=== PATIENT | female | born 1935 | race Caucasian/White ===

== ENCOUNTER 2017-04-25 14:00 | Inpatient (IN) | payer OTHER ==
[~2017-04-25] VITALS: Ht 160 cm; Wt 68.6 kg
[~2017-04-25 14:00] MED LIST: ALBUTEROL SULF0.5 ML INH; ALDACTONE25 MG PO; AMOXIL 875 MG875 MG PO; CARLSON VITAM2000 IU PO; CITALOPRAM HBR20 MG PO; COZAAR 50MG TAB50 MG PO; IPRATROPIU0.2 MG/1 M INH/SOL; LASIX20 MG PO; LISINOPRIL10 MG PO; LOPRESSOR50 M1 PO; PREDNISONE 20MG20 MG PO; PRINIVIL20 M1 PO; PROAIR HFA8.5 GM INH; ZOCOR40 M1 PO
--- NOTE | 2017-04-25 14:06 | ED CRITICAL CARE ---
History of Present Illness General Chief Complaint: Dyspnea (COPD, CHF, Other) Stated Complaint: BIBA FOR RESPIRATORY DISTRESS Source: patient, EMS Exam Limitations: clinical condition Vital Signs & Intake/Output Vital Signs & Intake/Output Vital Signs Date Time Temp Pulse Resp B/P B/P Pulse O2 O2 Flow FiO2 Mean Ox Delivery Rate 04/25 2230 97.7 84 18 130/60 98 Nasal 6.0L Cannula 04/25 2034 Nasal 6.0L Cannula 04/25 2019 97.5 87 20 136/58 96 Nasal 8L Cannula 04/25 1955 98.2 88 26 172/86 97 Nasal 8L Cannula 04/25 1717 96 24 180/90 97 Nasal 8L Cannula 04/25 1630 89 100 04/25 1607 97.7 79 20 143/64 100 BIPAP 75% 04/25 1454 94 BIPAP 04/25 1453 84 26 104/57 94 BIPAP 04/25 1427 81 26 116/54 96 BIPAP 04/25 1425 87 95 04/25 1424 95 BIPAP 70% 04/25 1416 96.2 85 26 114/70 95 BIPAP 04/25 1400 88 26 134/78 82 CPAP Allergies Coded Allergies: Sulfa (Sulfonamide Antibiotics) (Intermediate, "ITCHY" - MED LIST FROM MD OFFICE SAYS POSION EDWIGE LIKE RASH 12/25/15) Reconcile Medications Albuterol Sulfate (Proair Hfa) 90 MCG HFA.AER.AD 2 PUF INH Q4-6 PRN PRN SHORTNESS OF BREATH (Reported) Albuterol Sulfate 2.5 MG/3 ML (0.083 %) VIAL.NEB 1 Vial INH/CARL TID BREATHING PROBLEMS (Reported) Citalopram Hydrobromide (Citalopram HBr) 20 MG TABLET 1 TAB PO DAILY MENTAL HEALTH (Reported) Furosemide 20 MG TABLET 1 TAB PO DAILY WATER RETENTION (Reported) Ipratropium [place] 0.2 MG/ML (0.02 %) SOLUTION 1 Vial INH/CARL BID BREATHING PROBLEMS (Reported) Lisinopril (Prinivil) 20 MG TABLET 1 TAB PO DAILY BP (Reported) Losartan Potassium (Cozaar) 50 MG TABLET 1 TAB PO DAILY HEART (Reported) Metoprolol Tartrate (Lopressor) 50 MG TABLET 1 TAB PO BID BP (Reported) Simvastatin (Zocor*) 40 MG TABLET 1 TAB PO DAILY CHOLESTEROL (Reported) Spironolactone (Aldactone) 25 MG TABLET 1 TAB PO DAILY HEART FAILURE ( Reported) Triage Nurses Notes Reviewed? yes Onset: Abrupt Duration: minute(s): (30) Timing: single episode today Injury Environment: community hospital Severity: severe Associated Symptoms: DIAPHORETIC, SHORT OF BREATH HPI: 81 year old female presents to the ER via EMS from [facility] for chief complaint of sudden onset shortness of breath after non contrast abd/pelvis CT. She was sitting in the waiting room when she suddenly became distressed. EMS reports she was pale, diaphoretic. SHe was given IV steroids and a duoneb en route and then started to tire out. They then started BIPAP. History of CHF and COPD. Past History Travel History Traveled to [facility] past 21 day No Medical History Any Pertinent Medical History? 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 MOTHER (heart failure). FATHER (Diabetes). Hx Contributory? No Review of Systems Review of Systems Constitutional: Denies: chills, fever. Eyes: Denies: blurred vision. Ears, Nose, Throat, Mouth: Reports: no symptoms. Respiratory: Reports: short of breath. Cardiovascular: Denies: chest pain, palpitations. Gastrointestinal/Abdominal: Denies: abdominal pain. Genitourinary: Reports: no symptoms. Musculoskeletal: Denies: back pain. Skin: Reports: no symptoms. Neurological/Psychological: Reports: anxiety, confusion. All Other Systems: Reviewed and Negative Physical Exam Physical Exam General Appearance: lethargic, severe distress Head: atraumatic Eyes: Bilateral: PERRL. Neck: normal inspection, supple, full range of motion Respiratory: decreased breath sounds, respiratory distress Cardiovascular: regular rate/rhythm Peripheral Pulses: 1+ radial (R), 1+ radial (L) Gastrointestinal: soft, non-tender Extremities: EDEMA LEFT LEG Neurologic/Psych: ANXIOUS, LETHARGIC, DIAPHORETIC Skin: intact, normal color, warm/dry Core Measures ACS in differential dx? Yes ASA ordered for poss ACS? No-ACS ruled out CVA/TIA Diagnosis: No Severe Sepsis Present: No Septic Shock Present: No Progress Differential Diagnoses I considered the following diagnoses in my evaluation of the patient: [PNEUMONIA , CHF, PE, COPD EXACERBATION] Plan of Care: Orders Procedure Date/time Status Heart Healthy Diet 04/26 B Active TROPONIN LEVEL 04/26 0600 Active CBC WITHOUT DIFFERENTIAL 04/26 0600 Active BASIC ELECTROLYTES PLUS BUN&CR 04/26 0600 Active EKG 04/26 0600 Active TROPONIN LEVEL 04/25 2100 Active EKG 04/25 2100 Active STREP PNEUMO URINARY ANTIGEN 04/25 2037 Active LEGIONELLA URINARY ANTIGEN 04/25 2037 Active LOWER RESPIRATORY CULTURE 04/25 2037 Active BLOOD CULTURE 04/25 2037 Active URINALYSIS 04/25 2037 Active Vital Signs 04/25 2032 Active Teach/Educate 04/25 2032 Active Pain Treatment and Response 04/25 2032 Active Nutritional Intake, Monitor 04/25 2032 Active Isolation 04/25 2032 Active Intake & Output 04/25 2032 Active Patient Care Conference 04/25 2032 Active Activity/Ambulation 04/25 2032 Active Pathway - chart 04/25 192 Active House Staff 04/25 1923 Active Patient Data 04/25 1923 Active Code Status 04/25 1923 Active Patient Data 04/25 1856 Active ED Holding Orders 04/25 1803 Active Admit to inpatient 04/25 1803 Active Vital Signs 04/25 1803 Active Code Status 04/25 1803 Complete BIPAP 04/25 1500 Complete COMPREHENSIVE METABOLIC PANEL 04/25 1433 Complete ARTERIAL BLOOD GAS (GEN) 04/25 1422 Complete Intake & Output 04/25 1414 Active BIPAP 04/25 1410 Complete TROPONIN LEVEL 04/25 1409 Complete PARTIAL THROMBOPLASTIN TIME 04/25 1409 Complete PROTHROMBIN TIME 04/25 1409 Complete D-DIMER 04/25 1409 Complete B-TYPE NATRIURETIC PEP (BNP) 04/25 1409 Complete CBC WITHOUT DIFFERENTIAL 04/25 1405 Complete EKG 04/25 1402 Active TRC EVALUATION (GEN) 04/25 UNK Active Weight 04/25 UNK Active VTE Mechanical Prophylaxis 04/25 UNK Active Telemetry/Wood Floor Refinisher 04/25 UNK Active Intake & Output 04/25 UNK Active ECHOCARDIOGRAM 04/25 UNK Active Current Medications Sig/Dom Start time Last Medication Dose Stop Time Status Admin Atorvastatin Calcium 40 MG 1700 04/26 1700 AC (Lipitor) Citalopram 20 MG DAILY 04/26 1000 AC Hydrobromide (Celexa) Spironolactone 25 MG DAILY 04/26 1000 AC (Aldactone) Albuterol Sulfate 3 ML TID 04/25 220 AC (Proventil) Ipratropium [place] 2.5 ML BID 04/25 2200 AC (Atrovent) Methylprednisolone 40 MG Q8 04/25 2200 AC (Solumedrol) Metoprolol Tartrate 50 MG BID 04/25 2200 AC (Lopressor) Albuterol Sulfate 2 PUF Q4-6 PRN PRN 04/25 2145 AC (Ventolin) Losartan Potassium 50 MG DAILY 04/25 2140 AC (Cozaar) Lisinopril 20 MG DAILY 04/25 2139 AC (Prinivil) Acetaminophen 325 MG Q6 PRN 04/25 193 AC 04/25 (Tylenol) 2053 Acetaminophen 1,000 MG Q6 PRN 04/25 1930 AC (Ofirmev) Enoxaparin Sodium 40 MG DAILY 04/25 1922 AC 04/25 (Lovenox) 194 Laboratory Tests 04/25/175: Troponin I Pending 04/25/17 1440: pH 7.40, pCO2 39, pO2 63 L, HCO3 24, ABG O2 Sat (Measured) 93.0 L, P-50 (Temp Corrected) YES, Carboxyhemoglobin 0.5 L, O2 Concentration % 70%, Temperature 96.2 L, Respiration Rate 26, O2 Delivery Method BIPAP, Vent Mode ST, Expiratory Pressure 6, Inspiratory Pressure 26, Phlebotomy Draw Site RIGHT BRACHIAL 04/25/17 1433: Anion Gap 14, Estimated GFR 53 L, BUN/Creatinine Ratio 16.0, Glucose 189 H, Calcium 9.3, Total Bilirubin 0.8, AST 26, ALT 29, Alkaline Phosphatase 132 H, Troponin I 0.05, Thu-Q-Rkpsieaodgb Pept 438 H, Total Protein 7.1, Albumin 4.4, Globulin 2.7, Albumin/Globulin Ratio 1.6, PT 11.5, INR 1.10, APTT 24 L, D-Dimer High Sensitivty 3964 H, CBC w Diff NO MAN DIFF REQ, RBC 4.53, MCV 94.5, MCH 31.4 H, RDW 13.1, MPV 7.4, Gran % 68.8, Lymphocytes % 24.1, Monocytes % 5.9, Eosinophils % 0.9, Basophils % 0.3, Absolute Granulocytes 5.3, Absolute Lymphocytes 1.9, Absolute Monocytes 0.5, Absolute Eosinophils 0.1, Absolute Basophils 0, PUBS MCHC 33.2 04/25/17 1405: Sodium Cancelled, Potassium Cancelled, Chloride Cancelled, Carbon Dioxide Cancelled, Anion Gap Cancelled, BUN Cancelled, Creatinine Cancelled, BUN/ Creatinine Ratio Cancelled, Glucose Cancelled, Calcium Cancelled, Total Bilirubin Cancelled, AST Cancelled, ALT Cancelled, Alkaline Phosphatase Cancelled, Total Protein Cancelled, Albumin Cancelled, Globulin Cancelled, Albumin/Globulin Ratio Cancelled Microbiology 04/25 2152 BLOOD: Blood Culture - RECD 04/25 2135 BLOOD: Blood Culture - RECD 04/25 2037 URINE ROUT: Legionella Antigen - ORD 04/25 2037 URINE ROUT: Streptococcus pneumoniae Antigen (M - ORD 04/25 2037 LOWER RESP: Respiratory Culture - ORD 04/25 2037 LOWER RESP: Gram Stain - ORD Diagnostic Imaging: Viewed by Me: CT Scan. Discussed w/RAD: CT Scan. Radiology Impression: PATIENT: DELVIS ARROYO PRESENT AGE: 81 PATIENT ACCOUNT NO: [id number] : 37 LOCATION: [facility] ORDERING PHYSICIAN: GRZEGORZ DUQUE MD SERVICE DATE: 04/25/17 EXAM TYPE: CAT - CTA CHEST-PULMONARY EMBOLISM EXAMINATION: CT ANGIOGRAM OF THE CHEST WITH AND WITHOUT CONTRAST (CT PULMONARY ANGIOGRAM FOR PE) CLINICAL INFORMATION: Signs Symptoms: RESPIRATORY DISTRESS, ? PE COMPARISON: CT abdomen pelvis 04/25/2017. Renal ultrasound 04/26/2017. TECHNIQUE: Prior to contrast administration, noncontrast localization images were obtained. Subsequently, multidetector volumetric imaging was performed from the thoracic inlet to below the diaphragms following the administration of 80 mL Omnipaque 350 intravenous contrast. No contrast reaction reported. Sagittal, coronal, and MIP oblique sagittal reformatted images were obtained on the CT workstation, uploaded to PACS, and reviewed. Total exam dose-length product 448.06 mGy-cm. FINDINGS: QUALITY OF STUDY/CONTRAST BOLUS: Satisfactory PULMONARY ARTERIES: No central or segmental pulmonary emboli. THORACIC AORTA: Atherosclerotic vascular wall calcifications of aorta. No aneurysm. There is calcification of coronary arteries. LUNG: Emphysematous changes of lungs most pronounced at upper lobes. There is diffuse increased interstitial thickening most likely due to interstitial edema. This is more pronounced in the left lung than the right. There is bibasilar consolidation/atelectasis. PLEURA: Small left pleural effusion. MEDIASTINUM: Normal heart size. No pericardial effusion. No hilar or mediastinal lymphadenopathy. No evidence of septal bowing or right heart strain. CHEST WALL/ AXILLA: No axillary or internal mammary lymphadenopathy. OSSEOUS STRUCTURES: No acute or suspicious osseous abnormality. UPPER ABDOMEN: Unremarkable. No reflux of contrast into the hepatic veins to suggest elevated right heart pressures. Calcified granuloma in the upper spleen. There are bilateral renal cysts. IMPRESSION: 1. No evidence of pulmonary embolism. 2. Emphysematous changes of lung. Interstitial edema, involving left lung greater than right with bibasilar dependent atelectasis/infiltrate and small left pleural effusion. VTE: negative DICTATED BY: DELMAR BRYSON MD DATE/TIME DICTATED:04/25/171722 BOBCAT OPERATOR :AMANDA DATE/TIME TRANSCRIBED:04/25/171722 CONFIDENTIAL, DO NOT COPY WITHOUT APPROPRIATE AUTHORIZATION. <Electronically signed in Other Vendor System> SIGNED BY: DELMAR BRYSON MD 04/25/17 6635 CXR Impression: PATIENT: DELVIS ARROYO PRESENT AGE: 81 PATIENT ACCOUNT NO: [id number] : 37 LOCATION: [facility] ORDERING PHYSICIAN: GRZEGORZ DUQUE MD SERVICE DATE: 04/25/17-0039 EXAM TYPE: RAD - XRY -PORTABLE CHEST XRAY EXAMINATION: XR PORTABLE CHEST CLINICAL INFORMATION: Respiratory distress. COMPARISON: 12/25/2015. 08/26/2015. TECHNIQUE: Portable AP view of the chest was obtained. FINDINGS: The heart does not appear significantly enlarged. There is a mild diffuse increase in interstitial markings asymmetrically involving the majority of the left lung field with a focus of discoid atelectasis in the mid to lower left lung field laterally and no evidence of underlying effusion. Right lung and pleural spaces appear clear. There is no evidence of pneumothorax. Included osseous structures appear largely unremarkable. IMPRESSION: Fairly diffuse increase in interstitial markings throughout the left lung suggesting an evolving atypical pneumonia, asymmetric pulmonary edema and neoplasm not excluded. Clinical correlation and followup imaging to clearing recommended. DICTATED BY: ARTURO JEFFERSON MD DATE/TIME DICTATED:04/25/171420 BOBCAT OPERATOR:AMANDA DATE/TIME TRANSCRIBED:1420 CONFIDENTIAL, DO NOT COPY WITHOUT APPROPRIATE AUTHORIZATION. < Electronically signed in Other Vendor System> SIGNED BY: ARTURO JEFFERSON MD 04/25/17 1448 Initial ED EKG: nonspecific ST T wave chg, SINUS TACHYCARDIA Rhythm Strip: normal sinus rhythm Departure Departure Time of Disposition: 1802 Disposition: STILL A PATIENT Condition: Stable Clinical Impression Primary Impression: CHF (congestive heart failure) Referrals: PANCHITO CADENA MD (PCP/Family) Departure Forms: Customer Survey General Discharge Information Admission Note Spoke With: RENAE ROTHMAN MD Documentation of Exam: Documentation of any treatments & extenuating circumstances including Concerns Regarding Discharge (functional status, medication knowledge or non-compliance, living conditions, etc.) that warrant an admission rather than observation: [ tele monitor, serial EKG/troponin, diuresis, cardiology consultation, echocardiogram] Critical Care Note Critical Care Note Critical Care Time: 30-74 min
[2017-04-25] MEDS ORDERED: FUROSEMIDE20 M1 PO (14:14)
[2017-04-25] MEDS ORDERED: COZAAR50 M1 PO (14:16)
[2017-04-25] MEDS ORDERED: ALBUTEROL2.5 MG/3 M INH/SOL (14:19)
--- NOTE | 2017-04-25 14:19 | NUR ---
PT NAT FROM [facility] FOR ACUTE ONSET OF SOB, ON EMS ARRIVAL PT WAS FOUND TO BE TACHYAPNEIC AT 40 AND 02 SAT ON NRB AT 92%, PER EMS PT BEGAN TO DESAT AND BECOME LESS RESPONSIVE SO WAS PLACED ON CPAP, MEDICATED WITH 125MG SOLUMEDROL AND INLINE DUO NEB SOME MINIMAL RELIEF. PT DROWSY AND LETHARGIC ON ARRIVAL TO ED, DR DUQUE IMMEDIATELY TO BEDSIDE, PLACED ON BIPAP.
[2017-04-25 14:43] LABS: ABSOLUTE BASOPHIL COUNT 0 /CUMM (0.0-0.2); ABSOLUTE EOSINOPHIL COUNT 0.1 /CUMM (0.0-0.7); ABSOLUTE GRANULOCYTE CT 5.3 /CUMM (1.4-6.5); ABSOLUTE LYMPH COUNT 1.9 /CUMM (1.2-3.4); ABSOLUTE MONOCYTE COUNT 0.5 /CUMM (0.10-0.60); BASOPHIL % 0.3 % (0.0-2.0); EOSINOPHIL % 0.9 % (0-5); GRANULOCYTE % 68.8 % (42.2-75.2); HEMATOCRIT 42.8 % (37-47); MEAN CORPUSCULAR HGB 31.4 PG (27.0-31.0); MEAN CORPUSCULAR HGB CONC 33.2 G/DL (33.0-37.0); MEAN CORPUSCULAR VOLUME 94.5 FL (81.0-99.0); MEAN PLATELET VOLUME 7.4 FL (7.4-10.4); PLATELET COUNT 321 /CUMM (130-400); RBC DISTRIBUTION WIDTH 13.1 % (11.5-14.5); RED BLOOD CELL CT 4.53 /CUMM (4.20-5.40); WHITE BLOOD CELL COUNT 7.7 /CUMM (4.8-10.8)
--- NOTE | 2017-04-25 14:48 | RADIOLOGY REPORT ---
EXAMINATION: XR PORTABLE CHEST CLINICAL INFORMATION: Respiratory distress. COMPARISON: 12/25/2015. 08/26/2015. TECHNIQUE: Portable AP view of the chest was obtained. FINDINGS: The heart does not appear significantly enlarged. There is a mild diffuse increase in interstitial markings asymmetrically involving the majority of the left lung field with a focus of discoid atelectasis in the mid to lower left lung field laterally and no evidence of underlying effusion. Right lung and pleural spaces appear clear. There is no evidence of pneumothorax. Included osseous structures appear largely unremarkable. IMPRESSION: Fairly diffuse increase in interstitial markings throughout the left lung suggesting an evolving atypical pneumonia, asymmetric pulmonary edema and neoplasm not excluded. Clinical correlation and followup imaging to clearing recommended.
[2017-04-25 15:01] LABS: PT 11.5 SEC (9.4-12.5); PTT 24 SEC (25-37)
--- NOTE | 2017-04-25 15:12 | NUR ---
REPORT HANDED OFF TO JOSE LUIS PORTER.
--- NOTE | 2017-04-25 16:03 | NUR ---
RESPIRATORY PAGED FOR RE-EVAL AND TRIAL OFF BIPAP PER DR DUQUE.
--- NOTE | 2017-04-25 16:24 | NUR ---
RESP THERAPIST AT BEDSIDE, CHANGED TO PARTIAL REBREATHER AT 60% O2, O2 SATS 98% AT THIS TIME, SIPS OF ICE WATER GIVEN FOR C/O "DRY MOUTH", TOLERATED WELL, SWALLOWED WITHOUT DIFFICULTY.
--- NOTE | 2017-04-25 17:20 | NUR ---
CHEST CT DONE, TOLERATED WELL, VITALS REMAIN STABLE, O2 SATS 95-97% ON 8L NC AT THIS TIME, PT ON PHONE WITH SON AT PRESENT, REMAINS AWAKE, ALERT, ORIENTED.
--- NOTE | 2017-04-25 17:42 | CT SCAN REPORT ---
EXAMINATION: CT ANGIOGRAM OF THE CHEST WITH AND WITHOUT CONTRAST (CT PULMONARY ANGIOGRAM FOR PE) CLINICAL INFORMATION: Signs Symptoms: RESPIRATORY DISTRESS, ? PE COMPARISON: CT abdomen pelvis 04/25/2017. Renal ultrasound 04/26/2017. TECHNIQUE: Prior to contrast administration, noncontrast localization images were obtained. Subsequently, multidetector volumetric imaging was performed from the thoracic inlet to below the diaphragms following the administration of 80 mL Omnipaque 350 intravenous contrast. No contrast reaction reported. Sagittal, coronal, and MIP oblique sagittal reformatted images were obtained on the CT workstation, uploaded to PACS, and reviewed. Total exam dose-length product 448.06 mGy-cm. FINDINGS: QUALITY OF STUDY/CONTRAST BOLUS: Satisfactory PULMONARY ARTERIES: No central or segmental pulmonary emboli. THORACIC AORTA: Atherosclerotic vascular wall calcifications of aorta. No aneurysm. There is calcification of coronary arteries. LUNG: Emphysematous changes of lungs most pronounced at upper lobes. There is diffuse increased interstitial thickening most likely due to interstitial edema. This is more pronounced in the left lung than the right. There is bibasilar consolidation/atelectasis. PLEURA: Small left pleural effusion. MEDIASTINUM: Normal heart size. No pericardial effusion. No hilar or mediastinal lymphadenopathy. No evidence of septal bowing or right heart strain. CHEST WALL/AXILLA: No axillary or internal mammary lymphadenopathy. OSSEOUS STRUCTURES: No acute or suspicious osseous abnormality. UPPER ABDOMEN: Unremarkable. No reflux of contrast into the hepatic veins to suggest elevated right heart pressures. Calcified granuloma in the upper spleen. There are bilateral renal cysts. IMPRESSION: 1. No evidence of pulmonary embolism. 2. Emphysematous changes of lung. Interstitial edema, involving left lung greater than right with bibasilar dependent atelectasis/infiltrate and small left pleural effusion. VTE: negative
--- NOTE | 2017-04-25 19:30 | NUR ---
ASSUMED PRIMARY CARE PT OOB TO BEDSIDE COMMODE, YUMIKO WELL NO INCREASED SOB. ALERT WAITING FOR BED ASSIGNMENT. LUNGS OCCAS RHONCHI BUT EASSENTIALLY CLEAR NO CP AT THIS TIME.
--- NOTE | 2017-04-25 19:42 | NUR ---
REPORT TO RAQUEL RUEDA AT [facility]
--- NOTE | 2017-04-25 19:49 | History & Physical ---
ZAKI BRAR 04/25/17 194: General Information and HPI MD Statement: I have seen and personally examined DELVIS ARROYO and documented this H&P. The patient is a 81 year old F who presented with a patient stated chief complaint of [ tachynea and dyspnea]. 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 Patient was at [facility] to get a CAT scan(unable to tell exact details) when she suddenly started feeling short of breath and was found to be tachypneic at 40s and oxygen saturation in low 90s. As per the EMS records, patient became started desaturating en route to the hospital and was placed on CPAP. She received 125 mg Solu-Medrol and nebulizer treatment with minimal relief. She was found to be lethargic on arrival to the ED and was started on a BiPAP. Patient reports she does not know what exactly happened and why she desaturated. She complains of shortness of breath along with chills but denies any chest pain, nausea, dizziness, abdominal pain, urinary or bowel symptoms. She has history of COPD and uses a CPAP at home. She reports she was perfectly fine in the morning today until she started having the shortness of breath. Idris Cadena MD is a PCP. She was a known smoker for 50 years, 3 packs per day. In the ED vitals, temperature of 96.2, pulse 88, respiration 26, blood pressure 134/78 saturating 82% on the CPAP, improved to 95% on BiPAP. Labs were normal except glucose 189, pro BNP 438, d-dimer 3964. AB.40/39/63/24 Chest x-ray showed increased interstitial markings throughout the left lung suggesting evolving atypical pneumonia. CTA negative for PE, emphysematous changes of the lungs, interstitial edema and bibasilar atelectasis/infiltrate and small left pleural effusion. Last echo in 2014 showed EF of 40-45% with mild decreased systolic function and no wall motion abnormality. Patient received 40 Lasix and neb treatment in the ED and was placed on BiPAP. Allergies/Medications Allergies: Coded Allergies: Sulfa (Sulfonamide Antibiotics) (Intermediate, "ITCHY" - MED LIST FROM MD OFFICE SAYS TERESA GIBBONS LIKE RASH 12/25/15) Home Med list Albuterol Sulfate (Proair Hfa) 90 MCG HFA.AER.AD 2 PUF INH Q4-6 PRN PRN SHORTNESS OF BREATH (Reported) Albuterol Sulfate 2.5 MG/3 ML (0.083 %) VIAL.NEB 1 Vial INH/CARL TID BREATHING PROBLEMS (Reported) Citalopram Hydrobromide (Citalopram HBr) 20 MG TABLET 1 TAB PO DAILY MENTAL HEALTH (Reported) Furosemide 20 MG TABLET 1 TAB PO DAILY WATER RETENTION (Reported) Ipratropium [place] 0.2 MG/ML (0.02 %) SOLUTION 1 Vial INH/CARL BID BREATHING PROBLEMS (Reported) Lisinopril (Prinivil) 20 MG TABLET 1 TAB PO DAILY BP (Reported) Losartan Potassium (Cozaar) 50 MG TABLET 1 TAB PO DAILY HEART (Reported) Metoprolol Tartrate (Lopressor) 50 MG TABLET 1 TAB PO BID BP (Reported) Simvastatin (Zocor*) 40 MG TABLET 1 TAB PO DAILY CHOLESTEROL (Reported) Spironolactone (Aldactone) 25 MG TABLET 1 TAB PO DAILY HEART FAILURE ( Reported) Past History Travel History Traveled to [place] past 21 day No Medical History Neurological: NONE EENT: NONE Cardiovascular: CHF, hypertension, NSTEMI, MIXED HYPERLIPIDEMIA Respiratory: COPD Gastrointestinal: BLEEDING STOMACH ULCER Hepatic: NONE Renal: NONE Musculoskeletal: NONE Psychiatric: MAJOR DEPRESSIVE DISORDER GENERALIZED ANXIETY D/O Endocrine: PRE-DIABETIC Blood Disorders: anemia, VIT D DEFICIENCY Cancer(s): 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 MOTHER (heart failure). FATHER (Diabetes). Psychosocial History Services at Home: Home Health Aide, Nursing ETOH Use: denies use Illicit Drug Use: denies illicit drug use Review of Systems Review of Systems Constitutional: Reports: chills, malaise, weakness. EENTM: Reports: no symptoms. Cardiovascular: Reports: no symptoms. Respiratory: Reports: short of breath. GI: Reports: no symptoms. Genitourinary: Reports: no symptoms. Musculoskeletal: Reports: no symptoms. Skin: Reports: no symptoms. Neurological/Psychological: Reports: no symptoms. Hematologic/Endocrine: Reports: no symptoms. Exam & Diagnostic Data Last 24 Hrs of Vital Signs/I&O Vital Signs Date Time Temp Pulse Resp B/P B/P Pulse O2 O2 Flow FiO2 Mean Ox Delivery Rate 04/25 2019 97.5 87 20 136/58 96 Nasal 8L Cannula 04/25 1955 98.2 88 26 172/86 97 Nasal 8L Cannula 04/25 1717 96 24 180/90 97 Nasal 8L Cannula 04/25 1630 89 100 04/25 1607 97.7 79 20 143/64 100 BIPAP 75% 04/25 1454 94 BIPAP 04/25 1453 84 26 104/57 94 BIPAP 04/25 1427 81 26 116/54 96 BIPAP 04/25 1425 87 95 04/25 1424 95 BIPAP 70% 04/25 1416 96.2 85 26 114/70 95 BIPAP 04/25 1400 88 26 134/78 82 CPAP Intake & Output 04/25 1600 04/25 0800 04/25 0000 Intake Total Output Total Balance Patient 65.771 kg Weight Weight Estimated Measurement Method Physical Exam General Appearance Alert, Oriented X3, Cooperative, Mild Distress Skin No Rashes, No Breakdown, No Significant Lesion Skin Temp/Moisture Exam: Warm/Dry Sepsis Skin Exam (color): Normal for Ethnicity, Cyanotic HEENT Atraumatic, PERRLA, EOMI Neck Supple, No JVD Lymphatic Cervical nl Cardiovascular Regular Rate, Normal S1, Normal S2 Lungs diminished air movement bilaterally Abdomen Normal Bowel Sounds, Soft, No Tenderness Neurological Normal Gait, Normal Speech, Strength at 5/5 X4 Ext, Normal Tone, Sensation Intact Extremities No Clubbing, No Cyanosis, No Edema Vascular Normal Pulses Assessment/Plan Assessment: 81 yo female with h/o HTN, anemia, duodenal ulcer, COPD(on CPAP at home), 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 In the ED vitals, temperature of 96.2, pulse 88, respiration 26, blood pressure 134/78 saturating 82% on the CPAP, improved to 95% on BiPAP. Labs were normal except glucose 189, pro BNP 438, d-dimer 3964. AB.40/39/63/24 Chest x-ray showed increased interstitial markings throughout the left lung suggesting evolving atypical pneumonia. CTA negative for PE, emphysematous changes of the lungs, interstitial edema and bibasilar atelectasis/infiltrate and small left pleural effusion. Last echo in 2014 showed EF of 40-45% with mild decreased systolic function and no wall motion abnormality. Patient received 40 Lasix and neb treatment in the ED and was placed on BiPAP. Assessment * Acute hypoxic respiratory failure secondary to COPD exacerbation and acute on chronic CHF * Acute on chronic HFwREF (EF 45% Jul 2015) * Atypical pneumonia? Infiltrate on CT scan * Hypertension * Hyperlipidemia * Stranding in the root of the mesentery with the small subcentimeter lymph nodes/chronic mesenteric panniculitis Plan * Admit patient to telemetry * 3 sets of troponin/EKG to rule out ACS * Strict ins and outs, daily weight checks * Continue IV Lasix 40 daily * IV Solu-Medrol 40 every 8 hours * Continue CPAP at night * TRC nebs [id number] * Continue inhalers * Blood culture, sputum culture, urine strep and Legionella * Watch off antibiotics for now * Echocardiogram ordered * Cardiology consult in a.m. * Continue home blood pressure medications * DVT prophylaxis subcutaneous Lovenox * Full code * Mild pain pathway As Ranked By This Provider Problem List: 1. CHF (congestive heart failure) 2. COPD exacerbation 3. Hypertension Core Measures/Miscellaneous Acute Coronary Syndrome ACS Diagnosis: No Cerebrovascular Accident CVA/TIA Diagnosis: No Congestive Heart Failure CHF Diagnosis: Yes Last Known EF %: 45 CORETTA/ARB for EF <40%: Yes VTE (View Protocol) VTE Risk Factors: Age > 40 No [facility] VTE prophylaxis d/t: No contraindications No VTE Pharm Prophylaxis d/t: No contraindications VTE Diagnosis: No VTE Type: NONE VTE Confirmed by (Test): NONE Sepsis (View Protocol) Severe Sepsis Present: No Septic Shock Septic Shock Present: No Miscellaneous Documentation Attending Case Discussed With: RENAE ROTHMAN MD Primary Care Physician: PANCHITO CADENA MD Patient sees these Specialists none Level of Patient Care: Telemetry RENAE ROTHMAN MD 04/25/172: Attending MD Review Statement Attending Statement Attending MD Statement: examined this patient, discuss w/resident/PA/LEATHER ETCHER, agreed w/resident/PA/LEATHER ETCHER, reviewed EMR data (avail) Attending Assessment/Plan: 81F PMH HTN, anemia, duodenal ulcer, COPD(on CPAP at home), HFrEF (EF 45% Jul 2015) ) and pulmonary hypertension brought in by EMS for acute onset of dyspnea and tachycardia after undergoing outpatient CT of the abdomen. Patient was sent for abdominal CT by her PCP for unclear reason, after the procedure found she was very short of breath, became tachypneic and tachycardic, EMS were called and found her oxygen saturation to be 80%, placed on CPAP and given Solumedrol and brought to ED. In ED patient was lethargic and tachypneic, placed on BiPAP and given Lasix with significant improvement in breathing and mental status. She is now breathing comfortably on 2L NC and has full mentation. Lung have crackles bilaterally, CTA chest shows interstitial edema with bilateral pleural effusions and no evidence of CT. Outpatient CT abdomen shows evidence of chronic mesenteric panniculitis vs lymphoproliferative disorder. 1. Acute pulmonary edema 2. Acute hypoxemic respiratory failure 3. Acute on chronic HFrEF Plan - Admit to telemetry - Continue diuresis with IV Lasix - Monitor I/O, daily weights - Cardiology consult - BiPAP overnight and PRN - Trend enzymes and EKG - Continue home medications - Outpatient follow up for abnormal abdominal CT - DVT PPx
[2017-04-25 20:19] VITALS: BP 136/58
--- NOTE | 2017-04-25 22:08 | Admission Certification ---
Admission Certification Certification Statement - As attending physician, I certify that at the time of - admission, based on clinical presentation, severity of - symptoms, need for further diagnostic testing and - therapeutic interventions, and risk of adverse outcomes - without in-hospital treatment, in my clinical assessment, - this patient requires an acute hospital stay for a minimum - of two nights or longer. I have also considered psychsocial - factors such as support system, advanced age, financial - issues, cognitive issues, and failed out-patient treatments, - past re-admission history, safety of patient, and lack of - compliance as applicable. Specific rationale supporting this admission is: Acute pulmonary edema with respiratory failure
[2017-04-25 22:30] VITALS: BP 130/60
--- NOTE | 2017-04-26 05:03 | PN- Housestaff ---
See Addendum Subjective Follow-up For: Acute hypoxic respiratory failure secondary to COPD exacerbation and acute on chronic CHF Elevated troponins Complaints: no complaints Tele-Events Since Last Visit: Sinus rhythm, 60s to 80s, no events Subjective: Patient is feeling a little better. Still appears a little confused. Has not been able to sleep well. Denies any chest pain, palpitations, nausea, vomiting or diaphoresis. Troponins have risen from baseline with no EKG changes. Repeat EKG and troponins at 6 AM. Review of Systems Constitutional: Reports: no symptoms. EENTM: Reports: no symptoms. Cardiovascular: Reports: no symptoms. Respiratory: Reports: no symptoms. Gastrointestinal: Reports: no symptoms. Genitourinary: Reports: no symptoms. Objective Last 24 Hrs of Vital Signs/I&O Vital Signs Date Time Temp Pulse Resp B/P B/P Pulse O2 O2 Flow FiO2 Mean Ox Delivery Rate 04/26 0234 98 Nasal 6.0L Cannula 04/26 0003 87 130/76 04/26 0002 87 130/76 04/26 0002 87 130/76 04/26 0000 Nasal 6.0L Cannula 04/25 2230 97.7 84 18 130/60 98 Nasal 6.0L Cannula 04/254 Nasal 6.0L Cannula 04/25 2019 97.5 87 20 136/58 96 Nasal 8L Cannula 04/25 1955 98.2 88 26 172/86 97 Nasal 8L Cannula 04/25 1717 96 24 180/90 97 Nasal 8L Cannula 04/25 1630 89 100 04/25 1607 97.7 79 20 143/64 100 BIPAP 75% 04/25 1454 94 BIPAP 04/25 1453 84 26 104/57 94 BIPAP 04/25 1427 81 26 116/54 96 BIPAP 04/25 1425 87 95 04/25 1424 95 BIPAP 70% 04/25 1416 96.2 85 26 114/70 95 BIPAP 04/25 1400 88 26 134/78 82 CPAP Intake & Output 04/26 0800 04/26 0000 04/25 1600 Intake Total 120 Output Total Balance 120 Intake, Oral 120 Patient 69.57 kg 65.771 kg Weight Weight Reported by Patient Estimated Measurement Method Physical Exam General Appearance: Alert, Oriented X3, Cooperative, No Acute Distress Skin: No Rashes, No Breakdown, No Significant Lesion Skin Temp/Moisture Exam: Warm/Dry Sepsis Skin Exam (color): Normal for Ethnicity HEENT: Atraumatic, PERRLA, EOMI Neck: Supple, No JVD Lymphatic: Cervical nl Cardiovascular: Regular Rate, Normal S1, Normal S2 Lungs: diminished air entry bilaterally Abdomen: Normal Bowel Sounds, Soft Neurological: Normal Speech, Strength at 5/5 X4 Ext, Normal Tone Extremities: No Clubbing, No Cyanosis, No Edema Vascular: Normal Pulses Assessment/Plan Assessment: 81 yo female with h/o HTN, anemia, duodenal ulcer, COPD(on CPAP at home), HFwREF (EF 45% Jul 2015) ) and pulmonary hypertension was sent to the ED from [facility] for acute onset of shortness of breath and tachypnea. In the ED vitals, temperature of 96.2, pulse 88, respiration 26, blood pressure 134/78 saturating 82% on the CPAP, improved to 95% on BiPAP. Labs were normal except glucose 189, pro BNP 438, d-dimer 3964. AB.40/39/63/24 Chest x-ray showed increased interstitial markings throughout the left lung suggesting evolving atypical pneumonia. CTA negative for PE, emphysematous changes of the lungs, interstitial edema and bibasilar atelectasis/infiltrate and small left pleural effusion. Last echo in 2014 showed EF of 40-45% with mild decreased systolic function and no wall motion abnormality. Patient received 40 Lasix and neb treatment in the ED and was placed on BiPAP. Assessment * Acute hypoxic respiratory failure secondary to COPD exacerbation and acute on chronic CHF * Elevated troponins, likely demand ischemia * Acute on chronic HFwREF (EF 45% Jul 2015) * Atypical pneumonia? 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 Patient complains of no chest pain at this time. Repeat troponin/EKG at 6 AM. We'll trend troponins to the peak * Strict ins and outs, daily weight checks * Continue IV Lasix 40 daily * IV Solu-Medrol 40 every 8 hours * Continue CPAP at night * TRC nebs [id number] * Continue inhalers * Blood culture, sputum culture, urine strep and Legionella * Watch off antibiotics for now * Echocardiogram ordered * Cardiology consult in a.m.with Dr Montanez * Continue home blood pressure medications * DVT prophylaxis subcutaneous Lovenox * Full code * Mild pain pathway Problem List: 1. COPD exacerbation 2. Hypertension Pain Ratin Pain Location: na Pain Goal: Remain pain free Pain Plan: prn tylenol Tomorrow's Labs & Rationales: bep..hypokalemia
[2017-04-26 07:45] VITALS: BP 124/62
[2017-04-26 08:37] LABS: ABSOLUTE BASOPHIL COUNT 0 /CUMM (0.0-0.2); ABSOLUTE EOSINOPHIL COUNT 0 /CUMM (0.0-0.7); ABSOLUTE LYMPH COUNT 0.7 /CUMM (1.2-3.4); ABSOLUTE MONOCYTE COUNT 0.4 /CUMM (0.10-0.60); BASOPHIL % 0 % (0.0-2.0); EOSINOPHIL % 0 % (0-5); GRANULOCYTE % 89.2 % (42.2-75.2); HEMATOCRIT 38.2 % (37-47); MEAN CORPUSCULAR HGB 31.5 PG (27.0-31.0); MEAN CORPUSCULAR HGB CONC 33.6 G/DL (33.0-37.0); MEAN CORPUSCULAR VOLUME 93.6 FL (81.0-99.0); MEAN PLATELET VOLUME 8.3 FL (7.4-10.4); PLATELET COUNT 277 /CUMM (130-400); RBC DISTRIBUTION WIDTH 13.2 % (11.5-14.5); RED BLOOD CELL CT 4.08 /CUMM (4.20-5.40); WHITE BLOOD CELL COUNT 10.1 /CUMM (4.8-10.8)
[2017-04-26 15:28] VITALS: BP 112/48
--- NOTE | 2017-04-26 21:01 | Cons- Cardiology ---
General Information and HPI Consulting Request Date of Consult: 04/26/17 Requested By: RENAE ROTHMAN MD History of Present Illness: Ms. Salas is a 81 year old female with history of hypertension, dyslipidemia , COPD, interstitial lung disease and pulmonary hypertension. While obtaining a CT scan this patient became acutely short of breath and tachypneic. Her O2 sats reportedly were in the low 90's but she desaturated en route to the hospital. She improved with CPAP/BIPAP and is now lying supine in bed without shortness of breath. Otherwise, this patient denies chest discomfort, lightheadedness or palpitations. The patient continues to smoke and uses CPAP at home. Workup has included a chest X-ray showing evidence of interstitial lung disease. Her CT ruled out a pulmonary embolism although the patient's D-dimer was very high. It also disclosed evidence of emphysematous lung disease. Finally, the patient has a bordeline elevated troponin. The patient's echo from 2014 showed a mildly decreased EF of 40-45%. Allergies/Medications Allergies: Coded Allergies: Sulfa (Sulfonamide Antibiotics) (Intermediate, "ITCHY" - MED LIST FROM MD OFFICE SAYS TERESA EDWIGE LIKE RASH 12/25/15) Home Med List: Albuterol Sulfate (Proair Hfa) 90 MCG HFA.AER.AD 2 PUF INH Q4-6 PRN PRN SHORTNESS OF BREATH (Reported) Albuterol Sulfate 2.5 MG/3 ML (0.083 %) VIAL.NEB 1 Vial INH/CARL TID BREATHING PROBLEMS (Reported) Citalopram Hydrobromide (Citalopram HBr) 20 MG TABLET 1 TAB PO DAILY MENTAL HEALTH (Reported) Furosemide 20 MG TABLET 1 TAB PO DAILY WATER RETENTION (Reported) Ipratropium [place] 0.2 MG/ML (0.02 %) SOLUTION 1 Vial INH/CARL BID BREATHING PROBLEMS (Reported) Lisinopril (Prinivil) 20 MG TABLET 1 TAB PO DAILY BP (Reported) Losartan Potassium (Cozaar) 50 MG TABLET 1 TAB PO DAILY HEART (Reported) Metoprolol Tartrate (Lopressor) 50 MG TABLET 1 TAB PO BID BP (Reported) Simvastatin (Zocor*) 40 MG TABLET 1 TAB PO DAILY CHOLESTEROL (Reported) Spironolactone (Aldactone) 25 MG TABLET 1 TAB PO DAILY HEART FAILURE ( Reported) Past History Travel History Traveled to [place] past 21 day No Medical History Blood Transfusion Hx: Yes Neurological: NONE EENT: NONE Cardiovascular: CHF, hypertension, NSTEMI, MIXED HYPERLIPIDEMIA Respiratory: COPD Gastrointestinal: BLEEDING STOMACH ULCER Hepatic: NONE Renal: NONE Musculoskeletal: NONE Psychiatric: MAJOR DEPRESSIVE DISORDER GENERALIZED ANXIETY D/O Endocrine: PRE-DIABETIC Blood Disorders: anemia, VIT D DEFICIENCY Cancer(s): 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 MOTHER (heart failure). FATHER (Diabetes). Psychosocial History Where Do You Live? Home Services at Home: Home Health Aide, Nursing Smoking Status: Former Smoker ETOH Use: denies use Illicit Drug Use: denies illicit drug use Exam & Diagnostic Data Vital Signs and I&O Vital Signs Date Time Temp Pulse Resp B/P B/P Pulse O2 O2 Flow FiO2 Mean Ox Delivery Rate 04/26 1915 95 Nasal 4.0L Cannula 04/26 1528 98.1 67 20 112/48 94 Nasal 4.0L Cannula 04/26 1221 Nasal 4.0L Cannula 04/26 1217 95 Nasal 4.0L Cannula 04/26 0745 98.1 67 18 124/62 96 Nasal 6.0L Cannula 04/26 0234 98 Nasal 6.0L Cannula 04/26 0003 87 130/76 04/26 0002 87 130/76 04/26 0002 87 130/76 04/26 0000 Nasal 6.0L Cannula 04/25 2230 97.7 84 18 130/60 98 Nasal 6.0L Cannula Intake & Output 04/26 1600 04/26 0800 04/26 0000 04/25 1600 04/25 0800 04/25 0000 Intake Total 680 240 120 Output Total 650 250 Balance 30 -10 120 Intake, Oral 680 240 120 Number 0 Bowel Movements Output, Urine 650 250 Patient 152 lb 153 lb 145 lb Weight Weight Standing Scale Reported by Patient Estimated Measurement Method Physical Exam: General: WD/WN female in NAD; alert and oriented x 3 HEENT: NC/AT, PERRL, EOMI Heart: RRR w/o murmur Lungs: clear bilaterally ABdomen: soft, NT, +ve bowel sounds Extremities: no edema Assessment/Plan Assessment/Plan * This patient had the sudden onset of shortness of breath with tachypnea and low O2 saturation in addition to borderline elevated troponin. This is consistent with a pulmonary embolism. She does have coronary calcifications on her chest CT along with these elevated cardiac enzymes and therefore an ACS causing shortness of breath cannot be ruled out. * Begin IV heparin and aspirin. * Obtain an echocardiogram. * Risk stratify with a persantine stress test. Consult Acknowledgment - Thank you for your consult request.
[2017-04-26 22:06] VITALS: BP 116/48
--- NOTE | 2017-04-27 01:57 | Event Note ---
Event Note Event Note: Before we start the iv heparin, RAQUEL for guaiac test we done that was POSITIVE so heparin was not started discussion with
[2017-04-27 06:46] VITALS: BP 132/52
[2017-04-27 14:55] VITALS: BP 100/52
--- NOTE | 2017-04-27 16:05 | PN- Cardiology ---
Subjective Subjective: * No complaints. * Patient was guaiac positive. * Midly elevated troponins are coming down. * Very highly elevated D-dimer with decreased pO2 on blood gas Objective Vital Signs and I&Os Vital Signs Date Time Temp Pulse Resp B/P B/P Pulse O2 O2 Flow FiO2 Mean Ox Delivery Rate 04/27 1455 97.9 78 20 100/52 92 Nasal 2.0L Cannula 04/27 1037 69 135/52 04/27 1037 69 135/52 04/27 1037 69 135/52 04/27 0836 93 Nasal 2.0L Cannula 04/27 0646 98.1 69 20 132/52 92 Nasal Cannula 04/27 0000 Nasal 2.0L Cannula 04/26 2206 98.1 75 20 116/48 92 Nasal 4.0L Cannula 04/26 1915 95 Nasal 4.0L Cannula Intake & Output 04/27 1600 04/27 0800 04/27 0000 04/26 1600 04/26 0800 04/26 0000 Intake Total 240 100 100 680 240 120 Output Total 200 300 300 650 250 Balance 40 -200 -200 30 -10 120 Intake, Oral 240 100 100 680 240 120 Number 0 Bowel Movements Output, Urine 200 300 300 650 250 Patient 159 lb 152 lb 153 lb Weight Weight Bed scale Standing Scale Reported by Patient Measurement Method Physical Exam: General: WD/WN female in NAD; alert and oriented x 3 Heart: RRR w/o murmur Lungs: clear bilaterally Extremities: no edema Assessment/Plan Assessment/Plan * This patient had the sudden onset of shortness of breath with tachypnea and low O2 saturation in addition to borderline elevated troponin. Her D-dimer is very elevated. This is consistent with a pulmonary embolism however her CT angiogram was negative for a PE. She does have coronary calcifications on her chest CT along with these elevated cardiac enzymes and therefore an ACS causing shortness of breath cannot be ruled out. * Continue aspirin. * Obtain an echocardiogram. * Risk stratify with a persantine stress test. Continue telemetry? Yes
--- NOTE | 2017-04-27 18:58 | PN- Housestaff ---
JAMES WEST,GAL 04/27/17 1847: Subjective Follow-up For: Acute hypoxic respiratory failure secondary to COPD exacerbation and acute on chronic CHF Elevated troponins Complaints: no complaints Tele-Events Since Last Visit: Sinus bradycardia sinus rhythm 57-82 no events Subjective: pt says that she is tired with no complaints. Review of Systems Constitutional: Reports: no symptoms. Objective Last 24 Hrs of Vital Signs/I&O Vital Signs Date Time Temp Pulse Resp B/P B/P Pulse O2 O2 Flow FiO2 Mean Ox Delivery Rate 04/27 1455 97.9 78 20 100/52 92 Nasal 2.0L Cannula 04/27 1037 69 135/52 04/27 1037 69 135/52 04/27 1037 69 135/52 04/27 0836 93 Nasal 2.0L Cannula 04/27 0646 98.1 69 20 132/52 92 Nasal Cannula 04/27 0000 Nasal 2.0L Cannula 04/26 2206 98.1 75 20 116/48 92 Nasal 4.0L Cannula 04/26 1915 95 Nasal 4.0L Cannula Intake & Output 04/27 1600 04/27 0800 04/27 0000 Intake Total 240 100 100 Output Total 200 300 300 Balance 40 -200 -200 Intake, Oral 240 100 100 Output, Urine 200 300 300 Patient 159 lb Weight Weight Bed scale Measurement Method Physical Exam General Appearance: Alert, Oriented X3, Cooperative, No Acute Distress Skin: No Rashes, No Breakdown, No Significant Lesion Skin Temp/Moisture Exam: Warm/Dry Sepsis Skin Exam (color): Normal for Ethnicity HEENT: Atraumatic, PERRLA, EOMI Neck: Supple, No JVD Cardiovascular: Regular Rate, Normal S1, Normal S2 Lungs: Clear to Auscultation Abdomen: Normal Bowel Sounds Neurological: Normal Speech Extremities: No Clubbing, No Cyanosis, No Edema Vascular: Normal Pulses Sepsis Peripheral Pulse Location: Radial Current Medications: Current Medications Sig/Dom Start time Last Medication Dose Route Stop Time Status Admin Acetaminophen 325 MG Q6 PRN 04/25 1930 AC 04/26 PO 1830 Acetaminophen 1,000 MG Q6 PRN 04/25 1930 AC IV Albuterol Sulfate 3 ML TID 04/25 2200 AC 04/27 INH 1327 Albuterol Sulfate 2 PUF Q4-6 PRN PRN 04/25 2145 AC INH Atorvastatin Calcium 40 MG 1700 04/26 1700 AC 04/27 PO 1828 Citalopram 20 MG DAILY 04/26 1000 AC 04/27 Hydrobromide PO 1037 Enoxaparin Sodium 40 MG DAILY 04/25 1922 DC 04/26 SC 1038 Furosemide 40 MG DAILY 04/26 1000 AC 04/27 IV 1036 Heparin Sodium 25,000 UNIT Q24H 04/27 0100 DC (Porcine) IV Sodium Chloride 500 ML Heparin Sodium 5,000 UNIT ONCE ONE 04/27 0100 CAN (Porcine) IV 04/27 0101 Ipratropium [place] 2.5 ML TID 04/26 1600 AC 04/27 INH 1328 Lisinopril 20 MG DAILY 04/25 2139 AC 04/27 PO 1037 Losartan Potassium 50 MG DAILY 04/25 2140 AC 04/27 PO 1037 Melatonin 5 MG AT BEDTIME 04/26 0015 AC 04/26 PO 2138 Methylprednisolone 40 MG Q8 04/25 2200 AC 04/27 IV 1828 Metoprolol Tartrate 50 MG BID 04/25 2200 AC 04/27 PO 1037 Spironolactone 25 MG DAILY 04/26 1000 AC 04/27 PO 1037 Last 24 Hrs of Lab/Victor M Results Last 24 Hrs of Labs/Mics: Laboratory Tests 04/27/17 1602: Phosphorus 4.0, Magnesium 1.9 Assessment/Plan Assessment: 81 yo female with h/o HTN, anemia, duodenal ulcer, COPD(on CPAP at home), 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 In the ED vitals, temperature of 96.2, pulse 88, respiration 26, blood pressure 134/78 saturating 82% on the CPAP, improved to 95% on BiPAP. Labs were normal except glucose 189, pro BNP 438, d-dimer 3964. AB.40/39/63/24 Chest x-ray showed increased interstitial markings throughout the left lung suggesting evolving atypical pneumonia. CTA negative for PE, emphysematous changes of the lungs, interstitial edema and bibasilar atelectasis/infiltrate and small left pleural effusion. Last echo in 2014 showed EF of 40-45% with mild decreased systolic function and no wall motion abnormality. Patient received 40 Lasix and neb treatment in the ED and was placed on BiPAP. Assessment * Acute hypoxic respiratory failure secondary to COPD exacerbation and acute on chronic CHF * Elevated troponins, likely demand ischemia * Acute on chronic HFwREF (EF 45% Jul 2015) * Atypical pneumonia? 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 Patient complains of no chest pain at this time. troponins up to .49 and .40. * This patient had the sudden onset of shortness of breath with tachypnea and low O2 saturation in addition to borderline elevated troponin. Her D-dimer is very elevated. This is consistent with a pulmonary embolism however her CT angiogram was negative for a PE. She does have coronary calcifications on her chest CT along with these elevated cardiac enzymes and therefore an ACS causing shortness of breath cannot be ruled out. * Do not give heparin as patient is guaiac positive. * Continue aspirin. * Obtain an echocardiogram. * Risk stratify with a persantine stress test. Nothing by mouth after midnight for stress test. * Strict ins and outs, daily weight checks * Continue IV Lasix 40 daily * IV Solu-Medrol 40 every 8 hours * Continue CPAP at night * [facility] nebs [id number] * Continue inhalers * Blood culture, sputum culture, urine strep and Legionella * Watch off antibiotics for now * Echocardiogram ordered * Cardiology consult in a.m.with Dr Montanez * Continue home blood pressure medications * DVT prophylaxis subcutaneous Lovenox * Full code * Mild pain pathway Problem List: 1. COPD exacerbation 2. Hypertension 3. Demand ischemia of myocardium 4. CHF (congestive heart failure) Pain Ratin Pain Location: . Pain Goal: Remain pain free Pain Plan: . Tomorrow's Labs & Rationales: . DEENA WILBURN MD 04/27/17 2238: Attending MD Review Statement Attending Statement Attending MD Statement: examined this patient, discuss w/resident/PA/MANUFACTURING QUALITY ENGINEER, agreed w/resident/PA/MANUFACTURING QUALITY ENGINEER, reviewed EMR data (avail), discussed with nursing, amended to note Attending Assessment/Plan: The patient was seen and discussed with house staff. Appreciate Cardiology follow-up. ECHO pending. Scheduled for pharmacologic stress tomorrow. Patient insists that she will leave tomorrow. Continues on oxygen.
[2017-04-27 22:23] VITALS: BP 126/50
--- NOTE | 2017-04-28 08:08 | PN- Housestaff ---
MARIELA EAGLE 04/28/17 0808: Subjective Follow-up For: Acute hypoxic respiratory failure secondary to COPD exacerbation and acute on chronic CHF Elevated troponins Review of Systems Constitutional: Reports: see HPI. Objective Last 24 Hrs of Vital Signs/I&O Vital Signs Date Time Temp Pulse Resp B/P B/P Pulse O2 O2 Flow FiO2 Mean Ox Delivery Rate 04/28 1038 94 Nasal 2.0L Cannula 04/28 0926 68 120/60 04/28 0926 68 120/60 04/28 0926 68 120/60 04/28 0835 97.9 68 20 120/60 95 Nasal Cannula 04/28 0000 94 Nasal 2.0L Cannula 04/27 2305 83 126/70 04/27 2223 97.9 85 20 126/50 90 Nasal 2.0L Cannula 04/27 1900 92 Nasal 2.0L Cannula 04/27 1455 97.9 78 20 100/52 92 Nasal 2.0L Cannula Intake & Output 04/28 1600 04/28 0800 04/28 0000 Intake Total 0 400 Output Total 325 Balance -325 400 Intake, Oral 0 400 Output, Urine 325 Patient 151 lb Weight Weight Chair scale Measurement Method Physical Exam General Appearance: Alert, Oriented X3, Cooperative, No Acute Distress HEENT: Atraumatic, PERRLA, EOMI Neck: Supple, No JVD, No thryomegaly Cardiovascular: Normal S1, Normal S2, No Murmurs Lungs: Clear to Auscultation, Normal Air Movement Abdomen: Normal Bowel Sounds, Soft, No Tenderness Extremities: No Clubbing, No Cyanosis, No Edema Current Medications: Current Medications Sig/Dom Start time Last Medication Dose Route Stop Time Status Admin Acetaminophen 325 MG Q6 PRN 04/25 1930 AC 04/28 PO 0937 Acetaminophen 1,000 MG Q6 PRN 04/25 193 AC IV Albuterol Sulfate 3 ML TID 04/25 2200 AC 04/28 INH 1033 Albuterol Sulfate 2 PUF Q4-6 PRN PRN 04/25 2145 AC INH Aspirin 81 MG DAILY 04/28 1000 AC 04/28 PO 0926 Atorvastatin Calcium 40 MG 1700 04/26 1700 AC 04/27 PO 1828 Citalopram 20 MG DAILY 04/26 1000 AC 04/28 Hydrobromide PO 0926 Furosemide 40 MG DAILY 04/28 1000 AC PO Furosemide 40 MG DAILY 04/26 1000 DC 04/27 IV 1036 Ipratropium [place] 2.5 ML TID 04/26 1600 AC 04/28 INH 1033 Lisinopril 20 MG DAILY 04/25 2139 AC 04/28 PO 0926 Losartan Potassium 50 MG DAILY 04/25 2140 AC 04/28 PO 0926 Melatonin 5 MG AT BEDTIME 04/26 0015 AC 04/27 PO 2305 Methylprednisolone 40 MG Q12 04/28 1000 CAN IV Methylprednisolone 40 MG Q8 04/25 2200 DC 04/28 IV 0700 Metoprolol Tartrate 50 MG BID 04/25 2200 AC 04/28 PO 0926 Prednisone 40 MG BID 04/28 1000 AC PO Spironolactone 25 MG DAILY 04/26 1000 AC 04/28 PO 0925 Last 24 Hrs of Lab/Victor M Results Last 24 Hrs of Labs/Mics: Laboratory Tests 04/27/17 1602: Phosphorus 4.0, Magnesium 1.9 Orders ECHO Findings: 04/27/17 CONCLUSIONS 1. Normal EF of 60% with impaired LV relaxation. 2. Mild left atrial enlargment. 3. Trace mitral regurgitation. 4. Trace tricuspid regurgitation. 5. Trace aortic regurgitation. Assessment/Plan Assessment: Ms. Gonzalez is a 81 yo female with h/o HTN, anemia, duodenal ulcer, COPD(on CPAP at home), HFwREF (EF 45% Jul 2015) and pulmonary hypertension was sent to the ED from [facility] for acute onset of shortness of breath and tachypnea. In the ED vitals, temperature of 96.2, pulse 88, respiration 26, blood pressure 134/78 saturating 82% on the CPAP, improved to 95% on BiPAP. A: Acute hypoxic respiratory failure 2/2 COPD exacerbation and acute on chronic CHF Last echo in 2014 showed EF of 40-45% with mild decreased systolic function and no wall motion abnormality.04/27 ECHO-Normal EF of 60% with impaired LV relaxation pro BNP 438, d-dimer 3964 * Continue Strict ins and outs, daily weight checks * IV Lasix 40 changed to 40mg PO * IV Solu-Medrol 40 changed to Prednisone 40 BID * continue TRC nebs, CPAP at night * stress test pending Possible ACS Patient was sent to the ED from [facility] for acute onset of shortness of breath and tachypnea found to have elevated TROP likely demand ischemia. * No heparin because positive guaic test * Continue ASA, atorvastatin, lisinopril, losartan, metoprolol Possible Atypical pneumonia Chest x-ray showed increased interstitial markings throughout the left lung suggesting evolving atypical pneumonia. CTA negative for PE, emphysematous changes of the lungs, interstitial edema and bibasilar atelectasis/infiltrate and small left pleural effusion. * Blood culture, sputum culture, urine strep and Legionella History of Hypertension/Hyperlipidemia * continue home meds Elevated D-dimer CTA negative for PE, emphysematous changes of the lungs, interstitial edema and bibasilar atelectasis/infiltrate and small left pleural effusion. DVT prophylaxis subcutaneous Lovenox Full code Mild pain pathway Problem List: 1. CHF exacerbation 2. COPD exacerbation 3. Hypertension Pain Ratin Pain Location: n/a Pain Goal: Remain pain free Pain Plan: N/A Tomorrow's Labs & Rationales: None NATHALIA VÁZQUEZ 04/28/17 1328: Attending MD Review Statement Attending Statement Attending MD Statement: examined this patient, discuss w/resident/PA/RAWHIDE BONE ROLLER, agreed w/resident/PA/RAWHIDE BONE ROLLER, discussed with family, reviewed EMR data (avail), discussed with nursing, discussed with case mgmt, reviewed images, amended to note Attending Assessment/Plan: 81 o/f admitted with acute hypoxic respiratory failure 2/2 COPD exacerbation, ECHO with preserved EF 60%, elevated d dimer with CTA negative, Patient on iv steroids, cards consulted recommend stress test for risk startification ACS. Patient is clinically improving , taper steroids, c/w bronchodilators, change i/ v lasix to PO lasix, follow cardiology. Patient anticipate dc in next 24 hrs. v lasix to PO lasix, follow cardiology. Patient anticipate dc in next 24 hrs.
--- NOTE | 2017-04-28 08:26 | ECHOCARDIOGRAM REPORT ---
DELVIS ARROYO Age: 81 : 1935 Gender: F Exam Date: 04/27/2017 10:01 Exam Location: [place] Ht (in): 63 Wt (lb): 152 BSA: 1.77 BP: 132 / 52 Ordering Physician: ZAKI BRAR, Referring Physician: Mickey Montanez MD, PhD Technologist: Grace Mejia [facility] Room Number: 179-02 Indications: HEART FAILURE Rhythm: Sinus Technical Quality: good FINDINGS Left Ventricle Normal left ventricular size, wall thickness and systolic function with no obvious regional wall motion abnormalities. Diastolic filling pattern is consistent with impaired LV relaxation. The ejection fraction is visually estimated at 60 %. Right Ventricle The right ventricle is normal in size and function. Right Atrium The right atrium is normal in size. Left Atrium The left atrium is mildly enlarged. The interatrial septum is intact. Mitral Valve The mitral valve is normal in structure and function. There is trace mitral regurgitation. Aortic Valve Structurally normal aortic valve without significant sclerosis or stenosis. There is trace aortic regurgitation. Tricuspid Valve The tricuspid valve is normal in structure and function. There is trace tricuspid regurgitation. Pulmonary artery systolic pressure is normal. Pulmonic Valve Structurally normal pulmonic valve. There is no pulmonic regurgitation. Pericardium Normal pericardium without effusion. No pleural effusion. Great Vessels Normal aortic root dimension. The aortic arch and great vessels are well seen and are normal. CONCLUSIONS 1. Normal EF of 60% with impaired LV relaxation. 2. Mild left atrial enlargment. 3. Trace mitral regurgitation. 4. Trace tricuspid regurgitation. 5. Trace aortic regurgitation. Mickey Montanez M.D. (Electronically Signed) Final Date: 28 April 2017 08:26 MEASUREMENTS (Male / Female) Normal Values 2D ECHO LV Diastolic Diameter PLAX 5.2 cm 4.2 - 5.9 / 3.9 - 5.3 cm LV Systolic Diameter PLAX 3.2 cm 2.1 - 4.0 cm LV Fractional Shortening PLAX 38.5 % 25 - 46 % LV Ejection Fraction 2D Teich 68.4 % IVS Diastolic Thickness 1.0 cm LVPW Diastolic Thickness 1.0 cm LV Relative Wall Thickness 0.4 RV Internal Dim ED PLAX 2.5 cm 1.9 - 3.8 cm LVOT Diameter 1.8 cm Aortic Root Diameter 2.8 cm LA Systolic Diameter LX 4.3 cm 3.0 - 4.0 / 2.7 - 3.8 cm LA Volume 60.0 cm 18 - 58 / 22 - 52 cm Ascending Aorta Diameter 2.5 cm DOPPLER AV Peak Velocity 189.0 cm/s AV Peak Gradient 14.3 mmHg AV Mean Velocity 129.0 cm/s AV Mean Gradient 8.0 mmHg AV Velocity Time Integral 38.1 cm LVOT Peak Velocity 146.0 cm/s LVOT Peak Gradient 8.5 mmHg LVOT Mean Velocity 91.1 cm/s LVOT Mean Gradient 4.0 mmHg LVOT Velocity Time Integral 32.3 cm LVOT Stroke Volume 82.2 cm AV Area Cont Eq vti 2.2 cm AV Area Cont Eq pk 2.0 cm MV Peak Velocity 122.0 cm/s MV Peak Gradient 6.0 mmHg MV Mean Velocity 73.6 cm/s MV Mean Gradient 2.0 mmHg Mitral E Point Velocity 92.8 cm/s Mitral A Point Velocity 112.0 cm/s Mitral E to A Ratio 0.8 MV PHT Velocity 108.0 cm/s MV Deceleration [place] 307.0 cm/s MV Pressure Half Time 105.5 ms MV Area PHT 2.1 cm MV Deceleration Time 327.0 ms TR Peak Velocity 258.0 cm/s TR Peak Gradient 26.6 mmHg Right Atrial Pressure 5.0 mmHg Pulmonary Artery Systolic Pressu 31.6 mmHg Right Ventricular Systolic Press 31.6 mmHg PV Peak Velocity 136.0 cm/s PV Peak Gradient 7.4 mmHg PV Mean Velocity 95.4 cm/s PV Mean Gradient 4.0 mmHg PV Velocity Time Integral 33.5 cm LV E' Lateral Velocity 8.4 cm/s Mitral E to LV E' Lateral Ratio 11.1 LV E' Septal Velocity 4.8 cm/s Mitral E to LV E' Septal Ratio 19.4
[2017-04-28 08:35] VITALS: BP 120/60
--- NOTE | 2017-04-28 08:51 | PN- Student ---
Subjective Subjective: There were no overnight events. She is going for a pharmalogical stress test today and she said that she is thristy since she is on NPO. She wants to go home today. She has a decreased appetite, has not been sleeping well and she had a BM yesterday. Objective Objective: PE: Vitals: T 97.9, P 68, RR 20, BP 120/60, O2stat: 95% RA General appearance: alert and oriented x3. no acute distress. Lungs: CTA BL CV: Normal S1, S2. no R/M/G Results Results: Laboratory Tests 04/27/17 1602: Phosphorus 4.0, Magnesium 1.9 04/26/17 0700: Anion Gap 11, Estimated GFR > 60, BUN/Creatinine Ratio 22.2, Troponin I 0.40 *H, CBC w Diff NO MAN DIFF REQ, RBC 4.08 L, MCV 93.6, MCH 31.5 H, RDW 13.2, MPV 8.3, Gran % 89.2 H, Lymphocytes % 7.3 L, Monocytes % 3.5, Eosinophils % 0, Basophils % 0 L, Absolute Granulocytes 9.0 H, Absolute Lymphocytes 0.7 L, Absolute Monocytes 0.4, Absolute Eosinophils 0, Absolute Basophils 0, PUBS MCHC 33.6 04/26/17 0605: Urinalysis LIGHT H, Urine Color ALEXANDRE, Urine Clarity CLDY H, Urine pH 6.0, Ur Specific [place] 1.020, Urine Protein 100 H, Urine Ketones NEG, Urine Nitrite NEG, Urine Bilirubin NEG, Urine Urobilinogen 0.2, Ur Leukocyte Esterase NEG, Ur Microscopic SEDIMENT EXAMINED, Urine RBC PACKD H, Urine WBC 3-5 H, Urine Bacteria FEW H, Urine Mucus RARE, Urine Hemoglobin LARGE H, Urine Glucose NEG 04/25/17 2135: Troponin I 0.49 *H 04/25/17 1440: pH 7.40, pCO2 39, pO2 63 L, HCO3 24, ABG O2 Sat (Measured) 93.0 L, P-50 (Temp Corrected) YES, Carboxyhemoglobin 0.5 L, O2 Concentration % 70%, Temperature 96.2 L, Respiration Rate 26, O2 Delivery Method BIPAP, Vent Mode ST, Expiratory Pressure 6, Inspiratory Pressure 26, Phlebotomy Draw Site RIGHT BRACHIAL 04/25/17 1433: Anion Gap 14, Estimated GFR 53 L, BUN/Creatinine Ratio 16.0, Glucose 189 H, Calcium 9.3, Total Bilirubin 0.8, AST 26, ALT 29, Alkaline Phosphatase 132 H, Troponin I 0.05, [id number] Pept 438 H, Total Protein 7.1, Albumin 4.4, Globulin 2.7, Albumin/Globulin Ratio 1.6, PT 11.5, INR 1.10, APTT 24 L, D-Dimer High Sensitivty 3964 H, CBC w Diff NO MAN DIFF REQ, RBC 4.53, MCV 94.5, MCH 31.4 H, RDW 13.1, MPV 7.4, Gran % 68.8, Lymphocytes % 24.1, Monocytes % 5.9, Eosinophils % 0.9, Basophils % 0.3, Absolute Granulocytes 5.3, Absolute Lymphocytes 1.9, Absolute Monocytes 0.5, Absolute Eosinophils 0.1, Absolute Basophils 0, PUBS MCHC 33.2 04/25/17 1405: Sodium Cancelled, Potassium Cancelled, Chloride Cancelled, Carbon Dioxide Cancelled, Anion Gap Cancelled, BUN Cancelled, Creatinine Cancelled, BUN/ Creatinine Ratio Cancelled, Glucose Cancelled, Calcium Cancelled, Total Bilirubin Cancelled, AST Cancelled, ALT Cancelled, Alkaline Phosphatase Cancelled, Total Protein Cancelled, Albumin Cancelled, Globulin Cancelled, Albumin/Globulin Ratio Cancelled Microbiology 04/26 605 URINE ROUT: Legionella Antigen - COMP 04/26 605 URINE ROUT: Streptococcus pneumoniae Antigen (M - COMP 04/25 2152 BLOOD: Blood Culture - RES 04/25 2135 BLOOD: Blood Culture - RES 04/25 2037 LOWER RESP: Respiratory Culture - CAN Cancelled: SPECIMEN NOT RECEIVED IN LABORATORY 04/25 2037 LOWER RESP: Gram Stain - CAN Cancelled: SPECIMEN NOT RECEIVED IN LABORATORY -Blood culture, sputum culture, urine strep and Legionella: currently negative CTA (04/25): 1. No evidence of pulmonary embolism. 2. Emphysematous changes of lung. Interstitial edema, involving left lung greater than right with bibasilar dependent atelectasis/infiltrate and small left pleural effusion. Chest x-ray (04/25): Fairly diffuse increase in interstitial markings throughout the left lung suggesting an evolving atypical pneumonia, asymmetric pulmonary edema and neoplasm not excluded. Clinical correlation and followup imaging to clearing recommended. Echocardiogram (04/27): 1. Normal EF of 60% with impaired LV relaxation. 2. Mild left atrial enlargment. 3. Trace mitral regurgitation. 4. Trace tricuspid regurgitation. 5. Trace aortic regurgitation Assessment/Plan Assessment: 81 yo female with h/o HTN, HLD, anemia, duodenal ulcer, COPD(on CPAP at home), HFwREF (EF 45% Jul 2015) ) and pulmonary hypertension was sent to the ED from [facility] for acute onset of shortness of breath and tachypnea. On presenation she had a RR or 26, O2stat of 82% on CPAP that improved to 95% on BiPAP. Labs showed hyperglycemia (glucose 189), BNP 438, and d-dimer 3964. ABG showed 7.40/39/63/24. She was admitted for acute hypoxic respiratory failure secondary to COPD exacerbation and acute on chronic CHF. Troponin I (0.49 on ) may be elevated due to demand ischemia however ACS may be contributing. Chest x-ray showed potential atypical pneumonia, and CTA showed no evidence of PE but coronary calcifications, bilateral interstital edema and bibasilar atelectasis/ infilterate and mild left pleural effusion. Echo on 04/27 shows EF of 60% indicating improvement from 45% in 07/2015. She is going for a pharmalogical stress test today and says that she is feeling better than on admission. Plan: 1) Acute hypoxic respiratory failure secondary to COPD exacerbation and acute on chronic CHF -Patient is being monitored on telemetry -follow cardiology recommendations -DC IV Solu-Medrol 40 every 8 hours and replace with prednisone 40mg BID -Echo: EF 60% -Risk stratify with a persantine stress test. -Strict ins and outs, daily weight checks -Continue IV Lasix 40 daily -Continue CPAP at night -TRC nebs [id number] -Continue inhalers 2) Hypertension -metoprolol tartrate 50mg BID -spironolactone 25mg -lisinopril 20mg -Losartan 50mg 3) Hyperlipidemia -asprin 81mg -lipitor 40mg 4) DVT prophylaxis subcutaneous Lovenox 5) mild pain pathway: acetominophen 325mg q6h PRN 6)Full code * Full code * Mild pain pathway * Cardiology consult in a.m.with Dr Montanez * Continue home blood pressure medications * DVT prophylaxis subcutaneous Lovenox * Full code * Mild pain pathway * Echocardiogram ordered * Cardiology consult in a.m.with Dr Montanez * Continue home blood pressure medications * DVT prophylaxis subcutaneous Lovenox * Full code * Mild pain pathway
[2017-04-28] MEDS ORDERED: ASPIRIN81 M4 PO ×2 (14:27→16:00)
--- NOTE | 2017-04-28 14:34 | Patient Discharge Instructions ---
Discharge Instructions General Discharge Information You were seen/treated for: Acute hypoxic respiratory failure secondary to COPD exacerbation and acute on chronic CHF Elevated troponins Elevated d-dimer Special Instructions: Follow up with PCP within 1-2 weeks pf discharge Follow up with medical technologist chief within 1 week of discharge Complete your steroids taper. Diet Recommended Diet: Heart Healthy Activity Other activity limits: As tolerated Acute Coronary Syndrome Inclusion Criteria At DC or during hospital stay patient has or had the following: ACS DIAGNOSIS Yes Discharge Core Measures Meds if any: Prescribed or Continued at Discharge CORETTA/ARB if EF <40% Yes Aspirin Yes Beta-Simona Yes Statin Yes Meds if any: NOT Prescribed or Continued at Discharge Congestive Heart Failure Inclusion Criteria At DC or during hospital stay patient has or had the following: CHF DIAGNOSIS Yes Discharge Core Measures Meds if any: Prescribed or Continued at Discharge Meds if any: NOT Prescribed or Continued at Discharge Cerebrovascular accident Inclusion Criteria At DC or during hospital stay patient has or had the following: CVA/TIA Diagnosis No Discharge Core Measures Meds if any: Prescribed or Continued at Discharge Meds if any: NOT Prescribed or Continued at Discharge Venous thromboembolism Inclusion Criteria VTE Diagnosis No VTE Type NONE VTE Confirmed by (Test) NONE Discharge Core Measures - Per Current guidelines, there needs to be overlap - treatment for the first 5 days of Warfarin therapy. - If discharged on Warfarin prior to 5 days of - overlap therapy, the patient will need to be - assessed for post discharge needs including - *Post discharge parental anticoagulation - *Warfarin and/or parental anticoagulation education - *Follow up date to check INR post discharge At least 5 days overlap therapy as Inpatient No Meds if any: Prescribed or Continued at Discharge Note: Overlap Therapy is Warfarin and Anticoagulant Meds if any: NOT Prescribed or Continued at Discharge Meds if any: NOT Prescribed or Continued at Discharge
[2017-04-28 14:47] VITALS: BP 120/62
[2017-04-28] MEDS ORDERED: PREDNISONE10 M2 PO ×2 (15:08→16:00)
--- NOTE | 2017-04-28 15:22 | PN- Cardiology ---
Subjective Subjective: * No active complaints. Patient insists on leaving. * sinus rhythm * Patient was guaiac positive. * Midly elevated troponins are coming down. * Very highly elevated D-dimer with decreased pO2 on blood gas Objective Vital Signs and I&Os Vital Signs Date Time Temp Pulse Resp B/P B/P Pulse O2 O2 Flow FiO2 Mean Ox Delivery Rate 04/28 1447 99.0 62 18 120/62 98 Nasal 2.0L Cannula 04/28 1038 94 Nasal 2.0L Cannula 04/28 0926 68 120/60 04/28 0926 68 120/60 04/28 0926 68 120/60 04/28 0900 Nasal 2.0L Cannula 04/28 0835 97.9 68 20 120/60 95 Nasal Cannula 04/28 0000 94 Nasal 2.0L Cannula 04/27 2305 83 126/70 04/27 2223 97.9 85 20 126/50 90 Nasal 2.0L Cannula 04/27 1900 92 Nasal 2.0L Cannula Intake & Output 04/28 1600 04/28 0800 04/28 0000 04/27 1600 04/27 0800 04/27 0000 Intake Total 0 0 400 240 100 100 Output Total 450 325 200 300 300 Balance -450 -325 400 40 -200 -200 Intake, Oral 0 0 400 240 100 100 Output, Urine 450 325 200 300 300 Patient 151 lb 151 lb 159 lb Weight Weight Chair scale Bed scale Measurement Method Physical Exam: General: WD/WN female in NAD; alert and oriented x 3 Heart: RRR w/o murmur Lungs: clear bilaterally Extremities: no edema Assessment/Plan Assessment/Plan * This patient had the sudden onset of shortness of breath with tachypnea and low O2 saturation in addition to borderline elevated troponin. Her D-dimer was very elevated. This is consistent with a pulmonary embolism however her CT angiogram was negative for a PE. She does have coronary calcifications on her chest CT along with these elevated cardiac enzymes and therefore an ACS causing shortness of breath cannot be ruled out. I would proceed with a persantine stress test if patient is willing to stay. * Continue aspirin. Continue telemetry? Yes
--- NOTE | 2017-04-28 15:53 | NUR ---
PATIENT SIGNED OUT AMA BECAUSE SHE WAS "TOLD SHE CAN LEAVE". PATIENT'S SON HERE TO PICK HER UP. PATIENT HAS NO O2 FOR TRANSPORT. PATIENT DYSPNEIC AT DISCHARGE, BUT WILL NOT STAY.
--- NOTE | 2017-04-28 16:24 | Discharge Summary ---
See Addendum Visit Information Visit Dates Admission Date: 04/25/17 Discharge Date: 04/28/17 Hospital Course Course Attending Physician: NATHALIA VÁZQUEZ MD Primary Care Physician: PANCHITO CADENA MD Other Care Providers: Yonathan EWST, PhD, Mickey Consulting Request: Consulting Specialty: Cardiology Hospital Course: Ms. 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 In the ED vitals, temperature of 96.2, pulse 88, respiration 26, blood pressure 134/78 saturating 82% on the CPAP, improved to 95% on BiPAP. In the ED vitals, temperature of 96.2, pulse 88, respiration 26, blood pressure 134/78 saturating 82% on the CPAP, improved to 95% on BiPAP. Labs were normal except glucose 189, pro BNP 438, d-dimer 3964. AB.40/39/63/24 Chest x-ray showed increased interstitial markings throughout the left lung suggesting evolving atypical pneumonia. CTA negative for PE, emphysematous changes of the lungs, interstitial edema and bibasilar atelectasis/infiltrate and small left pleural effusion. Previous echo in 2014 showed EF of 40-45% with mild decreased systolic function and no wall motion abnormality. Problem List: Acute hypoxic respiratory failure 2/2 COPD exacerbation and acute on chronic CHF 04/27 ECHO-Normal EF of 60% with impaired LV relaxation compared to previous echo in 2014 showed EF of 40-45% with mild decreased systolic function and no wall motion abnormality. Her pro BNP 438, d-dimer 3964. * Continue Strict ins and outs, daily weight checks * IV Lasix 40 changed to 40mg PO * IV Solu-Medrol 40 changed to Prednisone 40 BID * continue TRC nebs, CPAP at night Possible ACS Patient was sent to the ED from [facility] for acute onset of shortness of breath and tachypnea found to have elevated TROP likely demand ischemia. She was managed on ASA, atorvastatin, lisinopril, losartan, metoprolol. No heparin was administered because positive guaiac test. She was advised to have a stress test done prior to discharge but the patient elected to leave against medical advice. Possible Atypical pneumonia Chest x-ray showed increased interstitial markings throughout the left lung suggesting evolving atypical pneumonia. CTA negative for PE, emphysematous changes of the lungs, interstitial edema and bibasilar atelectasis/infiltrate and small left pleural effusion. * Blood cultures reported no growth, urine cultures negative for strep and Legionella History of Hypertension/Hyperlipidemia * continue home meds Elevated D-dimer CTA negative for PE, emphysematous changes of the lungs, interstitial edema and bibasilar atelectasis/infiltrate and small left pleural effusion. Mental health Continue home meds DVT prophylaxis subcutaneous Lovenox Full code Mild pain pathway PATIENT LEFT AMA Allergies: Coded Allergies: Sulfa (Sulfonamide Antibiotics) (Intermediate, "ITCHY" - MED LIST FROM MD OFFICE SAYS TERESA EDWIGE LIKE RASH 12/25/15) Significant Procedures: None Pertinent Lab Results: 04/25/17-1405 XRY-PORTABLE CHEST XRAY IMPRESSION: Fairly diffuse increase in interstitial markings throughout the left lung suggesting an evolving atypical pneumonia, asymmetric pulmonary edema and neoplasm not excluded. Clinical correlation and followup imaging to clearing recommended. 04/25/17-1522 CTA CHEST-PULMONARY EMBOLISM IMPRESSION: 1. No evidence of pulmonary embolism. 2. Emphysematous changes of lung. Interstitial edema, involving left lung greater than right with bibasilar dependent atelectasis/infiltrate and small left pleural effusion. VTE: negative 04/27/17 ECHO CONCLUSIONS 1. Normal EF of 60% with impaired LV relaxation. 2. Mild left atrial enlargment. 3. Trace mitral regurgitation. 4. Trace tricuspid regurgitation. 5. Trace aortic regurgitation. Disposition Summary Disposition Principal Diagnosis: Acute hypoxic respiratory failure Additional Diagnosis: Possible ACS Discharge Disposition: left against medical adv Discharge Instructions General Discharge Information Code Status: Full Code Patient's Diet: Heart healthy Patient's Activity: As tolerated Follow-Up Instructions/Appts: Follow up with PCP within 1-2 weeks pf discharge Follow up with appian bpm developer within 1 week of discharge Complete your steroids taper Medications at Discharge Discharge Medications: Continue taking these medications: Ipratropium [place] (Ipratropium [place]) 0.2 MG/ML (0.02 %) SOLUTION 1 Vial Inhale Solution TWICE DAILY Spironolactone (Aldactone) 25 MG TABLET 1 Tablet ORAL DAILY Simvastatin (Zocor*) 40 MG TABLET 1 Tablet ORAL DAILY Metoprolol Tartrate (Lopressor) 50 MG TABLET 1 Tablet ORAL TWICE DAILY Albuterol Sulfate (Proair Hfa) 90 MCG HFA.AER.AD 2 Puff Inhale through mouth EVERY 4-6 HOURS NEEDED as needed for SHORTNESS OF BREATH Citalopram Hydrobromide (Citalopram HBr) 20 MG TABLET 1 Tablet ORAL DAILY Lisinopril (Prinivil) 20 MG TABLET 1 Tablet ORAL DAILY Furosemide (Furosemide) 20 MG TABLET 1 Tablet ORAL DAILY Qty = 90 Losartan Potassium (Cozaar) 50 MG TABLET 1 Tablet ORAL DAILY Albuterol Sulfate (Albuterol Sulfate) 2.5 MG/3 ML (0.083 %) VIAL.NEB 1 Vial Inhale Solution THREE TIMES DAILY Start taking the following new medications: Prednisone (Prednisone) 10 MG TABLET 1 Tablet ORAL See Instructions Qty = 16 No Refills Instructions: take 4tabs on 04/29 take 3tabs on 04/30 and 05/01 take 2tabs on 05/02 and 05/03 take 1tab on 05/04 and 05/05. Comments: Last Taken:04/28/17 Time:10AM Aspirin (Aspirin*) 81 MG TAB.CHEW 81 Milligram ORAL DAILY Qty = 30 No Refills Instructions: . Comments: Last Taken:04/28/17 Time:10AM Copies To: SURINDER WEST,PANCHITO; YONATHAN WEST PhD,MICKEY Bryant
== END 2017-04-28 15:50 | disposition left against medical advice (07) | DRG 189 ==
LOC: ERH 14:00 → 1NO 18:03 → ERHI 18:03 → ENTRNSPT 19:48 → 1NO 19:56 → CMPTRNSPT 19:59 → 1NO 20:00 → DELTRNSPT 20:12 → 1NO 04-27 08:52
PROVIDERS: Emergency Medicine; Student in an Organized Health Care Education/Training Program; ADMIT Internal Medicine
DX: J96.01 Acute respiratory failure with hypoxia (principal); I50.23 Acute on chronic systolic (congestive) heart failure; J18.9 Pneumonia, unspecified organism; I27.2 Other secondary pulmonary hypertension; I11.0 Hypertensive heart disease with heart failure; I24.8 Other forms of acute ischemic heart disease; J44.0 Chronic obstructive pulmonary disease with (acute) lower respiratory infection; J44.1 Chronic obstructive pulmonary disease with (acute) exacerbation; I25.2 Old myocardial infarction; E78.2 Mixed hyperlipidemia; F32.9 Major depressive disorder, single episode, unspecified; F41.1 Generalized anxiety disorder; F17.210 Nicotine dependence, cigarettes, uncomplicated
CPT/HCPCS: 1NSP; 81001; 82436; 87040; 87070; 87449; 87450; 93005; 93010; 93306; 96374; 99291; J0131; J1644; J1650; J1940; J2920; J3490

== ENCOUNTER 2017-11-20 17:45 | Inpatient (IN) | payer OTHER ==
[~2017-11-20] VITALS: Ht 160 cm; Wt 61.4 kg
[~2017-11-20 17:45] MED LIST changes: +ALBUTEROL2.5 MG/3 M INH/SOL; +ASPIRIN81 M4 PO; +COZAAR50 M1 PO; +FUROSEMIDE20 M1 PO; +PREDNISONE10 M2 PO
--- NOTE | 2017-11-20 18:13 | ED DYSPNEA/ASTHMA COMPLAINT ---
History of Present Illness General Chief Complaint: Dyspnea (COPD, CHF, Other) Stated Complaint: SOB Source: patient, family, old records Exam Limitations: no limitations Vital Signs & Intake/Output Vital Signs & Intake/Output Vital Signs Date Time Temp Pulse Resp B/P B/P Pulse O2 O2 Flow FiO2 Mean Ox Delivery Rate 11/20 2106 97.5 88 22 144/72 95 Nasal 2.0L Cannula 11/20 1857 96 Nasal 2.0L Cannula 11/20 1839 97 Nasal 2.0L Cannula 11/20 175 97.7 82 24 156/70 98 Nasal 2.0L Cannula Allergies Coded Allergies: Sulfa (Sulfonamide Antibiotics) (Intermediate, "ITCHY" - MED LIST FROM MD OFFICE SAYS TERESA GIBBONS LIKE RASH 12/25/15) Reconcile Medications Albuterol Sulfate (Proair Hfa) 90 MCG HFA.AER.AD 2 PUF INH Q4-6 PRN PRN SHORTNESS OF BREATH (Reported) Albuterol Sulfate 2.5 MG/3 ML (0.083 %) VIAL.NEB 1 Vial INH/CARL TID BREATHING PROBLEMS (Reported) Aspirin (Aspirin*) 81 MG TAB.CHEW 81 MG PO DAILY Heart . Citalopram Hydrobromide (Citalopram HBr) 20 MG TABLET 1 TAB PO DAILY MENTAL HEALTH (Reported) Furosemide 20 MG TABLET 1 TAB PO DAILY WATER RETENTION (Reported) Ipratropium [place] 0.2 MG/ML (0.02 %) SOLUTION 1 Vial INH/CARL BID BREATHING PROBLEMS (Reported) Lisinopril (Prinivil) 20 MG TABLET 1 TAB PO DAILY BP (Reported) Losartan Potassium (Cozaar) 50 MG TABLET 1 TAB PO DAILY HEART (Reported) Metoprolol Tartrate (Lopressor) 50 MG TABLET 1 TAB PO BID BP (Reported) Prednisone 10 MG TABLET 1 TAB PO SI copd take 4tabs on 04/29 take 3tabs on 04/30 and 05/01 take 2tabs on 05/02 and 05/03 take 1tab on 05/04 and 05/05. Simvastatin (Zocor*) 40 MG TABLET 1 TAB PO DAILY CHOLESTEROL (Reported) Spironolactone (Aldactone) 25 MG TABLET 1 TAB PO DAILY HEART FAILURE ( Reported) Triage Nurses Notes Reviewed? yes Onset: Gradual Duration: getting worse Timing: recent history Severity: moderate HPI: Patient is a 81-year-old female with a past medical history of hypertension, anemia, duodenal ulcer, COPD with when necessary oxygen, CHF, pulmonary hypertension last echocardiogram was noted to be March 2017 noted EF 60% who presents emergency room with a 5 day history of worsening lower extremity weakness and difficulty ambulating and concerns of chronic shortness of breath. Patient was evaluated by primary care doctor today and was advised to present to emergency room for concerning symptoms as stated above, patient was too weak to return from private residence after visiting the primary care doctor in which she was brought in by ambulance. Patient denies any fever chills chest pain arm pain jaw pain nausea vomiting Patient is also complaining of generalized lower extremity pain (Homero Live) Past History Travel History Traveled to [place] past 21 day No Medical History Any Pertinent Medical History? 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 MOTHER (heart failure). FATHER (Diabetes). Hx Contributory? No (Homero Live) Review of Systems Review of Systems Constitutional: Reports: see HPI, weakness. EENTM: Reports: no symptoms. Respiratory: Reports: see HPI, short of breath. Denies: cough. Cardiovascular: Reports: no symptoms. GI: Reports: no symptoms. Genitourinary: Reports: no symptoms. Musculoskeletal: Reports: no symptoms. Skin: Reports: no symptoms. Neurological/Psychological: Reports: no symptoms. Hematologic/Endocrine: Reports: no symptoms. Immunologic/Allergic: Reports: no symptoms. All Other Systems: Reviewed and Negative ([employer]ero Live) Physical Exam Physical Exam General Appearance: no apparent distress, alert, comfortable Head: atraumatic Eyes: Bilateral: normal appearance, PERRL. Ears, Nose, Throat: normal pharynx, normal ENT inspection, hearing grossly normal Neck: normal inspection Respiratory: no respiratory distress, quiet respiration, decreased breath sounds Cardiovascular: regular rate/rhythm Peripheral Pulses: 2+ radial (R) Gastrointestinal: normal bowel sounds, tenderness Extremities: BILATERAL TRACE PITTING EDEMA Neurologic/Psych: no motor/sensory deficits, awake, alert Skin: intact, normal color, warm/dry Comments: Bilateral upper extremity full active range of motion Bilateral lower extremities patient unable to perform straight leg raise due to weakness Dermatomes intact Core Measures ACS in differential dx? No CVA/TIA Diagnosis No Sepsis Present: No Sepsis Focused Exam Completed? No (Camila PARRY,Homero) Progress Differential Diagnosis: asthma, AMI, bronchitis, costochondritis, CHF, COPD, musculoskeletal pain, pericarditis, pulmonary embolism, pneumonia, pneumothorax, rib fracture, unstable angina Plan of Care: Orders Procedure Date/time Status Regular Diet 11/21 B Active OXYGEN SETUP (GEN) 11/20 2103 Active Saline Lock 11/20 2103 Active Admit to inpatient 11/20 2103 Active Vital Signs 11/20 2103 Active Activity/Ambulation 11/20 2103 Active Code Status 11/20 2103 Active URINALYSIS 11/20 1826 Complete TROPONIN LEVEL 11/20 1826 Complete COMPREHENSIVE METABOLIC PANEL 11/20 1826 Complete CBC WITHOUT DIFFERENTIAL 11/20 1826 Complete EKG 11/20 1826 Active Laboratory Tests 11/20/172027: Urine Color YEL, Urine Clarity HAZY H, Urine pH 6.0, Ur Specific Hatley >= 1.030, Urine Protein 100 H, Urine Ketones TRACE H, Urine Nitrite NEG, Urine Bilirubin NEG@ICTO, Urine Urobilinogen 1.0, Ur Leukocyte Esterase TRACE H, Ur Microscopic SEDIMENT EXAMINED, Urine RBC >75 H, Urine WBC 3-5 H, Ur Epithelial Cells RARE, Urine Bacteria FEW H, Hyaline Casts RARE H, Urine Mucus RARE, Urine Hemoglobin LARGE H, Urine Glucose NEG 11/20/17 1845: Anion Gap 13, Estimated GFR > 60, BUN/Creatinine Ratio 28.6 H, Glucose 103 H, Calcium 10.4 H, Total Bilirubin 0.6, AST 333 H, ALT 429 H, Alkaline Phosphatase 91, Troponin I 0.02, Total Protein 6.6, Albumin 4.0, Globulin 2.6, Albumin/Globulin Ratio 1.5, CBC w Diff NO MAN DIFF REQ, RBC 4.02 L, MCV 91.0, MCH 30.4, MCHC 33.3, RDW 15.5 H, MPV 8.7, Gran % 80.8 H, Lymphocytes % 10.4 L , Monocytes % 7.3, Eosinophils % 0.6, Basophils % 0.9, Absolute Granulocytes 8.0 H, Absolute Lymphocytes 1.0 L, Absolute Monocytes 0.7 H, Absolute Eosinophils 0.1, Absolute Basophils 0.1 Patient on initial presentation was resting comfortable at bedside and has decreased breath sounds on exam nebulizer treatment was ordered CT scan of blood were currently pending Discussed hand off with DR MUKHERJEE Initial ED EKG: normal p-waves, normal QRS complex, 84 BPM,NSR Hand-Off Endorsed To: Rafael Mukherjee MD Endorsed Time: 1940 Pending: CT, labs (Homero Live) Diagnostic Imaging: Viewed by Me: CT Scan. Discussed w/RAD: CT Scan. Radiology Impression: Emphysema. No acute cardiopulmonary findings. Stable calculus in the left renal pelvis although minimal inflammatory stranding is a new finding. Correlate with urinalysis for possible urinary tract infection. Marked sigmoid diverticulosis without evidence of diverticulitis. Cholelithiasis. Rhythm Strip: normal sinus rhythm (Rafael Mukherjee MD) Departure Departure Disposition: STILL A PATIENT Condition: Stable Referrals: Jj Beard MD (PCP/Family) Departure Forms: Customer Survey General Discharge Information ([facility]ero Live) Departure Time of Disposition: 2112 Clinical Impression Primary Impression: COPD with exacerbation Secondary Impressions: Asymptomatic microscopic hematuria, Transaminitis, Weakness Admission Note Spoke With: Rayo Ayoub MD Documentation of Exam: Documentation of any treatments & extenuating circumstances including Concerns Regarding Discharge (functional status, medication knowledge or non-compliance, living conditions, etc.) that warrant an admission rather than observation: supplemental oxygen frequent beta agonist nebs medication adjustment physical therapy insure safety continuing care discharge planning. PA/MEDICAL ASSISTANT PER DIEM Co-Sign Statement Statement: ED Attending supervision documentation- x I saw and evaluated the patient. I have also reviewed all the pertinent lab results and diagnostic results. I agree with the findings and the plan of care as documented in the PA's/MEDICAL ASSISTANT PER DIEM's documentation. Progressive weakness with difficulty ambulating dyspnea desaturates with ambulation accompanied with dizziness. [] I have reviewed the ED Record and agree with the PA's/MEDICAL ASSISTANT PER DIEM's documentation. [] Additions or exceptions (if any) to the PAs/MEDICAL ASSISTANT PER DIEM's note and plan are summarized below: [] (Tracey WEST,Rafael) Critical Care Note Critical Care Note Critical Care Time: non-applicable (Camila PARRY,Homero)
[2017-11-20 18:57] LABS: ABSOLUTE BASOPHIL COUNT 0.1 /CUMM (0.0-0.2); ABSOLUTE EOSINOPHIL COUNT 0.1 /CUMM (0.0-0.7); ABSOLUTE MONOCYTE COUNT 0.7 /CUMM (0.10-0.60); BASOPHIL % 0.9 % (0.0-2.0); EOSINOPHIL % 0.6 % (0-5); GRANULOCYTE % 80.8 % (42.2-75.2); HEMATOCRIT 36.5 % (37-47); MEAN CORPUSCULAR HGB 30.4 PG (27.0-31.0); MEAN CORPUSCULAR HGB CONC 33.3 G/DL (33.0-37.0); MEAN PLATELET VOLUME 8.7 FL (7.4-10.4); PLATELET COUNT 307 /CUMM (130-400); RBC DISTRIBUTION WIDTH 15.5 % (11.5-14.5); RED BLOOD CELL CT 4.02 /CUMM (4.20-5.40); WHITE BLOOD CELL COUNT 9.9 /CUMM (4.8-10.8)
--- NOTE | 2017-11-20 19:45 | CT SCAN REPORT ---
EXAMINATION: CT CHEST, ABDOMEN AND PELVIS WITHOUT CONTRAST CLINICAL INFORMATION: Shortness of breath, abdominal pain. COMPARISON: CT chest, abdomen and pelvis 04/25/2017. TECHNIQUE: Contiguous axial thin section helical images of the chest, abdomen and pelvis were performed without contrast. The data set was reformatted in the coronal and sagittal planes and reviewed on an independent workstation. DLP: 451 mGy-cm FINDINGS: LUNGS: Moderate to severe centrilobular emphysema with no parenchymal mass or consolidation. There is linear atelectasis/scarring in the lingula and the anteromedial aspect of the right middle lobe. Pulmonary edema demonstrated on the previous study has resolved. MEDIASTINUM: Extensive atherosclerotic calcifications of the thoracic aorta and coronary arteries. No pericardial effusion. No adenopathy. PLEURA: There is no pleural effusion. No pleural mass or thickening. AXILLA: No lymphadenopathy. LIVER, GALLBLADDER, BILIARY TREE: The unenhanced liver is unremarkable. There are layering gallstones. No biliary ductal dilatation. PANCREAS: Taniya.l SPLEEN: Unremarkable. ADRENAL GLANDS, KIDNEYS, URETERS, AND BLADDER: Bilateral renal cysts. Again demonstrated is a 1.1 cm calculus in the left renal pelvis. There is mild stranding of the fat surrounding the left renal pelvis which may indicate inflammatory stranding. BOWEL LOOPS: Severe sigmoid diverticulosis. No evidence of acute diverticulitis. No obstruction. Normal appendix. LYMPH NODES/RETROPERITONEUM: No retroperitoneal, mesenteric, or pelvic adenopathy. No ascites or free pelvic fluid OSSEOUS STRUCTURES: No suspicious lesions. ADDITIONAL FINDINGS: None. IMPRESSION: Emphysema. No acute cardiopulmonary findings. Stable calculus in the left renal pelvis although minimal inflammatory stranding is a new finding. Correlate with urinalysis for possible urinary tract infection. Marked sigmoid diverticulosis without evidence of diverticulitis. Cholelithiasis.
--- NOTE | 2017-11-20 23:54 | History & Physical ---
Lynette Thompson MD 11/20/17 3113: General Information and HPI MD Statement: I have seen and personally examined DELVIS ARROYO and documented this H&P. The patient is a 81 year old F who presented with a patient stated chief complaint of [shortness of breath, lower extremity weakness]. 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 Patient uses occasional oxygen at home but she was trying to decrease using it. Patient had a mechanical fall a few days ago which she thinks is due to her old walker. she reports that bumped her head twice during this fall. Patient was evaluated by her primary care doctor today and was advised to come to the ED for further evaluation however she was too weak to return to her home and was brought in by ambulance. Patient also reports having abdominal pain pain, patient also reports having left upper quadrant abdominal pain. For which she was taking Advil 200 mg 2 pills daily for the past few weeks. Patient denies using Tylenol at all recently. Patient also endorses chronic back pain radiating to the back of her thighs. Patient was discharged on 04/14 after being treated for acute hypoxic respiratory failure due to COPD exacerbation, acute on chronic CHF.04/27 ECHO- Normal EF of 60% with impaired LV relaxation compared to previous echo in 2014 showed EF of 40-45% with mild decreased systolic function and no wall motion abnormality. Patient lives home and independent with her activities of daily living, she uses a walker to ambulate ED course: Vital signs: Blood pressure 112/56, pulse 71, temperature 97.8, pulse is 95 on 2 L Admission: WBC 9.9, Hemoglobin 12.2, Platelets 27, Potassium 3.3, Glucose 103, Calcium 10.4, AST 333, AST 29, CPK 6767, ProBNP 365, Urine Toxicology Was Negative, urinalysis showed urine RBCs more than 75, WBC 35, large leukocyte Estrace Allergies/Medications Allergies: Coded Allergies: Sulfa (Sulfonamide Antibiotics) (Intermediate, "ITCHY" - MED LIST FROM MD OFFICE SAYS TERESA GIBBONS LIKE RASH 12/25/15) Home Med list Albuterol Sulfate (Proair Hfa) 90 MCG HFA.AER.AD 2 PUF INH Q4H PRN SHORTNESS OF BREATH (Reported) Albuterol Sulfate 2.5 MG/3 ML (0.083 %) VIAL.NEB 1 Vial INH/CARL TID RESP. ( Reported) Citalopram Hydrobromide (Citalopram HBr) 20 MG TABLET 1 TAB PO DAILY MENTAL HEALTH (Reported) Furosemide 20 MG TABLET 1 TAB PO DAILY WATER RETENTION (Reported) Ipratropium Mccaskill 0.2 MG/ML (0.02 %) SOLUTION 1 Vial INH/CARL TID RESP. ( Reported) Lisinopril (Prinivil) 20 MG TABLET 1 TAB PO DAILY BP (Reported) Metoprolol Tartrate (Lopressor) 50 MG TABLET 1 TAB PO BID BP (Reported) Simvastatin (Zocor*) 40 MG TABLET 1 TAB PO DAILY CHOLESTEROL (Reported) Spironolactone (Aldactone) 25 MG TABLET 1 TAB PO DAILY HEART FAILURE ( Reported) Past History Travel History Traveled to [place] past 21 day No Medical History Blood Transfusion Hx: Yes Neurological: NONE EENT: NONE Cardiovascular: CHF, hypertension, NSTEMI, MIXED HYPERLIPIDEMIA Respiratory: bronchitis, COPD, emphysema, pneumonia Gastrointestinal: GERD, BLEEDING STOMACH ULCER Hepatic: NONE Renal: nephrolithiasis Musculoskeletal: chronic back pain Psychiatric: MAJOR DEPRESSIVE DISORDER GENERALIZED ANXIETY D/O Endocrine: PRE-DIABETIC Blood Disorders: anemia, VIT D DEFICIENCY Cancer(s): NONE V BELT SKIVER/Reproductive: NONE History of MRSA: No History of VRE: No History of CDIFF: No Isolation History: Standard Influenza Vaccine: 07/30/17 Surgical History Surgical History: BACK SURGERY Past Family/Social History Family History Relations & Conditions if any SISTER (breast cancer). MOTHER (heart failure). FATHER (Diabetes). Psychosocial History Where do you live? Home Services at Home: Home Health Aide, Nursing, Oxygen Smoking Status: Former Smoker Review of Systems Review of Systems Constitutional: Reports: malaise, weakness. Respiratory: Reports: cough, short of breath, sputum production, wheezing. GI: Reports: nausea. Genitourinary: Denies: no symptoms. Musculoskeletal: Denies: no symptoms. Skin: Denies: no symptoms. Exam & Diagnostic Data Last 24 Hrs of Vital Signs/I&O Vital Signs Date Time Temp Pulse Resp B/P B/P Pulse O2 O2 Flow FiO2 Mean Ox Delivery Rate 11/21 0148 87 114/60 11/21 0118 Nasal 2.0L Cannula 11/21 0023 97.8 71 26 112/56 95 Nasal 2.0L Cannula 11/20 2152 98.0 70 16 130/62 97 Nasal 2.0L Cannula 11/20 2107 97.5 88 22 144/72 95 Nasal 2.0L Cannula 11/20 1857 96 Nasal 2.0L Cannula 11/20 1839 97 Nasal 2.0L Cannula 11/20 1757 97.7 82 24 156/70 98 Nasal 2.0L Cannula Intake & Output 11/21 0800 11/21 0000 11/20 1600 Intake Total Output Total Balance Patient 135 lb 142 lb Weight Weight Bed scale Measurement Method Physical Exam General Appearance Alert, Oriented X3, Cooperative, No Acute Distress HEENT Atraumatic, PERRLA, EOMI, Mucous Membr. moist/pink Neck Supple, No JVD, No thryomegaly Cardiovascular Normal S1, Normal S2, No Murmurs Lungs bilateral diminished air entery with right wheezes Abdomen Normal Bowel Sounds, Soft, No Tenderness Neurological Normal Speech, Strength at 5/5 X4 Ext, Normal Tone Extremities No Clubbing, No Cyanosis, No Edema Diagnostic Data Other Results CT abd: IMPRESSION: Emphysema. No acute cardiopulmonary findings. Stable calculus in the left renal pelvis although minimal inflammatory stranding is a new finding. Correlate with urinalysis for possible urinary tract infection. Marked sigmoid diverticulosis without evidence of diverticulitis. Cholelithiasis. 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 # COPD exacerbation: Admit to general medicine floor TRC/nebs IV Solu-Medrol 40 every 8 Center. Oxygen to keep oxygen saturation above 92 Pulmonology consult appreciated patient saw Dr. Pitts before Vitals every shift #Hematuria CT showed stone in the renal pelvis urology consult appreciated #Transaminitis: Monitor LFT Hepatitis panel Tylenol level hold statins #Hypokalemia most likely dt poor oral intake was repleted with PO 40 mg Gentle INF hydration, encourage PO intake monitor BEP DNR/DNI DVT prophylaxis with Alps Heart healthy diet As Ranked By This Provider Problem List: 1. Transaminitis 2. COPD with exacerbation 3. Asymptomatic microscopic hematuria 4. Weakness Core Measures/Misc (06/15) Acute Coronary Syndrome ACS Diagnosis: No Congestive Heart Failure Congestive Heart Failure Diagnosis No Cerebrovascular Accident CVA/TIA Diagnosis: No VTE (View Protocol) VTE Risk Factors Age>40 No Mechanical VTE Prophylaxis d/t N/A MechProphylax Ordered No VTE Pharm Prophylaxis d/t Medical Contraindication Sepsis (View protocol) Sepsis Present: No Sa Thomasud 11/21/17 0431: Resident Review Statement Resident Statement: examined this patient, discussed with internal combustion engine assembler, agreed with internal combustion engine assembler, reviewed EMR data (avail), discussed with nursing, discussed with case mgmt, reviewed images, amended to note Other Findings: This is 81 years old female with medical history of hypertension, anemia, duodenal ulcer, COPD on home O2 as needed, last echocardiogram was noted to be March 2017 noted EF 60% and pulmonary hypertension. She presented to the emergency department via EMS after being evaluated by her primary care doctor advised her to come to the hospital for further evaluation. Patient stated that she has progressive lower extremity weakness especially when she tried to get up from the sitting position, also she reports exertional shortness of breath, wheezes. Patient had a mechanical fall a few days ago which she thinks is due to her old walker. she reports that bumped her head twice during this fall. Patient also reports having abdominal pain pain due to this pain she was taking Advil 200 mg 2 pills daily for the past few weeks, patient denied taking more than that, also she states she doesn't like Tylenol. She also reports blood in her urine in the past week according to her it is become more clear, she denied any costovertebral tenderness, dysuria, fever, chills, sweating. CT scan of the chest, abdomen and pelvis showed emphysema, nonobstructive left renal stone, cholelithiasis. Physical examination, lab and imaging as above. Problem list: -COPD exacerbation -Generalized weakness -Transaminitis/gallbladder stone -Hematuria/left renal stone -Hypokalemia/hypercalcium Plan: -Admit patient to general medicine floor -Vitals every shift -IV Solu-Medrol 40 mg every 8 -Sputum culture, strep and Legionella urine antigen -TRC, nebs as needed -Urine culture -We'll hold off on antibiotic for now patient spike a fever obtain panculture -Physical therapy consultation in a.m. -Obtain abdominal ultrasound -Obtain Creatine kinases, Tylenol level, salcylic acid, Mag, phosphorus -1 dose of K Dur 40 mg -Continue home medication -Heart healthy diet -Pain pathway -DVT prophylaxis: substance Lovenox -DNI DNR [facility], [facility] 11/21/17 0823: Attending MD Review Statement Attending Statement Attending MD Statement: examined this patient, discuss w/resident/PA/VICE PRESIDENT SAFETY, agreed w/resident/PA/VICE PRESIDENT SAFETY, reviewed images, amended to note Attending Assessment/Plan: 81 yo F with h/o HTN, anemia, duodenal ulcer, COPD on PRN O2, interstitial lung disease, systolic heart failure, pulmonary hypertension, is here for 5-day h/o increasing lower extremity weakness, difficulty ambulating and dyspnea with wheezing. She reports a mechanical fall at home resulting in head strike. She also c/o left flank and low back pain for which she has been taking Advil daily for the past few weeks. She reports episodes of hematuria in the past week. Vitals stable. Labs: no leukocytosis, H/H is stable, K 3.3, BUN 20, glucose 103, Ca 10.4, AST 333, ALT 429, CK 6767, trop neg. UA hazy, proteinuria, trace ketones, RBC > 75, large hemoglobin. Utox neg. Salicylate neg. CT CAP: emphysema, stable calculus in left renal pelvis although minimal inflammatory stranding, marked sigmoid diverticulosis, cholelithiasis. EKG: sinus rhythm, nonspecific T-wave changes. Echo (2017): EF 60%, impaired LV relaxation. Assessment and plan: 1. Acute exacerbation of COPD 2. Hematuria with renal colic 3. Rhabdomyolysis 4. Transaminitis 5. Hypokalemia - Admit to General medicine - Fall precautions - TRC nebs, sputum culture - IV solumedrol, no need for azithromycin - Consider Pulm consult - IV fluid hydration, watch for fluid overload - Lasix is on hold - Hold statin therapy - Trend CK - Urine culture - No evidence of UTI, watch off antibiotics - PT eval - Work up transaminitis hepatitis serology, tylenol level and RUQ ultrasound DVT ppx Lovenox. DNR/I.
[2017-11-21 00:23] VITALS: BP 112/56
--- NOTE | 2017-11-21 03:56 | Admission Certification ---
Admission Certification Certification Statement - As attending physician, I certify that at the time of - admission, based on clinical presentation, severity of - symptoms, need for further diagnostic testing and - therapeutic interventions, and risk of adverse outcomes - without in-hospital treatment, in my clinical assessment, - this patient requires an acute hospital stay for a minimum - of two nights or longer. I have also considered psychsocial - factors such as support system, advanced age, financial - issues, cognitive issues, and failed out-patient treatments, - past re-admission history, safety of patient, and lack of - compliance as applicable. Specific rationale supporting this admission is: COPD exacerbation, rhabdomyolysis, left renal colic with hematuria, transaminitis requires work up.
[2017-11-21 06:54] VITALS: BP 122/60
--- NOTE | 2017-11-21 07:25 | PN- Housestaff ---
Benjamin WEST,Merrill 11/21/17 0725: Subjective Follow-up For: COPD exacerbation transaminitis rhabdomyolysis hematuria Subjective: Patient seen and examined. She is seen sitting upright in bed resting comfortably maintained on supplemental oxygen via nasal cannula. She appears tired, but in no acute distress. She reports that her breathing is more or less the same as when she came in, possibly a little better. Otherwise she feels well other than persistent weakness and denies any fever, chills, chest pain, or palpitaitons. Review of Systems Constitutional: Reports: see HPI. Objective Last 24 Hrs of Vital Signs/I&O Vital Signs Date Time Temp Pulse Resp B/P B/P Pulse O2 O2 Flow FiO2 Mean Ox Delivery Rate 11/21 1228 97.6 68 28 122/60 11/21 1227 97.6 68 28 122/60 11/21 0654 97.6 68 28 122/60 91 Nasal 2.0L Cannula 11/21 0148 87 114/60 11/21 0118 Nasal 2.0L Cannula 11/21 0023 97.8 71 26 112/56 95 Nasal 2.0L Cannula 11/20 2152 98.0 70 16 130/62 97 Nasal 2.0L Cannula 11/20 2107 97.5 88 22 144/72 95 Nasal 2.0L Cannula 11/20 1857 96 Nasal 2.0L Cannula 11/20 1839 97 Nasal 2.0L Cannula 11/20 1757 97.7 82 24 156/70 98 Nasal 2.0L Cannula Intake & Output 11/21 1600 11/21 0800 11/21 0000 Intake Total 810 Output Total Balance 810 Intake, IV 450 Intake, Oral 360 Patient 61.377 kg 64.41 kg Weight Weight Bed scale Measurement Method Physical Exam General Appearance: Alert, Cooperative, No Acute Distress Other Physical Findings: GEN: well developed, well nourished elderly woman in no acute distress HEENT: NCAT, PERRL, EOMI, anicteric sclera, MMM, nasal cannula in place NECK: Supple, no JVD, trachea midline, no accessory respiratory muscle use CARD: Normal S1/S2 w/o m/g/r; RRR PULM: Diminished airflow without crackles ABD: Soft, NT, ND, BS+ NEURO: Awake and alert, CN II-XII grossly intact EXT: normal pulses / capillary refill, no edema Current Medications: Current Medications Sig/Dom Start time Last Medication Dose Route Stop Time Status Admin Acetaminophen 500 MG Q8P PRN 11/21 0045 AC PO Albuterol Sulfate 3 ML Q6P PRN 11/21 1230 AC INH Albuterol Sulfate 2 PUF Q4P PRN 11/21 0100 AC 11/21 INH 1008 Albuterol Sulfate 3 ML ONCE ONE 11/20 1845 DC 11/20 INH 11/20 1846 1839 Citalopram 20 MG DAILY 11/21 1000 AC 11/21 Hydrobromide PO 1228 Enoxaparin Sodium 40 MG DAILY 11/21 1000 AC 11/21 SC 1226 Furosemide 20 MG DAILY 11/21 1000 CAN PO Ibuprofen 600 MG ONCE ONE 11/20 2229 DC 11/20 PO 11/20 2230 224 Ibuprofen 0 .STK-MED ONE 11/20 2222 DC PO Ipratropium [place] 2.5 ML Q6 11/21 1800 AC INH Ipratropium [place] 2.5 ML ONCE ONE 11/20 1845 DC 11/20 INH 11/20 184 1839 Lidocaine 1 PAT Q24H 11/21 0045 AC 11/21 EXT 0148 Lisinopril 20 MG DAILY 11/21 1000 AC 11/21 PO 1227 Methylprednisolone 40 MG Q8H 11/21 0900 AC 11/21 IV 1008 Methylprednisolone 40 MG Q8 11/21 0045 DC 11/21 IV 0148 Metoprolol Tartrate 50 MG BID 11/21 0047 AC 11/21 PO 1228 Omeprazole 40 MG DAILY AC 11/21 0800 AC 11/21 PO 1227 Oxycodone HCl 5 MG Q12P PRN 11/21 0045 AC 11/21 PO 0311 Potassium Chloride 40 MEQ ONCE ONE 11/21 0100 DC 11/21 PO 11/21 0101 0148 Sodium Chloride 1,000 ML .[id number] 11/21 0045 AC 11/21 IV 11/21 1404 0148 Spironolactone 25 MG DAILY 11/21 1000 AC 11/21 PO 1228 Last 24 Hrs of Lab/Victor M Results Last 24 Hrs of Labs/Mics: Laboratory Tests 11/21/17 0805: Anion Gap 9, Estimated GFR > 60, BUN/Creatinine Ratio 28.3 H, CBC w Diff NO MAN DIFF REQ, RBC 3.87 L, MCV 90.0, MCH 30.5, MCHC 33.9, RDW 15.5 H, MPV 8.5, Gran % 92.5 H, Lymphocytes % 7.0 L, Monocytes % 0.4 L, Eosinophils % 0.1, Basophils % 0, Absolute Granulocytes 6.3, Absolute Lymphocytes 0.5 L, Absolute Monocytes 0 L, Absolute Eosinophils 0, Absolute Basophils 0 11/20/172027: Urine Opiates Screen < 100.00, Methadone Screen 50, Barbiturate Screen < 60, Ur Phencyclidine Scrn < 6.00, Amphetamines Screen < 100, U Benzodiazepines Scrn < 85, Urine Cocaine Screen < 50, Urine Cannabis Screen < 5.00, Urine Color YEL, Urine Clarity HAZY H, Urine pH 6.0, Ur Specific [place] >= 1.030, Urine Protein 100 H, Urine Ketones TRACE H, Urine Nitrite NEG, Urine Bilirubin NEG@ICTO, Urine Urobilinogen 1.0, Ur Leukocyte Esterase TRACE H, Ur Microscopic SEDIMENT EXAMINED, Urine RBC >75 H, Urine WBC 3-5 H, Ur Epithelial Cells RARE, Urine Bacteria FEW H, Hyaline Casts RARE H, Urine Mucus RARE, Urine Hemoglobin LARGE H, Urine Glucose NEG 11/20/17 184: Anion Gap 13, Estimated GFR > 60, BUN/Creatinine Ratio 28.6 H, Glucose 103 H, Calcium 10.4 H, Phosphorus 3.5, Magnesium 1.8, Total Bilirubin 0.6, AST 333 H, ALT 429 H, Alkaline Phosphatase 91, Creatine Kinase 6767 H, Troponin I 0.02, Nhv-P-Wigiyplkzwx Pept 365 H, Total Protein 6.6, Albumin 4.0, Globulin 2.6, Albumin/Globulin Ratio 1.5, TSH 2.040, Free T4 1.62, CBC w Diff NO MAN DIFF REQ, RBC 4.02 L, MCV 91.0, MCH 30.4, MCHC 33.3, RDW 15.5 H, MPV 8.7, Gran % 80.8 H , Lymphocytes % 10.4 L, Monocytes % 7.3, Eosinophils % 0.6, Basophils % 0.9, Absolute Granulocytes 8.0 H, Absolute Lymphocytes 1.0 L, Absolute Monocytes 0.7 H, Absolute Eosinophils 0.1, Absolute Basophils 0.1, Salicylates < 1.0 Microbiology 02/23 0755 URINE ROUT: Legionella Antigen - ORD 11/21 754 URINE ROUT: Streptococcus pneumoniae Antigen (M - ORD 11/21 754 URINE ROUT: Urine Culture - ORD 11/21 754 LOWER RESP: Respiratory Culture - ORD 11/21 754 LOWER RESP: Gram Stain - ORD Assessment/Plan Assessment: 81 year old woman with multiple medical problems significant for COPD on home oxygen as needed, HFrEF (45%), and pulmonary hypertension seen for evaluation of lower extremity weakness and shortness of breath / wheezing. Patient is saturating in the low 90's on 2.0L supplemental oxygen via nasal cannula. She has diminished airflow bilaterally despite intravenous solumedrol. Patient reported a fall several days ago, which is to be evaluated by physical therapy. CPK and LFTs are to be trended, patient received a small amount of intravenous hydration. She may benefit from an outpatient evaluation for the identified hematuria. Hepatitis panel is to be checked. Abdominal ultrasound was remarkable. Urology consult is placed for evaluation of hematuria and possible left renal stone; which was not visualized on abdominal ultrasound. Problem List -Acute COPD exacerbation -Transaminitis -Rhabdomyolsis -Hematuria with left renal stone -HFrEF, EF 45% -Pulmonary hypertension -Hypertension -History of chronic respiratory failure, on CPAP -History of duodenal ulcer -History of anemia Plan -General Medicine -Fall precautions -TRC with scheduled Nebs every six hours -Supplemental oxygen, goal > 92%, taper as tolerated -NS @ 75 mL/hr x1 bag -Solumedrol 40 mg IV Q6H -Hold lasix for dehydration, restart as needed -Hold statin for transaminitis, restart as needed -Continue home meds: citalopram, lisinopril, metoprolol, omeprazole, aldactone -PT evaluation -Sputum culture -Follow up cultures & sensitivites -Trend CPK, LFTs -Check hepatitis panel -Follow up RUQ US -Pain control with acetaminophen, lidocaine patch, oxycodone -Heart Healthy diet -DVT PPx with lovenox -DNR/DNI -Outpatient evaluation for hematuria Problem List: 1. COPD with exacerbation 2. Transaminitis 3. Asymptomatic microscopic hematuria 4. Weakness Pain Ratin Pain Location: None Pain Goal: Remain pain free Pain Plan: See assessment Tomorrow's Labs & Rationales: CBC, BMP, CPK, LFT, Hepatitis panel Nahun MD,Rowena 11/21/17 1308: Attending MD Review Statement Attending Statement Attending MD Statement: examined this patient, discuss w/resident/PA/COMMERCIAL [employer]ER, agreed w/resident/PA/COMMERCIAL FISHER, reviewed EMR data (avail), discussed with nursing, discussed with case mgmt, reviewed images, amended to note Attending Assessment/Plan: Patient seen and examined, feels ok. Not much better. Still has some SOB. Overall feels weak. Says Lidoderm patch helping with back pain. Vital Signs Date Time Temp Pulse Resp B/P B/P Pulse O2 O2 Flow FiO2 Mean Ox Delivery Rate 11/21 1228 97.6 68 28 122/60 11/21 1227 97.6 68 28 122/60 11/21 0654 97.6 68 28 122/60 91 Nasal 2.0L Cannula 11/21 0148 87 114/60 11/21 0118 Nasal 2.0L Cannula 11/21 0023 97.8 71 26 112/56 95 Nasal 2.0L Cannula 11/20 2152 98.0 70 16 130/62 97 Nasal 2.0L Cannula 11/20 2107 97.5 88 22 144/72 95 Nasal 2.0L Cannula 11/20 1857 96 Nasal 2.0L Cannula 11/20 1839 97 Nasal 2.0L Cannula 11/20 1757 97.7 82 24 156/70 98 Nasal 2.0L Cannula on exam; aox3, nad. cv; s1,s2, rrr resp; overall decreased bs. abd; soft, nt, bs+ ext; no edema Laboratory Tests 11/21 11/20 0805 2027 Chemistry Sodium (137 - 145 mmol/L) 143 Potassium (3.5 - 5.1 mmol/L) 4.5 Chloride (98 - 107 mmol/L) 108 H Carbon Dioxide (22 - 30 mmol/L) 27 Anion Gap (5 - 16) 9 BUN (7 - 17 mg/dL) 17 Creatinine (0.5 - 1.0 mg/dL) 0.6 Estimated GFR (>60 ml/min) > 60 BUN/Creatinine Ratio (7 - 25 %) 28.3 H Hematology CBC w Diff NO MAN DIFF REQ WBC (4.8 - 10.8 /CUMM) 6.8 RBC (4.20 - 5.40 /CUMM) 3.87 L Hgb (12.0 - 16.0 G/DL) 11.8 L Hct (37 - 47 %) 34.8 L MCV (81.0 - 99.0 FL) 90.0 MCH (27.0 - 31.0 PG) 30.5 MCHC (33.0 - 37.0 G/DL) 33.9 RDW (11.5 - 14.5 %) 15.5 H Plt Count (130 - 400 /CUMM) 258 MPV (7.4 - 10.4 FL) 8.5 Gran % (42.2 - 75.2 %) 92.5 H Lymphocytes % (20.5 - 51.1 %) 7.0 L Monocytes % (1.7 - 9.3 %) 0.4 L Eosinophils % (0 - 5 %) 0.1 Basophils % (0.0 - 2.0 %) 0 Absolute Granulocytes (1.4 - 6.5 /CUMM) 6.3 Absolute Lymphocytes (1.2 - 3.4 /CUMM) 0.5 L Absolute Monocytes (0.10 - 0.60 /CUMM) 0 L Absolute Eosinophils (0.0 - 0.7 /CUMM) 0 Absolute Basophils (0.0 - 0.2 /CUMM) 0 Toxicology Urine Opiates Screen (>2000 NG/ML) < 100.00 Methadone Screen (>300 NG/ML) 50 Barbiturate Screen (>200 NG/ML) < 60 Ur Phencyclidine Scrn (>25 NG/ML) < 6.00 Amphetamines Screen (>1000 NG/ML) < 100 U Benzodiazepines Scrn (>200 NG/ML) < 85 Urine Cocaine Screen (>300 NG/ML) < 50 Urine Cannabis Screen (>50 NG/ML) < 5.00 Urines Urine Color (YEL,AMB,STR) YEL Urine Clarity (CLEAR) HAZY H Urine pH (5.0 - 8.0) 6.0 Ur Specific [place] (1.001 - 1.035) >= 1.030 Urine Protein (NEG,<30 MG/DL) 100 H Urine Ketones (NEG) TRACE H Urine Nitrite (NEG) NEG Urine Bilirubin (NEG) NEG@ICTO Urine Urobilinogen (0.1 - 1.0 EU/dl) 1.0 Ur Leukocyte Esterase (NEG) TRACE H Ur Microscopic SEDIMENT EXAMINED Urine RBC (0 - 5 /HPF) >75 H Urine WBC (0 - 2 /HPF) 3-5 H Ur Epithelial Cells (NONE,FEW) RARE Urine Bacteria (NEG/NONE) FEW H Hyaline Casts (0/LPF) RARE H Urine Mucus (FEW,NONE) RARE Urine Hemoglobin (NEG) LARGE H Urine Glucose (N MG/DL) NEG 11/20 1845 Chemistry Sodium (137 - 145 mmol/L) 143 Potassium (3.5 - 5.1 mmol/L) 3.3 L Chloride (98 - 107 mmol/L) 102 Carbon Dioxide (22 - 30 mmol/L) 27 Anion Gap (5 - 16) 13 BUN (7 - 17 mg/dL) 20 H Creatinine (0.5 - 1.0 mg/dL) 0.7 Estimated GFR (>60 ml/min) > 60 BUN/Creatinine Ratio (7 - 25 %) 28.6 H Glucose (65 - 99 mg/dL) 103 H Calcium (8.4 - 10.2 mg/dL) 10.4 H Phosphorus (2.5 - 4.5 mg/dL) 3.5 Magnesium (1.6 - 2.3 mg/dL) 1.8 Total Bilirubin (0.2 - 1.3 mg/dL) 0.6 AST (14 - 36 U/L) 333 H ALT (9 - 52 U/L) 429 H Alkaline Phosphatase (<127 U/L) 91 Creatine Kinase (30 - 135 U/L) 6767 H Troponin I (< 0.11 ng/ml) 0.02 Hir-F-Ujjieupchwp Pept (<125 pg/mL) 365 H Total Protein (6.3 - 8.2 g/dL) 6.6 Albumin (3.5 - 5.0 g/dL) 4.0 Globulin (1.9 - 4.2 gm/dL) 2.6 Albumin/Globulin Ratio (1.1 - 2.2 %) 1.5 TSH (0.270 - 4.200 uIU/mL) 2.040 Free T4 (0.78 - 2.44 ng/dL) 1.62 Hematology CBC w Diff NO MAN DIFF REQ WBC (4.8 - 10.8 /CUMM) 9.9 RBC (4.20 - 5.40 /CUMM) 4.02 L Hgb (12.0 - 16.0 G/DL) 12.2 Hct (37 - 47 %) 36.5 L MCV (81.0 - 99.0 FL) 91.0 MCH (27.0 - 31.0 PG) 30.4 MCHC (33.0 - 37.0 G/DL) 33.3 RDW (11.5 - 14.5 %) 15.5 H Plt Count (130 - 400 /CUMM) 307 MPV (7.4 - 10.4 FL) 8.7 Gran % (42.2 - 75.2 %) 80.8 H Lymphocytes % (20.5 - 51.1 %) 10.4 L Monocytes % (1.7 - 9.3 %) 7.3 Eosinophils % (0 - 5 %) 0.6 Basophils % (0.0 - 2.0 %) 0.9 Absolute Granulocytes (1.4 - 6.5 /CUMM) 8.0 H Absolute Lymphocytes (1.2 - 3.4 /CUMM) 1.0 L Absolute Monocytes (0.10 - 0.60 /CUMM) 0.7 H Absolute Eosinophils (0.0 - 0.7 /CUMM) 0.1 Absolute Basophils (0.0 - 0.2 /CUMM) 0.1 Toxicology Salicylates (0 - 20.0 mg/dL) < 1.0 A/P; 81 y/o F with pmh sig for HTN, anemia, duodenal ulcer, COPD(on CPAP at home ), HFwREF (EF 45% Jul 2015) and pulmonary hypertension admitted with acute COPD exacerbation, generalized weakness, hematuria and nephrolithiasis with stable renal calculus. Continue IV steroids, TRC nebs. Please consult Urology for hematuria/ left flank pain and renal calculus. Continue current meds. DVT px; Lovenox. Please Dc if hematuria gets worse. PT eval.
[2017-11-21 08:59] LABS: ABSOLUTE BASOPHIL COUNT 0 /CUMM (0.0-0.2); ABSOLUTE EOSINOPHIL COUNT 0 /CUMM (0.0-0.7); ABSOLUTE GRANULOCYTE CT 6.3 /CUMM (1.4-6.5); ABSOLUTE LYMPH COUNT 0.5 /CUMM (1.2-3.4); ABSOLUTE MONOCYTE COUNT 0 /CUMM (0.10-0.60); BASOPHIL % 0 % (0.0-2.0); EOSINOPHIL % 0.1 % (0-5); HEMATOCRIT 34.8 % (37-47); MEAN CORPUSCULAR HGB 30.5 PG (27.0-31.0); MEAN CORPUSCULAR HGB CONC 33.9 G/DL (33.0-37.0); MEAN PLATELET VOLUME 8.5 FL (7.4-10.4); PLATELET COUNT 258 /CUMM (130-400); RBC DISTRIBUTION WIDTH 15.5 % (11.5-14.5); RED BLOOD CELL CT 3.87 /CUMM (4.20-5.40); WHITE BLOOD CELL COUNT 6.8 /CUMM (4.8-10.8)
[2017-11-21 09:52] LABS: GRANULOCYTE % 92.5 % (42.2-75.2)
--- NOTE | 2017-11-21 13:32 | ULTRASOUND REPORT ---
EXAMINATION: US ABDOMEN COMPLETE CLINICAL INFORMATION: Gallstones. Abdominal pain. Transaminitis. COMPARISON: CT of the chest, abdomen and pelvis done on 11/20/2017. TECHNIQUE: Real-time imaging of the abdominal viscera. FINDINGS: PANCREAS: Normal. ABDOMINAL AORTA: The proximal segment is normal in caliber. INFERIOR VENA CAVA: Visualized portions are normal. LIVER: Normal. The liver demonstrates normal size, contour and echogenicity. No focal lesion or intrahepatic biliary duct dilatation. GALLBLADDER: Normal. The gallbladder is physiologically distended. Multiple mobile gallstones are present. No evidence of gallbladder wall thickening or pericholecystic fluid. COMMON BILE DUCT: Measures 0.8 cm, within normal limits, given the patient's age. RIGHT KIDNEY: Normal. No hydronephrosis. No renal calculi or focal parenchymal lesions. The kidney measures 11.6 cm in maximum dimension. LEFT KIDNEY: Normal. There is a unilocular simple-appearing cyst identified at superior pole of the left kidney, measures 3.7 x 3.8 x 2.2 cm, measured 3.0 x 3.0 x 3.0 cm on the study dated 03/27/2017. There is a second simple-appearing cortical cyst identified at the mid to upper posterior cortex, measures 3.8 x 3.4 x 2.9 cm, previously measured 3.0 x 3.0 x 2.8 cm. No hydronephrosis or renal calculi. The kidney measures 10.9 cm in maximum dimension. SPLEEN: Normal. The spleen measures 10.3 cm in maximum dimension. FREE FLUID: None. IMPRESSION: 1. Cholelithiasis without any sonographic features of acute cholecystitis or biliary obstruction. 2. Left renal cortical cysts, relatively stable since 03/27/2017. 3. Specifically, previous CT detected calculus seen within the left renal pelvis is not reproduced on the current study and there is no evidence of any hydronephrosis present.
[2017-11-21 14:49] VITALS: BP 118/78
--- NOTE | 2017-11-21 15:17 | Cons- Urology ---
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 Patient uses occasional oxygen at home but she was trying to decrease using it. Patient had a mechanical fall a few days ago which she thinks is due to her old walker. she reports that bumped her head twice during this fall. Patient was evaluated by her primary care doctor today and was advised to come to the ED for further evaluation however she was too weak to return to her home and was brought in by ambulance. Patient also reports having abdominal pain pain, patient also reports having left upper quadrant abdominal pain. For which she was taking Advil 200 mg 2 pills daily for the past few weeks. Patient denies using Tylenol at all recently. Patient also endorses chronic back pain radiating to the back of her thighs. Patient was discharged on 04/14 after being treated for acute hypoxic respiratory failure due to COPD exacerbation, acute on chronic CHF.04/27 ECHO- Normal EF of 60% with impaired LV relaxation compared to previous echo in 2014 showed EF of 40-45% with mild decreased systolic function and no wall motion abnormality. Patient lives home and independent with her activities of daily living, she uses a walker to ambulate. Pt denies renal colic, and gross hematuria. I have reviewed CT scan report with pt. of large left stone. Pt will need surgical intervention (stent/eswl) if/ when medically cleared for OR. Allergies/Medications Allergies: Coded Allergies: Sulfa (Sulfonamide Antibiotics) (Intermediate, "ITCHY" - MED LIST FROM MD OFFICE SAYS TERESA FOREMAN 12/25/15) Home Med List: Albuterol Sulfate (Proair Hfa) 90 MCG HFA.AER.AD 2 PUF INH Q4H PRN SHORTNESS OF BREATH (Reported) Albuterol Sulfate 2.5 MG/3 ML (0.083 %) VIAL.NEB 1 Vial INH/CARL TID RESP. ( Reported) Citalopram Hydrobromide (Citalopram HBr) 20 MG TABLET 1 TAB PO DAILY MENTAL HEALTH (Reported) Furosemide 20 MG TABLET 1 TAB PO DAILY WATER RETENTION (Reported) Ipratropium [place] 0.2 MG/ML (0.02 %) SOLUTION 1 Vial INH/CARL TID RESP. ( Reported) Lisinopril (Prinivil) 20 MG TABLET 1 TAB PO DAILY BP (Reported) Metoprolol Tartrate (Lopressor) 50 MG TABLET 1 TAB PO BID BP (Reported) Simvastatin (Zocor*) 40 MG TABLET 1 TAB PO DAILY CHOLESTEROL (Reported) Spironolactone (Aldactone) 25 MG TABLET 1 TAB PO DAILY HEART FAILURE ( Reported) Current Medications: Current Medications Sig/Dom Start time Last Medication Dose Route Stop Time Status Admin Acetaminophen 500 MG Q8P PRN 11/21 0045 AC PO Albuterol Sulfate 3 ML TID 11/21 1600 AC 11/21 INH 1312 Albuterol Sulfate 3 ML Q6P PRN 11/21 1230 DC INH Albuterol Sulfate 2 PUF Q4P PRN 11/21 0100 AC 11/21 INH 1008 Albuterol Sulfate 3 ML ONCE ONE 11/20 1845 DC 11/20 INH 11/20 1846 1839 Citalopram 20 MG DAILY 11/21 1000 AC 11/21 Hydrobromide PO 1228 Enoxaparin Sodium 40 MG DAILY 11/21 1000 AC 11/21 SC 1226 Furosemide 20 MG DAILY 11/21 1000 CAN PO Ibuprofen 600 MG ONCE ONE 11/20 2229 DC 11/20 PO 11/20 2230 224 Ibuprofen 0 .STK-MED ONE 11/20 2222 DC PO Ipratropium [place] 2.5 ML Q6 11/21 1800 CAN INH Ipratropium [place] 2.5 ML TID 11/21 1600 AC 11/21 INH 1312 Ipratropium [place] 2.5 ML ONCE ONE 11/20 1845 DC 11/20 INH 11/20 1846 1839 Lidocaine 1 PAT Q24H 11/21 0045 AC 11/21 EXT 0148 Lisinopril 20 MG DAILY 11/21 1000 AC 11/21 PO 1227 Methylprednisolone 40 MG Q8H 11/21 0900 AC 11/21 IV 1008 Methylprednisolone 40 MG Q8 11/21 0045 DC 11/21 IV 0148 Metoprolol Tartrate 50 MG BID 11/21 0047 AC 11/21 PO 1228 Omeprazole 40 MG DAILY AC 11/21 0800 AC 11/21 PO 1227 Oxycodone HCl 5 MG Q12P PRN 11/21 0045 AC 11/21 PO 0311 Potassium Chloride 40 MEQ ONCE ONE 11/21 0100 DC 11/21 PO 11/21 0101 0148 Sodium Chloride 1,000 ML .[id number] 11/21 0045 DC 11/21 IV 11/21 1404 0148 Spironolactone 25 MG DAILY 11/21 1000 AC 11/21 PO 1228 Past History Medical History Blood Transfusion Hx: Yes Neurological: NONE EENT: NONE Cardiovascular: CHF, hypertension, NSTEMI, MIXED HYPERLIPIDEMIA Respiratory: bronchitis, COPD, emphysema, pneumonia Gastrointestinal: GERD, BLEEDING STOMACH ULCER Hepatic: NONE Renal: nephrolithiasis Musculoskeletal: chronic back pain Psychiatric: MAJOR DEPRESSIVE DISORDER GENERALIZED ANXIETY D/O Endocrine: PRE-DIABETIC Blood Disorders: anemia, VIT D DEFICIENCY Cancer(s): NONE 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 MOTHER (heart failure). FATHER (Diabetes). Psychosocial History Where Do You Live? Home Services at Home: Home Health Aide, Nursing, Oxygen Smoking Status: Former Smoker Employment History Retired? unknown Review of Systems Review of Systems Constitutional: Reports: weakness. EENTM: Denies: no symptoms. Cardiovascular: Denies: no symptoms. Respiratory: Reports: cough, short of breath. GI: Reports: bloating. Genitourinary: Denies: no symptoms. Musculoskeletal: Reports: muscle stiffness. Skin: Denies: no symptoms. Exam & Diagnostic Data Vital Signs and I&O Vital Signs Date Time Temp Pulse Resp B/P B/P Pulse O2 O2 Flow FiO2 Mean Ox Delivery Rate 11/21 1449 97.3 73 20 118/78 93 11/21 1312 Nasal 2.0L Cannula 11/21 1228 97.6 68 28 122/60 11/21 1227 97.6 68 28 122/60 11/21 0654 97.6 68 28 122/60 91 Nasal 2.0L Cannula 11/21 0148 87 114/60 11/21 0118 Nasal 2.0L Cannula 11/21 0023 97.8 71 26 112/56 95 Nasal 2.0L Cannula 11/202 98.0 70 16 130/62 97 Nasal 2.0L Cannula 11/207 97.5 88 22 144/72 95 Nasal 2.0L Cannula 11/20 1857 96 Nasal 2.0L Cannula 11/20 183 97 Nasal 2.0L Cannula 11/20 175 97.7 82 24 156/70 98 Nasal 2.0L Cannula Intake & Output 11/21 1600 11/21 0800 11/21 0000 11/20 1600 11/20 0800 11/20 0000 Intake Total 810 Output Total Balance 810 Intake, IV 450 Intake, Oral 360 Patient 135 lb 142 lb Weight Weight Bed scale Measurement Method Physical Exam General Appearance: well developed/nourished, no apparent distress Head: atraumatic Eyes: Bilateral: normal appearance. Neck: normal inspection Respiratory: normal breath sounds Cardiovascular: regular rate/rhythm Gastrointestinal: normal bowel sounds, soft Back: no vertebral tenderness Extremities: normal inspection Skin: intact, normal color, warm/dry Last 24 Hours of Labs: Laboratory Tests 11/21 Chemistry Sodium (137 - 145 mmol/L) 143 Potassium (3.5 - 5.1 mmol/L) 4.5 Chloride (98 - 107 mmol/L) 108 H Carbon Dioxide (22 - 30 mmol/L) 27 Anion Gap (5 - 16) 9 BUN (7 - 17 mg/dL) 17 Creatinine (0.5 - 1.0 mg/dL) 0.6 Estimated GFR (>60 ml/min) > 60 BUN/Creatinine Ratio (7 - 25 %) 28.3 H Hematology CBC w Diff NO MAN DIFF REQ WBC (4.8 - 10.8 /CUMM) 6.8 RBC (4.20 - 5.40 /CUMM) 3.87 L Hgb (12.0 - 16.0 G/DL) 11.8 L Hct (37 - 47 %) 34.8 L MCV (81.0 - 99.0 FL) 90.0 MCH (27.0 - 31.0 PG) 30.5 MCHC (33.0 - 37.0 G/DL) 33.9 RDW (11.5 - 14.5 %) 15.5 H Plt Count (130 - 400 /CUMM) 258 MPV (7.4 - 10.4 FL) 8.5 Gran % (42.2 - 75.2 %) 92.5 H Lymphocytes % (20.5 - 51.1 %) 7.0 L Monocytes % (1.7 - 9.3 %) 0.4 L Eosinophils % (0 - 5 %) 0.1 Basophils % (0.0 - 2.0 %) 0 Absolute Granulocytes (1.4 - 6.5 /CUMM) 6.3 Absolute Lymphocytes (1.2 - 3.4 /CUMM) 0.5 L Absolute Monocytes (0.10 - 0.60 /CUMM) 0 L Absolute Eosinophils (0.0 - 0.7 /CUMM) 0 Absolute Basophils (0.0 - 0.2 /CUMM) 0 Toxicology Urine Opiates Screen (>2000 NG/ML) < 100.00 Methadone Screen (>300 NG/ML) 50 Barbiturate Screen (>200 NG/ML) < 60 Ur Phencyclidine Scrn (>25 NG/ML) < 6.00 Amphetamines Screen (>1000 NG/ML) < 100 U Benzodiazepines Scrn (>200 NG/ML) < 85 Urine Cocaine Screen (>300 NG/ML) < 50 Urine Cannabis Screen (>50 NG/ML) < 5.00 Urines Urine Color (YEL,AMB,STR) YEL Urine Clarity (CLEAR) HAZY H Urine pH (5.0 - 8.0) 6.0 Ur Specific [place] (1.001 - 1.035) >= 1.030 Urine Protein (NEG,<30 MG/DL) 100 H Urine Ketones (NEG) TRACE H Urine Nitrite (NEG) NEG Urine Bilirubin (NEG) NEG@ICTO Urine Urobilinogen (0.1 - 1.0 EU/dl) 1.0 Ur Leukocyte Esterase (NEG) TRACE H Ur Microscopic SEDIMENT EXAMINED Urine RBC (0 - 5 /HPF) >75 H Urine WBC (0 - 2 /HPF) 3-5 H Ur Epithelial Cells (NONE,FEW) RARE Urine Bacteria (NEG/NONE) FEW H Hyaline Casts (0/LPF) RARE H Urine Mucus (FEW,NONE) RARE Urine Hemoglobin (NEG) LARGE H Urine Glucose (N MG/DL) NEG 11/20 1845 Chemistry Sodium (137 - 145 mmol/L) 143 Potassium (3.5 - 5.1 mmol/L) 3.3 L Chloride (98 - 107 mmol/L) 102 Carbon Dioxide (22 - 30 mmol/L) 27 Anion Gap (5 - 16) 13 BUN (7 - 17 mg/dL) 20 H Creatinine (0.5 - 1.0 mg/dL) 0.7 Estimated GFR (>60 ml/min) > 60 BUN/Creatinine Ratio (7 - 25 %) 28.6 H Glucose (65 - 99 mg/dL) 103 H Calcium (8.4 - 10.2 mg/dL) 10.4 H Phosphorus (2.5 - 4.5 mg/dL) 3.5 Magnesium (1.6 - 2.3 mg/dL) 1.8 Total Bilirubin (0.2 - 1.3 mg/dL) 0.6 AST (14 - 36 U/L) 333 H ALT (9 - 52 U/L) 429 H Alkaline Phosphatase (<127 U/L) 91 Creatine Kinase (30 - 135 U/L) 6767 H Troponin I (< 0.11 ng/ml) 0.02 Ueo-E-Ejsbmpemmpg Pept (<125 pg/mL) 365 H Total Protein (6.3 - 8.2 g/dL) 6.6 Albumin (3.5 - 5.0 g/dL) 4.0 Globulin (1.9 - 4.2 gm/dL) 2.6 Albumin/Globulin Ratio (1.1 - 2.2 %) 1.5 TSH (0.270 - 4.200 uIU/mL) 2.040 Free T4 (0.78 - 2.44 ng/dL) 1.62 Hematology CBC w Diff NO MAN DIFF REQ WBC (4.8 - 10.8 /CUMM) 9.9 RBC (4.20 - 5.40 /CUMM) 4.02 L Hgb (12.0 - 16.0 G/DL) 12.2 Hct (37 - 47 %) 36.5 L MCV (81.0 - 99.0 FL) 91.0 MCH (27.0 - 31.0 PG) 30.4 MCHC (33.0 - 37.0 G/DL) 33.3 RDW (11.5 - 14.5 %) 15.5 H Plt Count (130 - 400 /CUMM) 307 MPV (7.4 - 10.4 FL) 8.7 Gran % (42.2 - 75.2 %) 80.8 H Lymphocytes % (20.5 - 51.1 %) 10.4 L Monocytes % (1.7 - 9.3 %) 7.3 Eosinophils % (0 - 5 %) 0.6 Basophils % (0.0 - 2.0 %) 0.9 Absolute Granulocytes (1.4 - 6.5 /CUMM) 8.0 H Absolute Lymphocytes (1.2 - 3.4 /CUMM) 1.0 L Absolute Monocytes (0.10 - 0.60 /CUMM) 0.7 H Absolute Eosinophils (0.0 - 0.7 /CUMM) 0.1 Absolute Basophils (0.0 - 0.2 /CUMM) 0.1 Toxicology Salicylates (0 - 20.0 mg/dL) < 1.0 Imaging Results: PATIENT: DELVIS ARROYO PRESENT AGE: 81 PATIENT ACCOUNT NO: [id number] : 37 LOCATION: [facility] ORDERING PHYSICIAN: Homero PARRY SERVICE DATE: 11/20/17 EXAM TYPE: CAT - CT ABD & PELVIS W/O IV CONTRAS; CT CHEST WO IV CONTRAST EXAMINATION: CT CHEST, ABDOMEN AND PELVIS WITHOUT CONTRAST CLINICAL INFORMATION: Shortness of breath, abdominal pain. COMPARISON: CT chest, abdomen and pelvis 04/25/2017. TECHNIQUE: Contiguous axial thin section helical images of the chest, abdomen and pelvis were performed without contrast. The data set was reformatted in the coronal and sagittal planes and reviewed on an independent workstation. DLP: 451 mGy-cm FINDINGS: LUNGS: Moderate to severe centrilobular emphysema with no parenchymal mass or consolidation. There is linear atelectasis/scarring in the lingula and the anteromedial aspect of the right middle lobe. Pulmonary edema demonstrated on the previous study has resolved. MEDIASTINUM: Extensive atherosclerotic calcifications of the thoracic aorta and coronary arteries. No pericardial effusion. No adenopathy. PLEURA: There is no pleural effusion. No pleural mass or thickening. AXILLA: No lymphadenopathy. LIVER, GALLBLADDER, BILIARY TREE: The unenhanced liver is unremarkable. There are layering gallstones. No biliary ductal dilatation. PANCREAS: Taniya.l SPLEEN: Unremarkable. ADRENAL GLANDS, KIDNEYS, URETERS, AND BLADDER: Bilateral renal cysts. Again demonstrated is a 1.1 cm calculus in the left renal pelvis. There is mild stranding of the fat surrounding the left renal pelvis which may indicate inflammatory stranding. BOWEL LOOPS: Severe sigmoid diverticulosis. No evidence of acute diverticulitis. No obstruction. Normal appendix. LYMPH NODES/RETROPERITONEUM: No retroperitoneal, mesenteric, or pelvic adenopathy. No ascites or free pelvic fluid OSSEOUS STRUCTURES: No suspicious lesions. ADDITIONAL FINDINGS: None. IMPRESSION: Emphysema. No acute cardiopulmonary findings. Stable calculus in the left renal pelvis although minimal inflammatory stranding is a new finding. Correlate with urinalysis for possible urinary tract infection. Marked sigmoid diverticulosis without evidence of diverticulitis. Cholelithiasis. Other Results: Patient : DELVIS ARROYO Acct: [id number] DR: Nahun WEST, Rowena Birthdate: [birth year] Age/Sex: 81/F Unit: [id number] Loc: A 235- 02 Status : ADM IN SPEC #: [id number] ELLIOT: 11/21/17 STATUS: RES RECD: 11/21/[address]: Thomas WEST,[facility] SOURCE: URINE ROUT ENTR: 11/21/170756 OTHR DR: Chirag WEST, Jj SPDESC: URIN CLEAN Mega WEST, [place] ORDERED: URINE CULTURE, SPN URINE AG, LEGIONELLA AG,U COMMENT: Has patient received Pneumovax in past 5 days? N 2 CLEAR /SPECKLE/LORA Procedure Result URINE CULTURE - PENDING > STREP PNEUMO URINARY ANTIGEN Final 11/21/17 STATE LAB FORMS FILED? N NEGATIVE FOR STREP PNEUMONIAE BACTERIAL AG, MAY BE BELOW DETECTION LIMIT. > LEGIONELLA URINARY ANTIGEN Final 11/21/17 STATE LAB FORMS FILED? N NEGATIVE FOR LEGIONELLA URINARY ANTIGEN, MAY BE BELOW DETECTION LIMIT. Assessment/Plan Assessment/Plan left renal stone possibly resulting in colic and hematuria:however, no hydro., no sepsis, no obstruction/will eventually need cystoscopy/stent/ESWL if and when she is medically cleared for surgery. Copies To: Clarence Cleaning MD Consult Acknowledgment - Thank you for your consult request. Attending MD Review Statement Attending Statement Attending MD Statement: examined this patient, discuss w/resident/PA/DISABILITY INSURANCE CLAIM EXAMINER Attending Assessment/Plan: Pt. with signficant pulmo. issues and finding of left renal stone with hematuria : will need intervention when medically stable and cleared.
[2017-11-21 22:11] VITALS: BP 110/60
--- NOTE | 2017-11-22 04:53 | PN- Housestaff ---
See Addendum Subjective Follow-up For: COPD exacerbation Transaminitis Rhabdomyolysis Hematuria Subjective: Ms Vidal was seen and examined this morning. She is resting comfortably on the chair beside her bed. She states that she's feeling better although states that she would like to be discharged soon. She appears pleasantly confused although is able to answer questions appropriately. She denies any wheezing. She denies any fever, chills, nausea, vomiting. She has been tolerating by mouth intake well however during her clinical interaction had a coughing fit after attempting to drink some water. She repeatedly asked us that she would like to speak to her son. We subsequently cleed her son Gabriele on the phone. Review of Systems Constitutional: Reports: see HPI. Objective Last 24 Hrs of Vital Signs/I&O Vital Signs Date Time Temp Pulse Resp B/P B/P Pulse O2 O2 Flow FiO2 Mean Ox Delivery Rate 11/22 0707 97.8 69 23 108/54 96 11/22 0000 Nasal 2.0L Cannula 11/21 2211 98.1 88 24 110/60 91 Nasal Cannula 11/21 2146 88 110/60 11/21 1920 95 Nasal 2.0L Cannula 11/21 1756 Nasal 2.0L Cannula 11/21 1449 97.3 73 20 118/78 93 11/21 1312 Nasal 2.0L Cannula 11/21 1228 97.6 68 28 122/60 11/21 1227 97.6 68 28 122/60 11/21 0800 96 Nasal 2.0L Cannula Intake & Output 11/22 0800 11/22 0000 11/21 1600 Intake Total 100 740 Output Total 700 Balance 100 40 Intake, IV 400 Intake, Oral 100 340 Output, Urine 700 Physical Exam General Appearance: Alert, Oriented X3, Cooperative Neck: Supple Lymphatic: Cervical nl Cardiovascular: Regular Rate, Normal S1, Normal S2 Lungs: Decreased Breath sounds Abdomen: Normal Bowel Sounds, Soft, No Tenderness Neurological: Normal Speech Extremities: No Edema Vascular: Normal Pulses Current Medications: Current Medications Sig/Dom Start time Last Medication Dose Route Stop Time Status Admin Acetaminophen 500 MG Q8P PRN 11/21 0045 AC PO Albuterol Sulfate 3 ML TID 11/21 1600 AC 11/21 INH 1917 Albuterol Sulfate 3 ML Q6P PRN 11/21 1230 DC INH Albuterol Sulfate 2 PUF Q4P PRN 11/21 0100 AC 11/21 INH 1008 Citalopram 20 MG DAILY 11/21 1000 AC 11/21 Hydrobromide PO 1228 Enoxaparin Sodium 40 MG DAILY 11/21 1000 AC 11/21 SC 1226 Furosemide 20 MG DAILY 11/21 1000 CAN PO Ipratropium [place] 2.5 ML Q6 11/21 1800 CAN INH Ipratropium [place] 2.5 ML TID 11/21 1600 AC 11/21 INH 1916 Lidocaine 1 PAT Q24H 11/21 0045 AC 11/22 EXT 0010 Lisinopril 20 MG DAILY 11/21 1000 AC 11/21 PO 1227 Methylprednisolone 40 MG Q8H 11/21 0900 AC 11/22 IV 0010 Metoprolol Tartrate 50 MG BID 11/21 0047 AC 11/21 PO 2146 Omeprazole 40 MG DAILY AC 11/21 0800 AC 11/22 PO 0613 Oxycodone HCl 5 MG Q12P PRN 11/21 0045 AC 11/21 PO 0311 Patient Medication 1 ED ONE ONE 11/21 1645 DC Teaching ED 11/21 1646 Sodium Chloride 1,000 ML .[id number] 11/21 0045 DC 11/21 IV 11/21 1404 0148 Spironolactone 25 MG DAILY 11/21 1000 AC 11/21 PO 1228 Last 24 Hrs of Lab/Victor M Results Last 24 Hrs of Labs/Mics: Laboratory Tests 11/22/17 0840: Sodium Pending, Potassium Pending, Chloride Pending, Carbon Dioxide Pending, Anion Gap Pending, BUN Pending, Creatinine Pending, BUN/Creatinine Ratio Pending , Magnesium Pending, Total Bilirubin Pending, Direct Bilirubin Pending, AST Pending, ALT Pending, Alkaline Phosphatase Pending, Creatine Kinase Pending, Total Protein Pending, Albumin Pending, CBC w Diff Pending, WBC Pending, RBC Pending, Hgb Pending, Hct Pending, MCV Pending, MCH Pending, MCHC Pending, RDW Pending, Plt Count Pending, MPV Pending, Hepatitis A IgM Ab Pending, Hep Bs Antigen Pending, Hep B Core IgM Ab Conf Pending, Hepatitis C Antibody Pending Microbiology 11/21 1329 URINE ROUT: Legionella Antigen - RES 11/21 1329 URINE ROUT: Streptococcus pneumoniae Antigen (M - RES 02/23 1330 URINE ROUT: Urine Culture - RES Assessment/Plan Assessment: Ms Vidal is a 81 year old woman with multiple medical problems significant for COPD on home oxygen as needed, HFrEF (45%), and pulmonary hypertension seen for evaluation of lower extremity weakness and shortness of breath / wheezing. Patient was saturating in the low 90's on 2.0L supplemental oxygen via nasal cannula. Patient reported a fall several days ago, which is to be evaluated by physical therapy. CPK and LFTs are being be trended, patient received a small amount of intravenous hydration. Problem List -Acute COPD exacerbation -Transaminitis -Rhabdomyolsis -Hematuria with left renal stone -HFrEF, EF 45% -Pulmonary hypertension -Hypertension -History of chronic respiratory failure, on CPAP -History of duodenal ulcer -History of anemia -Rule out aspiration risk Plan -Continue General Medicine -Fall precautions -TRC with scheduled Nebs every six hours -Supplemental oxygen, goal > 92%, taper as tolerated -Solumedrol 40 mg IV Q8H, May consider reducing to Q12. -Hold lasix for dehydration, restart as needed -Hold statin for transaminitis, restart as needed -Continue home meds: citalopram, lisinopril, metoprolol, omeprazole, aldactone -PT evaluation, patient will need STR -Sputum culture -Follow up cultures & sensitivites -Trend CPK, LFTs -Check hepatitis panel, currently pending. -Pain control with acetaminophen, lidocaine patch, oxycodone -NPO for now till formal swallow evaluation is obtained, this was after the patient appeared to have a difficult time drinking water this am. -DVT PPx with lovenox -DNR/DNI -Outpatient evaluation for hematuria, cystoscopy/stent/ESWL Problem List: 1. COPD exacerbation 2. Transaminitis 3. Asymptomatic microscopic hematuria 4. Weakness Pain Ratin Pain Location: No Pain Endorsed Pain Goal: Remain pain free Pain Plan: Lidocaine Patch Tomorrow's Labs & Rationales: CBC BEP + LFT
[2017-11-22 07:07] VITALS: BP 108/54
[2017-11-22 09:27] LABS: ABSOLUTE BASOPHIL COUNT 0 /CUMM (0.0-0.2); ABSOLUTE EOSINOPHIL COUNT 0 /CUMM (0.0-0.7); ABSOLUTE GRANULOCYTE CT 16.8 /CUMM (1.4-6.5); ABSOLUTE LYMPH COUNT 0.8 /CUMM (1.2-3.4); ABSOLUTE MONOCYTE COUNT 0.4 /CUMM (0.10-0.60); BASOPHIL % 0 % (0.0-2.0); EOSINOPHIL % 0 % (0-5); GRANULOCYTE % 93.5 % (42.2-75.2); HEMATOCRIT 34.8 % (37-47); MEAN CORPUSCULAR HGB 30.2 PG (27.0-31.0); MEAN CORPUSCULAR VOLUME 91.5 FL (81.0-99.0); MEAN PLATELET VOLUME 8.6 FL (7.4-10.4); PLATELET COUNT 318 /CUMM (130-400); RBC DISTRIBUTION WIDTH 15.9 % (11.5-14.5)
[2017-11-22 14:17] VITALS: BP 100/60
[2017-11-22 21:25] VITALS: BP 94/44
[2017-11-22 22:15] VITALS: BP 92/45
[2017-11-22 23:36] VITALS: BP 94/50
[2017-11-23 06:20] VITALS: BP 124/58
[2017-11-23 08:18] LABS: ABSOLUTE BASOPHIL COUNT 0 /CUMM (0.0-0.2); ABSOLUTE EOSINOPHIL COUNT 0 /CUMM (0.0-0.7); ABSOLUTE GRANULOCYTE CT 10.5 /CUMM (1.4-6.5); ABSOLUTE LYMPH COUNT 0.7 /CUMM (1.2-3.4); ABSOLUTE MONOCYTE COUNT 0.5 /CUMM (0.10-0.60); BASOPHIL % 0 % (0.0-2.0); EOSINOPHIL % 0 % (0-5); GRANULOCYTE % 89.9 % (42.2-75.2); HEMATOCRIT 32.7 % (37-47); MEAN CORPUSCULAR HGB 30.5 PG (27.0-31.0); MEAN CORPUSCULAR VOLUME 92.2 FL (81.0-99.0); MEAN PLATELET VOLUME 8.6 FL (7.4-10.4); PLATELET COUNT 274 /CUMM (130-400); RBC DISTRIBUTION WIDTH 16.1 % (11.5-14.5); RED BLOOD CELL CT 3.55 /CUMM (4.20-5.40); WHITE BLOOD CELL COUNT 11.6 /CUMM (4.8-10.8)
--- NOTE | 2017-11-23 12:39 | Cons- Pulmonary ---
General Information and HPI Consulting Request Date of Consult: 11/23/17 Requested By: Dr. Garnica Reason for Consult: COPD exac Source of Information: patient History of Present Illness: Patient is 81 years old she is DNR/DNI. She has a history of COPD and obstructive sleep apnea she's been on CPAP therapy and inhalers including nebulizer therapy at home. She also has an ejection fraction of 45% in 2015 also with pulmonary hypertension. Per the patient she has not seen the pulmonary doctor previously. She has been admitted for COPD exacerbation overall feeling slightly better. She has shown to have significant renal colic with hematuria and for urology she may require urological/surgical intervention such as stent or ESWL. She has improved and if the surgery is a necessity this should be pursued however or significant weight then it would be prudent to do so including pulmonary function testing as an outpatient. Currently there is no nausea no vomiting no diarrhea no constipation she has had some left discomfort. Otherwise she has no sputum production at that time of examination. No sick contacts or travel history. She also has chronic back pain radiating into the back of her legs. Allergies/Medications Allergies: Coded Allergies: Sulfa (Sulfonamide Antibiotics) (Intermediate, "ITCHY" - MED LIST FROM MD OFFICE SAYS TERESA EDWIGE LIKE RASH 12/25/15) Home Med List: Albuterol Sulfate (Proair Hfa) 90 MCG HFA.AER.AD 2 PUF INH Q4H PRN SHORTNESS OF BREATH (Reported) Albuterol Sulfate 2.5 MG/3 ML (0.083 %) VIAL.NEB 1 Vial INH/CARL TID RESP. ( Reported) Citalopram Hydrobromide (Citalopram HBr) 20 MG TABLET 1 TAB PO DAILY MENTAL HEALTH (Reported) Furosemide 20 MG TABLET 1 TAB PO DAILY WATER RETENTION (Reported) Ipratropium [place] 0.2 MG/ML (0.02 %) SOLUTION 1 Vial INH/CARL TID RESP. ( Reported) Lisinopril (Prinivil) 20 MG TABLET 1 TAB PO DAILY BP (Reported) Metoprolol Tartrate (Lopressor) 50 MG TABLET 1 TAB PO BID BP (Reported) Simvastatin (Zocor*) 40 MG TABLET 1 TAB PO DAILY CHOLESTEROL (Reported) Spironolactone (Aldactone) 25 MG TABLET 1 TAB PO DAILY HEART FAILURE ( Reported) Current Medications: Current Medications Sig/Dom Start time Last Medication Dose Route Stop Time Status Admin Acetaminophen 500 MG Q8P PRN 11/21 0045 AC 11/22 PO 1711 Albuterol Sulfate 3 ML TID 11/21 1600 AC 11/23 INH 0847 Albuterol Sulfate 2 PUF Q4P PRN 11/21 0100 AC 11/21 INH 1008 Citalopram 20 MG DAILY 11/21 1000 AC 11/23 Hydrobromide PO 1048 Docusate Sodium 100 MG DAILY NEEDED PRN 11/22 1430 AC 11/22 PO 1711 Enoxaparin Sodium 40 MG DAILY 11/21 1000 AC 11/23 SC 1048 Ipratropium [place] 2.5 ML TID 11/21 1600 AC 11/23 INH 0847 Lidocaine 1 PAT Q24H 11/21 0045 AC 11/23 EXT 0110 Lisinopril 20 MG DAILY 11/21 1000 AC 11/21 PO 1227 Melatonin 5 MG AT BEDTIME 11/22 2200 AC 11/22 PO 2130 Methylprednisolone 40 MG Q12 11/22 2200 AC 11/23 IV 1046 Methylprednisolone 40 MG Q8H 11/21 0900 DC 11/22 IV 0921 Metoprolol Tartrate 50 MG BID 11/21 0047 AC 11/22 PO 0924 Omeprazole 40 MG DAILY AC 11/21 0800 AC 11/23 PO 0537 Oxycodone HCl 5 MG Q12P PRN 11/21 0045 AC 11/21 PO 0311 Senna 187 MG AT BEDTIME 11/22 2200 AC 11/22 PO 2130 Sodium Chloride 250 ML BOLUS ONE 11/22 2215 DC 11/22 IV 11/22 2314 2220 Spironolactone 25 MG DAILY 11/21 1000 AC 11/23 PO 1047 Review of Systems Comments 18 point review of systems was performed and reviewed. Please see pertinent positives and pertinent negatives in the HPI. Otherwise ROS is negative. 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 MOTHER (heart failure). FATHER (Diabetes). Psychosocial History Where Do You Live? Home Services at Home: Home Health Aide, Nursing, Oxygen Smoking Status: Former Smoker Exam & Diagnostic Data Last 24 Hrs of Vital Signs/I&O Vital Signs Date Time Temp Pulse Resp B/P B/P Pulse O2 O2 Flow FiO2 Mean Ox Delivery Rate 11/23 0851 92 Nasal 2.0L Cannula 11/23 0800 Nasal 2.0L Cannula 11/23 0620 98.3 72 18 124/58 93 Nasal Cannula 11/23 0000 Nasal 2.0L Cannula 11/22 2336 98.4 77 18 94/50 92 Nasal Cannula 11/22 2215 71 92/45 11/22 2129 75 94/44 11/22 2125 75 20 94/44 92 Nasal 2.0L Cannula 11/22 1925 94 Nasal 2.0L Cannula 11/22 1600 93 Nasal 2.0L Cannula 11/22 1417 98.4 85 18 100/60 93 Nasal Cannula Intake & Output 11/23 1600 11/23 0800 11/23 0000 Intake Total 100 325 Output Total Balance 100 325 Intake, IV 275 Intake, Oral 100 50 Physical Exam Other Physical Findings: Generally - Awake, alert and comfortable without distress Head and neck - normocephalic, atraumatic, EOMI grossly intact Cardiovascular - S1, S2, no murmurs, rubs or gallops Lungs - rare rhonchi with prolonged end expiratory phase Abdomen - Bowel sounds positive, soft, non-tender Extremities - without edema Last 48 Hrs of Labs/Victor M: Laboratory Tests 11/23/17 0710: Anion Gap 9, Estimated GFR > 60, BUN/Creatinine Ratio 35.7 H, Total Bilirubin 0.3, Direct Bilirubin 0.2, AST 59 H, ALT 215 H, Alkaline Phosphatase 67, Total Protein 5.6 L, Albumin 3.3 L, CBC w Diff NO MAN DIFF REQ, RBC 3.55 L, MCV 92.2, MCH 30.5, MCHC 33.0, RDW 16.1 H, MPV 8.6, Gran % 89.9 H, Lymphocytes % 6.0 L, Monocytes % 4.1, Eosinophils % 0, Basophils % 0, Absolute Granulocytes 10.5 H, Absolute Lymphocytes 0.7 L, Absolute Monocytes 0.5, Absolute Eosinophils 0, Absolute Basophils 0 11/23/17 0535: Urinalysis MOD H, Urine Color YEL, Urine Clarity CLDY H, Urine pH 6.0, Ur Specific [place] 1.020, Urine Protein 30 H, Urine Ketones NEG, Urine Nitrite NEG, Urine Bilirubin NEG, Urine Urobilinogen 1.0, Ur Leukocyte Esterase SMALL H , Ur Microscopic SEDIMENT EXAMINED, Urine RBC >75 H, Urine WBC 15-25 H, Ur Epithelial Cells FEW, Urine Bacteria FEW H, Hyaline Casts 1-3 H, Urine Mucus MOD H, Urine Hemoglobin LARGE H, Urine Glucose NEG 11/22/17 0840: Anion Gap 10, Estimated GFR > 60, BUN/Creatinine Ratio 35.0 H, Magnesium 1.8, Total Bilirubin 0.5, Direct Bilirubin 0.2, AST 116 H, ALT 301 H, Alkaline Phosphatase 78, Creatine Kinase 1479 H, Total Protein 6.2 L, Albumin 3.8, CBC w Diff NO MAN DIFF REQ, RBC 3.80 L, MCV 91.5, MCH 30.2, MCHC 33.0, RDW 15.9 H, MPV 8.6, Gran % 93.5 H, Lymphocytes % 4.2 L, Monocytes % 2.3, Eosinophils % 0, Basophils % 0, Absolute Granulocytes 16.8 H, Absolute Lymphocytes 0.8 L, Absolute Monocytes 0.4, Absolute Eosinophils 0, Absolute Basophils 0, Hepatitis A IgM Ab NONREACTIVE, Hep Bs Antigen NONREACTIVE, Hep B Core IgM Ab Conf NONREACTIVE, Hepatitis C Antibody NONREACTIVE Microbiology 11/21 1329 URINE ROUT: Legionella Antigen - COMP 11/21 1329 URINE ROUT: Streptococcus pneumoniae Antigen (M - COMP 11/21 1329 URINE ROUT: Urine Culture - COMP Assessment/Plan Impression/Plan: Impression Patient is 81 years old she is DNR/DNI. She has a history of COPD and obstructive sleep apnea she's been on CPAP therapy and inhalers including nebulizer therapy at home. She also has an ejection fraction of 45% in 2015 also with pulmonary hypertension. Per the patient she has not seen the pulmonary doctor previously. She has been admitted for COPD exacerbation overall feeling slightly better. She has shown to have significant renal colic with hematuria and for urology she may require urological/surgical intervention such as stent or ESWL. She has improved and if the surgery is a necessity this should be pursued however or significant weight then it would be prudent to do so including pulmonary function testing as an outpatient. Currently there is no nausea no vomiting no diarrhea no constipation she has had some left discomfort. Otherwise she has no sputum production at that time of examination. No sick contacts or travel history. She also has chronic back pain radiating into the back of her legs. Plan -If it is deemed that the urological procedure including possible stent or ESWL is a necessity which very well may be due to her renal colic which may be contributing to her shortness of breath it should be pursued without further intervention. However this is something that can wait for urology we can do so as well. Otherwise she is optimized for therapy because this can be therapeutic for her. -Continue Solu-Medrol 40 mg every 12 hours with TRC and nebulizers. -If the patient does not have a web editor to be acceptable given her reduced ejection fraction and also for optimization. -she should have outpatient evaluation for her COPD and respiratory care. DVT prohylaxis at all times Consult Acknowledgment - Thank you for your consult request.
[2017-11-23 14:50] VITALS: BP 120/60
--- NOTE | 2017-11-23 15:13 | PN- Gen Med ---
Assessment/Plan Medical Problem List: 1. COPD exacerbation 2. Hypothyroidism 3. Asymptomatic microscopic hematuria 4. Renal calculus, left Plan: A/P; 81 y/o F with pmh sig for HTN, anemia, duodenal ulcer, COPD(on CPAP at home , also uses 2 L of oxygen by nasal cannula), HFwREF (EF 45% Jul 2015) and pulmonary hypertension admitted with acute COPD exacerbation, generalized weakness, hematuria and nephrolithiasis with stable renal calculus. Continue IV steroids every 12 hours. Leukocytosis likely secondary to steroids no fever chills. Head which is resolving. Having burning sensation during micturition. Urine cultures have been negative so far. TRC nebs. As per urology patient will eventually need cystoscopy/stent/ ESWL Patient is about around her baseline. Discussed with urology this morning on the phone, apparently if the patient is staying till Friday, patient will get the procedure as the equipment is available only starting Friday. If patient is stable to be discharged, patient can come and get the cystoscopy with possible ESWL as an outpatient. However patient mentions that the left-sided stone pain might be contacted regarding to shortness of breath. Last ejection fraction from March 2017 to 60%. Appreciate pulmonary recommendations. Restart home dose of oral Lasix. As of now, plan is to keep the patient till Friday, optimize her pulmonary status and get the renal stone interventional procedure done. Continue current meds. DVT px; Lovenox Subjective Subjective: Patient seen and examined at bedside. No acute events overnight. Denies worsening of any symptoms. Thinks that she is almost back to baseline with regards to her COPD. Has been having pain on and off in the left flank. Did not notice blood in urine last night. Review of Systems Constitutional: Denies: see HPI. Objective Last 24 Hrs of Vital Signs/I&O Vital Signs Date Time Temp Pulse Resp B/P B/P Pulse O2 O2 Flow FiO2 Mean Ox Delivery Rate 11/23 1450 97.4 84 22 120/60 92 11/23 0851 92 Nasal 2.0L Cannula 11/23 0800 Nasal 2.0L Cannula 11/23 0620 98.3 72 18 124/58 93 Nasal Cannula 11/23 0000 Nasal 2.0L Cannula 11/22 2336 98.4 77 18 94/50 92 Nasal Cannula 11/22 2215 71 92/45 11/22 2128 75 94/44 11/22 2124 75 20 /44 92 Nasal 2.0L Cannula 11/22 1924 94 Nasal 2.0L Cannula 11/22 1600 93 Nasal 2.0L Cannula Intake & Output 11/23 1600 11/23 0800 11/23 0000 Intake Total 400 100 325 Output Total 500 Balance -100 100 325 Intake, IV 275 Intake, Oral 400 100 50 Number 1 Bowel Movements Output, Urine 500 Physical Exam General Appearance: Alert, Oriented X3 Other Physical Findings: Neck: Supple Lymphatic: Cervical nl Cardiovascular: Regular Rate, Normal S1, Normal S2 Lungs: Decreased Breath sounds Abdomen: Normal Bowel Sounds, Soft, No Tenderness Neurological: Normal Speech Extremities: No Edema Vascular: Normal Pulses Current Medications: Current Medications Sig/Dom Start time Last Medication Dose Route Stop Time Status Admin Acetaminophen 500 MG Q8P PRN 11/21 0045 AC 11/22 PO 1711 Albuterol Sulfate 3 ML TID 11/21 1600 AC 11/23 INH 1342 Albuterol Sulfate 2 PUF Q4P PRN 11/21 0100 AC 11/21 INH 1008 Citalopram 20 MG DAILY 11/21 1000 AC 11/23 Hydrobromide PO 1048 Docusate Sodium 100 MG DAILY NEEDED PRN 11/22 1430 AC 11/22 PO 1711 Enoxaparin Sodium 40 MG DAILY 11/21 1000 AC 11/23 SC 1048 Ipratropium [place] 2.5 ML TID 11/21 1600 AC 11/23 INH 1342 Lidocaine 1 PAT Q24H 11/21 0045 AC 11/23 EXT 0110 Lisinopril 20 MG DAILY 11/21 1000 AC 11/21 PO 1227 Melatonin 5 MG AT BEDTIME 11/22 2200 AC 11/22 PO 2130 Methylprednisolone 40 MG Q12 11/22 2200 AC 11/23 IV 1046 Metoprolol Tartrate 50 MG BID 11/21 0047 AC 11/22 PO 0924 Omeprazole 40 MG DAILY AC 11/21 0800 AC 11/23 PO 0537 Oxycodone HCl 5 MG Q12P PRN 11/21 0045 AC 11/21 PO 0311 Polyethylene Glycol 17 GM DAILY 11/23 1501 AC PO Senna 187 MG AT BEDTIME 11/22 2200 AC 11/22 PO 2130 Sodium Chloride 250 ML BOLUS ONE 11/22 2215 DC 11/22 IV 11/22 9790 2286 Spironolactone 25 MG DAILY 11/21 1000 AC 11/23 PO 1047 Last 24 Hrs of Labs/Mics: Laboratory Tests 11/23/17 0710: Anion Gap 9, Estimated GFR > 60, BUN/Creatinine Ratio 35.7 H, Total Bilirubin 0.3, Direct Bilirubin 0.2, AST 59 H, ALT 215 H, Alkaline Phosphatase 67, Total Protein 5.6 L, Albumin 3.3 L, CBC w Diff NO MAN DIFF REQ, RBC 3.55 L, MCV 92.2, MCH 30.5, MCHC 33.0, RDW 16.1 H, MPV 8.6, Gran % 89.9 H, Lymphocytes % 6.0 L, Monocytes % 4.1, Eosinophils % 0, Basophils % 0, Absolute Granulocytes 10.5 H, Absolute Lymphocytes 0.7 L, Absolute Monocytes 0.5, Absolute Eosinophils 0, Absolute Basophils 0 11/23/17 0535: Urinalysis MOD H, Urine Color YEL, Urine Clarity CLDY H, Urine pH 6.0, Ur Specific [place] 1.020, Urine Protein 30 H, Urine Ketones NEG, Urine Nitrite NEG, Urine Bilirubin NEG, Urine Urobilinogen 1.0, Ur Leukocyte Esterase SMALL H , Ur Microscopic SEDIMENT EXAMINED, Urine RBC >75 H, Urine WBC 15-25 H, Ur Epithelial Cells FEW, Urine Bacteria FEW H, Hyaline Casts 1-3 H, Urine Mucus MOD H, Urine Hemoglobin LARGE H, Urine Glucose NEG Microbiology 11/23 0535 URINE ROUT: Urine Culture - RECD
[2017-11-23 22:17] VITALS: BP 110/60
[2017-11-24 06:20] VITALS: BP 118/66
--- NOTE | 2017-11-24 07:44 | PN- Housestaff ---
Subjective Follow-up For: COPD exacerbation transaminitis rhabdomyolysis hematuria Subjective: Patient seen and examined. She is seen sitting upright in her chair at bedside resting comfortably maintained on supplemental oxygen via nasal cannula. She appears tired, but in no acute distress. She feels that she may have gotten "a cold" with associated runny nose and muscle aches but states they are mild and she otherwise feels well except for some left flank pain. She feels her breathing is close to baseline and she feels comfortable with the supplemental oxygen in her nose. She denies any fever, chills, chest pain, or shortness of breath. Review of Systems Constitutional: Reports: see HPI. Objective Last 24 Hrs of Vital Signs/I&O Vital Signs Date Time Temp Pulse Resp B/P B/P Pulse O2 O2 Flow FiO2 Mean Ox Delivery Rate 11/24 1018 98.2 81 20 11/24 1018 98.2 81 20 11/24 0813 93 Nasal 2.0L Cannula 11/24 0800 93 Nasal 2.0L Cannula 11/24 0620 98.2 81 20 118 95 Nasal Cannula 11/24 0000 Nasal 2.0L Cannula 11/23 2217 97.9 88 22 110/60 93 Nasal Cannula 11/23 2119 72 20 128/60 11/23 1945 95 Nasal 2.0L Cannula 11/23 1450 97.4 84 22 120/60 92 Intake & Output 11/24 1600 11/24 0800 11/24 0000 Intake Total 500 500 Output Total 350 650 300 Balance -350 -150 200 Intake, Oral 500 500 Number 1 0 Bowel Movements Output, Urine 350 650 300 Physical Exam General Appearance: Alert, Oriented X3, Cooperative, No Acute Distress Other Physical Findings: GEN: well developed, well nourished elderly woman in no acute distress HEENT: NCAT, PERRL, EOMI, anicteric sclera, MMM, nasal cannula in place NECK: Supple, no JVD, trachea midline, no accessory respiratory muscle use CARD: Normal S1/S2 w/o m/g/r; RRR PULM: Diminished airflow without crackles ABD: Soft, NT, ND, BS+ NEURO: Awake and alert, CN II-XII grossly intact EXT: normal pulses / capillary refill, no edema Current Medications: Current Medications Sig/Dom Start time Last Medication Dose Route Stop Time Status Admin Acetaminophen 500 MG Q8P PRN 11/21 0045 AC 11/24 PO 0611 Albuterol Sulfate 3 ML TID 11/21 1600 AC 11/24 INH 1305 Albuterol Sulfate 2 PUF Q4P PRN 11/21 0100 AC 11/21 INH 1008 Bisacodyl 10 MG ONCE ONE 11/24 1045 DC LA 11/24 1046 Ceftriaxone Sodium 1,000 MG 0600 11/25 0600 UNVr IV 11/25 0601 Citalopram 20 MG DAILY 11/21 1000 AC 11/24 Hydrobromide PO 1018 Docusate Sodium 100 MG DAILY NEEDED PRN 11/22 1430 AC 11/22 PO 1711 Enoxaparin Sodium 40 MG DAILY 11/21 1000 AC 11/24 SC 1018 Furosemide 20 MG DAILY 11/23 1538 AC 11/24 PO 1018 Ipratropium [place] 2.5 ML TID 11/21 1600 AC 11/24 INH 1306 Lidocaine 1 PAT Q24H 11/21 0045 AC 11/24 EXT 0003 Lisinopril 20 MG DAILY 11/21 1000 AC 11/24 PO 1018 Melatonin 5 MG AT BEDTIME 11/22 2200 AC 11/23 PO 2119 Methylprednisolone 40 MG Q12 11/22 2200 AC 11/24 IV 1018 Metoprolol Tartrate 50 MG BID 11/21 0047 AC 11/24 PO 1018 Omeprazole 40 MG DAILY AC 11/21 0800 AC 11/24 PO 0610 Oxycodone HCl 5 MG Q12P PRN 11/21 0045 AC 11/23 PO 2126 Polyethylene Glycol 17 GM DAILY 11/23 1501 AC 11/24 PO 1018 Senna 187 MG AT BEDTIME 11/22 2200 AC 11/23 PO 2121 Spironolactone 25 MG DAILY 11/21 1000 AC 11/24 PO 1018 Last 24 Hrs of Lab/Victor M Results Last 24 Hrs of Labs/Mics: Laboratory Tests 11/24/17 0730: Anion Gap 6, Estimated GFR > 60, BUN/Creatinine Ratio 32.9 H, CBC w Diff MAN DIFF ORDERED, RBC 3.74 L, MCV 92.2, MCH 29.8, MCHC 32.4 L, RDW 16.1 H, MPV 10.1, Gran % 88.3 H, Lymphocytes % 6.7 L, Monocytes % 4.7, Eosinophils % 0, Basophils % 0.3, Absolute Granulocytes 9.5 H, Segmented Neutrophils 86 H, Band Neutrophils 2, Absolute Lymphocytes 0.7 L, Lymphocytes 7 L, Monocytes 3, Absolute Monocytes 0.5, Absolute Eosinophils 0, Absolute Basophils 0, Myelocytes 2 H, Platelet Estimate ADEQUATE, Normocytic RBCs VERIFIED, Normochromic RBCs VERIFIED Assessment/Plan Assessment: 81 year old woman with multiple medical problems significant for COPD on home oxygen as needed, HFrEF (45%), and pulmonary hypertension seen for evaluation of lower extremity weakness and shortness of breath / wheezing. Patient remains afebrile without leukocytosis off antibiotics. She remains on intravenous steroids and is still diffusely wheezy. CPK/LFTs are improving. She is to be kept NPO at midnight for a cystoscopy with stent placement in the morning. Problem List -Acute COPD exacerbation, On solumedrol, improving -Transaminitis, improving -Rhabdomyolsis, improving -Hematuria with left renal stone -HFrEF, EF 45% -Pulmonary hypertension -Hypertension -History of chronic respiratory failure, on CPAP -History of duodenal ulcer -History of anemia Plan -General Medicine -Fall precautions -TRC with scheduled Nebs every six hours -Supplemental oxygen, goal > 92%, taper as tolerated -NS @ 75 mL/hr x1 bag -Solumedrol 40 mg IV Q12H -Hold lasix for dehydration, restart as needed -Hold statin for transaminitis, restart as needed -Continue home meds: citalopram, lisinopril, metoprolol, omeprazole, aldactone -Pulmonology consult for COPD exacerbation -Urology consult for hematuria/left renal stone -PT evaluation: STR -Follow up cultures & sensitivites -Trend CPK, LFTs -Pain control with acetaminophen, lidocaine patch, oxycodone -Heart Healthy diet, NPO tonight for urology procedure in morning -DVT PPx with lovenox -DNR/DNI Problem List: 1. COPD with exacerbation 2. Transaminitis 3. Renal calculus, left Pain Ratin Pain Location: Left flank Pain Goal: Pain 4 or less Pain Plan: See assessment Tomorrow's Labs & Rationales: None
[2017-11-24 09:13] LABS: ABSOLUTE BASOPHIL COUNT 0 /CUMM (0.0-0.2); ABSOLUTE EOSINOPHIL COUNT 0 /CUMM (0.0-0.7); ABSOLUTE GRANULOCYTE CT 9.5 /CUMM (1.4-6.5); ABSOLUTE LYMPH COUNT 0.7 /CUMM (1.2-3.4); ABSOLUTE MONOCYTE COUNT 0.5 /CUMM (0.10-0.60); BASOPHIL % 0.3 % (0.0-2.0); EOSINOPHIL % 0 % (0-5); GRANULOCYTE % 88.3 % (42.2-75.2); HEMATOCRIT 34.5 % (37-47); MEAN CORPUSCULAR HGB 29.8 PG (27.0-31.0); MEAN CORPUSCULAR HGB CONC 32.4 G/DL (33.0-37.0); MEAN CORPUSCULAR VOLUME 92.2 FL (81.0-99.0); MEAN PLATELET VOLUME 10.1 FL (7.4-10.4); PLATELET COUNT 284 /CUMM (130-400); RBC DISTRIBUTION WIDTH 16.1 % (11.5-14.5); RED BLOOD CELL CT 3.74 /CUMM (4.20-5.40); WHITE BLOOD CELL COUNT 10.8 /CUMM (4.8-10.8)
--- NOTE | 2017-11-24 11:41 | PN- Att Addend ---
Attending Addendum Attending Brief Note Patient seen and examined, breathing is not bad but now she is complaining of constipation. Patient is scheduled for cystoscopy and stent on Friday which is tomorrow. Still requiring oxygen. Vital Signs Date Time Temp Pulse Resp B/P B/P Pulse O2 O2 Flow FiO2 Mean Ox Delivery Rate 11/24 1018 98.2 81 20 118/66 11/24 1018 98.2 81 20 118/66 11/24 0813 93 Nasal 2.0L Cannula 11/24 0800 93 Nasal 2.0L Cannula 11/24 0620 98.2 81 20 118/66 95 Nasal Cannula 11/24 0000 Nasal 2.0L Cannula 11/23 2217 97.9 88 22 110/60 93 Nasal Cannula 11/23 2119 72 20 128/60 11/23 1945 95 Nasal 2.0L Cannula 11/23 1450 97.4 84 22 120/60 92 on exam; aox3, nad. cv; s1, s2, rrr resp; scattered rhonchi. abd; soft, nt, bs+ ext; no edema. Laboratory Tests 11/24 0730 Chemistry Sodium (137 - 145 mmol/L) 141 Potassium (3.5 - 5.1 mmol/L) 4.2 Chloride (98 - 107 mmol/L) 105 Carbon Dioxide (22 - 30 mmol/L) 30 Anion Gap (5 - 16) 6 BUN (7 - 17 mg/dL) 23 H Creatinine (0.5 - 1.0 mg/dL) 0.7 Estimated GFR (>60 ml/min) > 60 BUN/Creatinine Ratio (7 - 25 %) 32.9 H Hematology CBC w Diff MAN DIFF ORDERED WBC (4.8 - 10.8 /CUMM) 10.8 RBC (4.20 - 5.40 /CUMM) 3.74 L Hgb (12.0 - 16.0 G/DL) 11.1 L Hct (37 - 47 %) 34.5 L MCV (81.0 - 99.0 FL) 92.2 MCH (27.0 - 31.0 PG) 29.8 MCHC (33.0 - 37.0 G/DL) 32.4 L RDW (11.5 - 14.5 %) 16.1 H Plt Count (130 - 400 /CUMM) 284 MPV (7.4 - 10.4 FL) 10.1 Gran % (42.2 - 75.2 %) 88.3 H Lymphocytes % (20.5 - 51.1 %) 6.7 L Monocytes % (1.7 - 9.3 %) 4.7 Eosinophils % (0 - 5 %) 0 Basophils % (0.0 - 2.0 %) 0.3 Absolute Granulocytes (1.4 - 6.5 /CUMM) 9.5 H Segmented Neutrophils (42.2 - 75.2 %) 86 H Band Neutrophils (0.0 - 5.0 %) 2 Absolute Lymphocytes (1.2 - 3.4 /CUMM) 0.7 L Lymphocytes (20.5 - 51.1 %) 7 L Monocytes (1.7 - 9.3 %) 3 Absolute Monocytes (0.10 - 0.60 /CUMM) 0.5 Absolute Eosinophils (0.0 - 0.7 /CUMM) 0 Absolute Basophils (0.0 - 0.2 /CUMM) 0 Myelocytes (0 - 0 %) 2 H Platelet Estimate (ADEQUATE) ADEQUATE Normocytic RBCs VERIFIED Normochromic RBCs VERIFIED A/P; 81 y/o F with pmh sig for HTN, anemia, duodenal ulcer, COPD(on CPAP at home ), HFwREF (EF 45% Jul 2015) and pulmonary hypertension admitted with acute COPD exacerbation, generalized weakness, hematuria and nephrolithiasis with stable renal calculus. Currently status and IV steroids. Seen by urology and they are planning to do cystoscopy as well as stent placement tomorrow. Will give patient a suppository to help her constipation. We'll check with Dr. Cleaning about use of any antibiotics prior to the procedure. Continued TRC nebs. Pain management adequate. DVT prophylaxis:Lovenox. PT recommends STR.
--- NOTE | 2017-11-24 12:09 | PN- Pulmonary ---
Subjective HPI/Critical Care Issues: Patient seen and examined this morning. She appears to be stable from a respiratory perspective and is anticipating a urological procedure tomorrow. Objective Current Medications: Current Medications Sig/Dom Start time Last Medication Dose Route Stop Time Status Admin Acetaminophen 500 MG Q8P PRN 11/21 0045 AC 11/24 PO 0611 Albuterol Sulfate 3 ML TID 11/21 1600 AC 11/24 INH 0809 Albuterol Sulfate 2 PUF Q4P PRN 11/21 0100 AC 11/21 INH 1008 Bisacodyl 10 MG ONCE ONE 11/24 1045 DC VT 11/24 1046 Citalopram 20 MG DAILY 11/21 1000 AC 11/24 Hydrobromide PO 1018 Docusate Sodium 100 MG DAILY NEEDED PRN 11/22 1430 AC 11/22 PO 1711 Enoxaparin Sodium 40 MG DAILY 11/21 1000 AC 11/24 SC 1018 Furosemide 20 MG DAILY 11/23 1538 AC 11/24 PO 1018 Ipratropium [place] 2.5 ML TID 11/21 1600 AC 11/24 INH 0809 Lidocaine 1 PAT Q24H 11/21 0045 AC 11/24 EXT 0003 Lisinopril 20 MG DAILY 11/21 1000 AC 11/24 PO 1018 Melatonin 5 MG AT BEDTIME 11/22 2200 AC 11/23 PO 2119 Methylprednisolone 40 MG Q12 11/22 2200 AC 11/24 IV 1018 Metoprolol Tartrate 50 MG BID 11/21 0047 AC 11/24 PO 1018 Omeprazole 40 MG DAILY AC 11/21 0800 AC 11/24 PO 0610 Oxycodone HCl 5 MG Q12P PRN 11/21 0045 AC 11/23 PO 2126 Polyethylene Glycol 17 GM DAILY 11/23 1501 AC 11/24 PO 1018 Senna 187 MG AT BEDTIME 11/22 2200 AC 11/23 PO 2121 Spironolactone 25 MG DAILY 11/21 1000 AC 11/24 PO 1018 Vital Signs & I&O Last 24 Hrs of Vitals and I&O: Vital Signs Date Time Temp Pulse Resp B/P B/P Pulse O2 O2 Flow FiO2 Mean Ox Delivery Rate 11/24 1018 98.2 81 20 118/66 11/24 1018 98.2 81 20 118/66 11/24 0813 93 Nasal 2.0L Cannula 11/24 0800 93 Nasal 2.0L Cannula 11/24 0620 98.2 81 20 118/66 95 Nasal Cannula 11/24 0000 Nasal 2.0L Cannula 11/23 2217 97.9 88 22 110/60 93 Nasal Cannula 11/23 2119 72 20 128/60 11/23 1945 95 Nasal 2.0L Cannula 11/23 1450 97.4 84 22 120/60 92 Intake & Output 11/24 1600 11/24 0800 11/24 0000 Intake Total 500 500 Output Total 650 300 Balance -150 200 Intake, Oral 500 500 Number 0 Bowel Movements Output, Urine 650 300 Exam Other Physical Findings: Generally - Awake, alert and comfortable without distress Head and neck - normocephalic, atraumatic, EOMI grossly intact Cardiovascular - S1, S2, no murmurs, rubs or gallops Lungs - rare rhonchi with prolonged end expiratory phase Abdomen - Bowel sounds positive, soft, non-tender Extremities - without edema Results Last 24 Hrs of Lab Results: Laboratory Tests 11/24/17 0730: Anion Gap 6, Estimated GFR > 60, BUN/Creatinine Ratio 32.9 H, CBC w Diff MAN DIFF ORDERED, RBC 3.74 L, MCV 92.2, MCH 29.8, MCHC 32.4 L, RDW 16.1 H, MPV 10.1, Gran % 88.3 H, Lymphocytes % 6.7 L, Monocytes % 4.7, Eosinophils % 0, Basophils % 0.3, Absolute Granulocytes 9.5 H, Segmented Neutrophils 86 H, Band Neutrophils 2, Absolute Lymphocytes 0.7 L, Lymphocytes 7 L, Monocytes 3, Absolute Monocytes 0.5, Absolute Eosinophils 0, Absolute Basophils 0, Myelocytes 2 H, Platelet Estimate ADEQUATE, Normocytic RBCs VERIFIED, Normochromic RBCs VERIFIED Impression/Plan Impression/Plan Impression/Plan: Impression 81 year old woman * renal colic/nephrolithiasis * COPD exacerbation * Plan -should have her urological procedure peroform as her dyspnea is directly related to her pain. Once that can be relieved her recover will be expedited. -Continue Solu-Medrol 40 mg every 12 hours with TRC and nebulizers. -If the patient does not have a pipe wrapping machine operator to be acceptable given her reduced ejection fraction and also for optimization. -she should have outpatient evaluation for her COPD and respiratory care. DVT prohylaxis at all times
[2017-11-24 14:59] VITALS: BP 100/60
[2017-11-24 22:10] VITALS: BP 106/64
[2017-11-25 07:05] VITALS: BP 114/50
--- NOTE | 2017-11-25 07:25 | PN- Housestaff ---
Merrill Alexander MD 11/25/17 0724: Subjective Follow-up For: COPD exacerbation transaminitis rhabdomyolysis hematuria Subjective: Patient seen and examined. She is seen sitting upright in her chair at bedside resting comfortably maintained on supplemental oxygen via nasal cannula. She appears to be in no acute distress. She admits she is 'worried' about her procedure today but has no questions about it at this time. She states she feels more comfortable with the oxygen on but doesnt know if she actually needs its; she wears it as needed at home. She otherwise feels well and denies any fever, chills, chest pain, or shortness of breath. Review of Systems Constitutional: Reports: see HPI. Objective Last 24 Hrs of Vital Signs/I&O Vital Signs Date Time Temp Pulse Resp B/P B/P Pulse O2 O2 Flow FiO2 Mean Ox Delivery Rate 11/25 0925 95 Nasal 2.0L Cannula 11/25 0800 Nasal 2.0L Cannula 11/25 0705 97.1 53 20 114/50 95 Nasal 3.0L Cannula 11/25 0000 Nasal 2.0L Cannula 11/24 2229 70 110/68 11/24 2210 98.0 66 20 106/64 94 11/24 1855 93 Nasal 2.0L Cannula 11/24 1600 93 Nasal 2.0L Cannula 11/24 1459 98.3 65 20 100/60 95 Intake & Output 11/25 1600 11/25 0800 11/25 0000 Intake Total 0 Output Total 250 Balance -250 Intake, Oral 0 Output, Urine 250 Physical Exam General Appearance: Alert, Oriented X3, Cooperative, No Acute Distress Other Physical Findings: GEN: well developed, well nourished elderly woman in no acute distress HEENT: NCAT, PERRL, EOMI, anicteric sclera, MMM, nasal cannula in place NECK: Supple, no JVD, trachea midline, no accessory respiratory muscle use CARD: Normal S1/S2 w/o m/g/r; RRR PULM: Diminished airflow without crackles ABD: Soft, NT, ND, BS+ NEURO: Awake and alert, CN II-XII grossly intact EXT: normal pulses / capillary refill, no edema Current Medications: Current Medications Sig/Dom Start time Last Medication Dose Route Stop Time Status Admin Acetaminophen 500 MG Q8P PRN 11/21 0045 AC 11/25 PO 0627 Albuterol Sulfate 3 ML TID 11/21 1600 AC 11/25 INH 0923 Albuterol Sulfate 2 PUF Q4P PRN 11/21 0100 AC 11/21 INH 1008 Bisacodyl 10 MG ONCE ONE 11/24 1045 DC HI 11/24 1046 Ceftriaxone Sodium 1,000 MG 0600 11/25 0600 DC 11/25 IV 11/25 0601 0622 Citalopram 20 MG DAILY 11/21 1000 AC 11/24 Hydrobromide PO 1018 Docusate Sodium 100 MG DAILY NEEDED PRN 11/22 1430 AC 11/22 PO 1711 Enoxaparin Sodium 40 MG DAILY 11/21 1000 AC 11/24 SC 1018 Furosemide 20 MG DAILY 11/23 1538 AC 11/24 PO 1018 Ipratropium [place] 2.5 ML TID 11/21 1600 AC 11/25 INH 0923 Lidocaine 1 PAT Q24H 11/21 0045 AC 11/25 EXT 0030 Lisinopril 20 MG DAILY 11/21 1000 AC 11/24 PO 1018 Melatonin 5 MG AT BEDTIME 11/22 2200 AC 11/24 PO 2229 Methylprednisolone 40 MG Q12 11/22 2200 AC 11/24 IV 2229 Metoprolol Tartrate 50 MG BID 11/21 0047 AC 11/24 PO 2229 Omeprazole 40 MG DAILY AC 11/21 0800 AC 11/25 PO 0622 Oxycodone HCl 5 MG Q12P PRN 11/21 0045 AC 11/24 PO 1958 Polyethylene Glycol 17 GM DAILY 11/23 1501 AC 11/24 PO 1018 Senna 187 MG AT BEDTIME 11/22 2200 AC 11/24 PO 2229 Spironolactone 25 MG DAILY 11/21 1000 AC 11/24 PO 1018 Assessment/Plan Assessment: 81 year old woman with multiple medical problems significant for COPD on home oxygen as needed, HFrEF (45%), and pulmonary hypertension seen for evaluation of lower extremity weakness and shortness of breath / wheezing. Patient continues to remain afebrile. She is in no acute respiratory distress but is still requiring supplemental oxygen for subjective discomfort. She was kept NPO overnight for a cystoscopy and stent placement today, which she tolerated well. A stone was extracted and no stent was required. She received intravenous Ceftriaxone just prior to the procedure. She is continued on solumedrol and will likely be transitioned to oral steroids tomorrow and discharged to rehab. Problem List -Acute COPD exacerbation, On solumedrol, improving -Transaminitis, improving -Rhabdomyolsis, improving -Hematuria with left renal stone -HFrEF, EF 45% -Pulmonary hypertension -Hypertension -History of chronic respiratory failure, on CPAP -History of duodenal ulcer -History of anemia Plan -General Medicine -Fall precautions -TRC with scheduled Nebs every six hours -Supplemental oxygen, goal > 92%, taper as tolerated -Solumedrol 40 mg IV Q12H -Hold lasix for dehydration, restart as needed -Hold statin for transaminitis, restart as needed -Continue home meds: citalopram, lisinopril, metoprolol, omeprazole, aldactone -Pulmonology consult for COPD exacerbation -Urology consult for hematuria/left renal stone -PT evaluation: STR -Follow up cultures & sensitivites -Pain control with acetaminophen, lidocaine patch, oxycodone -Heart Healthy DIet -DVT PPx with lovenox -DNR/DNI Problem List: 1. COPD with exacerbation 2. Renal calculus, left Pain Ratin Pain Location: Left flank Pain Goal: Pain 4 or less Pain Plan: See assessment Tomorrow's Labs & Rationales: CBC - post procedure BMP [facility]: Attending MD Review Statement Attending Statement Attending MD Statement: examined this patient, discuss w/resident/PA/MCAT INSTRUCTOR, agreed w/resident/PA/MCAT INSTRUCTOR, reviewed EMR data (avail), discussed with nursing, discussed with case mgmt, reviewed images, amended to note Attending Assessment/Plan: Patient seen and examined, waiting for urologic procedure. Otherwise denies any other complaints. Breathing is okay. Vital Signs Date Time Temp Pulse Resp B/P B/P Pulse O2 O2 Flow FiO2 Mean Ox Delivery Rate 11/25 0925 95 Nasal 2.0L Cannula 11/25 0800 Nasal 2.0L Cannula 11/25 0705 97.1 53 20 114/50 95 Nasal 3.0L Cannula 11/25 0000 Nasal 2.0L Cannula 11/24 2229 70 110/68 11/24 2210 98.0 66 20 106/64 94 11/24 1855 93 Nasal 2.0L Cannula 11/24 1600 93 Nasal 2.0L Cannula 11/24 1459 98.3 65 20 100/60 95 on exam; aox3, nad. cv; s1,s2, rrr resp;clear abd; soft, nt, bs+ ext; no edema no labs today. A/P; 81 y/o F with pmh sig for HTN, anemia, duodenal ulcer, COPD(on CPAP at home ), HFwREF (EF 45% Jul 2015) and pulmonary hypertension admitted with acute COPD exacerbation, generalized weakness, hematuria and nephrolithiasis. Patient did have hematuria as well as left flank pain therefore nephrolithiasis is symptomatic. Patient to be taken to or today with Dr. Cleaning. She did receive a dose of ceftriaxone this morning. Her steroids will be switched to oral prednisone tomorrow. Continue the rest of the management. If no further consultations postprocedure and things remain stable then she can likely be discharged to rehabilitation tomorrow. Continue all other current medications. DVT prophylaxis: Lovenox. Left a msg for patient's son.
--- NOTE | 2017-11-25 11:39 | PN- Pulmonary ---
Subjective HPI/Critical Care Issues: Patient seen and examined this morning. She appears to be stable and awaiting urological procedure. Objective Current Medications: Current Medications Sig/Dom Start time Last Medication Dose Route Stop Time Status Admin Acetaminophen 500 MG Q8P PRN 11/21 0045 AC 11/25 PO 0627 Albuterol Sulfate 3 ML TID 11/21 1600 AC 11/25 INH 0923 Albuterol Sulfate 2 PUF Q4P PRN 11/21 0100 AC 11/21 INH 1008 Ceftriaxone Sodium 1,000 MG 0600 11/25 0600 DC 11/25 IV 11/25 0601 0622 Citalopram 20 MG DAILY 11/21 1000 AC 11/24 Hydrobromide PO 1018 Docusate Sodium 100 MG DAILY NEEDED PRN 11/22 1430 AC 11/22 PO 1711 Enoxaparin Sodium 40 MG DAILY 11/21 1000 AC 11/24 SC 1018 Furosemide 20 MG DAILY 11/23 1538 AC 11/24 PO 1018 Ipratropium [place] 2.5 ML TID 11/21 1600 AC 11/25 INH 0923 Lidocaine 1 PAT Q24H 11/21 0045 AC 11/25 EXT 0030 Lisinopril 20 MG DAILY 11/21 1000 AC 11/24 PO 1018 Melatonin 5 MG AT BEDTIME 11/22 2200 AC 11/24 PO 2229 Methylprednisolone 40 MG Q12 11/22 2200 AC 11/25 IV 1102 Metoprolol Tartrate 50 MG BID 11/21 0047 AC 11/24 PO 2229 Omeprazole 40 MG DAILY AC 11/21 0800 AC 11/25 PO 0622 Oxycodone HCl 5 MG Q12P PRN 11/21 0045 AC 11/24 PO 1958 Polyethylene Glycol 17 GM DAILY 11/23 1501 AC 11/24 PO 1018 Senna 187 MG AT BEDTIME 11/22 2200 AC 11/24 PO 2229 Spironolactone 25 MG DAILY 11/21 1000 AC 11/24 PO 1018 Vital Signs & I&O Last 24 Hrs of Vitals and I&O: Vital Signs Date Time Temp Pulse Resp B/P B/P Pulse O2 O2 Flow FiO2 Mean Ox Delivery Rate 11/25 0925 95 Nasal 2.0L Cannula 11/25 0800 Nasal 2.0L Cannula 11/25 0705 97.1 53 20 114/50 95 Nasal 3.0L Cannula 11/25 0000 Nasal 2.0L Cannula 11/24 2229 70 110/68 11/24 2210 98.0 66 20 106/64 94 11/24 1855 93 Nasal 2.0L Cannula 11/24 1600 93 Nasal 2.0L Cannula 11/24 1459 98.3 65 20 100/60 95 Intake & Output 11/25 1600 11/25 0800 11/25 0000 Intake Total 0 Output Total 350 250 Balance -350 -250 Intake, Oral 0 Output, Urine 350 250 Exam Other Physical Findings: Generally - Awake, alert and comfortable without distress Head and neck - normocephalic, atraumatic, EOMI grossly intact Cardiovascular - S1, S2, no murmurs, rubs or gallops Lungs - rare rhonchi with prolonged end expiratory phase Abdomen - Bowel sounds positive, soft, non-tender Extremities - without edema Impression/Plan Impression/Plan Impression/Plan: Impression 81 year old woman * renal colic/nephrolithiasis * COPD exacerbation * Plan -should have her urological procedure peroform as her dyspnea is directly related to her pain. Once that can be relieved her recover will be expedited. -Continue Solu-Medrol 40 mg every 12 hours with TRC and nebulizers. -If the patient does not have a brokerage manager to be acceptable given her reduced ejection fraction and also for optimization. -she should have outpatient evaluation for her COPD and respiratory care. DVT prohylaxis at all times
--- NOTE | 2017-11-25 13:11 | Operative Report ---
Operative/Inv Procedure Report Surgery Date: 11/25/17 Name of Procedure: left UPJ stone ESWL, Fluoroscopy Pre-Operative Diagnosis: left UPJ stone with colic Post-Operative Diagnosis: same: 9mm size Estimated Blood Loss: none Surgeon/Mobile Ui/Ux Designer: MD Black, Clarence-Urology Anesthesia: moderate sedation Drains: none Specimens: none Complications: none Operative/Procedure Note Note: The patient was taken to the operating room and placed on the ESWL table in supine position. With the patient awake, timeout was performed to confirm correct identity, procedure, laterality, anesthesia, and other pertinent arnie- operative information. After adequate anesthesia, the patient was positioned so that the patient's left flank was positioned over the table cut-out, overlying the dome of the treatment head. Once the patient was adequately sedated, fluoroscopy, as well as Renal ultrasound was used to locate the LEFT renal stone. Renal US confirmed the presence of the stone which measured it to be approximately 10 mm renal pelvis stone. The stone was visible with fluoroscopy. Renal US revealed, no hydronephrosis, and no solid tumor, and presence of the stone at the renal pelvis. The position of the stone was optimized by using fluoroscopy in AP and oblique views;placing the stone within the ESWL c-arm crosshairs. Once the stone's position was optimized, the LEFT renal E.S.W.L. was initiated at low energy level. After noting the patient's tolerance to the shockwaves, the intensitiy was ramped up to maximum level. At the end of the procedure, the left renal stone had dissintegrated. Of note, a total of 2500 shockwaves were delivered to the stone. The patient tolerated the ESWL procedures well, was awakened, then taken to recovery in satisfactory condition via stretcher. The patient is to return to the medicine floor for pulmonary monitoring, and eventually home once cleared by medicine service. The patient to to have follow-up renal ultrasound and KUB in 1 to 2 weeks, prior to follow-up visit in my office. She will then proceed with metabolic stone work-up. Discharge Disposition: PACU CC: Clarence Cleaning MD
[2017-11-25 14:40] VITALS: BP 104/40
[2017-11-25 15:14] VITALS: BP 120/65
--- NOTE | 2017-11-25 16:49 | Patient Discharge Instructions ---
Discharge Instructions General Discharge Information Special Instructions: Take prednisone as directed. Follow up with your primary care provider, tennis ball cover cementer, and urologist after discharge. Your statin medication is on hold due to high levels of AST, ALT and CPK. Please follow up with PCP regarding this. Acute Coronary Syndrome Inclusion Criteria At DC or during hospital stay patient has or had the following: ACS DIAGNOSIS No Discharge Core Measures Meds if any: Prescribed or Continued at Discharge Meds if any: NOT Prescribed or Continued at Discharge Congestive Heart Failure Inclusion Criteria At DC or during hospital stay patient has or had the following: CHF DIAGNOSIS No Discharge Core Measures Meds if any: Prescribed or Continued at Discharge Meds if any: NOT Prescribed or Continued at Discharge Cerebrovascular accident Inclusion Criteria At DC or during hospital stay patient has or had the following: CVA/TIA Diagnosis No Discharge Core Measures Meds if any: Prescribed or Continued at Discharge Meds if any: NOT Prescribed or Continued at Discharge Venous thromboembolism Inclusion Criteria VTE Diagnosis No VTE Type NONE VTE Confirmed by (Test) NONE Discharge Core Measures - Per Current guidelines, there needs to be overlap - treatment for the first 5 days of Warfarin therapy. - If discharged on Warfarin prior to 5 days of - overlap therapy, the patient will need to be - assessed for post discharge needs including - *Post discharge parental anticoagulation - *Warfarin and/or parental anticoagulation education - *Follow up date to check INR post discharge At least 5 days overlap therapy as Inpatient No Meds if any: Prescribed or Continued at Discharge Note: Overlap Therapy is Warfarin and Anticoagulant Meds if any: NOT Prescribed or Continued at Discharge
--- NOTE | 2017-11-25 16:51 | Discharge Summary ---
Visit Information Visit Dates Admission Date: 11/20/17 Discharge Date: 11/27/2017 Hospital Course Course Attending Physician: Rowena Garnica MD Primary Care Physician: Jj Beard MD Consulting Request: 1 Consulting Specialty: Pulmonary Disease Consulting Request: 2 Consulting Specialty: Urology Hospital Course: 81-year-old woman with past medical history of COPD on home oxygen as needed, heart failure with reduced ejection fraction (45%), pulmonary hypertension, hypertension, anemia, and history of duodenal ulcer seen for evaluation of progressive lower extremity weakness, wheezing, and exertional shortness of breath. Patient reported a mechanical fall a few days prior to admission that she attributed to her "old walker". She fell to the floor and "bumps" her head. She denies any loss of consciousness. She was seen and evaluated by her primary care provider whom referred her to the [facility] for evaluation of weakness. Upon arrival to the ED she was complaining of left upper quadrant abdominal pain for which she has been taking Advil for the past 2 weeks without relief. ED course -Vitals: 97.5-98.0, HR 70-88, RR 16-26, BP 112-144/56-72, O2 95-98% on 2.0 L via nasal cannula -CBC: WBC 9.9, hemoglobin 12.2, hematocrit 36.5, platelet 307 -BMP: Sodium 143, potassium 3.3, chloride 102, CO2 27, urea 20, creatinine 0.7, anion gap 13, glucose 103 -LFT: AST 333, ALT 429, ALP 91, total bilirubin 0.6 -Miscellaneous: CPK 6767, troponin I 0.02, BNP 365, TSH 2.040, free T4 1 0.60 -Urine toxicology: Negative -Urinalysis: Trace glucoside esterase with large hemoglobin and >75 RBC and 3-5 WBC with rare bacteria -Hepatitis panel: Negative -CT chest/abdomen/pelvis with IV contrast: * Emphysema. No acute cardiopulmonary findings. * Stable calculus in the left renal pelvis although minimal inflammatory stranding is a new finding. Correlate with urinalysis for possible urinary tract infection. * Marked sigmoid diverticulosis without evidence of diverticulitis. Cholelithiasis. Problem List on Admission: -COPD exacerbation -Hematuria with left renal stone -Rhabdomyolysis -Transaminitis Hospital Course Patient was admitted to the general medicine floor. Patient was started on scheduled nebulizer treatments and intravenous solumedrol with supplemental oxygen for her COPD exacerbation. Pulmonology consult was placed for medications recommendations. She had persistently high oxygen needs with persistent rales despite several days of IV steroids. It was felt her breathing difficulties may be due to her renal colic for which a urology consult was placed. Patient was kept NPO in anticipation for a cystoscopy and possible stent placement. She tolerated the procedure well and a 9mm stone was extracted, she did not require a stent. Statin was held for elevated LFTs and CPK for which she was given intravenous normal saline. Hepatitis panel and RUQ ultrasound were unremarkable. LFT/CPK levels trended down by the time of discharge. She was seen by physical therapy who felt she was deconditioned and would benefit from short term rehabilitations. She is being discharged to [facility] for ongoing physical therapy. She is provided with a prednisone taper and instructed to follow up with her PCP, urologist, and driver's license examiner after discharge. Allergies: Coded Allergies: Sulfa (Sulfonamide Antibiotics) (Intermediate, "ITCHY" - MED LIST FROM MD OFFICE SAYS TERESA MAYER RASH 12/25/15) Significant Procedures: SERVICE DATE: 11/20/17-1826 EXAM TYPE: CAT - CT ABD & PELVIS W/O IV CONTRAS; CT CHEST WO IV CONTRAST IMPRESSION: Emphysema. No acute cardiopulmonary findings. Stable calculus in the left renal pelvis although minimal inflammatory stranding is a new finding. Correlate with urinalysis for possible urinary tract infection. Marked sigmoid diverticulosis without evidence of diverticulitis. Cholelithiasis. SERVICE DATE: 11/21/17- EXAM TYPE: US - US-COMPLETE ABDOMEN IMPRESSION: 1. Cholelithiasis without any sonographic features of acute cholecystitis or biliary obstruction. 2. Left renal cortical cysts, relatively stable since 03/27/2017. 3. Specifically, previous CT detected calculus seen within the left renal pelvis is not reproduced on the current study and there is no evidence of any hydronephrosis present. Disposition Summary Disposition Principal Diagnosis: COPD exacerbation Additional Diagnosis: Nephrolithiasis Discharge Disposition: SNF Discharge Instructions General Discharge Information Code Status: Do Not Resucitate/Intubat Patient's Diet: Heart Healthy diet Patient's Activity: Per PT assessment Follow-Up Instructions/Appts: Take prednisone as directed. Follow up with your primary care provider, driver's license examiner, and urologist after discharge. Medications at Discharge Discharge Medications: Stop taking the following medications: Simvastatin (Zocor*) 40 MG TABLET ORAL DAILY Continue taking these medications: Ipratropium [place] (Ipratropium [place]) 0.2 MG/ML (0.02 %) SOLUTION 1 Vial Inhale Solution THREE TIMES DAILY Comments: Last Taken: 11/27/17 Time: 200pm Spironolactone (Aldactone) 25 MG TABLET 1 Tablet ORAL DAILY Comments: Last Taken: 11/27/17 Time: 915am Metoprolol Tartrate (Lopressor) 50 MG TABLET 1 Tablet ORAL TWICE DAILY Comments: Last Taken: 11/26/17 Time: 1030am Albuterol Sulfate (Proair Hfa) 90 MCG HFA.AER.AD 2 Puff Inhale through mouth Q4H as needed for SHORTNESS OF BREATH Comments: Last Taken: 11/21/17 Time: 1000am Citalopram Hydrobromide (Citalopram HBr) 20 MG TABLET 1 Tablet ORAL DAILY Comments: Last Taken: 11/27/17 Time: 900am Lisinopril (Prinivil) 20 MG TABLET 1 Tablet ORAL DAILY Comments: Last Taken: 11/24/17 Time: 1000am Furosemide (Furosemide) 20 MG TABLET 1 Tablet ORAL DAILY Qty = 90 Comments: Last Taken: 11/24/17 Time: 1000am Albuterol Sulfate (Albuterol Sulfate) 2.5 MG/3 ML (0.083 %) VIAL.NEB 1 Vial Inhale Solution THREE TIMES DAILY Comments: Last Taken: 11/27/17 Time: 200pm Start taking the following new medications: Acetaminophen (Acetaminophen) 500 MG TABLET 500 Milligram ORAL EVERY 8 HOURS NEEDED as needed for PAIN SCALE 1-3 ( MILD) Days = 10 No Refills Comments: Last Taken: 11/27/17 Time: 904am Lidocaine (Lidoderm) 5 % ADH..PATCH 1 Patch ON SKIN Q24H as needed for PAIN Days = 7 No Refills Comments: Last Taken: 11/27/17 Time: 0040 Prednisone (Prednisone) 10 MG TABLET 0 ORAL TAPER Qty = 26 No Refills Instructions: DATES TABS/DAY 3-3/ 4 11/29-12/01 3 12/02-12/04 2 12/05-12/07 1 THEN STOP Comments: Last Taken: 11/27/17 Time: 900am Copies To: Chirag WEST,Jj; Black WEST,Clarence; Gisselle WEST,Rayray
[2017-11-25] MEDS ORDERED: PREDNISONE10 M2 PO (16:56)
[2017-11-25 20:45] VITALS: BP 92/50
[2017-11-26 07:05] VITALS: BP 130/60
[2017-11-26 08:20] LABS: ABSOLUTE BASOPHIL COUNT 0 /CUMM (0.0-0.2); ABSOLUTE EOSINOPHIL COUNT 0 /CUMM (0.0-0.7); ABSOLUTE GRANULOCYTE CT 9.2 /CUMM (1.4-6.5); ABSOLUTE LYMPH COUNT 0.9 /CUMM (1.2-3.4); ABSOLUTE MONOCYTE COUNT 0.7 /CUMM (0.10-0.60); BASOPHIL % 0.1 % (0.0-2.0); EOSINOPHIL % 0 % (0-5); GRANULOCYTE % 85.6 % (42.2-75.2); HEMATOCRIT 35.8 % (37-47); MEAN CORPUSCULAR HGB 30.1 PG (27.0-31.0); MEAN CORPUSCULAR HGB CONC 33.1 G/DL (33.0-37.0); MEAN CORPUSCULAR VOLUME 90.9 FL (81.0-99.0); MEAN PLATELET VOLUME 8.9 FL (7.4-10.4); PLATELET COUNT 245 /CUMM (130-400); RBC DISTRIBUTION WIDTH 16.3 % (11.5-14.5); RED BLOOD CELL CT 3.94 /CUMM (4.20-5.40); WHITE BLOOD CELL COUNT 10.8 /CUMM (4.8-10.8)
--- NOTE | 2017-11-26 10:37 | PN- Att Addend ---
Attending Addendum Attending Brief Note Patient seen and examined, overall doing well. Offers no complaints at present. Status post ESWL for the left sided kidney stone yesterday with Dr. Cleaning. Breathing status is back to baseline. Vital Signs Date Time Temp Pulse Resp B/P B/P Pulse O2 O2 Flow FiO2 Mean Ox Delivery Rate 11/26 0833 94 Nasal 2.0L Cannula 11/26 0705 98.1 67 20 130/60 94 Nasal 2.0L Cannula 11/26 0000 94 Nasal 2.0L Cannula 11/25 2213 97.3 78 20 95 Nasal 3.0L Cannula 11/25 2052 92/50 11/25 2045 92/50 11/25 2030 94 Nasal 2.0L Cannula 11/25 1600 97 Nasal 3.0L Cannula 11/25 1514 97.8 62 18 120/65 96 Nasal Cannula 11/25 1440 97.0 63 16 104/40 92 Nasal 3.0L Cannula on exam; aox3, nad. cv; s1,s2, rrr resp; clear but overall decreased bs. abd; soft, nt, bs+ ext; no edema. 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 Status post ESWL for the kidney stone yesterday with Dr. Cleaning. Overall doing much better. Pain is improved. Patient currently on Solu-Medrol. We'll switch to oral prednisone. Continue TRC nebs. Patient wants to go home instead of STR. Her son also wants that. D/W case management and i was told that she has enough help at home. Pt says she has a lacing cutter as as home health aid. Pain mx adequate. Continue the rest of meds. Medically stable for discharge if arrangements are made at [facility] for safe home discharge. Pt to work with PT again today to make sure safe for home discharge.
[2017-11-26] MEDS ORDERED: LIDODERM1 EACH EXT (10:49)
[2017-11-26] MEDS ORDERED: ACETAMINOPHEN500 M4 PO (10:49)
--- NOTE | 2017-11-26 10:49 | PN- Housestaff ---
Subjective Follow-up For: COPD exacerbation transaminitis Subjective: Reports better breathing. Sitting comfortably in chair. No cough, sputum production, chest pain palpitations. Review of Systems Constitutional: Reports: see HPI. Objective Last 24 Hrs of Vital Signs/I&O Vital Signs Date Time Temp Pulse Resp B/P B/P Pulse O2 O2 Flow FiO2 Mean Ox Delivery Rate 11/26 1029 98.1 85 20 110/50 11/26 1029 85 110/50 11/26 0833 94 Nasal 2.0L Cannula 11/26 0705 98.1 67 20 130/60 94 Nasal 2.0L Cannula 11/26 0000 94 Nasal 2.0L Cannula 11/25 2213 97.3 78 20 95 Nasal 3.0L Cannula 11/25 2052 92/50 11/25 2045 11/25 2030 94 Nasal 2.0L Cannula 11/25 1600 97 Nasal 3.0L Cannula 11/25 1514 97.8 62 18 120/65 96 Nasal Cannula 11/25 1440 97.0 63 16 104/40 92 Nasal 3.0L Cannula Intake & Output 11/26 1600 11/26 0800 11/26 0000 Intake Total 200 710 Output Total 500 600 Balance -300 110 Intake, IV 10 Intake, Oral 200 700 Number 0 1 Bowel Movements Output, Urine 500 600 Physical Exam General Appearance: Alert, Oriented X3, Cooperative Cardiovascular: Regular Rate, Normal S1, Normal S2 Lungs: Clear to Auscultation, Normal Air Movement Abdomen: Normal Bowel Sounds, Soft, No Tenderness Neurological: Normal Gait, Normal Speech, Strength at 5/5 X4 Ext Vascular: Normal Pulses, Pulses Symmetrical Last 24 Hrs of Lab/Victor M Results Last 24 Hrs of Labs/Mics: Laboratory Tests 11/26/17 0642: Anion Gap 9, Estimated GFR > 60, BUN/Creatinine Ratio 48.3 H, CBC w Diff NO MAN DIFF REQ, RBC 3.94 L, MCV 90.9, MCH 30.1, MCHC 33.1, RDW 16.3 H, MPV 8.9, Gran % 85.6 H, Lymphocytes % 7.9 L, Monocytes % 6.4, Eosinophils % 0, Basophils % 0.1, Absolute Granulocytes 9.2 H, Absolute Lymphocytes 0.9 L, Absolute Monocytes 0.7 H, Absolute Eosinophils 0, Absolute Basophils 0 Assessment/Plan Assessment: 81-year-old woman with hypertension, anemia, duodenal ulcer, COPD on CPAP, heart failure. His ejection fraction here with COPD exacerbation. She also had hematuria and is now status post ESWL for kidney stone. 1. COPD exacerbation. Stable continue TRC nebs. 2. Nephrolithiasis. Stable. Outpatient management per Dr. Cleaning. Overall improvement noted. 3. Disposition. Patient states that she wants to go to home instead of this year. Will request PT reevaluation. 4. Transaminitis. While on statin. Will stop statin upon discharge. Discussed switching to other statin and close LFT follow-up as an outpatient. She notified about the same, we discussed with primary care physician. DNR/DNI. Problem List: 1. Transaminitis Pain Ratin Pain Location: None Pain Goal: Remain pain free Pain Plan: PRN Tomorrow's Labs & Rationales: Not needed. Consulting Request: Consulting Specialty: Urology
--- NOTE | 2017-11-26 12:38 | PN- Pulmonary ---
Subjective HPI/Critical Care Issues: pt seen and examined comfortable s/p left upj stone eswl Objective Current Medications: Current Medications Sig/Dom Start time Last Medication Dose Route Stop Time Status Admin Acetaminophen 500 MG Q8P PRN 11/21 0045 11/25 PO 0627 Albuterol Sulfate 3 ML TID 11/21 1600 AC 11/26 INH 0825 Albuterol Sulfate 2 PUF Q4P PRN 11/21 0100 AC 11/21 INH 1008 Citalopram 20 MG DAILY 11/21 1000 AC 11/26 Hydrobromide PO 1029 Docusate Sodium 100 MG DAILY NEEDED PRN 11/22 1430 AC 11/22 PO 1711 Enoxaparin Sodium 40 MG DAILY 11/21 1000 AC 11/26 SC 1033 Furosemide 20 MG DAILY 11/23 1538 DC 11/24 PO 1018 Ipratropium [place] 2.5 ML TID 11/21 1600 AC 11/26 INH 0825 Lidocaine 1 PAT Q24H 11/21 0045 11/25 EXT 2339 Lisinopril 20 MG DAILY 11/21 1000 AC 11/24 PO 1018 Melatonin 5 MG AT BEDTIME 11/22 2200 AC 11/25 PO 2050 Methylprednisolone 40 MG Q12 11/22 2200 AC 11/26 IV 1029 Metoprolol Tartrate 50 MG BID 11/21 0047 11/26 PO 1029 Omeprazole 40 MG DAILY AC 11/21 0800 AC 11/26 PO 0604 Oxycodone HCl 5 MG Q12P PRN 11/21 0045 AC 11/25 PO 1844 Patient Medication 1 ED ONE ONE 11/26 1145 MT Teaching ED 11/26 1146 Patient Medication 1 ED ONE ONE 11/25 1630 MT Teaching ED 11/25 1631 Polyethylene Glycol 17 GM DAILY 11/23 1501 AC 11/26 PO 1029 Senna 187 MG AT BEDTIME 11/22 2200 AC 11/25 PO 2050 Spironolactone 25 MG DAILY 11/21 1000 AC 11/26 PO 1029 Vital Signs & I&O Last 24 Hrs of Vitals and I&O: Vital Signs Date Time Temp Pulse Resp B/P B/P Pulse O2 O2 Flow FiO2 Mean Ox Delivery Rate 11/26 1029 98.1 85 20 110/50 11/26 1029 85 110/50 11/26 0833 94 Nasal 2.0L Cannula 11/26 0800 96 Nasal 2.0L Cannula 11/26 0705 98.1 67 20 130/60 94 Nasal 2.0L Cannula 11/26 0000 94 Nasal 2.0L Cannula 11/25 2213 97.3 78 20 95 Nasal 3.0L Cannula 11/25 2051 92/50 11/25 2045 92/50 11/25 2030 94 Nasal 2.0L Cannula 11/25 1600 97 Nasal 3.0L Cannula 11/25 1514 97.8 62 18 120/65 96 Nasal Cannula 11/25 1440 97.0 63 16 104/40 92 Nasal 3.0L Cannula Intake & Output 11/26 1600 11/26 0800 11/26 0000 Intake Total 200 710 Output Total 500 600 Balance -300 110 Intake, IV 10 Intake, Oral 200 700 Number 0 1 Bowel Movements Output, Urine 500 600 Exam Other Physical Findings: Generally - Awake, alert and comfortable without distress Head and neck - normocephalic, atraumatic, EOMI grossly intact Cardiovascular - S1, S2, no murmurs, rubs or gallops Lungs - rare rhonchi with prolonged end expiratory phase Abdomen - Bowel sounds positive, soft, non-tender Extremities - without edema Results Last 24 Hrs of Lab Results: Laboratory Tests 11/26/17 0642: Anion Gap 9, Estimated GFR > 60, BUN/Creatinine Ratio 48.3 H, CBC w Diff NO MAN DIFF REQ, RBC 3.94 L, MCV 90.9, MCH 30.1, MCHC 33.1, RDW 16.3 H, MPV 8.9, Gran % 85.6 H, Lymphocytes % 7.9 L, Monocytes % 6.4, Eosinophils % 0, Basophils % 0.1, Absolute Granulocytes 9.2 H, Absolute Lymphocytes 0.9 L, Absolute Monocytes 0.7 H, Absolute Eosinophils 0, Absolute Basophils 0 Impression/Plan Impression/Plan Impression/Plan: Impression 81 year old woman * renal colic/nephrolithiasis - s/p interventoin * COPD exacerbation * Plan -dc solumedrol - begin prednisone 40mg x 2, 30x2, 20x2, 10x2 -wishes for rehab -she should have outpatient evaluation for her COPD and respiratory care. DVT prohylaxis at all times
[2017-11-26 14:58] VITALS: BP 110/58
[2017-11-26 22:28] VITALS: BP 114/56
[2017-11-27 06:46] VITALS: BP 128/68
--- NOTE | 2017-11-27 11:09 | PN- Housestaff ---
Subjective Follow-up For: COPD exacerbation Subjective: States sleeping well last night, with no episodes of difficulty breathing. Reports better breathing, but states that upon awakening her breathing "is up and down". Sitting comfortably in chair. New cough, minimal sputum production. No chest pain palpitations. Review of Systems Constitutional: Reports: see HPI. Objective Last 24 Hrs of Vital Signs/I&O Vital Signs Date Time Temp Pulse Resp B/P B/P Pulse O2 O2 Flow FiO2 Mean Ox Delivery Rate 11/27 0940 94 Nasal 2.0L Cannula 11/27 0800 Nasal 2.0L Cannula 11/27 0646 98.3 68 20 128/68 95 Nasal 2.0L Cannula 11/27 0000 Nasal 2.0L Cannula 11/26 2228 97.3 64 20 114/56 94 Nasal 2.0L Cannula 11/26 2117 110/56 11/26 1845 95 Nasal 2.0L Cannula 11/26 1600 95 Nasal 2.0L Cannula 11/26 1519 Nasal 2.0L Cannula 11/26 1458 97.8 68 20 110/58 94 Intake & Output 11/27 1600 11/27 0800 11/27 0000 Intake Total 300 300 Output Total 850 Balance -550 300 Intake, Oral 300 300 Number 0 Bowel Movements Output, Urine 850 Physical Exam General Appearance: Alert, Oriented X3, Cooperative Cardiovascular: Regular Rate, Normal S1, Normal S2 Lungs: Clear to Auscultation, Normal Air Movement Abdomen: Normal Bowel Sounds, Soft Extremities: No Clubbing, No Cyanosis Current Medications: Current Medications Sig/Dom Start time Last Medication Dose Route Stop Time Status Admin Acetaminophen 500 MG Q8P PRN 11/21 0045 AC 11/27 PO 0904 Albuterol Sulfate 3 ML TID 11/21 1600 AC 11/27 INH 0942 Albuterol Sulfate 2 PUF Q4P PRN 11/21 0100 AC 11/21 INH 1008 Citalopram 20 MG DAILY 11/21 1000 AC 11/27 Hydrobromide PO 0902 Docusate Sodium 100 MG DAILY NEEDED PRN 11/22 1430 AC 11/22 PO 1711 Enoxaparin Sodium 40 MG DAILY 11/21 1000 AC 11/27 SC 0908 Ipratropium [place] 2.5 ML TID 11/21 1600 AC 11/27 INH 0942 Lidocaine 1 PAT Q24H 11/21 0045 AC 11/27 EXT 0040 Lisinopril 20 MG DAILY 11/21 1000 AC 11/24 PO 1018 Melatonin 5 MG AT BEDTIME 11/22 2200 AC 11/26 PO 2116 Methylprednisolone 40 MG Q12 11/22 2200 DC 11/26 IV 1029 Metoprolol Tartrate 50 MG BID 11/21 0047 AC 11/26 PO 1029 Omeprazole 40 MG DAILY AC 11/21 0800 AC 11/27 PO 0619 Oxycodone HCl 5 MG Q12P PRN 11/21 0045 AC 11/26 PO 1926 Polyethylene Glycol 17 GM DAILY 11/23 1501 AC 11/26 PO 1029 Prednisone 10 MG DAILY 12/03 1000 AC PO 12/05 0959 Prednisone 20 MG DAILY 12/01 1000 AC PO 12/03 0959 Prednisone 30 MG DAILY 11/29 1000 AC PO 12/01 0959 Prednisone 40 MG DAILY 11/27 1000 CAN PO 12/05 0959 Prednisone 40 MG DAILY 11/27 1000 AC 11/27 PO 11/29 0959 0906 Senna 187 MG AT BEDTIME 11/22 2200 AC 11/26 PO 2116 Spironolactone 25 MG DAILY 11/21 1000 AC 11/27 PO 0917 Last 24 Hrs of Lab/Victor M Results Last 24 Hrs of Labs/Mics: Laboratory Tests 11/27/17 0720: Anion Gap 6, Estimated GFR > 60, BUN/Creatinine Ratio 37.1 H Assessment/Plan Assessment: 81-year-old woman with hypertension, anemia, duodenal ulcer, COPD on CPAP, heart failure. His ejection fraction here with COPD exacerbation. She also had hematuria and is now status post ESWL for kidney stone. 1. COPD exacerbation. Stable continue TRC nebs. New cough, needs evaluation with chest x-ray. Chest x-ray to assess fluid status as well, Lasix has been on hold for borderline kidney function since 11/25/2017. Output -500. We will resume if need be. 2. Nephrolithiasis. Stable. Outpatient management per Dr. Cleaning. Overall improvement noted. 3. Disposition. Short-term rehabilitation, pending chest x-ray results. 4. Transaminitis. While on statin. Will stop statin upon discharge. Discussed switching to other statin and close LFT follow-up as an outpatient with primary care physician. DNR/DNI. Problem List: 1. Weakness Pain Ratin Pain Location: None Pain Goal: Remain pain free Pain Plan: When necessary Tomorrow's Labs & Rationales: Not needed Consulting Request: Consulting Specialty: Urology
--- NOTE | 2017-11-27 11:45 | PN- Pulmonary ---
Subjective HPI/Critical Care Issues: pt seen and examined feeling better, pain improving Objective Current Medications: Current Medications Sig/Dom Start time Last Medication Dose Route Stop Time Status Admin Acetaminophen 500 MG Q8P PRN 11/21 0045 AC 11/27 PO 0904 Albuterol Sulfate 3 ML TID 11/21 1600 AC 11/27 INH 0942 Albuterol Sulfate 2 PUF Q4P PRN 11/21 0100 AC 11/21 INH 1008 Citalopram 20 MG DAILY 11/21 1000 AC 11/27 Hydrobromide PO 0902 Docusate Sodium 100 MG DAILY NEEDED PRN 11/22 1430 AC 11/22 PO 1711 Enoxaparin Sodium 40 MG DAILY 11/21 1000 AC 11/27 SC 0908 Ipratropium [place] 2.5 ML TID 11/21 1600 AC 11/27 INH 0942 Lidocaine 1 PAT Q24H 11/21 0045 AC 11/27 EXT 0040 Lisinopril 20 MG DAILY 11/21 1000 AC 11/24 PO 1018 Melatonin 5 MG AT BEDTIME 11/22 2200 AC 11/26 PO 2116 Methylprednisolone 40 MG Q12 11/22 2200 DC 11/26 IV 1029 Metoprolol Tartrate 50 MG BID 11/21 0047 AC 11/26 PO 1029 Omeprazole 40 MG DAILY AC 11/21 0800 AC 11/27 PO 0619 Oxycodone HCl 5 MG Q12P PRN 11/21 0045 AC 11/26 PO 1926 Patient Medication 1 ED ONE ONE 11/26 1145 DC Teaching ED 11/26 1146 Polyethylene Glycol 17 GM DAILY 11/23 1501 AC 11/26 PO 1029 Prednisone 10 MG DAILY 12/03 1000 AC PO 12/05 0959 Prednisone 20 MG DAILY 12/01 1000 AC PO 12/03 0959 Prednisone 30 MG DAILY 11/29 1000 AC PO 12/01 0959 Prednisone 40 MG DAILY 11/27 1000 CAN PO 12/05 0959 Prednisone 40 MG DAILY 11/27 1000 AC 11/27 PO 11/29 0959 0906 Senna 187 MG AT BEDTIME 11/22 2200 AC 11/26 PO 2116 Spironolactone 25 MG DAILY 11/21 1000 AC 11/27 PO 0917 Vital Signs & I&O Last 24 Hrs of Vitals and I&O: Vital Signs Date Time Temp Pulse Resp B/P B/P Pulse O2 O2 Flow FiO2 Mean Ox Delivery Rate 11/27 0940 94 Nasal 2.0L Cannula 11/27 0800 Nasal 2.0L Cannula 11/27 0646 98.3 68 20 128/68 95 Nasal 2.0L Cannula 11/27 0000 Nasal 2.0L Cannula 11/26 2228 97.3 64 20 114/56 94 Nasal 2.0L Cannula 11/26 2117 110/56 11/26 1845 95 Nasal 2.0L Cannula 11/26 1600 95 Nasal 2.0L Cannula 11/26 1519 Nasal 2.0L Cannula 11/26 1458 97.8 68 20 110/58 94 Intake & Output 11/27 1600 11/27 0800 11/27 0000 Intake Total 300 300 Output Total 850 Balance -550 300 Intake, Oral 300 300 Number 0 Bowel Movements Output, Urine 850 Exam Other Physical Findings: Generally - Awake, alert and comfortable without distress Head and neck - normocephalic, atraumatic, EOMI grossly intact Cardiovascular - S1, S2, no murmurs, rubs or gallops Lungs - rare rhonchi with prolonged end expiratory phase Abdomen - Bowel sounds positive, soft, non-tender Extremities - without edema Results Last 24 Hrs of Lab Results: Laboratory Tests 11/27/17 0720: Anion Gap 6, Estimated GFR > 60, BUN/Creatinine Ratio 37.1 H Impression/Plan Impression/Plan Impression/Plan: Impression 81 year old woman * renal colic/nephrolithiasis - s/p interventoin * COPD exacerbation * Plan -dc solumedrol - begin prednisone 40mg x 2, 30x2, 20x2, 10x2 -wishes for rehab -she should have outpatient evaluation for her COPD and respiratory care. DVT prohylaxis at all times DC planning
--- NOTE | 2017-11-27 12:01 | PN- Att Addend ---
Attending Addendum Attending Brief Note Patient seen and examined, doing okay but was complaining of slightly feeling more short of breath today and had a bad but cough today. Vital signs are stable and she is requiring 2 L of oxygen which is her baseline. She is afebrile. vss on exam; aox3, nad. cv; s1, s2, rrr resp; overall decreased bs. 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 Status post ESWL for the kidney stone [address] Cleaning. Overall doing much better. Was switched steroids to oral. Will check a chest x-ray today just to make sure there is nothing else going on. We'll continue the rest of the medications. His chest x-ray looks good and patient will likely be discharged to rehabilitation today. She needs to go to rehabilitation.
--- NOTE | 2017-11-27 16:31 | RADIOLOGY REPORT ---
EXAMINATION: XR CHEST CLINICAL INFORMATION: COPD exacerbation. COMPARISON: 04/25/2017 TECHNIQUE: 2 views of the chest were obtained. FINDINGS: Although there is a significant interval improvement in the diffuse interstitial markings throughout the left lung when compared with the prior study, there does appear to be a small patchy opacity at the left lung base. No significant pleural effusion. The right lung is clear. No pneumothorax. Normal pulmonary vascularity. Minimal cardiomegaly, unchanged. Atherosclerosis thoracic aorta. Decreased bone mineral density. No definite acute osseous abnormality. IMPRESSION: Patchy opacity at the left lung base may be atelectasis, edema or possibly infection. Follow up to resolution recommended to exclude a neoplastic process.
[2017-11-27 17:16] VITALS: BP 128/68
== END 2017-11-27 18:44 | DRG 660 ==
LOC: ERH 17:45 → 2NA 21:04 → ERHI 21:04 → ENRESERV 22:21 → ENTRNSPT 22:41 → 2NA 23:05 → CMPTRNSPT 11-21 07:14 → 2NA 11-21 08:13 → ENTRNSPT 11-25 13:57 → EDTRNSPTSTS 11-25 14:08 → EDTRNSPT 11-25 14:08 → CMPTRNSPT 11-25 14:37 → 2NA 11-27 18:44
PROVIDERS: Internal Medicine Hematology & Oncology; Internal Medicine Interventional Cardiology; Physician Assistant; Radiology Vascular & Interventional Radiology; Student in an Organized Health Care Education/Training Program
PROC: 0TC43ZZ Extirpation of Matter from Left Kidney Pelvis, Percutaneous Approach (ICD-10-PCS; principal; 2017-11-25)
DX: N20.0 Calculus of kidney (principal); J44.1 Chronic obstructive pulmonary disease with (acute) exacerbation; I50.22 Chronic systolic (congestive) heart failure; I27.20 Pulmonary hypertension, unspecified; I11.0 Hypertensive heart disease with heart failure; M62.82 Rhabdomyolysis; Z99.81 Dependence on supplemental oxygen; R31.9 Hematuria, unspecified; R74.0 Nonspecific elevation of levels of transaminase and lactic acid dehydrogenase [LDH]; E87.6 Hypokalemia; N23 Unspecified renal colic; I25.2 Old myocardial infarction; E78.5 Hyperlipidemia, unspecified
CPT/HCPCS: 2NASP; 36415; 36592; 71046; 74176; 80307; 81001; 82436; 87070; 87086; 87449; 87450; 93005; 93010; 97110-GO; 97116-GO; 97161-GP; 97530-GO; G0480; J0696; J1650; J2920; J3490; J7040

== ENCOUNTER 2017-12-23 14:22 | Inpatient (IN) | payer OTHER ==
[~2017-12-23] VITALS: Ht 160 cm; Wt 62.8 kg
[~2017-12-23 14:22] MED LIST changes: +ACETAMINOPHEN500 M4 PO; +LIDODERM1 EACH EXT
--- NOTE | 2017-12-23 15:08 | ED GENERAL ADULT ---
History of Present Illness General Chief Complaint: General Adult Stated Complaint: HYPOTENSION Source: patient Exam Limitations: poor historian Vital Signs & Intake/Output Vital Signs & Intake/Output Vital Signs Date Time Temp Pulse Resp B/P B/P Pulse O2 O2 Flow FiO2 Mean Ox Delivery Rate 12/23 2251 Nasal 2.0L Cannula 12/24 2235 97.9 68 24 104/58 99 12/23 2116 97.3 65 18 110/50 99 Nasal 2.0L Cannula 12/23 2013 100/44 12/23 2009 97.6 48 20 99/48 100 Room Air 12/23 1704 96.7 64 20 126/54 98 Nasal 3.0L Cannula 12/23 1603 97.6 61 18 123/58 98 Nasal 2.0L Cannula 12/23 1440 99 Nasal 2.0L Cannula 12/23 1439 96.0 62 17 112/52 99 Nasal 2.0L Cannula ED Intake and Output 12/24 0000 12/23 1200 Intake Total 2000 Output Total Balance 2000 Intake, IV 2000 Patient 123 lb Weight Weight Bed scale Measurement Method Allergies Coded Allergies: Sulfa (Sulfonamide Antibiotics) (Intermediate, "ITCHY" - MED LIST FROM MD OFFICE SAYS POSION EDWIGE LIKE RASH 12/25/15) Reconcile Medications Acetaminophen 500 MG TABLET 500 MG PO Q8P PRN PAIN SCALE 1-3 (MILD) Albuterol Sulfate (Proair Hfa) 90 MCG HFA.AER.AD 2 PUF INH Q4H PRN SHORTNESS OF BREATH (Reported) Albuterol Sulfate 2.5 MG/3 ML (0.083 %) VIAL.NEB 1 Vial INH/CARL TID RESP. ( Reported) Citalopram Hydrobromide (Citalopram HBr) 20 MG TABLET 1 TAB PO DAILY MENTAL HEALTH (Reported) Furosemide 20 MG TABLET 1 TAB PO DAILY WATER RETENTION (Reported) Ipratropium [place] 0.2 MG/ML (0.02 %) SOLUTION 1 Vial INH/CARL TID RESP. ( Reported) Lidocaine (Lidoderm) 5 % ADH..PATCH 1 PAT EXT Q24H PRN PAIN Lisinopril (Prinivil) 20 MG TABLET 1 TAB PO DAILY BP (Reported) Metoprolol Tartrate (Lopressor) 50 MG TABLET 1 TAB PO BID BP (Reported) Spironolactone (Aldactone) 25 MG TABLET 1 TAB PO DAILY HEART FAILURE ( Reported) Triage Note: 82 Y/O FROM HOME FOR HYPOTENSION. PT STS SHE WAS RECENTLY AT [facility] FOR REHAB AND WAS D/C'D HOME ON FRIDAY. PT AND EMS STS TODAY VISITING NURSE CAME IN AND NOTED PT TO BE HYPOTENSIVE AND ALSO BRADYING IN THE 40"S. PT WAS GIVEN SOME FLUIDS ENROUTE BY PARAMED AND ARRIVED A/O X3, DENIES ANY COMPLAINTS BUT STS SHE IS VERY TIRED. PT IS NO LONGER HYPOTENSIVE BUT NOTED TO HAVE MACKENZIE'D TO 45 FOR A FEW SECONDS AND RESOLVED. PT AWAITING PROVIDER EVAL Triage Nurses Notes Reviewed? yes Onset: Abrupt Duration: hour(s): Timing: recent history HPI: 12/23/17 8:30 PM 82-year-old female brought into the emergency department for near-syncope. The patient was at home and had an episode of syncope. She denies chest pain or abdominal pain. Does admit to some difficulty breathing but not now. Past History Travel History Traveled to [place] past 21 day No Medical History Any Pertinent Medical History? 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 MOTHER (heart failure). FATHER (Diabetes). Hx Contributory? No Review of Systems Review of Systems Constitutional: Denies: fever. EENTM: Denies: visual changes. Respiratory: Reports: sputum production. Denies: cough. Cardiovascular: Denies: chest pain. GI: Denies: abdominal pain. Genitourinary: Reports: no symptoms. Musculoskeletal: Reports: no symptoms. Skin: Reports: no symptoms. Neurological/Psychological: Reports: no symptoms. Hematologic/Endocrine: Reports: no symptoms. Immunologic/Allergic: Reports: no symptoms. Physical Exam Physical Exam General Appearance: alert, awake, anxious Head: atraumatic, normal appearance Eyes: Bilateral: normal appearance, PERRL, EOMI. Ears, Nose, Throat: normal pharynx, normal ENT inspection Neck: normal inspection, supple Respiratory: normal breath sounds, chest non-tender, no respiratory distress Cardiovascular: bradycardia Peripheral Pulses: 4+ radial (R), 4+ radial (L) Gastrointestinal: soft, non-tender Back: normal range of motion Extremities: normal inspection Neurologic/Psych: no motor/sensory deficits, awake, alert, oriented x 3 Skin: intact, normal color Core Measures ACS in differential dx? Yes CVA/TIA Diagnosis: No Sepsis Present: No Sepsis Focused Exam Completed? No Progress Differential Diagnoses I considered the following diagnoses in my evaluation of the patient: [ Cardiogenic syncope, dysrhythmia, pulmonary embolism, dehydration, electrolyte derangement, symptomatic anemia, GI bleed] Plan of Care: Orders Procedure Date/time Status Regular Diet 12/24 B Active CBC WITHOUT DIFFERENTIAL 12/24 0600 Active BASIC ELECTROLYTES PLUS BUN&CR 12/24 0600 Active TROPONIN LEVEL 12/24 0000 Active MAGNESIUM 12/24 0000 Active POTASSIUM 12/24 0000 Active EKG 12/24 0000 Active Weight 12/23 2250 Active Vital Signs 12/23 225 Active Teach/Educate 12/23 225 Active Pain Treatment and Response 12/23 225 Active Nutritional Intake, Monitor 12/23 225 Active Isolation 12/23 2250 Active Intake & Output 12/23 225 Active Patient Care Conference 12/23 2250 Active Activity/Ambulation 12/23 2250 Active [id number] VIEW 12/23 2222 Active Code Status 12/24 2147 Active ECHOCARDIOGRAM 12/23 2142 Active TRC EVALUATION (GEN) 12/24 2139 Active PT Evaluate & Treat 12/24 2139 Active Pathway - chart 12/24 2139 Active House Staff 12/24 2139 Active Patient Data 12/24 2139 Active Code Status 12/24 2139 Complete Patient Data 12/23 2046 Active ED Holding Orders 12/24 2043 Active Admit to inpatient 12/24 2043 Active Vital Signs 12/24 2043 Active Code Status 12/24 2043 Complete Add-on Test (ER Only) 12/23 1810 Active TROPONIN LEVEL 12/23 1810 Complete EKG 12/23 1810 Active D-DIMER 12/23 1525 Complete TROPONIN LEVEL 12/23 1509 Complete PROTHROMBIN TIME 12/23 1509 Complete COMPREHENSIVE METABOLIC PANEL 12/23 1509 Complete CBC WITHOUT DIFFERENTIAL 12/23 1509 Complete Intake & Output 12/23 1436 Active EKG 12/23 1433 Active VTE Mechanical Prophylaxis 12/23 UNK Active Vital Signs 12/23 UNK Active MISTAKE 12/23 UNK Active Telemetry/Rand Tacker 12/23 UNK Active Nursing Misc 12/23 UNK Active Current Medications Sig/Dom Start time Last Medication Dose Stop Time Status Admin Citalopram 20 MG DAILY 12/24 1000 AC Hydrobromide (Celexa) Sodium Chloride 1,000 ML Q13H 12/23 2245 AC 12/23 (Normal Saline 0.9%) 12/24 1144 2331 Albuterol Sulfate 3 ML TID 12/23 2200 AC (Proventil) Albuterol Sulfate 2 PUF Q4H PRN 12/23 2200 AC (Ventolin) Heparin Sodium 5,000 UNIT Q8 12/23 2200 AC 12/23 (Porcine) 2354 Ipratropium [place] 2.5 ML TID 12/23 2200 AC (Atrovent) Lidocaine 1 PAT Q24H PRN 12/23 2200 AC (Lidoderm) Acetaminophen 650 MG Q6P PRN 12/23 2145 AC (Tylenol) Sodium Chloride 1,000 ML ONCE ONE 12/23 1515 AC 12/23 (Normal Saline 0.9%) 12/24 0114 1522 Laboratory Tests 12/23/17 1835: Troponin I < 0.01 12/23/17 1525: Anion Gap 14, Estimated GFR 25 L, BUN/Creatinine Ratio 23.7, Glucose 97, Calcium 9.8, Total Bilirubin 0.7, AST 19, ALT 27, Alkaline Phosphatase 84, Troponin I < 0.01, Total Protein 7.1, Albumin 4.1, Globulin 3.0, Albumin/ Globulin Ratio 1.4, PT 10.9, INR 1.00, D-Dimer High Sensitivty 406 H, CBC w Diff NO MAN DIFF REQ, RBC 3.84 L, MCV 90.9, MCH 30.4, MCHC 33.4, RDW 17.0 H, MPV 7.4, Gran % 63.6, Lymphocytes % 22.4, Monocytes % 11.1 H, Eosinophils % 2.6 , Basophils % 0.3, Absolute Granulocytes 4.0, Absolute Lymphocytes 1.4, Absolute Monocytes 0.7 H, Absolute Eosinophils 0.2, Absolute Basophils 0 Initial ED EKG: nonspecific ST T wave chg, WANDERING ATRIAL PACEMAKER, BRADYCARDIA AT 48 Repeat EKG: changed (SINUS BRADYCARDIA 47 B/M) Departure Departure Disposition: STILL A PATIENT Condition: Stable Clinical Impression Primary Impression: Syncope Secondary Impressions: VANESSA (acute kidney injury), Bradycardia, Hypotension Referrals: Jj Beard MD (PCP/Family) Departure Forms: Customer Survey General Discharge Information Comments Chest x-ray results below IMPRESSION: Suggestion of retrocardiac opacity which could represent atelectasis or consolidation. Prominent interstitial markings which may reflect interstitial pulmonary edema. No large volume pleural effusion. DICTATED BY: Jeanne Castaneda MD DATE/TIME DICTATED:12/23/171549 RUBBER BALL FINISHER:AMANDA DATE/TIME TRANSCRIBED:12/23/171549 CONFIDENTIAL, DO NOT COPY WITHOUT APPROPRIATE AUTHORIZATION. <Electronically signed in Other Vendor System> SIGNED BY: Jeanne Castaneda MD 12/23/171556 Admission Note Spoke With: Verónica Lopez MD Documentation of Exam: Documentation of any treatments & extenuating circumstances including Concerns Regarding Discharge (functional status, medication knowledge or non-compliance, living conditions, etc.) that warrant an admission rather than observation: [The patient needs admission for continued IV fluids, CTA versus VQ scan, reevaluation of BUN and creatinine, telemetry monitoring, cardiology consultation] The patient received IV fluids. She was placed on a surveillance monitor. She remained awake alert. She is on metoprolol I suspect the likely cause of her bradycardia is secondary to this. However she will need cardiology consultation and ongoing telemetry monitoring. Critical Care Note Critical Care Note Critical Care Time: 30-74 min
[2017-12-23 15:39] LABS: ABSOLUTE BASOPHIL COUNT 0 /CUMM (0.0-0.2); ABSOLUTE EOSINOPHIL COUNT 0.2 /CUMM (0.0-0.7); ABSOLUTE LYMPH COUNT 1.4 /CUMM (1.2-3.4); ABSOLUTE MONOCYTE COUNT 0.7 /CUMM (0.10-0.60); BASOPHIL % 0.3 % (0.0-2.0); EOSINOPHIL % 2.6 % (0-5); GRANULOCYTE % 63.6 % (42.2-75.2); HEMATOCRIT 34.9 % (37-47); MEAN CORPUSCULAR HGB 30.4 PG (27.0-31.0); MEAN CORPUSCULAR HGB CONC 33.4 G/DL (33.0-37.0); MEAN CORPUSCULAR VOLUME 90.9 FL (81.0-99.0); MEAN PLATELET VOLUME 7.4 FL (7.4-10.4); PLATELET COUNT 273 /CUMM (130-400); RED BLOOD CELL CT 3.84 /CUMM (4.20-5.40); WHITE BLOOD CELL COUNT 6.2 /CUMM (4.8-10.8)
[2017-12-23 15:47] LABS: PT 10.9 SEC (9.4-12.5)
--- NOTE | 2017-12-23 15:57 | RADIOLOGY REPORT ---
EXAMINATION: XR PORTABLE CHEST CLINICAL INFORMATION: Hypotension. Need fluid bolus. Rule out CHF. COMPARISON: Chest radiograph 11/27/2017. TECHNIQUE: Portable frontal view of the chest was obtained. FINDINGS: There are low lung volumes. There is a retrocardiac opacity which is not well characterized but may represent atelectasis or consolidation. There is no large volume pleural effusion. There are prominent interstitial markings which may reflect interstitial edema. The cardiomediastinal silhouette appears normal. There are atheromatous calcifications in the aorta. IMPRESSION: Suggestion of retrocardiac opacity which could represent atelectasis or consolidation. Prominent interstitial markings which may reflect interstitial pulmonary edema. No large volume pleural effusion.
[2017-12-23 22:36] VITALS: BP 104/58
--- NOTE | 2017-12-23 23:02 | History & Physical ---
Yoni Bah MD 12/23/17 4412: General Information and HPI MD Statement: I have seen and personally examined DELVIS ARROYO and documented this H&P. The patient is a 82 year old F who presented with a patient stated chief complaint of hypotension and bradycardia. Source of Information: patient, old records Exam Limitations: poor historian History of Present Illness: 82 year old female with PMH significant for HTN, HLD, GERD/PUD, depression, nephrolithiasis, HFrEF (improved with medical mgmt), and COPD on 2L supplemental oxygen continuously recently hospitalized for COPD exacerbation, rhabdomyolysis, and left nephrolithiasis lithotripsy. The patient was discharge to [facility] for rehabilitation and just returned home five days prior to arrival. She had visiting nurses at home and they discovered hypotension and bradycardia into the 40s. The patient was completely asymptomatic and had no complaints at the time of evaluation. The patient denies any fevers, chills, chest pain, diaphoresis, palpitations, dizziness, lightheadness, or nausea. The patient had no cough, no worsening of her chronic dyspnea, no abdominal pain, N/V/D, or dysuria. The only thing reported on review of systems was increasing thirst and water intake that reportedly she had been drinking less water than usual in rehabilitation. The patient was given IVFs en route and in the ED. She was bradycardic and had an acute kidney injury with hyperkalemia and metabolic acidosis. She was admitted to telemetry for further management. Allergies/Medications Allergies: Coded Allergies: Sulfa (Sulfonamide Antibiotics) (Intermediate, "ITCHY" - MED LIST FROM MD OFFICE SAYS TERESA GIBBONS LIKE RASH 12/25/15) Home Med list Acetaminophen 500 MG TABLET 500 MG PO Q8P PRN PAIN SCALE 1-3 (MILD) Albuterol Sulfate (Proair Hfa) 90 MCG HFA.AER.AD 2 PUF INH Q4H PRN SHORTNESS OF BREATH (Reported) Albuterol Sulfate 2.5 MG/3 ML (0.083 %) VIAL.NEB 1 Vial INH/CARL TID RESP. ( Reported) Citalopram Hydrobromide (Citalopram HBr) 20 MG TABLET 1 TAB PO DAILY MENTAL HEALTH (Reported) Furosemide 20 MG TABLET 1 TAB PO DAILY WATER RETENTION (Reported) Ipratropium [place] 0.2 MG/ML (0.02 %) SOLUTION 1 Vial INH/CARL TID RESP. ( Reported) Lidocaine (Lidoderm) 5 % ADH..PATCH 1 PAT EXT Q24H PRN PAIN Lisinopril (Prinivil) 20 MG TABLET 1 TAB PO DAILY BP (Reported) Metoprolol Tartrate (Lopressor) 50 MG TABLET 1 TAB PO BID BP (Reported) Spironolactone (Aldactone) 25 MG TABLET 1 TAB PO DAILY HEART FAILURE ( Reported) Compliance With Home Meds: GOOD Past History Travel History Traveled to [place] past 21 day No Medical History Blood Transfusion Hx: Yes Neurological: NONE EENT: NONE Cardiovascular: CHF, hypertension, NSTEMI, MIXED HYPERLIPIDEMIA Respiratory: bronchitis, COPD, emphysema, pneumonia Gastrointestinal: GERD, BLEEDING STOMACH ULCER Hepatic: NONE Renal: nephrolithiasis Musculoskeletal: chronic back pain Psychiatric: MAJOR DEPRESSIVE DISORDER GENERALIZED ANXIETY D/O Endocrine: PRE-DIABETIC Blood Disorders: anemia, VIT D DEFICIENCY Cancer(s): NONE 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 MOTHER (heart failure). FATHER (Diabetes). Psychosocial History Where do you live? Home Services at Home: Home Health Aide, Nursing, Oxygen Smoking Status: Former Smoker ETOH Use: denies use Illicit Drug Use: denies illicit drug use Review of Systems Review of Systems Constitutional: Reports: no symptoms. EENTM: Reports: no symptoms. Cardiovascular: Reports: no symptoms. Respiratory: Reports: no symptoms. GI: Reports: no symptoms. Genitourinary: Reports: no symptoms. Musculoskeletal: Reports: no symptoms. Skin: Reports: no symptoms. Neurological/Psychological: Reports: no symptoms. Hematologic/Endocrine: Reports: no symptoms. Immunologic/Allergic: Reports: no symptoms. All Other Systems: Reviewed and Negative Exam & Diagnostic Data Last 24 Hrs of Vital Signs/I&O Vital Signs Date Time Temp Pulse Resp B/P B/P Pulse O2 O2 Flow FiO2 Mean Ox Delivery Rate 12/23 2250 Nasal 2.0L Cannula 12/24 2235 97.9 68 24 104/58 99 12/24 2115 97.3 65 18 110/50 99 Nasal 2.0L Cannula 12/23 2013 100/44 12/23 2009 97.6 48 20 99/48 100 Room Air 12/23 1704 96.7 64 20 126/54 98 Nasal 3.0L Cannula 12/23 1603 97.6 61 18 123/58 98 Nasal 2.0L Cannula 12/23 1440 99 Nasal 2.0L Cannula 12/23 1439 96.0 62 17 112/52 99 Nasal 2.0L Cannula Intake & Output 12/24 0800 12/24 0000 12/23 1600 Intake Total 1000 1000 Output Total Balance 1000 1000 Intake, IV 1000 1000 Patient 55.82 kg 61.235 kg Weight Weight Bed scale Reported by Patient Measurement Method Physical Exam General Appearance Alert, Oriented X3, Cooperative, No Acute Distress, dry mucous membranes Cardiovascular Regular Rate, Normal S1, Normal S2, No Murmurs Lungs severely diminished air entry, wheezing anteriorly Abdomen Normal Bowel Sounds, Soft, No Tenderness, No Masses, suprapubic firmness Extremities No Clubbing, No Cyanosis, No Edema, Normal Pulses, No Tenderness/ Swelling Last 24 Hrs of Labs/Victor M: Laboratory Tests 12/24/17 0035: Magnesium 1.9, Troponin I < 0.01 12/23/17 1835: Troponin I < 0.01 12/23/17 1525: Anion Gap 14, Estimated GFR 25 L, BUN/Creatinine Ratio 23.7, Glucose 97, Calcium 9.8, Total Bilirubin 0.7, AST 19, ALT 27, Alkaline Phosphatase 84, Creatine Kinase Pending, Troponin I < 0.01, Total Protein 7.1, Albumin 4.1, Globulin 3.0, Albumin/Globulin Ratio 1.4, PT 10.9, INR 1.00, D-Dimer High Sensitivty 406 H, CBC w Diff NO MAN DIFF REQ, RBC 3.84 L, MCV 90.9, MCH 30.4, MCHC 33.4, RDW 17.0 H, MPV 7.4, Gran % 63.6, Lymphocytes % 22.4, Monocytes % 11.1 H, Eosinophils % 2.6, Basophils % 0.3, Absolute Granulocytes 4.0, Absolute Lymphocytes 1.4, Absolute Monocytes 0.7 H, Absolute Eosinophils 0.2, Absolute Basophils 0 Diagnostic Data EKG Results sinus arrhythmia/sinus bradycardia CXR Results Suggestion of retrocardiac opacity which could represent atelectasis or consolidation. Prominent interstitial markings which may reflect interstitial pulmonary edema. No large volume pleural effusion. Assessment/Plan Assessment: 82 year old female with PMH significant for HTN, HLD, GERD/PUD, depression, nephrolithiasis, HFrEF (improved with medical mgmt), and COPD on 2L supplemental oxygen continuously recently hospitalized for COPD exacerbation, rhabdomyolysis, and left nephrolithiasis lithotripsy was brought in for evaluation of hypotension and bradycardia. Hypotension and bradycardia: Likely medication related with restricted free water intake Patient states she feels thirsty and wasn't drinking much in rehabilitation Cardiology consultation Hold metoprolol for sinus arrhythmia and sinus bradycardia Pacer pad placement and atropine at bedside for symptomatic bradycardia Check serial troponins and echocardiogram HFrEF medications on hold Last echo 04/14 diastolic dysfunction and LVEF wnl, previously reduced LVEF Hold lasix, metoprolol and aldactone, no aspirin? possible because of h/o PUD Acute kidney injury: with metabolic acidosis NAGMA Check an ABG Creatinine 1.9, previously normal baseline Hold ACEi, lasix, and aldactone Avoid nephrotoxic agents Continue gentle IVF resuscitation Repeat BEP in AM Hyperkalemia: 5.9 on arrival, given IVFs and kayexalate Secondary to VANESSA Repeat BEP COPD: Continue supplemental oxygen 2L continuously TRC evaluation Nebulized albuterol and ipatropium HTN: Monitor blood pressure off medications for now given hypotension, bradycardia and acute kidney injury GERD/PUD: Continue PPI Depression: Continue celexa Heart healthy diet DVT ppx-heparin 5000units subcutaneous q8h DNR/DNI As Ranked By This Provider Problem List: 1. Hypotension 2. Bradycardia 3. CHF (congestive heart failure) Core Measures/Misc (06/15) Acute Coronary Syndrome ACS Diagnosis: No Congestive Heart Failure Congestive Heart Failure Diagnosis No Cerebrovascular Accident CVA/TIA Diagnosis: No VTE (View Protocol) VTE Risk Factors Age>40 No Mechanical VTE Prophylaxis d/t N/A MechProphylax Ordered No VTE Pharm Prophylaxis d/t NA PharmProphylax ordered Sepsis (View protocol) Sepsis Present: No Verónica Lopez 12/24/17 0408: Attending MD Review Statement Attending Statement Attending MD Statement: examined this patient, discuss w/resident/PA/HOG RAISER, agreed w/resident/PA/HOG RAISER, reviewed EMR data (avail), reviewed images, amended to note Attending Assessment/Plan: CC: Low blood pressure PMH: HTN, anemia, history of duodenal ulcer, COPD on 2 L nasal cannula, pulmonary hypertension, HFrEF Patient was sent in ER by a visiting nurse through EMS for low blood pressure and slow heart rate. Patient recently was discharged from [facility] 5 days back, she had visiting nurse checking on her every day. Today she noticed that patient's blood pressure was low and her heart rate was in 40s. EMS was called immediately and patient was given some IV fluids in route. All this while patient did not have any complaints. Complete ROS unremarkable, no chest pain, chest tightness, worsening of shortness of breath, cough, expectoration, urinary symptoms, abdominal pain, nausea, vomiting. Patient mentions that she does not drink enough water, and has vague abdominal pain mostly right lower quadrant. Last bowel movement 2 days back, does not feel constipated. Vitals: Afebrile, pulse in 60s, RR 17, blood pressure 112/52, saturating well on 2 L nasal cannula On exam: A O 3, cooperative, no acute distress, neck supple, JVD normal, no lymphadenopathy, mucosa dry, complete neurological examination unremarkable, no dependent edema, no obvious skin rashes or inflammation CVS: S1-S2, regular, no murmur, distant heart sounds. RS: Markedly decreased air entry all lung maria. Abdomen: Soft, NT, ND, bowel sounds present. Peripheral pulses perfusion normal CXR: Suggestion of retrocardiac opacity which could represent atelectasis or consolidation. Prominent interstitial markings which may reflect interstitial pulmonary edema. No large volume pleural effusion. Assessment and plan 82-year-old female with multiple comorbidities as mentioned above was admitted in hospital from November 20 - November 27 for mechanical fall, rhabdomyolysis, COPD exacerbation, left UPJ stone S/P ESWL. After this extended stay she was discharged to [facility] from where she was discharged home 5 days back. Patient was completely asymptomatic but visiting nurse noticed that her blood pressure was low and her heart rate was in 40s, immediately EMS was called and patient was transferred to ER. Patient received IV fluids in route. After coming to ER patient did not have hypotension and her heart rate was in 60s but only one reading of 40s. ECG showed wandering atrial pacemaker in first ECG followed by sinus bradycardia. Complete physical examination unremarkable except dehydration. Patient appears to have elevated creatinine, mild acidosis and hyperkalemia which could result in of dehydration. Even though x-ray mentions retrocardiac opacity, patient does not have any evidence of infection. + Transient hypotension probably secondary to dehydration + Sinus bradycardia + Acute kidney injury + Hyperkalemia + History of HTN, anemia, history of duodenal ulcer, COPD on 2 L nasal cannula, pulmonary hypertension, HFrEF - Admit to telemetry - Continuous telemetry monitoring - Serial troponin and ECG is - Continue gentle hydration with normal saline at 75 mL per hour for 1 more liter - By mouth Kayexalate - Repeat potassium with next lab - At CPK to the sampling lab - Check magnesium - X-ray abdomen to rule out any constipation - [facility] - Cardiology consultation - 2-D echocardiogram - Hold lisinopril, spironolactone, metoprolol and Lasix, for hypotension and bradycardia with VANESSA - DVT prophylaxis Saud Lucero 12/24/17 0414: Resident Review Statement Other Findings: This is a 52-year-old female with past medical history significant for COPD on home oxygen 2 L, anxiety, depression, systolic congestive heart failure, hypertension, chronic back pain, prediabetic, anemia, vitamin D deficiency, nephrolithiasis, GERD, hyperlipidemia was brought in by ambulance from her home for low blood pressure and bradycardia. Patient was discharged from [facility] to rehabilitation after she was treated for COPD exacerbation, transaminitis, rhabdomyolysis, left renal stone status post extraction with cystoscopy. Patient went home from rehabilitation last week. She has been doing well for last 1 week. However her visiting nurse went to check on her this morning, found to have low blood pressure and bradycardia 40. She was sent in for further evaluation. He received some fluids on the way to ER. Patient denies any complaints in the emergency room, no chest pain, no fever, chills, productive cough, short of breath, palpitations, dizzy, lightheaded, presyncope or syncopal episode, abdominal pain, nausea, vomiting, change in bladder or bowel habits. However patient reports that she hasn't been drinking good amounts of water since discharge from the [facility]. Patient reports some vague abdominal discomfort right lower quadrant. However not constipated. Quit smoking 11 years ago, nonalcoholic, no illicit drug abuse. Last echocardiogram March 2017 showed diastolic dysfunction, ejection fraction 50-55%. Vitals: Afebrile, pulse in 60s, RR 17, blood pressure 112/52, saturating well on 2 L nasal cannula On exam: A O 3, cooperative, no acute distress, neck supple, JVD normal, no lymphadenopathy, mucosa dry, complete neurological examination unremarkable, no dependent edema, no obvious skin rashes or inflammation CVS: S1-S2, regular, no murmur, distant heart sounds. RS: Markedly decreased air entry all lung maria. Abdomen: Soft, NT, ND, bowel sounds present. Peripheral pulses perfusion normal labs WBC 6.2, hemoglobin 11 hematocrit 34, platelets 270 Sodium 139, potassium 5.9, BUN 45 and creatinine 1.9 LFTs within normal Troponin negative EKG-sinus bradycardia, sinus arrhythmia, rate 48, no acute ST-T wave changes, discussed with packaging line attendant Dr. Montanez. CXR: Suggestion of retrocardiac opacity which could represent atelectasis or consolidation. Prominent interstitial markings which may reflect interstitial pulmonary edema. No large volume pleural effusion. 1. Sinus bradycardia Patient presented from home for evaluation of bradycardia 40. She denied any symptoms like shortness of breath, chest pain, nausea, vomiting, diaphoresis, dizzy, lightheadedness or presyncope, syncopal event. Troponin was negative. EKG showed sinus bradycardia, sinus arrhythmia, rate 48, no acute ST-T wave changes, discussed with packaging line attendant Dr. Montanez. * Most likely medication induced sinus bradycardia * Admit to telemetry given her bradycardia * Continuous telemetry monitoring * Serial troponin and EKG * Pacemaker pads at bedside * Cardiology consult in a.m. * Orthostatic vitals * Given her sinus bradycardia Will hold home medication metoprolol. 2. Transient hypotension from dehydration Patient was found to have SBP 99. Patient reports that she has not been drinking good amounts of water since discharge from the [facility]. Off note she also takes Lasix, Aldactone, metoprolol. * Blood pressure improved after IV fluid hydration * However given her borderline blood pressures we will hold Lasix, aldactone, metoprolol,lisinopril. * Reevaluate in a.m. before starting medications 3. Hyperkalemia Potassium 5.9 at the time of admission. 1 dose of Kayexalate was given Follow-up potassium/mag in a.m. No EKG changes pertinent with hyperkalemia, no muscle weakness. 4. Acute kidney injury Patient was found to have elevated creatinine 1.9 at the time of admission, baseline creatinine 0.7. Off note she was very dehydrated with low blood pressure at the time of presentation. * Continue IV fluids 75 mL per level * Recheck creatinine in the a.m. * Avoid nephrotoxins * Check CPK * Hold lisinopril given VANESSA and hyperkalemia 5. Lower abdomen discomfort Given her mild lower abdomen discomfort will get Xry abdomen to rule out any constipation 6. COPD Continue 2 L oxygen supplementation TRC nebs depression continue citalopram 20 daily Systolic congestive heart failure hold Lasix and Aldactone given AK I and hypotension Hypertension hold lisinopril and metoprolol given AK I and sinus bradycardia DNR/DNI DVT prophylaxis subcutaneous heparin
--- NOTE | 2017-12-24 04:09 | Admission Certification ---
Admission Certification Certification Statement - As attending physician, I certify that at the time of - admission, based on clinical presentation, severity of - symptoms, need for further diagnostic testing and - therapeutic interventions, and risk of adverse outcomes - without in-hospital treatment, in my clinical assessment, - this patient requires an acute hospital stay for a minimum - of two nights or longer. I have also considered psychsocial - factors such as support system, advanced age, financial - issues, cognitive issues, and failed out-patient treatments, - past re-admission history, safety of patient, and lack of - compliance as applicable. Specific rationale supporting this admission is: transient hypotension and bradycardia
--- NOTE | 2017-12-24 07:09 | PN- Housestaff ---
Subjective Follow-up For: Bradycardia Hypotension Tele-Events Since Last Visit: NSR 63-70 Subjective: Ms Vidal was seen and examned this morning. Resting comfortably in bed. States that she's has no complaints although feels very tired she was unable to get much sleep last night. Does not endorse any chest pain or chest discomfort. Does not endorse any vision changes or lightheadedness. Denies any fever, chills, nausea, vomiting. States that she is having decreased by mouth intake owing to a decreased appetite. Review of Systems Constitutional: Reports: see HPI. Objective Last 24 Hrs of Vital Signs/I&O Vital Signs Date Time Temp Pulse Resp B/P B/P Pulse O2 O2 Flow FiO2 Mean Ox Delivery Rate 12/24 1058 Nasal 2.0L Cannula 12/24 0951 97 Nasal 2.0L Cannula 12/24 0750 98.3 67 24 102/52 95 Nasal Cannula 12/23 2251 Nasal 2.0L Cannula 12/23 2236 97.9 68 24 104/58 99 12/23 2116 97.3 65 18 110/50 99 Nasal 2.0L Cannula 12/23 2013 100/44 12/23 2009 97.6 48 20 99/48 100 Room Air 12/23 1704 96.7 64 20 126/54 98 Nasal 3.0L Cannula 12/23 1603 97.6 61 18 123/58 98 Nasal 2.0L Cannula 12/23 1440 99 Nasal 2.0L Cannula 12/23 1439 96.0 62 17 112/52 99 Nasal 2.0L Cannula Intake & Output 12/24 1600 12/24 0800 12/24 0000 Intake Total 980 1000 Output Total Balance 980 1000 Intake, IV 600 1000 Intake, Oral 380 Patient 55.82 kg Weight Weight Bed scale Measurement Method Physical Exam General Appearance: Alert, Oreinted to time not to place Skin: No Rashes, No Breakdown Skin Temp/Moisture Exam: Warm/Dry Cardiovascular: Regular Rate, Normal S1, Normal S2 Lungs: Clear to Auscultation Abdomen: Normal Bowel Sounds, Soft, No Tenderness, Guarding on palpation Assessment/Plan Assessment: Ms Vidal is a 52-year-old female with past medical history significant for COPD on home oxygen 2 L, anxiety, depression, systolic congestive heart failure, hypertension, chronic back pain, prediabetic, anemia, vitamin D deficiency, nephrolithiasis, GERD, hyperlipidemia was brought in by ambulance from her home for low blood pressure and bradycardia. Currently admitted on the telemetry service for the management of the following issues: #Sinus bradycardia * Most likely medication induced sinus bradycardia * Continuous telemetry monitoring * Serial troponin and EKG * Pacemaker pads at bedside * Follow formal cardiology consultation. * Orthostatic vitals * Hold home medication metoprolol. #Transient hypotension from dehydration * Blood pressure improved after IV fluid hydration * Hold Lasix, aldactone, metoprolol,lisinopril. #Hyperkalemia #Resolved * Potassium 5.9 at the time of admission. * 1 dose of Kayexalate was given * Follow-up potassium/mag in a.m. * No EKG changes pertinent with hyperkalemia, no muscle weakness. #Acute kidney injury Patient was found to have elevated creatinine 1.9 at the time of admission, baseline creatinine 0.7. * Continue IV fluids 75 mL per level * Recheck creatinine in the a.m. * Check CPK * Hold lisinopril given VANESSA and hyperkalemia #Lower abdomen discomfort * Given her mild lower abdomen discomfort will get Xry abdomen to rule out acute pathology # COPD * Continue 2 L oxygen supplementation * TRC nebs #History of Depression * Continue citalopram 20 daily DVT prophylaxis subcutaneous heparin DNR/DNI Problem List: 1. Bradycardia 2. Hypotension Pain Ratin Pain Location: NA Pain Goal: Remain pain free Pain Plan: Tylenol PRN Tomorrow's Labs & Rationales: CBC BEP
[2017-12-24 07:50] VITALS: BP 102/52
[2017-12-24 08:23] LABS: ABSOLUTE BASOPHIL COUNT 0 /CUMM (0.0-0.2); ABSOLUTE EOSINOPHIL COUNT 0.1 /CUMM (0.0-0.7); ABSOLUTE GRANULOCYTE CT 2.9 /CUMM (1.4-6.5); ABSOLUTE LYMPH COUNT 1.4 /CUMM (1.2-3.4); ABSOLUTE MONOCYTE COUNT 0.5 /CUMM (0.10-0.60); BASOPHIL % 0.2 % (0.0-2.0); EOSINOPHIL % 2.5 % (0-5); GRANULOCYTE % 58.7 % (42.2-75.2); HEMATOCRIT 30.7 % (37-47); MEAN CORPUSCULAR HGB 30.6 PG (27.0-31.0); MEAN CORPUSCULAR HGB CONC 33.5 G/DL (33.0-37.0); MEAN CORPUSCULAR VOLUME 91.3 FL (81.0-99.0); MEAN PLATELET VOLUME 7.8 FL (7.4-10.4); PLATELET COUNT 263 /CUMM (130-400); RBC DISTRIBUTION WIDTH 17.3 % (11.5-14.5); RED BLOOD CELL CT 3.36 /CUMM (4.20-5.40)
--- NOTE | 2017-12-24 12:12 | PN- Att Addend ---
Attending Addendum Attending Brief Note Patient seen and examined. Plan of care discussed with the medical team and the patient. Available lab work and radiology test reports were reviewed. Exam: General: Patient awake alert oriented without any distress CVS: S1 plus S2 without any murmur or gallops Chest: Few scattered crepitation without any wheeze. There is no respiratory distress. 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 * Taper oxygen Current Medications Sig/Dom Start time Last Medication Dose Route Stop Time Status Admin Acetaminophen 650 MG Q6P PRN 12/23 2145 AC PO Albuterol Sulfate 3 ML BID 12/24 2199 AC INH Albuterol Sulfate 3 ML TID 12/23 220 DC INH Albuterol Sulfate 2 PUF Q4H PRN 12/23 220 AC INH Citalopram 20 MG DAILY 12/24 1000 AC 12/24 Hydrobromide PO 0943 Heparin Sodium 5,000 UNIT Q8 12/23 2200 AC 12/24 (Porcine) SC 0632 Ipratropium [place] 2.5 ML BID 12/24 2199 AC INH Ipratropium [place] 2.5 ML TID 12/23 220 DC INH Lidocaine 1 PAT Q24H PRN 12/23 2200 AC EXT Magnesium Oxide 400 MG ONE ONE 12/24 0430 DC 12/24 PO 12/24 0431 0634 Sodium Chloride 1,000 ML Q13H 12/23 2245 DC 12/23 IV 12/24 1144 2331 Sodium Chloride 1,000 ML BOLUS ONE 12/23 2115 DC 12/23 IV 12/23 2214 2116 Sodium Chloride 1,000 ML ONCE ONE 12/23 1515 DC 12/23 IV 12/24 0114 1522 Sodium Polystyrene 60 ML ONCE ONE 12/23 2245 DC 12/23 Sulfonate PO 12/23 2246 2354 Laboratory Tests 12/24/17 0615: Anion Gap 13, Estimated GFR 48 L, BUN/Creatinine Ratio 29.1 H, CBC w Diff NO MAN DIFF REQ, RBC 3.36 L, MCV 91.3, MCH 30.6, MCHC 33.5, RDW 17.3 H, MPV 7.8, Gran % 58.7, Lymphocytes % 28.9, Monocytes % 9.7 H, Eosinophils % 2.5, Basophils % 0.2, Absolute Granulocytes 2.9, Absolute Lymphocytes 1.4, Absolute Monocytes 0.5, Absolute Eosinophils 0.1, Absolute Basophils 0 12/24/17 0035: Magnesium 1.9, Troponin I < 0.01 12/23/17 1835: Troponin I < 0.01 12/23/17 1525: Anion Gap 14, Estimated GFR 25 L, BUN/Creatinine Ratio 23.7, Glucose 97, Calcium 9.8, Total Bilirubin 0.7, AST 19, ALT 27, Alkaline Phosphatase 84, Creatine Kinase 101, Troponin I < 0.01, Total Protein 7.1, Albumin 4.1, Globulin 3.0, Albumin/Globulin Ratio 1.4, PT 10.9, INR 1.00, D-Dimer High Sensitivty 406 H, CBC w Diff NO MAN DIFF REQ, RBC 3.84 L, MCV 90.9, MCH 30.4, MCHC 33.4, RDW 17.0 H, MPV 7.4, Gran % 63.6, Lymphocytes % 22.4, Monocytes % 11.1 H, Eosinophils % 2.6, Basophils % 0.3, Absolute Granulocytes 4.0, Absolute Lymphocytes 1.4, Absolute Monocytes 0.7 H, Absolute Eosinophils 0.2, Absolute Basophils 0 Vital Signs Date Time Temp Pulse Resp B/P B/P Pulse O2 O2 Flow FiO2 Mean Ox Delivery Rate 12/24 1058 Nasal 2.0L Cannula 12/24 0951 97 Nasal 2.0L Cannula 12/24 0750 98.3 67 24 102/52 95 Nasal Cannula 12/231 Nasal 2.0L Cannula 12/236 97.9 68 24 104/58 99 12/23 2116 97.3 65 18 110/50 99 Nasal 2.0L Cannula 12/23 2013 100/44 12/23 2009 97.6 48 20 99/48 100 Room Air 12/23 1704 96.7 64 20 126/54 98 Nasal 3.0L Cannula 12/23 1603 97.6 61 18 123/58 98 Nasal 2.0L Cannula 12/23 1440 99 Nasal 2.0L Cannula 12/23 1439 96.0 62 17 112/52 99 Nasal 2.0L Cannula Intake & Output 12/24 1600 12/24 0800 12/24 0000 Intake Total 980 1000 Output Total Balance 980 1000 Intake, IV 600 1000 Intake, Oral 380 Patient 123 lb Weight Weight Bed scale Measurement Method Chest x-ray December 23 Suggestion of retrocardiac opacity which could represent atelectasis or consolidation. Prominent interstitial markings which may reflect interstitial pulmonary edema. No large volume pleural effusion.
[2017-12-24 14:40] VITALS: BP 100/50
--- NOTE | 2017-12-24 16:38 | Cons- Cardiology ---
General Information and HPI Consulting Request Date of Consult: 12/24/17 Requested By: Jose WEST,[place] History of Present Illness: Ms. Salas is an 82 year old female with history of hypertension, dyslipidemia, COPD, interstitial lung disease and pulmonary hypertension. On a prior visit this patient had a very high D-dimer with borderline increased troponin. Her echocardiogram showed a normal EF of 60% with trace MR, TR and AI with mild left atrial enlargement. This patient was recently discharged from [facility] and was seen by a visiting nurse who found the patient to be hypotensive with a heart rate in the 40's. In the ER the patient was noted to have an elevated creatinine of 1.9 consistent with a pre-renal state and the patient admitted to not drinking well. Her potassium was also elevated. Otherwise, this patient denies any lightheadedness or palpitations. She also denies chest discomfort or shortness of breath at her usual level of activity. Allergies/Medications Allergies: Coded Allergies: Sulfa (Sulfonamide Antibiotics) (Intermediate, "ITCHY" - MED LIST FROM MD OFFICE SAYS TERESA EDWIGE LIKE RASH 12/25/15) Home Med List: Acetaminophen 500 MG TABLET 500 MG PO Q8P PRN PAIN SCALE 1-3 (MILD) Albuterol Sulfate (Proair Hfa) 90 MCG HFA.AER.AD 2 PUF INH Q4H PRN SHORTNESS OF BREATH (Reported) Albuterol Sulfate 2.5 MG/3 ML (0.083 %) VIAL.NEB 1 Vial INH/CARL TID RESP. ( Reported) Citalopram Hydrobromide (Citalopram HBr) 20 MG TABLET 1 TAB PO DAILY MENTAL HEALTH (Reported) Furosemide 20 MG TABLET 1 TAB PO DAILY WATER RETENTION (Reported) Ipratropium [place] 0.2 MG/ML (0.02 %) SOLUTION 1 Vial INH/CARL TID RESP. ( Reported) Lidocaine (Lidoderm) 5 % ADH..PATCH 1 PAT EXT Q24H PRN PAIN Lisinopril (Prinivil) 20 MG TABLET 1 TAB PO DAILY BP (Reported) Metoprolol Tartrate (Lopressor) 50 MG TABLET 1 TAB PO BID BP (Reported) Spironolactone (Aldactone) 25 MG TABLET 1 TAB PO DAILY HEART FAILURE ( Reported) Review of Systems Review of Systems: A twelve point review of systems is unremarkable. 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 MOTHER (heart failure). FATHER (Diabetes). Psychosocial History Where Do You Live? Home Services at Home: Home Health Aide, Nursing, Oxygen Smoking Status: Former Smoker ETOH Use: denies use Illicit Drug Use: denies illicit drug use Exam & Diagnostic Data Vital Signs and I&O Vital Signs Date Time Temp Pulse Resp B/P B/P Pulse O2 O2 Flow FiO2 Mean Ox Delivery Rate 12/24 1440 97.9 73 20 100/50 97 Nasal 2.0L Cannula 12/24 1058 Nasal 2.0L Cannula 12/24 0951 97 Nasal 2.0L Cannula 12/24 0750 98.3 67 24 102/52 95 Nasal Cannula 12/23 2251 Nasal 2.0L Cannula 12/23 2236 97.9 68 24 104/58 99 12/23 2116 97.3 65 18 110/50 99 Nasal 2.0L Cannula 12/23 2013 100/44 12/23 2009 97.6 48 20 99/48 100 Room Air 12/23 1704 96.7 64 20 126/54 98 Nasal 3.0L Cannula Intake & Output 12/24 1600 12/24 0800 12/24 0000 12/23 1600 12/23 0800 12/23 0000 Intake Total 899 122 7115 1000 Output Total 600 Balance 604 735 5878 1000 Intake, IV 603 143 9013 1000 Intake, Oral 400 380 Output, Urine 600 Patient 123 lb 135 lb Weight Weight Bed scale Reported by Patient Measurement Method Physical Exam: General: WD/WN female in NAD; alert and oriented x 3 HEENT: NC/AT, PERRL, EOMI Neck: no JVD, no carotid bruit Heart: RRR w/o murmur Lungs: severely decreased breath sounds bilaterally ABdomen: soft, NT, +ve bowel sounds Extremities: no edema Assessment/Plan Assessment/Plan * This patient was noted to be bradycardic at the time of presentation to the ER with some sinus arrhythmia. I did not see any evidence of heart block. I think Thu was dehydrated, perhaps overmedicated and was therefore hypotensive with mild renal insufficiency leading to hyperkalemia. She was certainly at risk for arrhythmias if her potassium continued to rise but it never approached a severely high level. She was recommended to stop her beta elvin and appears to be doing well now. * On a prior admission the patient had a chest CT to assess for a pulmonary embolism. Although a PE was not found, she was noted to have coronary artery calcifications. I did recommend risk stratification with a pharmacologic stress test at that time which was not pursued. I would try and do this during this admission. Begin aspirin 81mg daily. Consult Acknowledgment - Thank you for your consult request.
[2017-12-24 22:38] VITALS: BP 100/64
[2017-12-25 06:57] VITALS: BP 132/52
--- NOTE | 2017-12-25 07:02 | PN- Housestaff ---
Subjective Follow-up For: Bradycardia Hypotension Tele-Events Since Last Visit: NSR 64-21 Subjective: Ms Vidal was seen and examined this morning. She is resting comfortably. Denies any issues overnight states that she was able to get some sleep. Denies any abdominal pain or abdominal discomfort. She states that she's been having decreased by mouth intake. She does state that she had one bowel movement last evening. Denies any lightheadedness or shortness of breath. Review of Systems Constitutional: Reports: see HPI. Objective Last 24 Hrs of Vital Signs/I&O Vital Signs Date Time Temp Pulse Resp B/P B/P Pulse O2 O2 Flow FiO2 Mean Ox Delivery Rate 12/25 0657 97.7 76 20 132/52 93 Nasal Cannula 12/25 0000 Nasal 2.0L Cannula 12/24 2238 98.5 71 18 100/64 97 12/24 2106 98 Nasal 2.0L Cannula 12/24 1600 Nasal 2.0L Cannula 12/24 1440 97.9 73 20 100/50 97 Nasal 2.0L Cannula 12/24 1058 Nasal 2.0L Cannula 12/24 0951 97 Nasal 2.0L Cannula Intake & Output 12/25 1600 12/25 0800 12/25 0000 Intake Total 120 250 Output Total Balance 120 250 Intake, IV 10 Intake, Oral 120 240 Patient 62.823 kg Weight Physical Exam General Appearance: Alert, Oriented X3, Cooperative Cardiovascular: Normal S1, Normal S2 Lungs: Clear to Auscultation, Diminished breath sounds. Abdomen: Normal Bowel Sounds, Soft Neurological: Normal Speech Extremities: No Edema Vascular: Normal Pulses Current Medications: Current Medications Sig/Dom Start time Last Medication Dose Route Stop Time Status Admin Acetaminophen 650 MG Q6P PRN 12/23 2145 AC PO Albuterol Sulfate 3 ML BID 12/24 2199 AC 12/24 INH 2103 Albuterol Sulfate 3 ML TID 12/23 220 DC INH Albuterol Sulfate 2 PUF Q4H PRN 12/23 2199 AC INH Aspirin 81 MG DAILY 12/24 1935 AC 12/24 PO 0 Citalopram 20 MG DAILY 12/24 1000 AC 12/24 Hydrobromide PO 0943 Heparin Sodium 5,000 UNIT Q8 12/23 2199 AC 12/25 (Porcine) SC 0655 Ipratropium [place] 2.5 ML BID 12/24 2199 AC 12/24 INH 2103 Ipratropium [place] 2.5 ML TID 12/23 2199 DC INH Lidocaine 1 PAT Q24H PRN 12/23 220 AC EXT Polyethylene Glycol 17 GM DAILY PRN 12/24 1900 AC PO Sodium Chloride 1,000 ML Q13H 12/23 2245 DC 12/23 IV 12/24 1144 2331 Last 24 Hrs of Lab/Victor M Results Last 24 Hrs of Labs/Mics: Laboratory Tests 12/25/17 0646: Sodium Pending, Potassium Pending, Chloride Pending, Carbon Dioxide Pending, Anion Gap Pending, BUN Pending, Creatinine Pending, BUN/Creatinine Ratio Pending , CBC w Diff Pending, WBC Pending, RBC Pending, Hgb Pending, Hct Pending, MCV Pending, MCH Pending, MCHC Pending, RDW Pending, Plt Count Pending, MPV Pending Assessment/Plan Assessment: Ms Vidal is a 52-year-old female with past medical history significant for COPD on home oxygen 2 L, anxiety, depression, systolic congestive heart failure, hypertension, chronic back pain, prediabetic, anemia, vitamin D deficiency, nephrolithiasis, GERD, hyperlipidemia was brought in by ambulance from her home for low blood pressure and bradycardia. Currently admitted on the telemetry service for the management of the following issues: #Sinus bradycardia * Likely medication induced sinus bradycardia * Continuous telemetry monitoring * Orthostatic vitals * Hold home medication metoprolol. * May consider a pharmacologic stress test, patient refused, however she will speak to electronic data processing auditor Dr Montanez. #HFrEF * Continue to Hold aldactone, metoprolol, * Begin Lasix 10 mg. * Begni Lisinopril 2.5 mg. #Hyperkalemia #Resolved * Potassium 5.9 at the time of admission. * 1 dose of Kayexalate was given #Acute kidney injury * Patient was found to have elevated creatinine 1.9 at the time of admission, baseline creatinine 0.7. Cr this AM 0.8 #Lower abdomen discomfort * Given her mild lower abdomen discomfort will get Xry abdomen to rule out acute pathology * Last document Bowel Movement 12/22/2017. #Acute Hypoxemic Respiratory Failure * Continue 2 L oxygen supplementation * TRC nebs * Incentive spirometer #History of Depression * Continue citalopram 20 daily DVT prophylaxis subcutaneous heparin DNR/DNI Problem List: 1. Weakness 2. Bradycardia 3. Hypotension 4. VANESSA (acute kidney injury) 5. Acute hypoxemic respiratory failure Pain Ratin Pain Location: No Pain Pain Goal: Remain pain free Pain Plan: Tylenol PRN Tomorrow's Labs & Rationales: No Labs, may be discharged.
--- NOTE | 2017-12-25 07:49 | ECHOCARDIOGRAM REPORT ---
DELVIS ARROYO Age: 82 : 1935 Gender: F Exam Date: 12/24/2017 19:51 Exam Location: 1 [address] Ht (in): 63 Wt (lb): 135 BSA: 1.66 BP: 104 / 58 Ordering Physician: Harrison Lucero MD Referring Physician: Mickey Montanez MD, PhD Technologist: Grace Mejia [facility] Room Number: 185-02 Indications: HYPOTENSION Rhythm: Sinus Technical Quality: technically limited FINDINGS Left Ventricle Normal left ventricular size, wall thickness and systolic function with no obvious regional wall motion abnormalities. Diastolic filling pattern is consistent with impaired LV relaxation. The ejection fraction is visually estimated at 55%. Right Ventricle The right ventricle is normal in size and function. Right Atrium The right atrium is normal in size. Left Atrium The left atrium is normal in size. The interatrial septum is intact. Mitral Valve The mitral valve is normal in structure and function. There is trace mitral regurgitation. Aortic Valve Structurally normal aortic valve without significant sclerosis or stenosis. There is mild aortic regurgitation. Tricuspid Valve The tricuspid valve is normal in structure and function. There is trace tricuspid regurgitation. Pulmonary artery systolic pressure is normal. Pulmonic Valve Structurally normal pulmonic valve. There is no pulmonic regurgitation. Pericardium Normal pericardium without effusion. No pleural effusion. Great Vessels Normal aortic root dimension. The aortic arch and great vessels are well seen and are normal. CONCLUSIONS 1. Normal EF of 55% with impaired LV relaxation. 2. Trace mitral regurgitation. 3. Trace tricuspid regurgitation. 4. Mild aortic regurgitation. Mickey Montanez M.D. (Electronically Signed) Final Date: 25 December 2017 07:49 MEASUREMENTS (Male / Female) Normal Values 2D ECHO LV Diastolic Diameter PLAX 3.8 cm 4.2 - 5.9 / 3.9 - 5.3 cm LV Systolic Diameter PLAX 2.0 cm 2.1 - 4.0 cm LV Fractional Shortening PLAX 47.4 % 25 - 46 % LV Ejection Fraction 2D Teich 79.5 % IVS Diastolic Thickness 0.9 cm LVPW Diastolic Thickness 0.9 cm LV Relative Wall Thickness 0.5 RV Internal Dim ED PLAX 2.9 cm 1.9 - 3.8 cm LVOT Diameter 1.9 cm Aortic Root Diameter 2.9 cm LA Systolic Diameter LX 3.4 cm 3.0 - 4.0 / 2.7 - 3.8 cm RVOT Diameter 2.4 cm 2.5 - 2.9 cm LA Volume 31.0 cm 18 - 58 / 22 - 52 cm RV Diastolic Area 4.5 cm 11 - 28 cm DOPPLER AV Peak Velocity 197.0 cm/s AV Peak Gradient 15.5 mmHg AV Mean Velocity 123.0 cm/s AV Mean Gradient 7.0 mmHg AV Velocity Time Integral 46.0 cm LVOT Peak Velocity 161.0 cm/s LVOT Peak Gradient 10.4 mmHg LVOT Mean Velocity 113.0 cm/s LVOT Mean Gradient 6.0 mmHg LVOT Velocity Time Integral 35.7 cm LVOT Stroke Volume 101.2 cm AV Area Cont Eq vti 2.2 cm AV Area Cont Eq pk 2.3 cm MV Peak Velocity 118.0 cm/s MV Peak Gradient 5.6 mmHg MV Mean Velocity 58.8 cm/s MV Mean Gradient 2.0 mmHg Mitral E Point Velocity 78.0 cm/s Mitral A Point Velocity 117.0 cm/s Mitral E to A Ratio 0.7 MV PHT Velocity 84.4 cm/s MV Deceleration Mckinley 240.0 cm/s MV Pressure Half Time 105.5 ms MV Area PHT 2.1 cm MV Deceleration Time 246.0 ms TR Peak Velocity 266.0 cm/s TR Peak Gradient 28.3 mmHg Right Atrial Pressure 5.0 mmHg Pulmonary Artery Systolic Pressu 33.3 mmHg Right Ventricular Systolic Press 33.3 mmHg LV E' Lateral Velocity 11.2 cm/s Mitral E to LV E' Lateral Ratio 7.0 LV E' Septal Velocity 7.8 cm/s Mitral E to LV E' Septal Ratio 9.9
[2017-12-25 08:37] LABS: ABSOLUTE BASOPHIL COUNT 0 /CUMM (0.0-0.2); ABSOLUTE EOSINOPHIL COUNT 0.2 /CUMM (0.0-0.7); ABSOLUTE GRANULOCYTE CT 2.4 /CUMM (1.4-6.5); ABSOLUTE MONOCYTE COUNT 0.4 /CUMM (0.10-0.60); BASOPHIL % 0.5 % (0.0-2.0); EOSINOPHIL % 3.8 % (0-5); GRANULOCYTE % 59.1 % (42.2-75.2); HEMATOCRIT 29.8 % (37-47); MEAN CORPUSCULAR HGB 30.5 PG (27.0-31.0); MEAN CORPUSCULAR HGB CONC 33.6 G/DL (33.0-37.0); MEAN CORPUSCULAR VOLUME 90.9 FL (81.0-99.0); MEAN PLATELET VOLUME 8.1 FL (7.4-10.4); PLATELET COUNT 268 /CUMM (130-400); RBC DISTRIBUTION WIDTH 17.3 % (11.5-14.5); RED BLOOD CELL CT 3.28 /CUMM (4.20-5.40)
[2017-12-25 10:29] VITALS: BP 98/56
--- NOTE | 2017-12-25 11:06 | PN- Att Addend ---
Attending Addendum Attending Brief Note Patient seen and examined. Plan of care discussed with the medical team and the patient. Available lab work and radiology test reports were reviewed. Patient feels well and denies any difficulty breathing fever chills or chest pain. She also wants to go home today. Exam: General: Patient awake alert oriented without any distress CVS: S1 plus S2 without any murmur or gallops Chest: Few scattered crepitation without any wheeze. There is no respiratory distress. 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 Montanez; if no plans for stress test tomorrow then patient can be discharged home today. * Recheck BEP in a.m. * Taper oxygen Echo december 23 1. Normal EF of 55% with impaired LV relaxation. 2. Trace mitral regurgitation. 3. Trace tricuspid regurgitation. 4. Mild aortic regurgitation. Current Medications Sig/Dom Start time Last Medication Dose Route Stop Time Status Admin Acetaminophen 650 MG Q6P PRN 12/23 2145 AC PO Albuterol Sulfate 3 ML BID 12/24 2199 AC 12/25 INH 1025 Albuterol Sulfate 3 ML TID 12/23 2200 DC INH Albuterol Sulfate 2 PUF Q4H PRN 12/23 220 AC INH Aspirin 81 MG DAILY 12/24 1935 AC 12/25 PO 1018 Citalopram 20 MG DAILY 12/24 1000 AC 12/25 Hydrobromide PO 1017 Furosemide 10 MG DAILY 12/25 1000 AC 12/25 PO 1016 Heparin Sodium 5,000 UNIT Q8 12/23 2199 AC 12/25 (Porcine) SC 0655 Ipratropium [place] 2.5 ML BID 12/24 2199 AC 12/25 INH 1025 Ipratropium [place] 2.5 ML TID 03/27 2200 DC INH Lidocaine 1 PAT Q24H PRN 12/23 220 AC EXT Lisinopril 2.5 MG DAILY 12/25 1000 AC PO Polyethylene Glycol 17 GM DAILY PRN 12/24 1900 AC PO Sodium Chloride 1,000 ML Q13H 12/23 2245 DC 12/23 IV 12/24 1144 2331 Laboratory Tests 12/25/17 0646: Anion Gap 10, Estimated GFR > 60, BUN/Creatinine Ratio 28.8 H, CBC w Diff NO MAN DIFF REQ, RBC 3.28 L, MCV 90.9, MCH 30.5, MCHC 33.6, RDW 17.3 H, MPV 8.1, Gran % 59.1, Lymphocytes % 25.9, Monocytes % 10.7 H, Eosinophils % 3.8, Basophils % 0.5, Absolute Granulocytes 2.4, Absolute Lymphocytes 1.0 L, Absolute Monocytes 0.4, Absolute Eosinophils 0.2, Absolute Basophils 0 12/24/17 0615: Anion Gap 13, Estimated GFR 48 L, BUN/Creatinine Ratio 29.1 H, CBC w Diff NO MAN DIFF REQ, RBC 3.36 L, MCV 91.3, MCH 30.6, MCHC 33.5, RDW 17.3 H, MPV 7.8, Gran % 58.7, Lymphocytes % 28.9, Monocytes % 9.7 H, Eosinophils % 2.5, Basophils % 0.2, Absolute Granulocytes 2.9, Absolute Lymphocytes 1.4, Absolute Monocytes 0.5, Absolute Eosinophils 0.1, Absolute Basophils 0 12/24/17 0035: Magnesium 1.9, Troponin I < 0.01 12/23/17 1835: Troponin I < 0.01 12/23/17 1525: Anion Gap 14, Estimated GFR 25 L, BUN/Creatinine Ratio 23.7, Glucose 97, Calcium 9.8, Total Bilirubin 0.7, AST 19, ALT 27, Alkaline Phosphatase 84, Creatine Kinase 101, Troponin I < 0.01, Total Protein 7.1, Albumin 4.1, Globulin 3.0, Albumin/Globulin Ratio 1.4, PT 10.9, INR 1.00, D-Dimer High Sensitivty 406 H, CBC w Diff NO MAN DIFF REQ, RBC 3.84 L, MCV 90.9, MCH 30.4, MCHC 33.4, RDW 17.0 H, MPV 7.4, Gran % 63.6, Lymphocytes % 22.4, Monocytes % 11.1 H, Eosinophils % 2.6, Basophils % 0.3, Absolute Granulocytes 4.0, Absolute Lymphocytes 1.4, Absolute Monocytes 0.7 H, Absolute Eosinophils 0.2, Absolute Basophils 0 Vital Signs Date Time Temp Pulse Resp B/P B/P Pulse O2 O2 Flow FiO2 Mean Ox Delivery Rate 12/25 1032 95 Nasal 2.0L Cannula 12/25 1030 75 98/56 12/25 1029 75 98/56 12/25 0800 Nasal 2.0L Cannula 12/25 0657 97.7 76 20 132/52 93 Nasal Cannula 12/25 0000 Nasal 2.0L Cannula 12/24 2238 98.5 71 18 100/64 97 12/24 2106 98 Nasal 2.0L Cannula 12/24 1600 Nasal 2.0L Cannula 12/24 1440 97.9 73 20 100/50 97 Nasal 2.0L Cannula Intake & Output 12/25 1600 12/25 0800 12/25 0000 Intake Total 120 250 Output Total Balance 120 250 Intake, IV 10 Intake, Oral 120 240 Patient 139 lb Weight
[2017-12-25 14:16] VITALS: BP 90/50
[2017-12-25] MEDS ORDERED: FUROSEMIDE20 M1 PO (15:06)
[2017-12-25] MEDS ORDERED: ASPIRIN81 M4 PO (15:06)
[2017-12-25] MEDS ORDERED: LISINOPRIL2.5 M1 PO (15:06)
--- NOTE | 2017-12-25 15:08 | Patient Discharge Instructions ---
Discharge Instructions General Discharge Information You were seen/treated for: Bradycardia Hypotension Special Instructions: Please follow-up with your primary care physician's within 7 days. Please have your primary care physician conduct a medication consultation. Please follow-up with your mems process engineer within 7 days. You may be considered for outpatient stress testing. Should you experience any fever, chills, nausea, vomiting, weakness please come back to the emergency department. Diet Continue normal diet: No Recommended Diet: Heart Healthy Acute Coronary Syndrome Inclusion Criteria At DC or during hospital stay patient has or had the following: ACS DIAGNOSIS No Discharge Core Measures Meds if any: Prescribed or Continued at Discharge Meds if any: NOT Prescribed or Continued at Discharge Congestive Heart Failure Inclusion Criteria At DC or during hospital stay patient has or had the following: CHF DIAGNOSIS No Discharge Core Measures Meds if any: Prescribed or Continued at Discharge Meds if any: NOT Prescribed or Continued at Discharge Cerebrovascular accident Inclusion Criteria At DC or during hospital stay patient has or had the following: CVA/TIA Diagnosis No Discharge Core Measures Meds if any: Prescribed or Continued at Discharge Meds if any: NOT Prescribed or Continued at Discharge Venous thromboembolism Inclusion Criteria VTE Diagnosis No VTE Type NONE VTE Confirmed by (Test) NONE Discharge Core Measures - Per Current guidelines, there needs to be overlap - treatment for the first 5 days of Warfarin therapy. - If discharged on Warfarin prior to 5 days of - overlap therapy, the patient will need to be - assessed for post discharge needs including - *Post discharge parental anticoagulation - *Warfarin and/or parental anticoagulation education - *Follow up date to check INR post discharge At least 5 days overlap therapy as Inpatient No Meds if any: Prescribed or Continued at Discharge Note: Overlap Therapy is Warfarin and Anticoagulant Meds if any: NOT Prescribed or Continued at Discharge
--- NOTE | 2017-12-25 15:10 | Discharge Summary ---
Visit Information Visit Dates Admission Date: 12/23/17 Discharge Date: 12/26/17 Hospital Course Course Attending Physician: Jose WEST,[place] Primary Care Physician: Chirag WEST,[facility] Course: Ms Vidal is a 52-year-old female with past medical history significant for COPD on home oxygen 2 L, anxiety, depression, systolic congestive heart failure, hypertension, chronic back pain, prediabetic, anemia, vitamin D deficiency, nephrolithiasis, GERD, hyperlipidemia was brought in by ambulance from her home for the visiting nurse noted that she was hypotensive and bradycardic (in the 40 's). At the time of presentation the patient was afebrile, pulse rate 62, respirations 17. Blood pressure 112/52. She saturating 99% on nasal cannula. WBC 6.2. H&H 11.7/34.9. Platelets 273. Sodium 139, potassium 5.9, BUN 45, creatinine 1.9. She was admitted on the telemetry service and below is a summary of the care she received under us. #Sinus bradycardia At time of admission the patient's cardiac outpatient medications were held as it appeared that the patient was likely overmedicated.. A cardiology consultation was obtained. She subsequently responded well to holding these medications. It was recommended the patient may benefit from a stress test however she decided to defer this as an outpatient. She was given recommendations to follow-up with the payroll and benefits analyst. He also started on aspirin 81 mg daily. Continous telemetry monitoring elicited no abnormalities. #HFrEF At the time of presentation the patient was on a beta elvin, spironolactone, lisinopril and Lasix. These medications were initially held. On 12/25/2017 Lasix was continued at a lower dose of 10 mg. The remainder of the medications were discontinued owing to her side effects that she was experiencing and hypotension. #Hyperkalemia At the time of admission the patient's potassium was 5.9 mmol per liter. She was given 1 dose of Kayexalate. There were subsequently no EKG abnormalities noted. Prior her to discharge the patient's potassium had normalized to a level of 3.9 mmol per liter. #Acute kidney injury At the time of admission the patient's creatinine was elevated at 1.9. During this admission this trended down to 1.1 and subsequently over the course of the admission normalized to 0.6. #Lower abdomen discomfort At the time of admission the patient was noted to have some mild lower abdominal discomfort. She had no signs of an acute abdomen which included rebound tenderness or guarding. An x-ray of the abdomen was done the results of which have been attached to this report. On 12/26/2017 she was given a suppository and had a bowel movement without any further complications. #Chornic Hypoxemic Respiratory Failure She was maintained on 2 L of supplemental oxygen. TRC nebs were administered. An incentive spirometer was also provided. #History of Depression Patient's citalopram was continued. DVT prophylaxis subcutaneous heparin She was a DNR/DNI over the course of this admission. Allergies: Coded Allergies: Sulfa (Sulfonamide Antibiotics) (Intermediate, "ITCHY" - MED LIST FROM MD OFFICE SAYS TERESA GIBBONS LIKE RASH 12/25/15) Pertinent Lab Results: SERVICE DATE: 12/23/17150 EXAM TYPE: RAD - XRY-PORTABLE CHEST XRAY IMPRESSION: Suggestion of retrocardiac opacity which could represent atelectasis or consolidation. Prominent interstitial markings which may reflect interstitial pulmonary edema. No large volume pleural effusion. DICTATED BY: Leonel WEST,[facility] SERVICE DATE: 12/23/17 EXAM TYPE: CARD - ECHOCARDIOGRAM SERVICE DATE: 12/23/17 EXAM TYPE: CARD - ECHOCARDIOGRAM DELVIS VIDAL Age: 82 : 1935 Gender: F Exam Date: 12/24/2017 19:51 Exam Location: [place] Ht (in): 63 Wt (lb): 135 BSA: 1.66 BP: 104 / 58 Ordering Physician: Harrison Lucero MD Referring Physician: Mickey Montanez MD, PhD Technologist: Grace Mejia [facility] Room Number: 185-02 Indications: HYPOTENSION Rhythm: Sinus Technical Quality: technically limited FINDINGS Left Ventricle Normal left ventricular size, wall thickness and systolic function with no obvious regional wall motion abnormalities. Diastolic filling pattern is consistent with impaired LV relaxation. The ejection fraction is visually estimated at 55%. Right Ventricle The right ventricle is normal in size and function. Right Atrium The right atrium is normal in size. Left Atrium The left atrium is normal in size. The interatrial septum is intact. Mitral Valve The mitral valve is normal in structure and function. There is trace mitral regurgitation. Aortic Valve Structurally normal aortic valve without significant sclerosis or stenosis. There is mild aortic regurgitation. Tricuspid Valve The tricuspid valve is normal in structure and function. There is trace tricuspid regurgitation. Pulmonary artery systolic pressure is normal. Pulmonic Valve Structurally normal pulmonic valve. There is no pulmonic regurgitation. Pericardium Normal pericardium without effusion. No pleural effusion. Great Vessels Normal aortic root dimension. The aortic arch and great vessels are well seen and are normal. CONCLUSIONS 1. Normal EF of 55% with impaired LV relaxation. 2. Trace mitral regurgitation. 3. Trace tricuspid regurgitation. 4. Mild aortic regurgitation. Mickey Montanez M.D SERVICE DATE: 12/25/17- EXAM TYPE: RAD - XRY-PORTABLE ABDOMEN IMPRESSION: Nonspecific, nonobstructive bowel gas pattern. Disposition Summary Disposition Principal Diagnosis: Sinus bradycardia. Additional Diagnosis: AK I Abdominal pain Chronic hypoxemic respiratory failure Heart failure with reduced ejection fraction Discharge Disposition: home or self care Discharge Instructions General Discharge Information Code Status: Do Not Resucitate/Intubat Patient's Diet: Heart Healthy Patient's Activity: As tolerated. Follow-Up Instructions/Appts: Please follow-up with your primary care physician's within 7 days. Please have your primary care physician conduct a medication consultation. Please follow-up with your payroll and benefits analyst within 7 days. You may be considered for outpatient stress testing. Should you experience any fever, chills, nausea, vomiting, weakness please come back to the emergency department. Medications at Discharge Discharge Medications: Stop taking the following medications: Spironolactone (Aldactone) 25 MG TABLET ORAL DAILY Metoprolol Tartrate (Lopressor) 50 MG TABLET ORAL TWICE DAILY Lisinopril (Prinivil) 20 MG TABLET ORAL DAILY Furosemide (Furosemide) 20 MG TABLET ORAL DAILY Qty = 90 Continue taking these medications: Ipratropium [place] (Ipratropium [place]) 0.2 MG/ML (0.02 %) SOLUTION 1 Vial Inhale Solution THREE TIMES DAILY Comments: Last Taken: 12/26/17 Time: 9AM Albuterol Sulfate (Proair Hfa) 90 MCG HFA.AER.AD 2 Puff Inhale through mouth Q4H as needed for SHORTNESS OF BREATH Comments: NOT GIVEN IN HOSPITAL Citalopram Hydrobromide (Citalopram HBr) 20 MG TABLET 1 Tablet ORAL DAILY Comments: Last Taken: 12/26/17 Time: 9AM Albuterol Sulfate (Albuterol Sulfate) 2.5 MG/3 ML (0.083 %) VIAL.NEB 1 Vial Inhale Solution THREE TIMES DAILY Comments: Last Taken: 12/26/17 Time: 9AM Acetaminophen (Acetaminophen) 500 MG TABLET 500 Milligram ORAL EVERY 8 HOURS NEEDED as needed for PAIN SCALE 1-3 ( MILD) Days = 10 Comments: NOT GIVEN IN HOSPITAL Lidocaine (Lidoderm) 5 % ADH..PATCH 1 Patch ON SKIN Q24H as needed for PAIN Days = 7 Comments: NOT GIVEN IN HOSPITAL Start taking the following new medications: Aspirin (Aspirin*) 81 MG TAB.CHEW 81 Milligram ORAL DAILY Qty = 30 No Refills Comments: Last Taken: 12/26/17 Time: 9AM Furosemide (Lasix) 20 MG TABLET 0.5 Tablet ORAL DAILY Qty = 30 No Refills Comments: Last Taken: 12/26/17 Time: 9AM Copies To: Chirag WEST,Loc Montanez MD PHD,Mickey Braynt
--- NOTE | 2017-12-25 17:48 | RADIOLOGY REPORT ---
EXAMINATION: XR PORTABLE ABDOMEN CLINICAL INFORMATION: Abdominal pain. COMPARISON: CT abdomen and pelvis 11/20/2017 and abdominal radiograph 01/31/2007 TECHNIQUE: AP view of the abdomen. FINDINGS: Nonspecific, nonobstructed bowel gas pattern. No dilated loops of small bowel identified. No gross free intraperitoneal air. Stool and gas is seen in the colon and rectum. No acute osseous abnormality. Intradiscal fusion device noted at L5-S1. IMPRESSION: Nonspecific, nonobstructive bowel gas pattern.
--- NOTE | 2017-12-25 20:05 | PN- Cardiology ---
Subjective Subjective: * Doing well. No lightheadedness. No significant dysrhythmias. She does report exertional shortness of breath. Objective Vital Signs and I&Os Vital Signs Date Time Temp Pulse Resp B/P B/P Pulse O2 O2 Flow FiO2 Mean Ox Delivery Rate 12/25 1910 96 Nasal 2.0L Cannula 12/25 1416 97.5 91 22 90/50 96 Nasal 2.0L Cannula 12/25 1032 95 Nasal 2.0L Cannula 12/25 1030 75 98/56 12/25 1029 75 98/56 12/25 0800 Nasal 2.0L Cannula 12/25 0657 97.7 76 20 132/52 93 Nasal Cannula 12/25 0000 Nasal 2.0L Cannula 12/24 2238 98.5 71 18 100/64 97 12/24 2106 98 Nasal 2.0L Cannula Intake & Output 12/25 1600 12/25 0800 12/25 0000 12/24 1600 12/24 0800 12/24 0000 Intake Total 824 120 250 331 275 4179 Output Total 600 Balance 824 120 250 042 207 4316 Intake, IV 10 980 266 2362 Intake, Oral 824 120 240 400 380 Output, Urine 600 Patient 139 lb 123 lb Weight Weight Bed scale Measurement Method Physical Exam: General: WD/WN female in NAD; alert and oriented x 3 HEENT: NC/AT, PERRL, EOMI Neck: no JVD, no carotid bruit Heart: RRR w/o murmur Lungs: severely decreased breath sounds bilaterally ABdomen: soft, NT, +ve bowel sounds Extremities: no edema Assessment/Plan Assessment/Plan * This patient was noted to be bradycardic at the time of presentation to the ER with some sinus arrhythmia. I did not see any evidence of heart block. I think Thu was dehydrated, perhaps overmedicated and was therefore hypotensive with mild renal insufficiency leading to hyperkalemia. She was certainly at risk for arrhythmias if her potassium continued to rise but it never approached a severely high level. She was recommended to stop her beta elvin and appears to be doing well now. Her BP remains borderline. Continue to hold Lisinopril. * On a prior admission the patient had a chest CT to assess for a pulmonary embolism. Although a PE was not found, she was noted to have coronary artery calcifications. I did recommend risk stratification with a pharmacologic stress test at that time which was not pursued. I would try and do this during this admission. Begin aspirin 81mg daily. * Discharge after stress test. If this cannot be done tomorrow then we will set her up for this testing as an outpatient. Continue telemetry? Yes
[2017-12-25 22:53] VITALS: BP 102/62
[2017-12-26 06:47] VITALS: BP 102/52
--- NOTE | 2017-12-26 07:10 | PN- Housestaff ---
Subjective Follow-up For: Bradycardia Hypotension Subjective: Ms Vidal was seen and examined this morning. She denies any issues overnight. She's currently seated on the chair beside the bed eating breakfast. Patient states that she would not like to have a stress test stating that she will follow up with a trim master operator as an outpatient. She denies any fever, chills, nausea, vomiting. Denies any chest pain or chest discomfort. She denies any lightheadedness or vision changes. Review of Systems Constitutional: Reports: see HPI. Objective Last 24 Hrs of Vital Signs/I&O Vital Signs Date Time Temp Pulse Resp B/P B/P Pulse O2 O2 Flow FiO2 Mean Ox Delivery Rate 12/26 0853 98 Nasal 2.0L Cannula 12/26 0800 Nasal 2.0L Cannula 12/26 0647 98.5 76 20 102/52 95 Nasal Cannula 12/26 0000 Nasal 2.0L Cannula 12/25 2253 97.8 80 20 102/62 97 Nasal Cannula 12/25 1910 96 Nasal 2.0L Cannula 12/25 1416 97.5 91 22 90/50 96 Nasal 2.0L Cannula 12/25 1032 95 Nasal 2.0L Cannula 12/25 1030 75 98/56 12/25 1029 75 98/56 Intake & Output 12/26 1600 12/26 0800 12/26 0000 Intake Total 110 222 Output Total Balance 110 222 Intake, IV 10 Intake, Oral 100 222 Physical Exam General Appearance: Alert, Oriented X3, Cooperative Cardiovascular: Regular Rate, Normal S1, Normal S2 Lungs: Clear to Auscultation, Normal Air Movement Abdomen: Normal Bowel Sounds, Soft, No Tenderness Neurological: Normal Speech Current Medications: Current Medications Sig/Dom Start time Last Medication Dose Route Stop Time Status Admin Acetaminophen 650 MG .STK-MED ONE 12/25 2033 DC PO 12/25 2034 Acetaminophen 650 MG Q6P PRN 12/23 2144 AC 12/25 PO 2034 Albuterol Sulfate 3 ML BID 12/24 2199 AC 12/26 INH 0852 Albuterol Sulfate 2 PUF Q4H PRN 12/23 220 AC INH Aspirin 81 MG DAILY 12/24 1935 AC 12/26 PO 0843 Bisacodyl 10 MG ONCE PRN 12/26 0830 AC 12/26 [place] 0843 Citalopram 20 MG DAILY 12/24 1000 AC 12/26 Hydrobromide PO 0843 Furosemide 10 MG DAILY 12/25 1000 AC 12/26 PO 0843 Heparin Sodium 5,000 UNIT Q8 12/23 2200 AC 12/26 (Porcine) SC 0538 Ipratropium [place] 2.5 ML BID 12/24 2200 AC 12/26 INH 0852 Lidocaine 1 PAT Q24H PRN 12/23 2200 AC EXT Lisinopril 2.5 MG DAILY 12/25 1000 DC PO Patient Medication 1 ED ONE ONE 12/25 1530 DC Teaching ED 12/25 1531 Polyethylene Glycol 17 GM DAILY PRN 12/24 1900 AC PO Senna 187 MG ONCE PRN 12/26 0830 AC PO Last 24 Hrs of Lab/Victor M Results Last 24 Hrs of Labs/Mics: Laboratory Tests 12/26/17627: Anion Gap 8, Estimated GFR > 60, BUN/Creatinine Ratio 28.3 H Assessment/Plan Assessment: DRAFT Ms Vidal is a 52-year-old female with past medical history significant for COPD on home oxygen 2 L, anxiety, depression, systolic congestive heart failure, hypertension, chronic back pain, prediabetic, anemia, vitamin D deficiency, nephrolithiasis, GERD, hyperlipidemia was brought in by ambulance from her home for low blood pressure and bradycardia. Currently admitted on the telemetry service for the management of the following issues: #Sinus bradycardia * Likely medication induced sinus bradycardia * Continuous telemetry monitoring * Orthostatic vitals * Hold home medication metoprolol. * Will have a stress test as an outpatient. #HFrEF * Continue to Hold aldactone & metoprolol, * Continue Lasix 10 mg. * Discontinue Lisinopril due to hypotension. #Hyperkalemia #Resolved * Potassium 5.9 at the time of admission. * 1 dose of Kayexalate was given #Acute kidney injury #RESOLVED. * Patient was found to have elevated creatinine 1.9 at the time of admission, baseline creatinine 0.7. Cr this AM 0.8 #Lower abdomen discomfort * Given her mild lower abdomen discomfort will get Xry abdomen to rule out acute pathology * Last document Bowel Movement 12/22/2017. * No pathology suggested on imaging. #Chornic Hypoxemic Respiratory Failure * Continue 2 L oxygen supplementation * TRC nebs * Incentive spirometer #History of Depression * Continue citalopram 20 daily DVT prophylaxis subcutaneous heparin DNR/DNI Problem List: 1. Hypotension 2. Bradycardia Pain Ratin Pain Location: No Pain Pain Goal: Remain pain free Pain Plan: NA Tomorrow's Labs & Rationales: NA
[2017-12-26] MEDS ORDERED: LASIX20 M1 PO (10:29)
--- NOTE | 2017-12-26 13:31 | PN- Att Addend ---
Attending Addendum Attending Brief Note Patient seen and examined. Plan of care discussed with the medical team and the patient. Available lab work and radiology test reports were reviewed. Patient feels well and denies any difficulty breathing fever chills or chest pain. She also wants to go home today. She is currently on room air. Exam: General: Patient awake alert oriented without any distress CVS: S1 plus S2 without any murmur or gallops Chest: Few scattered crepitation without any wheeze. There is no respiratory distress. Abdomen: Soft non-tender, bowel sound present, no guarding or rebound CORE LAYING MACHINE OPERATOR: Awake alert oriented without any focal neuro deficit and follows commands appropriately Extremities: No edema; no clubbing or cyanosis noted Assessment and problem list * Transient hypotension and acute renal failure probably secondary to dehydration * Sinus bradycardia * Acute kidney injury * Hyperkalemia * History of HTN, anemia, * history of duodenal ulcer, * COPD on 2 L nasal cannula, * pulmonary hypertension, * Hypotension- medications have been adjusted and pressure has improved * HFrEF Plan * Continue Lasix 10 mg daily by mouth * Agree with stopping lisinopril * Patient states that she does not want to have stress test done during this hospital stay; she will follow-up with Dr. Montanez for stress test tomorrow * patient can be discharged home today. Current Medications Sig/Dom Start time Last Medication Dose Route Stop Time Status Admin Acetaminophen 650 MG .STK-MED ONE 12/25 2033 DC PO 12/25 2034 Acetaminophen 650 MG Q6P PRN 12/23 2145 DCD 12/25 PO 2034 Albuterol Sulfate 3 ML BID 12/24 2199 DCD 12/26 INH 0852 Albuterol Sulfate 2 PUF Q4H PRN 12/23 220 DCD INH Aspirin 81 MG DAILY 12/24 1935 DCD 12/26 PO 0843 Bisacodyl 10 MG ONCE PRN 12/26 0830 DCD 12/26 [place] 0843 Citalopram 20 MG DAILY 12/24 1000 DCD 12/26 Hydrobromide PO 0843 Furosemide 10 MG DAILY 12/25 1000 DCD 12/26 PO 0843 Heparin Sodium 5,000 UNIT Q8 12/23 2199 DCD 12/26 (Porcine) SC 0538 Ipratropium [place] 2.5 ML BID 12/24 2199 DCD 12/26 INH 0852 Lidocaine 1 PAT Q24H PRN 12/23 2200 DCD EXT Lisinopril 2.5 MG DAILY 12/25 1000 DC PO Patient Medication 1 ED ONE ONE 12/26 1230 [place] Teaching ED 12/26 1231 Patient Medication 1 ED ONE ONE 12/25 1530 [facility] ED 12/25 1531 Polyethylene Glycol 17 GM DAILY PRN 12/24 1900 DCD PO Senna 187 MG ONCE PRN 12/26 0830 DCD PO Laboratory Tests 12/26/17 0628: Anion Gap 8, Estimated GFR > 60, BUN/Creatinine Ratio 28.3 H 12/25/17 0646: Anion Gap 10, Estimated GFR > 60, BUN/Creatinine Ratio 28.8 H, CBC w Diff NO MAN DIFF REQ, RBC 3.28 L, MCV 90.9, MCH 30.5, MCHC 33.6, RDW 17.3 H, MPV 8.1, Gran % 59.1, Lymphocytes % 25.9, Monocytes % 10.7 H, Eosinophils % 3.8, Basophils % 0.5, Absolute Granulocytes 2.4, Absolute Lymphocytes 1.0 L, Absolute Monocytes 0.4, Absolute Eosinophils 0.2, Absolute Basophils 0 12/24/17 0615: Anion Gap 13, Estimated GFR 48 L, BUN/Creatinine Ratio 29.1 H, CBC w Diff NO MAN DIFF REQ, RBC 3.36 L, MCV 91.3, MCH 30.6, MCHC 33.5, RDW 17.3 H, MPV 7.8, Gran % 58.7, Lymphocytes % 28.9, Monocytes % 9.7 H, Eosinophils % 2.5, Basophils % 0.2, Absolute Granulocytes 2.9, Absolute Lymphocytes 1.4, Absolute Monocytes 0.5, Absolute Eosinophils 0.1, Absolute Basophils 0 12/24/17 0035: Magnesium 1.9, Troponin I < 0.01 12/23/17 1835: Troponin I < 0.01 12/23/17 1525: Anion Gap 14, Estimated GFR 25 L, BUN/Creatinine Ratio 23.7, Glucose 97, Calcium 9.8, Total Bilirubin 0.7, AST 19, ALT 27, Alkaline Phosphatase 84, Creatine Kinase 101, Troponin I < 0.01, Total Protein 7.1, Albumin 4.1, Globulin 3.0, Albumin/Globulin Ratio 1.4, PT 10.9, INR 1.00, D-Dimer High Sensitivty 406 H, CBC w Diff NO MAN DIFF REQ, RBC 3.84 L, MCV 90.9, MCH 30.4, MCHC 33.4, RDW 17.0 H, MPV 7.4, Gran % 63.6, Lymphocytes % 22.4, Monocytes % 11.1 H, Eosinophils % 2.6, Basophils % 0.3, Absolute Granulocytes 4.0, Absolute Lymphocytes 1.4, Absolute Monocytes 0.7 H, Absolute Eosinophils 0.2, Absolute Basophils 0 Vital Signs Date Time Temp Pulse Resp B/P B/P Pulse O2 O2 Flow FiO2 Mean Ox Delivery Rate 12/26 0853 98 Nasal 2.0L Cannula 12/26 0800 Nasal 2.0L Cannula 12/26 0647 98.5 76 20 102/52 95 Nasal Cannula 12/26 0000 Nasal 2.0L Cannula 12/25 2253 97.8 80 20 102/62 97 Nasal Cannula 12/25 1910 96 Nasal 2.0L Cannula 12/25 1416 97.5 91 22 90/50 96 Nasal 2.0L Cannula Intake & Output 12/26 1600 12/26 0800 12/26 0000 Intake Total 222 110 222 Output Total 150 Balance 72 110 222 Intake, IV 10 Intake, Oral 222 100 222 Number 1 Bowel Movements Output, Urine 150 Abdomen x-ray December 25 Nonspecific, nonobstructive bowel gas pattern.
== END 2017-12-26 12:45 | disposition home health service (06) | DRG 683 ==
LOC: ERH 14:22 → 1NO 20:44 → ERHI 20:44 → ENRESERV 21:13 → ENTRNSPT 22:01 → 1NO 22:17 → CMPTRNSPT 22:34 → 1NO 12-24 08:33 → ENPENDDIS 12-26 10:30 → ENTRNSPT 12-26 12:39 → EDTRNSPTSTS 12-26 12:42 → EDTRNSPT 12-26 12:42 → 1NO 12-26 12:45 → CMPTRNSPT 12-26 12:54
PROVIDERS: Emergency Medicine; Hospitalist; Student in an Organized Health Care Education/Training Program
DX: N17.9 Acute kidney failure, unspecified (principal); E87.2 Acidosis; J96.11 Chronic respiratory failure with hypoxia; E87.5 Hyperkalemia; I50.22 Chronic systolic (congestive) heart failure; I27.20 Pulmonary hypertension, unspecified; I11.0 Hypertensive heart disease with heart failure; R55 Syncope and collapse; E86.0 Dehydration; I95.2 Hypotension due to drugs; R00.1 Bradycardia, unspecified; T44.7X5A Adverse effect of beta-adrenoreceptor antagonists, initial encounter; J44.9 Chronic obstructive pulmonary disease, unspecified; Z99.81 Dependence on supplemental oxygen; K21.9 Gastro-esophageal reflux disease without esophagitis; E78.5 Hyperlipidemia, unspecified; F32.9 Major depressive disorder, single episode, unspecified; N20.0 Calculus of kidney; Z88.2 Allergy status to sulfonamides; Z79.51 Long term (current) use of inhaled steroids; I25.2 Old myocardial infarction; K27.7 Chronic peptic ulcer, site unspecified, without hemorrhage or perforation; F41.9 Anxiety disorder, unspecified; E55.9 Vitamin D deficiency, unspecified; M54.9 Dorsalgia, unspecified; Z87.891 Personal history of nicotine dependence; Z66 Do not resuscitate; D64.9 Anemia, unspecified; R10.30 Lower abdominal pain, unspecified
CPT/HCPCS: 1NSP; 36415; 36592; 71045; 74018; 82436; 93005; 93010; 93306; 96360; 97116-GO; 97161-GP; 97530-GO; 99291; J1644; J3490

== ENCOUNTER 2018-04-02 08:31 | Inpatient (IN) | payer OTHER ==
[~2018-04-02] VITALS: Ht 160 cm; Wt 63.5 kg
[~2018-04-02 08:31] MED LIST changes: +LASIX20 M1 PO; +LISINOPRIL2.5 M1 PO
--- NOTE | 2018-04-02 08:39 | ED DYSPNEA/ASTHMA COMPLAINT ---
History of Present Illness General Chief Complaint: Dyspnea (COPD, CHF, Other) Stated Complaint: BIBA SOB Source: patient, old records, EMS Exam Limitations: clinical condition Vital Signs & Intake/Output Vital Signs & Intake/Output Vital Signs Date Time Temp Pulse Resp B/P B/P Pulse O2 O2 Flow FiO2 Mean Ox Delivery Rate 04/02 0915 73 24 146/64 94 BIPAP 75% 04/02 0900 94 BIPAP 75% 04/02 0850 94 BIPAP 45% 04/02 0850 28 94 BIPAP 40% 04/02 0845 90 95 04/02 0837 111 40 89 CPAP 04/02 0834 117 40 200/96 82 CPAP 10L Allergies Coded Allergies: Sulfa (Sulfonamide Antibiotics) (Intermediate, "ITCHY" - MED LIST FROM MD OFFICE SAYS TERESA GIBBONS LIKE RASH 12/25/15) Reconcile Medications Acetaminophen 500 MG TABLET 500 MG PO Q8P PRN PAIN SCALE 1-3 (MILD) Albuterol Sulfate (Proair Hfa) 90 MCG HFA.AER.AD 2 PUF INH Q4H PRN SHORTNESS OF BREATH (Reported) Albuterol Sulfate 2.5 MG/3 ML (0.083 %) VIAL.NEB 1 Vial INH/CARL TID RESP. ( Reported) Aspirin (Aspirin*) 81 MG TAB.CHEW 81 MG PO DAILY Heart Health Citalopram Hydrobromide (Citalopram HBr) 20 MG TABLET 1 TAB PO DAILY MENTAL HEALTH (Reported) Furosemide (Lasix) 20 MG TABLET 0.5 TAB PO DAILY Fluid overload Ipratropium [place] 0.2 MG/ML (0.02 %) SOLUTION 1 Vial INH/CARL TID RESP. ( Reported) Lidocaine (Lidoderm) 5 % ADH..PATCH 1 PAT EXT Q24H PRN PAIN HPI: Patient presents for evaluation of severe shortness of breath beginning overnight. Patient has a history, according to EMS, of COPD. She was treated with CPAP prehospital with overall clinical improvement. History and exam are extremely limited secondary to the patient's severe respiratory distress. 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 MOTHER (heart failure). FATHER (Diabetes). Physical Exam Physical Exam Comments: Gen.: Well-nourished, well-developed, no acute respiratory distress. Head: Normocephalic, atraumatic. Eyes: Normal inspection bilaterally Ears: Normal inspection bilaterally Nose: Normal inspection Throat/mouth : Moist mucosa Neck: Supple, full range of motion, no goiter Heart: Regular rate and rhythm, no murmurs rubs or gallops Lungs: Severely diminished air entry bilaterally with faint expiratory wheezing and mild posterior crackles in the lung bases bilaterally. Chest: Nontender Back: Normal range of motion Abdomen: Soft, nontender, nondistended, normal bowel sounds Extremities: Normal range of motion grossly, equal radial pulses, no cyanosis clubbing or edema Neurologic: Cranial nerves grossly intact, speech is clear Skin: warm and dry Psychiatric: Calm, cooperative, no apparent delusions or hallucinations Progress Plan of Care: Orders Procedure Date/time Status ARTERIAL BLOOD GAS (GEN) 04/02 1008 Active BIPAP 04/02 0900 Complete AEROSOL (GEN) 04/02 0855 Complete BIPAP 04/02 0845 Complete Telemetry/Sed Special Education Teacher 04/02 838 Active TROPONIN LEVEL 04/02 838 Complete MAGNESIUM 04/02 0838 Complete CBC WITHOUT DIFFERENTIAL 04/02 0838 Complete B-TYPE NATRIURETIC PEP (BNP) 04/02 0838 Complete BASIC METABOLIC PANEL 04/02 0838 Complete EKG 04/02 0832 Active Current Medications Sig/Dom Start time Last Medication Dose Stop Time Status Admin Azithromycin 500 MG ONCE ONE 04/02 0945 AC (Zithromax) 04/02 1044 Sodium Chloride 250 ML (Normal Saline 0.9%) Laboratory Tests 04/02/18 0840: Anion Gap 11, Estimated GFR > 60, BUN/Creatinine Ratio 30.0 H, Glucose 204 H, Calcium 9.4, Magnesium 1.7, Troponin I < 0.01, Eoz-H-Wkotfkgvmpe Pept 998 H, CBC w Diff NO MAN DIFF REQ, RBC 4.36, MCV 85.2, MCH 27.6, MCHC 32.4 L, RDW 16.3 H, MPV 8.1, Gran % 71.1, Lymphocytes % 21.7, Monocytes % 6.3, Eosinophils % 0.6 , Basophils % 0.3, Absolute Granulocytes 9.9 H, Absolute Lymphocytes 3.0, Absolute Monocytes 0.9 H, Absolute Eosinophils 0.1, Absolute Basophils 0 Diagnostic Imaging: Discussed w/RAD: Radiology Read. CXR Impression: PATIENT: DELVIS ARROYO PRESENT AGE: 82 PATIENT ACCOUNT NO: [id number] : 37 LOCATION: [facility] ORDERING PHYSICIAN: Tj Parrish MD SERVICE DATE: 04/02/18 EXAM TYPE: RAD - XRY-PORTABLE CHEST XRAY EXAMINATION: XR PORTABLE CHEST CLINICAL INFORMATION: Dyspnea, decreased air entry, history of COPD COMPARISON: 03/22/2018 TECHNIQUE: Portable frontal view of the chest was obtained. FINDINGS: Superimposed on chronic diffuse coarse interstitial thickening, there is new airspace opacity in the left midlung and left lung base which could represent atelectasis or pneumonia. Previously seen retrocardiac consolidation has resolved. Asymmetric pulmonary edema is possible as well. There is slight blunting of both costophrenic angles, similar to prior studies, so small bilateral pleural effusions are possible. The aortic arch is calcified. The heart size is borderline enlarged. There is diffuse osteopenia. There are degenerative changes of the thoracic spine and shoulders. IMPRESSION: Superimposed on chronic diffuse coarse interstitial thickening, there is new airspace opacity in the left midlung and left lung base which could represent atelectasis or pneumonia. Previously seen retrocardiac consolidation has resolved. DICTATED BY: Emanuel Townsend MD DATE/TIME DICTATED:04/02/18899 FRUIT FARMWORKER:AMANDA DATE/ TIME TRANSCRIBED:04/02/18899 CONFIDENTIAL, DO NOT COPY WITHOUT APPROPRIATE AUTHORIZATION. <Electronically signed in Other Vendor System> SIGNED BY: Emanuel Townsend MD 04/02/18905 Initial ED EKG: SINUS TACHYCARDIA WITH A VENTRICULAR RATE OF 108, NONSPECIFIC st SEGMENT CHANGES, ASIDE FROM RATE, NO SIG CHANGE COMPARED WITH PRIOR Comments: 04/02/2018 8:36:04 AM patient has been seen by the respiratory therapist who is retrieving the BiPAP machine. The patient is currently on the prehospital CPAP. 04/02/2018 9:42:14 AM patient is resting on BiPAP with O2 saturation 96%. Departure Departure Disposition: STILL A PATIENT Condition: Stable Clinical Impression Primary Impression: Pneumonia Qualifiers: Pneumonia type: due to unspecified organism Laterality: left Lung location: lower lobe of lung Qualified Code: J18.1 - Lobar pneumonia, unspecified organism Secondary Impressions: COPD exacerbation, Hypoxia Referrals: Jj Beard MD (PCP/Family) Departure Forms: Customer Survey General Discharge Information Admission Note Spoke With: Rowena Garnica MD Documentation of Exam: Documentation of any treatments & extenuating circumstances including Concerns Regarding Discharge (functional status, medication knowledge or non-compliance, living conditions, etc.) that warrant an admission rather than observation: Patient presented with severe shortness of breath and hypoxia as a result of an acute COPD exacerbation and pneumonia. I do not feel this patient can be safely treated as an outpatient given the severe compromise of her pulmonary system. I feel she would be incapable of safely comply with outpatient treatment and attempting this would provoke worsening hypoxia and potentially chest pain respiratory failure and TX. During her hospitalization she should have her respiratory effort supplemented with oxygen and BiPAP. Serial O2 saturations should be obtained and the patient's oxygen and BiPAP support adjusted accordingly. Given her pneumonia she should be treated with IV antibiotics to prevent worsening pneumonia, worsening hypoxia or sepsis. Pulmonary consultation and/or infectious disease consultation should be considered if patient does not respond to initial management. Given the patient's advanced age and medical comorbidities I feel her treatment in recovery will be prolonged and complicated. I feel she will require a multiple day hospitalization. Critical Care Note Critical Care Note Critical Care Time: 30-74 min
[2018-04-02 08:52] LABS: ABSOLUTE BASOPHIL COUNT 0 /CUMM (0.0-0.2); ABSOLUTE EOSINOPHIL COUNT 0.1 /CUMM (0.0-0.7); ABSOLUTE GRANULOCYTE CT 9.9 /CUMM (1.4-6.5); ABSOLUTE MONOCYTE COUNT 0.9 /CUMM (0.10-0.60); BASOPHIL % 0.3 % (0.0-2.0); EOSINOPHIL % 0.6 % (0-5); GRANULOCYTE % 71.1 % (42.2-75.2); HEMATOCRIT 37.2 % (37-47); MEAN CORPUSCULAR HGB 27.6 PG (27.0-31.0); MEAN CORPUSCULAR HGB CONC 32.4 G/DL (33.0-37.0); MEAN CORPUSCULAR VOLUME 85.2 FL (81.0-99.0); MEAN PLATELET VOLUME 8.1 FL (7.4-10.4); PLATELET COUNT 395 /CUMM (130-400); RBC DISTRIBUTION WIDTH 16.3 % (11.5-14.5); RED BLOOD CELL CT 4.36 /CUMM (4.20-5.40)
--- NOTE | 2018-04-02 09:06 | RADIOLOGY REPORT ---
EXAMINATION: XR PORTABLE CHEST CLINICAL INFORMATION: Dyspnea, decreased air entry, history of COPD COMPARISON: 03/22/2018 TECHNIQUE: Portable frontal view of the chest was obtained. FINDINGS: Superimposed on chronic diffuse coarse interstitial thickening, there is new airspace opacity in the left midlung and left lung base which could represent atelectasis or pneumonia. Previously seen retrocardiac consolidation has resolved. Asymmetric pulmonary edema is possible as well. There is slight blunting of both costophrenic angles, similar to prior studies, so small bilateral pleural effusions are possible. The aortic arch is calcified. The heart size is borderline enlarged. There is diffuse osteopenia. There are degenerative changes of the thoracic spine and shoulders. IMPRESSION: Superimposed on chronic diffuse coarse interstitial thickening, there is new airspace opacity in the left midlung and left lung base which could represent atelectasis or pneumonia. Previously seen retrocardiac consolidation has resolved.
--- NOTE | 2018-04-02 10:54 | History & Physical ---
Gisel Rivera 04/02/18 1054: General Information and HPI MD Statement: I have seen and personally examined DELVIS ARROYO and documented this H&P. The patient is a 82 year old F who presented with a patient stated chief complaint of [shortness of breath}. Source of Information: patient, old records Exam Limitations: no limitations History of Present Illness: 52-year-old woman, from home with past medical history significant for COPD on home oxygen 2 L, anxiety, depression, HFpEF, hypertension, chronic back pain, prediabetic, anemia, vitamin D deficiency, nephrolithiasis, GERD, hyperlipidemia was brought in by ambulance for evaluation of severe shortness of breath upon awakening this morning. The patient was at her baseline which is walking with a walker and independent with all of her activities except for driving when she woke up this morning she found herself to be severely short of breath and pressed her Lifeline and was brought to ED by EMS. On interview she denied recent upper respiratory illness, cough, fever, chills, decreased p.o. intake, recent falls, recent loss of consciousness. It is unclear whether she uses her CPAP at home. Allergies/Medications Allergies: Coded Allergies: Sulfa (Sulfonamide Antibiotics) (Intermediate, "ITCHY" - MED LIST FROM MD OFFICE SAYS POSION EDWIGE LIKE RASH 12/25/15) Home Med list Acetaminophen 500 MG TABLET 500 MG PO Q8P PRN PAIN SCALE 1-3 (MILD) Albuterol Sulfate (Proair Hfa) 90 MCG HFA.AER.AD 2 PUF INH Q4H PRN SHORTNESS OF BREATH (Reported) Albuterol Sulfate 2.5 MG/3 ML (0.083 %) VIAL.NEB 1 Vial INH/CARL TID RESP. ( Reported) Aspirin (Aspirin*) 81 MG TAB.CHEW 81 MG PO DAILY Heart Health Citalopram Hydrobromide (Citalopram HBr) 20 MG TABLET 1 TAB PO DAILY MENTAL HEALTH (Reported) Furosemide (Lasix) 20 MG TABLET 1 TAB PO DAILY chf (Reported) Ipratropium [place] 0.2 MG/ML (0.02 %) SOLUTION 1 Vial INH/CARL TID RESP. ( Reported) Lidocaine (Lidoderm) 5 % ADH..PATCH 1 PAT EXT Q24H PRN PAIN Metoprolol Succinate 25 MG TAB 1 TAB PO DAILY HEART (Reported) Spironolactone 25 MG TABLET 1 TAB PO DAILY WATER RETENTION (Reported) Past History Travel History Traveled to [place] past 21 day No Medical History Neurological: NONE EENT: NONE Cardiovascular: CHF, hypertension, NSTEMI, MIXED HYPERLIPIDEMIA Respiratory: bronchitis, COPD, emphysema, pneumonia Gastrointestinal: GERD, BLEEDING STOMACH ULCER Hepatic: NONE Renal: nephrolithiasis Musculoskeletal: chronic back pain Psychiatric: MAJOR DEPRESSIVE DISORDER GENERALIZED ANXIETY D/O Endocrine: PRE-DIABETIC Blood Disorders: anemia, VIT D DEFICIENCY Cancer(s): NONE 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 MOTHER (heart failure). FATHER (Diabetes). Psychosocial History Services at Home: Home Health Aide, Nursing, Oxygen Review of Systems Review of Systems Constitutional: Denies: see HPI. Exam & Diagnostic Data Last 24 Hrs of Vital Signs/I&O Vital Signs Date Time Temp Pulse Resp B/P B/P Pulse O2 O2 Flow FiO2 Mean Ox Delivery Rate 04/02 1225 97.8 80 20 148/64 93 Nasal 3.0L Cannula 04/02 1221 93 Nasal 3.0L Cannula 04/02 1153 90 100 04/02 1148 70 18 147/82 98 BIPAP 65% 04/02 1030 90 96 04/02 0915 73 24 146/64 94 BIPAP 75% 04/02 0900 94 BIPAP 75% 04/02 0850 94 BIPAP 45% 04/02 0850 28 94 BIPAP 40% 04/02 0845 90 95 04/02 0837 111 40 89 CPAP 04/02 0834 117 40 200/96 82 CPAP 10L Intake & Output 04/02 1600 04/02 0800 07 0000 Intake Total Output Total Balance Patient 143 lb Weight Weight Bed scale Measurement Method Physical Exam General Appearance Alert, Oriented X3, Cooperative, No Acute Distress HEENT Atraumatic, PERRLA, EOMI, Mucous Membr. moist/pink Neck Supple Cardiovascular Normal S1, Normal S2 Last 24 Hrs of Labs/Victor M: Laboratory Tests 04/02/18 1024: pH 7.34 L, pCO2 49 H, pO2 117 H, HCO3 26, ABG O2 Sat (Measured) 98.0, Carboxyhemoglobin 0.3 L, O2 Concentration % 75%, Respiration Rate 24, O2 Delivery Method VISION, Vent Mode ST, Expiratory Pressure 6, Inspiratory Pressure 24, Phlebotomy Draw Site LEFT BRACHIAL 04/02/18 0840: Anion Gap 11, Estimated GFR > 60, BUN/Creatinine Ratio 30.0 H, Glucose 204 H, Calcium 9.4, Magnesium 1.7, Troponin I < 0.01, Gwg-A-Yjczdojjgvt Pept 998 H, CBC w Diff NO MAN DIFF REQ, RBC 4.36, MCV 85.2, MCH 27.6, MCHC 32.4 L, RDW 16.3 H, MPV 8.1, Gran % 71.1, Lymphocytes % 21.7, Monocytes % 6.3, Eosinophils % 0.6 , Basophils % 0.3, Absolute Granulocytes 9.9 H, Absolute Lymphocytes 3.0, Absolute Monocytes 0.9 H, Absolute Eosinophils 0.1, Absolute Basophils 0 Diagnostic Data CXR Results FINDINGS: Superimposed on chronic diffuse coarse interstitial thickening, there is new airspace opacity in the left midlung and left lung base which could represent atelectasis or pneumonia. Previously seen retrocardiac consolidation has resolved. Asymmetric pulmonary edema is possible as well. There is slight blunting of both costophrenic angles, similar to prior studies, so small bilateral pleural effusions are possible. The aortic arch is calcified. The heart size is borderline enlarged. There is diffuse osteopenia. There are degenerative changes of the thoracic spine and shoulders. IMPRESSION: Superimposed on chronic diffuse coarse interstitial thickening, there is new airspace opacity in the left midlung and left lung base which could represent atelectasis or pneumonia. Previously seen retrocardiac consolidation has resolved. Assessment/Plan Assessment: 52-year-old woman, from home with past medical history significant for COPD on home oxygen 2 L, anxiety, depression, systolic congestive heart failure, hypertension, chronic back pain, prediabetic, anemia, vitamin D deficiency, nephrolithiasis, GERD, hyperlipidemia was brought in by ambulance for evaluation of severe shortness of breath upon awakening this morning. Found to be lethargic and hypoxic to 82% on her baseline oxygen in ED and was placed on BiPAP. Chest x-ray significant for Superimposed on chronic diffuse coarse interstitial thickening, there is new airspace opacity in the left midlung and left lung base which could represent atelectasis or pneumonia. ABG on Bipap 7.34./49/117. labs significant for mild leukocytosis and elevated ProBNP 998. Prior to being transferred to the floor patient's respiratory status improved to nasal cannula. Problem list Acute on chronic hypoxic respiratory failure acute on chronic CHF exacerbation-HFpEF last Echo 12/24/2017 Normal EF of 55% with impaired LV relaxation. Acute on chronic COPD exacerbation Depression plan: Admit to general medicine floor vitals per protocol, strict I's and O's TRC/nebs, continue with supplemental oxygen We will continue with IV Solu-Medrol, IV ceftriaxone and IV azithromycin f/up sputum/legionell/strep ag Pulmonology on board appreciate recommendations We will continue with home medication of spironolactone, metoprolol and Lasix Cardiac consult placed with Dr. Montanez. Continue rest of her home meds dvt sc lovenox heart healthy diet DNR/DNI As Ranked By This Provider Problem List: 1. CHF (congestive heart failure) 2. COPD exacerbation Core Measures/Misc (06/15) Acute Coronary Syndrome ACS Diagnosis: No Last Known EF % 55 No CORETTA/ARB d/t Medical Contraindication Congestive Heart Failure Congestive Heart Failure Diagnosis Yes Cerebrovascular Accident CVA/TIA Diagnosis: No VTE (View Protocol) VTE Risk Factors Acute Medical Illness No Mechanical VTE Prophylaxis d/t N/A MechProphylax Ordered No VTE Pharm Prophylaxis d/t NA PharmProphylax ordered Sepsis (View protocol) Sepsis Present: No If YES complete Sepsis Event Note If YES complete Sepsis Event Note Roland Santos MD 04/02/18 3176: Core Measures/Misc (06/15) Sepsis (View protocol) If YES complete Sepsis Event Note If YES complete Sepsis Event Note Attending MD Review Statement Attending Statement Attending MD Statement: examined this patient, discuss w/resident/PA/BLAST FURNACE SUPERVISOR, agreed w/resident/PA/BLAST FURNACE SUPERVISOR, reviewed EMR data (avail), reviewed images, amended to note Attending Assessment/Plan: The patient is an 82 yo female with h/o oxygen dependent COPD (chronic 2 L/m), SKY, anxiety, depression, EF preserved CHF, HTN, chronic back pain, chronic anemia who resented on the day of admission in the ED with c/o dyspnea. She described increased cough, however no fever or chills. She has not been entirely compliant with CPAP. When I saw her initially in the ED she was requiring BIPAP, however was weaned prior to being transferred to the floor. Physical Exam: VS: T 97.8, P 80, R 20, BP 148/64, PO 93% 3L (was 82% on CPAP 10L and 94$ on BIPAP 75%) HEENT: eyes- PERRLA, EOMI asha- no lesions Neck: no JVD/bruits Chest: bilat mild to mod wheeze, occ rhonchi, diminished breath sounds Abd: BS+, soft, NT Ext: tr edema, pulses 1+ Neuro: alert & oriented x 3, non-focal exam Labs/Tests- as above Impression/Plan: #Probable Community Acquired Pneumonia- with mild elevated WBC w/o fever. CXR showing probable left mid/bas LLL infiltrated. Plan: Admit to medical floor. Arteaga-culture and begin IV antibiotics (Ceftriaxone/Zithromax as per protocol). Follow pulse ox and respiratory status closely. #Acute on Chronic Hypoxic Respiratory Failure- patient required transient BIPAP in ED. Doing better post aerosol/steroids. Plan: Admit to medical floor. Treat underlying pneumonia/COPD. Follow pulse ox closely. #COPD Exacerbation- patient with increased wheeze. Plan: Agree with IV Medrol, aerosol, etc. #CHF- diastolic failure i the past. Cardiology input from Dr. Montanez appreciated. Plan: Continue usual dose of Lasix as per Cardiology. Follow for signs of CHF.
[2018-04-02] MEDS ORDERED: METOPROLOL SUCC25 M1 PO (11:34)
[2018-04-02] MEDS ORDERED: CITALOPRAM HBR20 MG PO (11:34)
[2018-04-02] MEDS ORDERED: SPIRONOLACTONE25 M1 PO (11:35)
[2018-04-02 12:25] VITALS: BP 148/64
--- NOTE | 2018-04-02 12:49 | Cons- Pulmonary ---
General Information and HPI Consulting Request Date of Consult: 04/02/18 Requested By: Dr. Santos Reason for Consult: COPD exacerbation Source of Information: patient Exam Limitations: no limitations History of Present Illness: 82 years old woman. Consulation for exacerbation of COPD. Admitted in October for urological issues. She has a history of COPD and obstructive sleep apnea she's been on CPAP therapy and inhalers including nebulizer therapy at home. She also has an ejection fraction of 45%-55% with pulmonary hypertension. Per the patient she has not seen the pulmonary doctor previously. She has been admitted for COPD exacerbation overall feeling slightly better. New left midlung/lower field opacification. Some whitish sputum production. Recently was at [facility]. No sick contacts or travel history. She has some intermittent leg edema. Feeling much better after transient BiPAP use. Allergies/Medications Allergies: Coded Allergies: Sulfa (Sulfonamide Antibiotics) (Intermediate, "ITCHY" - MED LIST FROM MD OFFICE SAYS TREESA GIBBONS LIKE RASH 12/25/15) Home Med List: Acetaminophen 500 MG TABLET 500 MG PO Q8P PRN PAIN SCALE 1-3 (MILD) Albuterol Sulfate (Proair Hfa) 90 MCG HFA.AER.AD 2 PUF INH Q4H PRN SHORTNESS OF BREATH (Reported) Albuterol Sulfate 2.5 MG/3 ML (0.083 %) VIAL.NEB 1 Vial INH/CARL TID RESP. ( Reported) Aspirin (Aspirin*) 81 MG TAB.CHEW 81 MG PO DAILY Heart Health Citalopram Hydrobromide (Citalopram HBr) 20 MG TABLET 1 TAB PO DAILY MENTAL HEALTH (Reported) Furosemide (Lasix) 20 MG TABLET 1 TAB PO DAILY chf (Reported) Ipratropium [place] 0.2 MG/ML (0.02 %) SOLUTION 1 Vial INH/CARL TID RESP. ( Reported) Lidocaine (Lidoderm) 5 % ADH..PATCH 1 PAT EXT Q24H PRN PAIN Metoprolol Succinate 25 MG TAB 1 TAB PO DAILY HEART (Reported) Spironolactone 25 MG TABLET 1 TAB PO DAILY WATER RETENTION (Reported) Current Medications: Current Medications Sig/Dom Start time Last Medication Dose Route Stop Time Status Admin Acetaminophen 500 MG Q8P PRN 04/02 1330 AC PO Albuterol Sulfate 3 ML ONCE ONE 04/02 845 DC 04/02 INH 07/05 0846 0849 Aspirin 81 MG DAILY 04/03 900 AC PO Azithromycin 500 MG ONCE ONE 04/02 0945 DC 04/02 Sodium Chloride 250 ML IV 04/02 1044 1016 Ceftriaxone Sodium 0 .STK-MED ONE 04/02 1006 DC .ROUTE Ceftriaxone Sodium 1,000 MG ONCE ONE 04/02 0945 DC 04/02 IV 04/02 0946 1016 Citalopram 20 MG DAILY 04/02 1330 AC Hydrobromide PO Enoxaparin Sodium 40 MG DAILY 04/03 900 AC SC Furosemide 20 MG DAILY 04/02 1331 AC PO Ipratropium [place] 2.5 ML ONCE ONE 04/02 0845 DC 04/02 INH 04/02 0846 0849 Methylprednisolone 40 MG Q8 04/03 600 AC IV Methylprednisolone 125 MG ONCE ONE 04/02 845 DC 04/02 IV 04/02 0846 0839 Methylprednisolone 0 .STK-MED ONE 04/02 0835 DC .ROUTE Metoprolol Succinate 25 MG DAILY 04/02 1331 AC PO Ondansetron HCl 4 MG ONCE ONE 04/02 845 DC 04/02 IV 04/02 0846 0843 Ondansetron HCl 0 .STK-MED ONE 04/02 0838 DC .ROUTE Spironolactone 25 MG DAILY 04/02 1331 AC PO Review of Systems Comments 18 point review of systems was performed and reviewed. Please see pertinent positives and pertinent negatives in the HPI. Otherwise ROS is negative. 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 MOTHER (heart failure). FATHER (Diabetes). Psychosocial History Where Do You Live? Home Services at Home: Home Health Aide, Nursing, Oxygen Smoking Status: Former Smoker Exam & Diagnostic Data Last 24 Hrs of Vital Signs/I&O Vital Signs Date Time Temp Pulse Resp B/P B/P Pulse O2 O2 Flow FiO2 Mean Ox Delivery Rate 07/05 1225 97.8 80 20 148/64 93 Nasal 3.0L Cannula 04/02 1221 93 Nasal 3.0L Cannula 04/02 1153 90 100 04/02 1148 70 18 147/82 98 BIPAP 65% 04/02 1030 90 96 04/02 0915 73 24 146/64 94 BIPAP 75% 04/02 0900 94 BIPAP 75% 04/02 0850 94 BIPAP 45% 04/02 0850 28 94 BIPAP 40% 04/02 0845 90 95 04/02 0837 111 40 89 CPAP 04/02 0834 117 40 200/96 82 CPAP 10L Intake & Output 04/02 1600 04/02 0800 04/02 0000 Intake Total 460 Output Total 0 Balance 460 Intake, IV 0 Intake, Oral 460 Number 1 Bowel Movements Output, Urine 0 Patient 143 lb Weight Weight Bed scale Measurement Method Physical Exam Other Physical Findings: Generally - Awake, alert and comfortable without distress Head and neck - normocephalic, atraumatic, EOMI grossly intact Cardiovascular - S1, S2, no murmurs, rubs or gallops Lungs - bilateral wheezing, prolonged end expiratory phase Abdomen - Bowel sounds positive, soft, non-tender Extremities - trace edema Last 48 Hrs of Labs/Victor M: Laboratory Tests 04/02/18 1024: pH 7.34 L, pCO2 49 H, pO2 117 H, HCO3 26, ABG O2 Sat (Measured) 98.0, Carboxyhemoglobin 0.3 L, O2 Concentration % 75%, Respiration Rate 24, O2 Delivery Method VISION, Vent Mode ST, Expiratory Pressure 6, Inspiratory Pressure 24, Phlebotomy Draw Site LEFT BRACHIAL 04/02/18 0840: Anion Gap 11, Estimated GFR > 60, BUN/Creatinine Ratio 30.0 H, Glucose 204 H, Calcium 9.4, Magnesium 1.7, Troponin I < 0.01, Nzx-Z-[id number] Pept 998 H, CBC w Diff NO MAN DIFF REQ, RBC 4.36, MCV 85.2, MCH 27.6, MCHC 32.4 L, RDW 16.3 H, MPV 8.1, Gran % 71.1, Lymphocytes % 21.7, Monocytes % 6.3, Eosinophils % 0.6 , Basophils % 0.3, Absolute Granulocytes 9.9 H, Absolute Lymphocytes 3.0, Absolute Monocytes 0.9 H, Absolute Eosinophils 0.1, Absolute Basophils 0 Assessment/Plan Impression/Plan: Impression 82 year old woman * exacerbation of COPD * left midlung and left lung base opacification - can be atelectasis vs. CAP Plan -ceftriaxone/zithromax -sputum cx, legionella/strep ag -solumedrol 40mg iv q8h -trc/nebs -consider cardiology input, elevated BNP, trace edema -o2 supplementation, assess o2 needs, now off bipap DVT prophylaxis at all times Code status - please review with patient, she was DNR/DNI last admission Consult Acknowledgment - Thank you for your consult request.
[2018-04-02] MEDS ORDERED: LASIX20 M1 PO (13:31)
[2018-04-02 17:20] VITALS: BP 115/52
--- NOTE | 2018-04-02 17:42 | Event Note ---
Event Note Event Note: S: Notified by RN patient saturations 89-91% on 2.5L NC and patient experiencing shaking of her bottom teeth. I went to see the patient. She states she feels slightly SOB and has also noticed the shaking of her bottom teeth. She states this is new for her since she came to the ED and started receiving treatment. O: VS: T98.3 RR 20 HR90 BP115/52 Sat 90% 2.5L NC Gen: Elderly woman in no acute distress; speaking in full (short) sentences HEENT: shaking of mandible when vocalizing and at rest. Face and mouth free from edema or erythema Card: RRR no murmurs appreciated Resp: Increased AP diameter; diminished BS throughout; no use of accessory muscles A/P: 82 year old female admitted for Acute hypoxic respiratory failure and acute on chronic COPD exacerbation. Patient is stable at this time and mentating well. The mandibular shaking could be attributed to epinephrine effect within inhaled agents she has been receiving. Will continue to monitor closely with a low threshold for transfer to ICU if she is unable to maintain saturation. Appreciate the diligence in care with this patient from our nursing staff. Kelsey Collado PGY 1 Pager [phone]
--- NOTE | 2018-04-02 21:22 | Cons- Cardiology ---
General Information and HPI Consulting Request Date of Consult: 04/02/18 Requested By: Roland Santos MD History of Present Illness: Ms. Salas is an 82 year old female with history of hypertension, dyslipidemia, COPD, interstitial lung disease on home O2 and pulmonary hypertension. On a prior visit this patient had a very high D-dimer with borderline increased troponin. Her echocardiogram showed a normal EF of 60% with trace MR, TR and AI with mild left atrial enlargement. This patient was sent to the ER for evaluation of severe shortness of breath with orthopnea. The patient was observed to be shaking. She is a poor historian but otherwise denies chesgt discomofort, lightheadedness or palpitations. She denies fever or chills. The patient has a left sided infiltrate and increased WBC count. Allergies/Medications Allergies: Coded Allergies: Sulfa (Sulfonamide Antibiotics) (Intermediate, "ITCHY" - MED LIST FROM MD OFFICE SAYS TERESA GIBBONS LIKE RASH 12/25/15) Home Med List: Acetaminophen 500 MG TABLET 500 MG PO Q8P PRN PAIN SCALE 1-3 (MILD) Albuterol Sulfate (Proair Hfa) 90 MCG HFA.AER.AD 2 PUF INH Q4H PRN SHORTNESS OF BREATH (Reported) Albuterol Sulfate 2.5 MG/3 ML (0.083 %) VIAL.NEB 1 Vial INH/CARL TID RESP. ( Reported) Aspirin (Aspirin*) 81 MG TAB.CHEW 81 MG PO DAILY Heart Health Citalopram Hydrobromide (Citalopram HBr) 20 MG TABLET 1 TAB PO DAILY MENTAL HEALTH (Reported) Furosemide (Lasix) 20 MG TABLET 1 TAB PO DAILY chf (Reported) Ipratropium [place] 0.2 MG/ML (0.02 %) SOLUTION 1 Vial INH/CARL TID RESP. ( Reported) Lidocaine (Lidoderm) 5 % ADH..PATCH 1 PAT EXT Q24H PRN PAIN Metoprolol Succinate 25 MG TAB 1 TAB PO DAILY HEART (Reported) Spironolactone 25 MG TABLET 1 TAB PO DAILY WATER RETENTION (Reported) Review of Systems Review of Systems: A twelve point review os systems is unremarkable. 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 MOTHER (heart failure). FATHER (Diabetes). Psychosocial History Where Do You Live? Home Services at Home: Home Health Aide, Nursing, Oxygen Smoking Status: Former Smoker Exam & Diagnostic Data Vital Signs and I&O Vital Signs Date Time Temp Pulse Resp B/P B/P Pulse O2 O2 Flow FiO2 Mean Ox Delivery Rate 04/02 1800 92 Nasal 2.5L Cannula 04/02 1720 98.3 90 20 115/52 90 Nasal 2.5L Cannula 04/02 1606 94 100/60 / 1600 91 Nasal 2.5L Cannula 04/02 1454 98 Nasal 3.0L Cannula 04/02 1445 Nasal 2.0L Cannula 04/02 1225 97.8 80 20 148/64 93 Nasal 3.0L Cannula 04/02 1221 93 Nasal 3.0L Cannula 04/02 1153 90 100 07/05 1148 70 18 147/82 98 BIPAP 65% 07/05 1030 90 96 07/05 0915 73 24 146/64 94 BIPAP 75% 07/05 0900 94 BIPAP 75% 07/05 0850 94 BIPAP 45% 07/05 0850 28 94 BIPAP 40% /05 0845 90 95 07/05 0837 111 40 89 CPAP /05 0834 117 40 200/96 82 CPAP 10L Intake & Output 04/02 1600 04/02 0800 07/05 0000 / 1600 04/01 0800 04/01 0000 Intake Total 460 Output Total 0 Balance 460 Intake, IV 0 Intake, Oral 460 Number 1 Bowel Movements Output, Urine 0 Patient 143 lb Weight Weight Bed scale Measurement Method Physical Exam: General: WD/WN female in NAD; alert and oriented x 3 HEENT: NC/AT, PERRL, EOMI Neck: no JVD, no carotid bruit Heart: RRR w/o murmur Lungs: severely decreased breath sounds bilaterally ABdomen: soft, NT, +ve bowel sounds Extremities: no edema Assessment/Plan Assessment/Plan * This patient has underlying interstitial lung disease as well as COPD. At this time I believe this patient has a pneumonia. I am less suspicious of decompensated CHF. She should be continues on her usual dose of lasix for now and agree with antibiotic therapy. * On a prior admission the patient had a chest CT to assess for a pulmonary embolism. Although a PE was not found, she was noted to have coronary artery calcifications. I did recommend risk stratification with a pharmacologic stress test at that time which was not pursued. I would try and do this during this admission. Begin aspirin 81mg daily. Consult Acknowledgment - Thank you for your consult request.
[2018-04-02 21:50] VITALS: BP 100/54
[2018-04-03 06:21] VITALS: BP 136/56
--- NOTE | 2018-04-03 08:02 | PN- Housestaff ---
See Addendum Subjective Follow-up For: PNA and COPD exacerbation Complaints: mild SOB and headache Subjective: Patient had no acute events overnight. She states she feels better and wants to go home. She does admit to continued shortness of breath. She denies fever, chills, chest pain, nausea, vomiting, diarrhea, abdominal pain. She does report a headache this morning. Review of Systems Constitutional: Reports: see HPI. Objective Last 24 Hrs of Vital Signs/I&O Vital Signs Date Time Temp Pulse Resp B/P B/P Pulse O2 O2 Flow FiO2 Mean Ox Delivery Rate 04/03 1357 98.2 85 20 104/50 97 BIPAP 04/03 0845 80 136/56 04/03 0827 91 Nasal 2.5L Cannula 04/03 0800 93 Nasal 2.5L Cannula 04/03 0621 97.6 80 20 136/56 93 / 0000 Nasal 2.5L Cannula / 2150 98.7 90 18 100/54 92 07/ 1800 92 Nasal 2.5L Cannula /05 1720 98.3 90 20 115/52 90 Nasal 2.5L Cannula /05 1606 94 100/60 / 1600 91 Nasal 2.5L Cannula / 1454 98 Nasal 3.0L Cannula 05 1445 Nasal 2.0L Cannula Intake & Output 04/03 1600 / 0800 / 0000 Intake Total 150 360 Output Total 300 100 370 Balance -300 50 -10 Intake, IV 10 Intake, Oral 150 350 Number 0 Bowel Movements Output, Urine 300 100 370 Patient 144 lb Weight Weight Bed scale Measurement Method Physical Exam General Appearance: Alert, Cooperative, No Acute Distress, oriented to person and time. She thought she was in [place] at [facility] Skin: No Rashes, No Breakdown Skin Temp/Moisture Exam: Warm/Dry HEENT: Atraumatic, PERRLA Neck: Supple Cardiovascular: Regular Rate, Normal S1, Normal S2 Lungs: decreased breath sounds throughout, increased AP diameter Abdomen: Normal Bowel Sounds, Soft, No Tenderness Neurological: Normal Tone, Sensation Intact Extremities: No Cyanosis, No Edema, Normal Pulses Assessment/Plan Assessment: 52-year-old woman, from home with past medical history significant for COPD on home oxygen 2 L, anxiety, depression, HFpEF, hypertension, chronic back pain, prediabetic, anemia, vitamin D deficiency, nephrolithiasis, GERD, hyperlipidemia who was found to be experiencing COPD exacerbation as well as infection from pneumonia. She was admitted to the general medicine floor for further care. #COPD exacerbation -Steriod taper -Continue inhaled COPD medications #PNA -Ceftriaxone/azithromycin Day 2/5 -monitor WBC (14 at admission) #chronic illnesses -Continue home medications -Patient will need outpatient referral to PCP for follow-up for elevated glucose while inpatient with a blood glucose of 204 upon admission DVT Prophylaxis: ALPS/ambulation/Lovenox Problem List: 1. COPD exacerbation 2. Pneumonia Pain Ratin Pain Location: head Pain Goal: Pain 4 or less Pain Plan: see a/p Tomorrow's Labs & Rationales: none
--- NOTE | 2018-04-03 08:07 | PN- Pulmonary ---
Subjective HPI/Critical Care Issues: Patient is awake alert but continues to have complaints of dyspnea. Arterial blood gases indicate acute hypercapnic respiratory failure Objective Current Medications: Current Medications Sig/Dom Start time Last Medication Dose Route Stop Time Status Admin Acetaminophen 500 MG Q8P PRN 04/02 1330 AC PO Albuterol Sulfate 3 ML EVERY 4 HRS/AWAKE 04/02 1600 AC 04/02 INH 2155 Albuterol Sulfate 3 ML ONCE ONE 04/02 0845 DC 04/02 INH 04/02 0846 0849 Aspirin 81 MG DAILY 04/03 900 AC PO Azithromycin 250 MG DAILY 04/03 900 AC PO Azithromycin 500 MG ONCE ONE 04/02 945 DC 04/02 Sodium Chloride 250 ML IV 04/02 1044 1016 Ceftriaxone Sodium 1,000 MG DAILY 04/03 900 AC IV Ceftriaxone Sodium 0 .STK-MED ONE 04/02 1006 DC .ROUTE Ceftriaxone Sodium 1,000 MG ONCE ONE 04/02 945 DC 04/02 IV 04/02 0946 1016 Citalopram 20 MG DAILY 04/02 1330 AC 04/02 Hydrobromide PO 1604 Enoxaparin Sodium 40 MG DAILY 04/03 900 AC SC Furosemide 20 MG DAILY 04/02 1331 AC 04/02 PO 1605 Ipratropium [place] 2.5 ML EVERY 4 HRS/AWAKE 04/02 1600 AC 04/02 INH 2155 Ipratropium [place] 2.5 ML ONCE ONE 04/02 845 DC 04/02 INH 04/02 0846 0849 Methylprednisolone 40 MG Q8 04/03 600 AC 04/03 IV 0512 Methylprednisolone 125 MG ONCE ONE 04/02 845 DC 04/02 IV 04/02 0846 0839 Methylprednisolone 0 .STK-MED ONE 04/02 0835 DC .ROUTE Metoprolol Succinate 25 MG DAILY 04/02 133 AC 04/02 PO 1606 Ondansetron HCl 4 MG ONCE ONE 04/02 0845 DC 04/02 IV 04/02 0846 0843 Ondansetron HCl 0 .STK-MED ONE 04/02 0838 DC .ROUTE Spironolactone 25 MG DAILY 04/02 1331 AC 04/02 PO 1604 Vital Signs & I&O Last 24 Hrs of Vitals and I&O: Vital Signs Date Time Temp Pulse Resp B/P B/P Pulse O2 O2 Flow FiO2 Mean Ox Delivery Rate 07/06 0621 97.6 80 20 136/56 93 07/06 0000 Nasal 2.5L Cannula 07/05 2150 98.7 90 18 100/54 92 07/05 1800 92 Nasal 2.5L Cannula 07/05 1720 98.3 90 20 115/52 90 Nasal 2.5L Cannula 07/05 1606 94 100/60 07/05 1600 91 Nasal 2.5L Cannula 07/05 1454 98 Nasal 3.0L Cannula 07/05 1445 Nasal 2.0L Cannula 07/05 1225 97.8 80 20 148/64 93 Nasal 3.0L Cannula 07/05 1221 93 Nasal 3.0L Cannula 07/05 1153 90 100 07/05 1148 70 18 147/82 98 BIPAP 65% 07/05 1030 90 96 07/05 0915 73 24 146/64 94 BIPAP 75% 07/05 0900 94 BIPAP 75% 07/05 0850 94 BIPAP 45% 07/05 0850 28 94 BIPAP 40% 07/05 0845 90 95 07/05 0837 111 40 89 CPAP 07/ 0834 117 40 200/96 82 CPAP 10L Intake & Output 04/03 1600 07/06 0800 07/06 0000 Intake Total 150 360 Output Total 100 370 Balance 50 -10 Intake, IV 10 Intake, Oral 150 350 Number 0 Bowel Movements Output, Urine 100 370 Patient 144 lb Weight Weight Bed scale Measurement Method Since saturation 2.5 L 93% exam for chest shows scattered expiratory wheezes cardiac exam shows a regular S1 and S2 without murmurs Impression/Plan Impression/Plan Impression/Plan: 82-year-old woman with COPD admitted with exacerbation complicated by acute hypercapnic respiratory failure and probable community acquired pneumonia Recommendations: Continue IV Solu-Medrol continue antibiotics. Taper FiO2 his saturations allow obtain sputum C&S.
--- NOTE | 2018-04-03 13:17 | Patient Discharge Instructions ---
Discharge Instructions General Discharge Information You were seen/treated for: Acute hypercarbic respiratory failure, pneumonia Watch for these problems: Fever, chest pain, shortness of breath Special Instructions: Please take all medications as directed. Please follow-up with primary care, pulmonology, and cardiology. Please follow up with your monitoring and evaluation advisor/ as outpatient for stress test Diet Continue normal diet: Yes Activity Full Activity/No Limits: Yes Acute Coronary Syndrome Inclusion Criteria At DC or during hospital stay patient has or had the following: ACS DIAGNOSIS No Discharge Core Measures Meds if any: Prescribed or Continued at Discharge Meds if any: NOT Prescribed or Continued at Discharge Congestive Heart Failure Inclusion Criteria At DC or during hospital stay patient has or had the following: CHF DIAGNOSIS No Discharge Core Measures Meds if any: Prescribed or Continued at Discharge Meds if any: NOT Prescribed or Continued at Discharge Cerebrovascular accident Inclusion Criteria At DC or during hospital stay patient has or had the following: CVA/TIA Diagnosis No Discharge Core Measures Meds if any: Prescribed or Continued at Discharge Meds if any: NOT Prescribed or Continued at Discharge Venous thromboembolism Inclusion Criteria VTE Diagnosis No VTE Type NONE VTE Confirmed by (Test) NONE Discharge Core Measures - Per Current guidelines, there needs to be overlap - treatment for the first 5 days of Warfarin therapy. - If discharged on Warfarin prior to 5 days of - overlap therapy, the patient will need to be - assessed for post discharge needs including - *Post discharge parental anticoagulation - *Warfarin and/or parental anticoagulation education - *Follow up date to check INR post discharge At least 5 days overlap therapy as Inpatient No Meds if any: Prescribed or Continued at Discharge Note: Overlap Therapy is Warfarin and Anticoagulant Meds if any: NOT Prescribed or Continued at Discharge
--- NOTE | 2018-04-03 13:47 | PN- Cardiology ---
Subjective Subjective: * Breathing is a bit better but not back to baseline. The patient complains of chills. Objective Vital Signs and I&Os Vital Signs Date Time Temp Pulse Resp B/P B/P Pulse O2 O2 Flow FiO2 Mean Ox Delivery Rate 04/03 0845 80 136/56 / 0827 91 Nasal 2.5L Cannula 04/03 0800 93 Nasal 2.5L Cannula 04/03 0621 97.6 80 20 136/56 93 / 0000 Nasal 2.5L Cannula 04/02 2150 98.7 90 18 100/54 92 /05 1800 92 Nasal 2.5L Cannula 04/02 1720 98.3 90 20 115/52 90 Nasal 2.5L Cannula 04/02 1606 94 100/60 04/02 1600 91 Nasal 2.5L Cannula 04/02 1454 98 Nasal 3.0L Cannula 04/02 1445 Nasal 2.0L Cannula Intake & Output 04/03 1600 04/03 0800 07/ 0000 /05 1600 04/02 0800 04/02 0000 Intake Total 150 360 460 Output Total 300 100 370 0 Balance -300 50 -10 460 Intake, IV 10 0 Intake, Oral 150 350 460 Number 0 1 Bowel Movements Output, Urine 300 100 370 0 Patient 144 lb 143 lb Weight Weight Bed scale Bed scale Measurement Method Physical Exam: General: WD/WN female in NAD; alert and oriented x 3 HEENT: NC/AT, PERRL, EOMI Neck: no JVD, no carotid bruit Heart: RRR w/o murmur Lungs: severely decreased breath sounds bilaterally ABdomen: soft, NT, +ve bowel sounds Extremities: no edema Assessment/Plan Assessment/Plan * This patient has underlying interstitial lung disease as well as COPD. At this time I believe this patient has a pneumonia. I am less suspicious of decompensated CHF. She should be continues on her usual dose of lasix for now and agree with antibiotic therapy. Patient has also been started on steroids. * On a prior admission the patient had a chest CT to assess for a pulmonary embolism. Although a PE was not found, she was noted to have coronary artery calcifications. I did recommend risk stratification with a pharmacologic stress test at that time which was not pursued. I would try and do this during this admission. Begin aspirin 81mg daily. Continue telemetry? No
[2018-04-03 13:57] VITALS: BP 104/50
[2018-04-03 21:49] VITALS: BP 110/58
[2018-04-04 06:25] VITALS: BP 144/84
[2018-04-04 08:25] LABS: ABSOLUTE BASOPHIL COUNT 0 /CUMM (0.0-0.2); ABSOLUTE EOSINOPHIL COUNT 0 /CUMM (0.0-0.7); ABSOLUTE LYMPH COUNT 0.6 /CUMM (1.2-3.4); ABSOLUTE MONOCYTE COUNT 0.5 /CUMM (0.10-0.60); EOSINOPHIL % 0.1 % (0-5)
[2018-04-04 09:00] LABS: BASOPHIL % 0 % (0.0-2.0); MEAN CORPUSCULAR HGB 27.8 PG (27.0-31.0); MEAN CORPUSCULAR HGB CONC 32.9 G/DL (33.0-37.0); MEAN CORPUSCULAR VOLUME 84.3 FL (81.0-99.0); MEAN PLATELET VOLUME 8.8 FL (7.4-10.4); PLATELET COUNT 274 /CUMM (130-400); RBC DISTRIBUTION WIDTH 17.4 % (11.5-14.5); RED BLOOD CELL CT 3.76 /CUMM (4.20-5.40); WHITE BLOOD CELL COUNT 10.2 /CUMM (4.8-10.8)
[2018-04-04 09:03] LABS: HEMATOCRIT 31.7 % (37-47)
[2018-04-04 09:12] LABS: GRANULOCYTE % 88.4 % (42.2-75.2)
--- NOTE | 2018-04-04 10:32 | PN- Housestaff ---
LuevanoEvert 04/04/18 1026: Subjective Follow-up For: acute hypoxic respiratory failure Complaints: no complaints Subjective: Patient seen and examined at bedside. Patient has no c/o. Patient states she had walked around the floor yesterday and really enjoyed it, denies SOB, cough today. Patient says she would like to go home her cat is waiting for her, she says she is doing much better since coming into the hospital. Patient states she has been unable to sleep for the past 2 nights, has been feeling restless, states she always feeling like this in a hospital, but this time its worse then before. States she does not want anything to help her sleep, as she does not like it. Review of Systems Constitutional: Denies: chills, diaphoresis, fever. Objective Last 24 Hrs of Vital Signs/I&O Vital Signs Date Time Temp Pulse Resp B/P B/P Pulse O2 O2 Flow FiO2 Mean Ox Delivery Rate 04/04 0806 95 Nasal 2.5L Cannula 04/04 0800 95 Nasal 2.5L Cannula 04/04 0758 76 144/84 04/04 0625 97.4 76 18 144/84 97 Nasal 2.5L Cannula 04/04 0000 96 Nasal 2.5L Cannula 04/03 2149 97.7 79 18 110/58 97 Nasal 2.5L Cannula 04/03 1625 96 Nasal 2.5L Cannula 04/03 1600 Nasal 2.5L Cannula 04/03 1452 Nasal Cannula 04/03 1357 98.2 85 20 104/50 97 BIPAP Intake & Output 04/04 1600 04/04 0800 04/04 0000 Intake Total 240 480 Output Total Balance 240 480 Intake, Oral 240 480 Patient 134 lb Weight Physical Exam General Appearance: Alert, Oriented X3, Cooperative Skin: No Rashes HEENT: Atraumatic, EOMI Neck: Supple, No LAD Cardiovascular: Regular Rate, Normal S1, Normal S2 Lungs: Clear to Auscultation, decreased breath sounds throughout, no wheezing appreciated bilat. Abdomen: Normal Bowel Sounds, Soft, No Tenderness Neurological: Normal Speech Extremities: No Cyanosis, No Edema, Normal Pulses Vascular: Normal Pulses, Pulses Symmetrical Assessment/Plan Assessment: 52-year-old woman, from home with past medical history significant for COPD on home oxygen 2 L, anxiety, depression, HFpEF, hypertension, chronic back pain, prediabetic, anemia, vitamin D deficiency, nephrolithiasis, GERD, hyperlipidemia who was found to be experiencing COPD exacerbation as well as infection from pneumonia. She was admitted to the general medicine floor for further care. #COPD exacerbation - Steriod taper - wean down Oxygen from 2.5 L to 2.0 L - Continue inhaled COPD medications #PNA -Start Ceftin 500mg BID, DC Ceftriaxone and Azithromycin. Per Pulm. rec's. -Order CXR for 04/05/18 -monitor WBC (14 at admission) #chronic illnesses -Continue home medications -Patient will need outpatient referral to PCP for follow-up for elevated glucose while inpatient with a blood glucose of 204 upon admission Problem List: 1. COPD exacerbation Pain Ratin Pain Location: n/a Pain Goal: Remain pain free Pain Plan: n/a Tomorrow's Labs & Rationales: cbc DVT/Prophylaxis: mechanical, pharmacological Megan Suh MD 04/04/18 1656: Attending MD Review Statement Attending Statement Attending MD Statement: examined this patient, discuss w/resident/PA/HUMAN RESOURCE ASSISTANT, agreed w/resident/PA/HUMAN RESOURCE ASSISTANT, reviewed EMR data (avail) Attending Assessment/Plan: 82F PMH COPD on home oxygen 2 L, anxiety, depression, HFpEF, hypertension, chronic back pain, prediabetic, anemia, vitamin D deficiency, nephrolithiasis, GERD, hyperlipidemia admitted for COPD exacerbation secondary to LLL pneumonia, placed on Ceftriaxone and Azithromycin with Prednisone. Patient was very short of breath on admission but is doing well today, ambulating without dyspnea, minimal wheezing, on 2.5L NC. WBC improved, afebrile, stable vitals, remaining exam benign. Required 10L oxygen on arrival. 1. LLL pneumonia 2. COPD Exacerbation 3. Acute on chronic hypoxemic respiratory failure Plan - Continue on general medicine - Prednisone taper - Ceftriaxone and Azithromycin. Complete 5 days of Azithromycin, tomorrow discontinue Ceftriaxone and start Ceftin - Sputum culture - Repeat CXR tomorrow morning - Follow pulmonary and cardiology recommendations - Continue home medications - DVT PPx
--- NOTE | 2018-04-04 13:54 | PN- Pulmonary ---
Subjective HPI/Critical Care Issues: Patient seen and examined at bedside. Patient has no c/o. Patient states she had walked around the floor yesterday and really enjoyed it, denies SOB, cough today. Patient says she would like to go home her cat is waiting for her, she says she is doing much better since coming into the hospital. Patient states she has been unable to sleep for the past 2 nights, has been feeling restless, states she always feeling like this in a hospital, but this time its worse then before. States she does not want anything to help her sleep, as she does not like it. Review of Systems Constitutional: Denies: chills, diaphoresis, fever. Objective Current Medications: Current Medications Sig/Dom Start time Last Medication Dose Route Stop Time Status Admin Acetaminophen 500 MG Q8P PRN 04/02 1330 AC PO Albuterol Sulfate 3 ML EVERY 4 HRS/AWAKE 04/02 1600 AC 04/04 INH 1329 Aspirin 81 MG DAILY 04/03 0900 AC 04/04 PO 0758 Azithromycin 250 MG DAILY 04/03 0900 AC 04/04 PO 04/06 1200 0757 Ceftriaxone Sodium 1,000 MG DAILY 04/03 0900 AC 04/04 IV 04/06 1200 0758 Citalopram 20 MG DAILY 04/02 1330 AC 04/04 Hydrobromide PO 0759 Enoxaparin Sodium 40 MG DAILY 04/03 0900 AC 04/04 SC 0757 Furosemide 20 MG DAILY 04/02 1331 AC 04/04 PO 0759 Ipratropium [place] 2.5 ML EVERY 4 HRS/AWAKE 04/02 1600 AC 04/04 INH 1329 Methylprednisolone 40 MG Q12 04/03 2100 DC 04/04 IV 04/04 1000 0757 Metoprolol Succinate 25 MG DAILY 04/02 1331 AC 04/04 PO 0758 Prednisone 10 MG DAILY 04/09 900 AC PO 04/09 09 Prednisone 20 MG DAILY 04/08 900 AC PO 04/08 901 Prednisone 30 MG DAILY 04/06 900 AC PO 04/07 901 Prednisone 40 MG DAILY 04/05 900 CAN PO 04/10 08 Prednisone 40 MG DAILY 04/05 900 AC PO 04/05 0901 Spironolactone 25 MG DAILY 04/02 1331 AC 04/04 PO 0758 Vital Signs & I&O Last 24 Hrs of Vitals and I&O: Vital Signs Date Time Temp Pulse Resp B/P B/P Pulse O2 O2 Flow FiO2 Mean Ox Delivery Rate 04/04 0806 95 Nasal 2.5L Cannula 04/04 0800 95 Nasal 2.5L Cannula 04/04 0758 76 144/84 04/04 0625 97.4 76 18 144/84 97 Nasal 2.5L Cannula 04/04 0000 96 Nasal 2.5L Cannula 04/03 2149 97.7 79 18 110/58 97 Nasal 2.5L Cannula 04/03 1625 96 Nasal 2.5L Cannula 04/03 1600 Nasal 2.5L Cannula 04/03 1452 Nasal Cannula 04/03 1357 98.2 85 20 104/50 97 BIPAP Intake & Output 04/04 0800 04/04 0000 Intake Total 240 480 Output Total Balance 240 480 Intake, Oral 240 480 Patient 134 lb Weight Laboratory Tests 04/04 04/03 0611 0935 Blood Gas pH (7.35 - 7.45 PH) 7.44 pCO2 (35 - 45 TORR) 44 pO2 (80 - 100 TORR) 66 L HCO3 (21 - 28 MEQ/L) 29 H ABG O2 Sat (Measured) (>96.0 %) 93.0 L Carboxyhemoglobin (1.5 - 5.0 %) 0.7 L O2 Concentration % 2.5L O2 Delivery Method [place] [facility] CBC w Diff NO MAN DIFF REQ WBC (4.8 - 10.8 /CUMM) 10.2 RBC (4.20 - 5.40 /CUMM) 3.76 L Hgb (12.0 - 16.0 G/DL) 10.4 L Hct (37 - 47 %) 31.7 L MCV (81.0 - 99.0 FL) 84.3 MCH (27.0 - 31.0 PG) 27.8 MCHC (33.0 - 37.0 G/DL) 32.9 L RDW (11.5 - 14.5 %) 17.4 H Plt Count (130 - 400 /CUMM) 274 MPV (7.4 - 10.4 FL) 8.8 Gran % (42.2 - 75.2 %) 88.4 H Lymphocytes % (20.5 - 51.1 %) 6.2 L Monocytes % (1.7 - 9.3 %) 5.3 Eosinophils % (0 - 5 %) 0.1 Basophils % (0.0 - 2.0 %) 0 Absolute Granulocytes (1.4 - 6.5 /CUMM) 9.0 H Absolute Lymphocytes (1.2 - 3.4 /CUMM) 0.6 L Absolute Monocytes (0.10 - 0.60 /CUMM) 0.5 Absolute Eosinophils (0.0 - 0.7 /CUMM) 0 Absolute Basophils (0.0 - 0.2 /CUMM) 0 Miscellaneous Phlebotomy Draw Site RIGHT BRACHIAL Microbiology Date/Time Procedure - Status Source Growth 04/03 1000 Legionella Antigen - COMP URINE ROUT 04/03 1000 Streptococcus pneumoniae Antigen (M - COMP URINE ROUT 04/03 700 Respiratory Culture - CAN LOWER RESP Cancelled: SPECIMEN NOT RECEIVED IN LABORATORY 04/03 700 Gram Stain - CAN LOWER RESP Cancelled: SPECIMEN NOT RECEIVED IN LABORATORY Impression/Plan Impression/Plan Impression/Plan: General Appearance: Alert, Oriented X3, Cooperative Skin: No Rashes HEENT: Atraumatic, EOMI Neck: Supple, No LAD Cardiovascular: Regular Rate, Normal S1, Normal S2 Lungs: Clear to Auscultation, decreased breath sounds throughout, no wheezing appreciated bilat. Abdomen: Normal Bowel Sounds, Soft, No Tenderness Neurological: Normal Speech Extremities: No Cyanosis, No Edema, Normal Pulses Vascular: Normal Pulses, Pulses Symmetrical 82-year-old woman with COPD admitted with exacerbation complicated by acute hypercapnic respiratory failure Community acquired pneumonia REc COnt abx Change to po ceftin in am Cxr in am Nebs Wean oxygen down will follow
[2018-04-04 14:40] VITALS: BP 103/66
--- NOTE | 2018-04-04 15:32 | PN- Cardiology ---
Subjective Subjective: * Patient reports taking a walk with a walker yesterday and feeling much improved. Less shaky and no shortness of breath at rest. Objective Vital Signs and I&Os Vital Signs Date Time Temp Pulse Resp B/P B/P Pulse O2 O2 Flow FiO2 Mean Ox Delivery Rate 04/04 1440 98.2 87 20 103/66 94 Nasal 2.5L Cannula 04/04 0806 95 Nasal 2.5L Cannula 04/04 0800 95 Nasal 2.5L Cannula 04/04 0758 76 144/84 04/04 0625 97.4 76 18 144/84 97 Nasal 2.5L Cannula 04/04 0000 96 Nasal 2.5L Cannula 04/03 2149 97.7 79 18 110/58 97 Nasal 2.5L Cannula 04/03 1625 96 Nasal 2.5L Cannula 04/03 1600 Nasal 2.5L Cannula Intake & Output 04/04 1600 04/04 0800 04/04 0000 04/03 1600 04/03 0800 04/03 0000 Intake Total 950 240 480 850 150 360 Output Total 650 750 100 370 Balance 300 240 480 100 50 -10 Intake, IV 10 Intake, Oral 950 240 480 850 150 350 Number 0 Bowel Movements Output, Urine 650 750 100 370 Patient 134 lb 144 lb Weight Weight Bed scale Measurement Method Physical Exam: General: WD/WN female in NAD; alert and oriented x 3 HEENT: NC/AT, PERRL, EOMI Neck: no JVD, no carotid bruit Heart: RRR w/o murmur Lungs: severely decreased breath sounds bilaterally, no crackles or wheezing ABdomen: soft, NT, +ve bowel sounds Extremities: no edema Assessment/Plan Assessment/Plan * This patient has underlying interstitial lung disease as well as COPD. At this time I believe this patient has a pneumonia which is improving on her current antibiotic. I am less suspicious of decompensated CHF. She should be continues on her usual dose of lasix. f Patient has also been started on steroids. * On a prior admission the patient had a chest CT to assess for a pulmonary embolism. Although a PE was not found, she was noted to have coronary artery calcifications. I did recommend risk stratification with a pharmacologic stress test at that time which was not pursued. I would try and do this during this admission. Continue aspirin 81mg daily. Continue telemetry? No
[2018-04-04 21:36] VITALS: BP 146/85
[2018-04-05 06:28] VITALS: BP 176/72
--- NOTE | 2018-04-05 08:28 | PN- Housestaff ---
See Addendum Subjective Follow-up For: Acute hypoxic respiratory failure Subjective: Patient seen and examined at bedside. Patient has no complaint. Denies shortness of breath and cough today. Patient says she would like to go home, her cat is waiting for. Says she is doing much better since coming to the hospital. States she slept well last night after not sleeping for the 2 nights before. Ready to go home, plan to discharge later today. Review of Systems Constitutional: Reports: no symptoms. Objective Last 24 Hrs of Vital Signs/I&O Vital Signs Date Time Temp Pulse Resp B/P B/P Pulse O2 O2 Flow FiO2 Mean Ox Delivery Rate 04/05 1357 98.6 72 18 128/72 92 Nasal 2.0L Cannula 04/05 1308 98.2 72 128/72 04/05 0825 94 Nasal 2.5L Cannula 04/05 0800 94 Nasal 2.0L Cannula 04/05 0643 83 176/72 04/05 0639 98.7 83 20 97 Nasal 2.0L Cannula 04/05 0628 176/72 04/05 0000 96 Nasal 2.0L Cannula 04/04 2136 98.5 78 17 146/85 99 Nasal 2.5L Cannula 04/04 1701 95 Nasal 2.5L Cannula 04/04 1600 Nasal 2.5L Cannula 04/04 1440 98.2 87 20 103/66 94 Nasal 2.5L Cannula Intake & Output 04/05 1600 07/08 0800 08 0000 Intake Total 10 480 Output Total Balance 10 480 Intake, IV 10 Intake, Oral 0 480 Number 0 Bowel Movements Patient 140 lb Weight Weight Bed scale Measurement Method Physical Exam General Appearance: Alert, Oriented X3, Cooperative, Mild Distress Skin: No Rashes, No Breakdown Skin Temp/Moisture Exam: Warm/Dry HEENT: Atraumatic, PERRLA, EOMI Neck: Supple, No JVD, No thryomegaly Cardiovascular: Regular Rate, Normal S1, Normal S2, No Murmurs Lungs: Clear to Auscultation, no wheezes appreciated, possible decreased breath sounds Abdomen: Soft, No Tenderness Neurological: Normal Speech Assessment/Plan Assessment: 52-year-old woman, from home with past medical history significant for COPD on home oxygen 2 L, anxiety, depression, HFpEF, hypertension, chronic back pain, prediabetic, anemia, vitamin D deficiency, nephrolithiasis, GERD, hyperlipidemia who was found to be experiencing COPD exacerbation as well as infection from pneumonia. She was admitted to the general medicine floor for further care. Discharge this afternoon after confirming with son. Problem list: Plan: pulmonary's recommendations while inpatient DVT prophylaxis: Subcu heparin and ALPS Patient is DNR/DNI Problem List: 1. COPD exacerbation Pain Ratin Pain Location: None Pain Goal: Remain pain free Pain Plan: None Tomorrow's Labs & Rationales: None, discharge
[2018-04-05 09:20] LABS: ABSOLUTE BASOPHIL COUNT 0 /CUMM (0.0-0.2); ABSOLUTE EOSINOPHIL COUNT 0 /CUMM (0.0-0.7); ABSOLUTE GRANULOCYTE CT 5.9 /CUMM (1.4-6.5); ABSOLUTE LYMPH COUNT 1.4 /CUMM (1.2-3.4); ABSOLUTE MONOCYTE COUNT 0.9 /CUMM (0.10-0.60); BASOPHIL % 0.4 % (0.0-2.0); EOSINOPHIL % 0.4 % (0-5); GRANULOCYTE % 71.5 % (42.2-75.2); HEMATOCRIT 32.4 % (37-47); MEAN CORPUSCULAR HGB 27.6 PG (27.0-31.0); MEAN CORPUSCULAR HGB CONC 32.7 G/DL (33.0-37.0); MEAN CORPUSCULAR VOLUME 84.6 FL (81.0-99.0); MEAN PLATELET VOLUME 8.9 FL (7.4-10.4); PLATELET COUNT 284 /CUMM (130-400); RBC DISTRIBUTION WIDTH 16.9 % (11.5-14.5); RED BLOOD CELL CT 3.83 /CUMM (4.20-5.40); WHITE BLOOD CELL COUNT 8.3 /CUMM (4.8-10.8)
--- NOTE | 2018-04-05 10:44 | RADIOLOGY REPORT ---
EXAMINATION: XR PORTABLE CHEST CLINICAL INFORMATION: Dyspnea. Decreased air entry. History of chronic obstructive pulmonary disease. COMPARISON: CXR from 12/23/2017 and 04/02/2018 TECHNIQUE: Portable frontal view of the chest was obtained. FINDINGS: Chronic pulmonary emphysema. Peribronchial interstitial thickening has decreased/improved compared to 04/02/2018. Also, the patchy airspace opacities within the left lung have resolved. There is a linear focus of atelectasis or scarring within the lingula. Again noted is the large cardiac silhouette and atherosclerotic aorta. The right lateral costophrenic sulcus is blunted from a small pleural effusion. Bones appear diffusely osteoporotic. IMPRESSION: 1. Pulmonary emphysema and chronic thickening of bronchial palmer. Findings are compatible with chronic obstructive pulmonary disease. Radiographically unable to exclude active bronchitis. 2. There is relatively rapid improvement in previous noted abnormal interstitial thickening and patchy airspace opacity compared to 04/02/2018. This suggests resolving cardiogenic pulmonary edema. 3. Persistent small right pleural effusion.
[2018-04-05] MEDS ORDERED: CEFUROXIME500 MG PO ×2 (10:51→11:19)
[2018-04-05] MEDS ORDERED: AZITHROMYCIN500 M3 PO ×2 (10:51→11:19)
[2018-04-05] MEDS ORDERED: PREDNISONE10 M2 PO ×3 (10:55→11:20)
--- NOTE | 2018-04-05 12:18 | PN- Pulmonary ---
Subjective HPI/Critical Care Issues: Stable no sig fever or cough Objective Current Medications: Current Medications Sig/Dom Start time Last Medication Dose Route Stop Time Status Admin Acetaminophen 500 MG Q8P PRN 04/02 1330 AC PO Albuterol Sulfate 3 ML EVERY 4 HRS/AWAKE 04/02 1600 AC 04/05 INH 1156 Aspirin 81 MG DAILY 04/03 0900 AC 04/05 PO 0926 Azithromycin 250 MG DAILY 04/05 1100 AC 04/05 PO 1120 Azithromycin 250 MG DAILY 04/03 900 DC 04/04 PO 04/06 1200 0757 Ceftriaxone Sodium 1,000 MG DAILY 04/03 900 DC 04/04 IV 04/06 1200 0758 Cefuroxime Sodium 500 MG Q12 04/04 2100 AC 04/05 PO 0927 Citalopram 20 MG DAILY 04/02 1330 AC 04/05 Hydrobromide PO 0926 Enoxaparin Sodium 40 MG DAILY 04/03 0900 AC 04/05 SC 0926 Furosemide 20 MG DAILY 04/02 1331 AC 04/05 PO 0926 Ipratropium [place] 2.5 ML EVERY 4 HRS/AWAKE 04/02 1600 AC 04/05 INH 1156 Metoprolol Succinate 25 MG DAILY 04/02 1331 AC 04/05 PO 0643 Prednisone 10 MG DAILY 04/09 900 AC PO 04/09 09 Prednisone 20 MG DAILY 04/08 900 AC PO 04/08 09 Prednisone 30 MG DAILY 04/06 900 AC PO 04/07 0901 Prednisone 40 MG DAILY 04/05 0900 DC 04/05 PO 04/05 0901 0926 Spironolactone 25 MG DAILY 04/02 1331 AC 04/05 PO 0926 Vital Signs & I&O Last 24 Hrs of Vitals and I&O: Vital Signs Date Time Temp Pulse Resp B/P B/P Pulse O2 O2 Flow FiO2 Mean Ox Delivery Rate 04/05 825 94 Nasal 2.0L Cannula 04/05 08 94 Nasal 2.0L Cannula 04/05 0643 83 176/72 04/05 0639 98.7 83 20 97 Nasal 2.0L Cannula 04/05 0628 176/72 04/05 0000 96 Nasal 2.0L Cannula 04/04 2136 98.5 78 17 146/85 99 Nasal 2.5L Cannula 04/04 1701 95 Nasal 2.5L Cannula 04/04 1600 Nasal 2.5L Cannula 04/04 1440 98.2 87 20 103/66 94 Nasal 2.5L Cannula Intake & Output 04/05 1600 04/05 0800 04/05 0000 Intake Total 10 480 Output Total Balance 10 480 Intake, IV 10 Intake, Oral 0 480 Number 0 Bowel Movements Patient 140 lb Weight Weight Bed scale Measurement Method Impression/Plan Impression/Plan Impression/Plan: General Appearance: Alert, Oriented X3, Cooperative Skin: No Rashes HEENT: Atraumatic, EOMI Neck: Supple, No LAD Cardiovascular: Regular Rate, Normal S1, Normal S2 Lungs: Clear to Auscultation, decreased breath sounds throughout, no wheezing appreciated bilat. Abdomen: Normal Bowel Sounds, Soft, No Tenderness Neurological: Normal Speech Extremities: No Cyanosis, No Edema, Normal Pulses Vascular: Normal Pulses, Pulses Symmetrical IMPRESSION: 1. Pulmonary emphysema and chronic thickening of bronchial palmer. Findings are compatible with chronic obstructive pulmonary disease. Radiographically unable to exclude active bronchitis. 2. There is relatively rapid improvement in previous noted abnormal interstitial thickening and patchy airspace opacity compared to 04/02/2018. This suggests resolving cardiogenic pulmonary edema. 3. Persistent small right pleural effusion. DICTATED BY: Fernando Marte MD DATE/TIME DICTATED:04/05/185 82-year-old woman with COPD admitted with exacerbation complicated by acute hypercapnic respiratory failure now resolved Community acquired pneumonia REc COnt abx Ceftin for a total abx of 7 days Cxr in am Nebs Wean oxygen down will follow ok to dc
[2018-04-05 13:08] VITALS: BP 128/72
[2018-04-05 13:57] VITALS: BP 128/72
--- NOTE | 2018-04-06 10:30 | Discharge Summary ---
Visit Information Visit Dates Admission Date: 04/02/18 Discharge Date: 04/05/18 Hospital Course Course Attending Physician: Roland Santos MD Primary Care Physician: Chirag WEST,[facility] Course: Ms. Vidal is an 82-year-old woman, from home with past medical history significant for COPD on home oxygen 2 L, anxiety, depression, HFpEF, hypertension, chronic back pain, prediabetic, anemia, vitamin D deficiency, nephrolithiasis, GERD, hyperlipidemia who was found to be experiencing COPD exacerbation as well as infection from pneumonia. She was admitted to the general medicine floor and treated for the following problems: Problem List: 1. Acute on chronic respiratory failure 2/2 COPD 2. Pneumonia Admission Data: Pulse 117, RR 40, BP 200/96 Sats 82% on CPAP Chest x-ray significant for Superimposed on chronic diffuse coarse interstitial thickening, there is new airspace opacity in the left midlung and left lung base which could represent atelectasis or pneumonia. ABG on Bipap 7.34./49/117. Labs significant for mild leukocytosis and elevated ProBNP 998. #COPD exacerbation-the patient was started on IV steroids and then an oral steroid taper. She was continued on all her COPD inhaled medications. She was seen by Pulmonology who recommended continued antibiotic treatment and weaning of oxygen. She was weaned down on her oxygen and stable for discharge home on 04/05/18 with a prescriptions for Cefuroxime 500mg PO and Azithromycin 500mg daily for 4 more days. She was continued on a Prednisone taper. She will follow up with both Cardiology: Dr. Montanez and Pulmonology outpatient. #PNA: She was treated with a 5 day course of Ceftriaxone/azithromycin. Her WBC was monitored. #Chronic illnesses-she was continued on all her home medications. Cardiology was consulted given patient's history of CHF. A stress test was recommended, but the patient refused. During the course of her hospital stay, she was found to have an elevated blood glucose of 204. Recommend checking HgA1c outpatient. Allergies: Coded Allergies: Sulfa (Sulfonamide Antibiotics) (Intermediate, "ITCHY" - MED LIST FROM MD OFFICE SAYS TERESA MAYER RASH 12/25/15) Disposition Summary Disposition Principal Diagnosis: COPD exacerbation Pneumonia Additional Diagnosis: Acute on chronic hypoxic respiratory failure Discharge Disposition: home health services Discharge Instructions General Discharge Information Code Status: Do Not Resucitate/Intubat Patient's Diet: Regular Patient's Activity: as tolerated Follow-Up Instructions/Appts: Patient is to continue antibiotics as prescribed and follow up with PCP, Cardiology, and Pulmonology Medications at Discharge Discharge Medications: Continue taking these medications: Ipratropium [place] (Ipratropium [place]) 0.2 MG/ML (0.02 %) SOLUTION 1 Vial Inhale Solution THREE TIMES DAILY Comments: Last Taken: 04/05/18 Time: 1200PM Albuterol Sulfate (Proair Hfa) 90 MCG HFA.AER.AD 2 Puff Inhale through mouth Q4H as needed for SHORTNESS OF BREATH Comments: NOT GIVEN IN HOSPITAL Albuterol Sulfate (Albuterol Sulfate) 2.5 MG/3 ML (0.083 %) VIAL.NEB 1 Vial Inhale Solution THREE TIMES DAILY Comments: Last Taken: 04/05/18 Time: 0800 Acetaminophen (Acetaminophen) 500 MG TABLET 500 Milligram ORAL EVERY 8 HOURS NEEDED as needed for PAIN SCALE 1-3 ( MILD) Days = 10 Comments: NOT GIVEN IN HOSPITAL Lidocaine (Lidoderm) 5 % ADH..PATCH 1 Patch ON SKIN Q24H as needed for PAIN Days = 7 Comments: NOT GIVEN IN HOSPITAL Aspirin (Aspirin*) 81 MG TAB.CHEW 81 Milligram ORAL DAILY Qty = 30 Comments: Last Taken: 04/05/18 Time: 9AM Metoprolol Succinate (Metoprolol Succinate) 25 MG TAB 1 Tablet ORAL DAILY Qty = 90 Comments: Last Taken:04/05/18 Time:8:00AM Citalopram Hydrobromide (Citalopram HBr) 20 MG TABLET 1 Tablet ORAL DAILY Qty = 90 Comments: Last Taken:04/05/18 Time:8:00AM Spironolactone (Spironolactone) 25 MG TABLET 1 Tablet ORAL DAILY Qty = 90 Comments: Last Taken:04/05/18 Time:8:00AM Furosemide (Lasix) 20 MG TABLET 1 Tablet ORAL DAILY Qty = 30 Comments: Last Taken:04/05/18 Time:8:00AM Start taking the following new medications: Cefuroxime Axetil (Cefuroxime) 500 MG TABLET 1 Tablet ORAL TWICE DAILY Qty = 9 No Refills Instructions: . Comments: Last Taken: 04/05/18 Time: 0900 Azithromycin (Azithromycin) 500 MG TABLET 1 Tablet ORAL DAILY Qty = 3 No Refills Instructions: . Comments: Last Taken: 04/05/18 Time: 1100 Prednisone (Prednisone) 10 MG TABLET 0 ORAL SEE INSTRUCTIONS Qty = 10 No Refills Instructions: On Take 04/06 - 04/07 30mg - take 3 tabs daily 04/08 20 MG - take 2 tabs daily 04/09 10 MG - take 1 tab daily then stop.. Comments: Last Taken: 04/05/18 Time: 0900 Copies To: Shruti WEST,Junior SSohan; Chirag WEST,Jj; Tarik WEST PHD,Mickey Bryant Attending MD Review Statement Documenting Attending: Roland Santos MD Other Findings: The patient was seen and agree with the summary of care and plan of care as outlined.
== END 2018-04-05 16:00 | disposition home health service (06) | DRG 193 ==
LOC: ERH 08:31 → 2NB 10:33 → ERHI 10:33 → ENRESERV 11:06 → ENTRNSPT 11:56 → EDTRNSPT 12:01 → EDTRNSPTSTS 12:01 → 2NB 12:09 → CMPTRNSPT 12:15 → ENPENDDIS 04-05 11:28 → 2NB 04-05 16:00
PROVIDERS: Emergency Medicine; Hospitalist; Internal Medicine
PROC: 5A09357 Assistance with Respiratory Ventilation, Less than 24 Consecutive Hours, Continuous Positive Airway Pressure (ICD-10-PCS; principal; 2018-04-02)
DX: J18.9 Pneumonia, unspecified organism (principal); J96.21 Acute and chronic respiratory failure with hypoxia; I50.32 Chronic diastolic (congestive) heart failure; J84.9 Interstitial pulmonary disease, unspecified; J44.0 Chronic obstructive pulmonary disease with (acute) lower respiratory infection; J44.1 Chronic obstructive pulmonary disease with (acute) exacerbation; I11.0 Hypertensive heart disease with heart failure; Z99.81 Dependence on supplemental oxygen; G89.29 Other chronic pain; D64.9 Anemia, unspecified; M54.9 Dorsalgia, unspecified; K21.9 Gastro-esophageal reflux disease without esophagitis; I25.2 Old myocardial infarction; E78.2 Mixed hyperlipidemia; E55.9 Vitamin D deficiency, unspecified; G47.33 Obstructive sleep apnea (adult) (pediatric); Z88.2 Allergy status to sulfonamides; F32.9 Major depressive disorder, single episode, unspecified; F41.9 Anxiety disorder, unspecified
CPT/HCPCS: 2NBP; 36415; 36592; 71045; 87070; 87449; 87450; 93005; 93010; J0456; J0696; J1650; J2405; J2920; J2930; J3490; J7040; J7512